=== PATIENT | male | born 1965 | race Caucasian/White ===

== ENCOUNTER 2022-05-11 11:17 | Outpatient (CLI) | payer BC, SELFPAY ==
[2022-05-11 18:25] LABS: PCR FLU A POSITIVE PCR FLU A (Negative); PCR FLU B Negative PCR FLU B (Negative); PCR RSV Negative PCR RSV (Negative)
[2022-05-11 18:28] LABS: SARS PCR* Negative SARS-CoV-2 (Negative)
== END 2022-05-11 11:18 | disposition home or self-care (01) ==
LOC: LONREF 11:17
PROVIDERS: PCP Family Medicine; Visit Provider Family Medicine
DX: Z20.822 Contact with and (suspected) exposure to COVID-19 (principal); R05.9 Cough, unspecified
CPT/HCPCS: 87502; 87634; 87635

== ENCOUNTER 2022-05-13 11:48 | Outpatient (CLI) | payer BC, SELFPAY ==
[2022-05-13 16:13] LABS: Chloride* 100 mmol/L (96-114); Potassium* 3.7 mmol/L (3.6-5.1); Sodium* 136 mmol/L (135-149)
[2022-05-13 16:15] LABS: Estimated Glomerular Filt Rate 87 ml/min
[2022-05-13 16:16] LABS: Alanine Aminotransferase* 45 U/L (4-50); Alkaline Phosphatase* 74 U/L (40-150); Aspartate Amino Transferase* 31 U/L (12-35); Blood Urea Nitrogen* 14 mg/dL (7-30); Calcium* 8.9 mg/dL (8.4-10.6); Carbon Dioxide* 26 mmol/L (20-32); Glucose* 119 mg/dL (60-115); Total Protein* 6.6 g/dL (6.0-8.3)
== END 2022-05-13 11:49 | disposition home or self-care (01) ==
LOC: LONREF 11:48
PROVIDERS: PCP Family Medicine; Visit Provider Family Medicine
DX: R63.0 Anorexia (principal)
CPT/HCPCS: 80053

== ENCOUNTER 2022-05-21 08:40 | Outpatient (CLI) | payer BC, SELFPAY ==
--- NOTE | 2022-05-21 09:00 | CRLHL7_ITS ---
For Patients: As a result of the Century Cures Act, medical imaging exams and procedure reports are released immediately into your electronic medical record. You may view this report before your referring provider. If you have questions, please contact your health care provider. Indication: LUNG MASS Technique: Post contrast CT chest. 75 cc Isovue 370 intravenous contrast. Please note that all CT scans at this facility use dose modulation, iterative reconstruction, and/or weight-based dosing when appropriate to reduce radiation dose to as low as reasonably achievable. Comparison: Chest x-ray 05/13/2022 Findings: 3.3 millimeter nodule within the right middle lobe, 3/53. Subtle ground-glass nodule measuring 3 millimeters right upper lobe, 3/32. Mild scarring at the lung apices. 3 millimeter peripheral nodule within the right lower lobe posteriorly, 3/48. 4.6 millimeter nodule right lower lobe, 3/58. 6.1 millimeter nodule left lower lobe, 3/93. 2.8 millimeter nodule superior segment left lower lobe adjacent to the fissure, 3/36. 3.4 millimeter nodule left upper lobe 3/51. 4.4 millimeter nodule within the lingula, 3/80. Ground-glass densities located within the right middle lobe adjacent to the hilum accounting for the radiographic density. No pneumothorax. No pleural effusion. The spleen is enlarged measuring 16 cm. Normal adrenal glands. Subtle hypodensity within the dome of the liver measuring 1.1 cm, . Upper limits of normal mediastinal and right hilar lymph nodes measuring up to 9 millimeters. Visualized thyroid normal. No fracture. Impression: Right perihilar right middle lobe infiltrate. Bilateral pulmonary nodules measuring up to 6.1 millimeters. Upper limits of normal mediastinal and right hilar lymph nodes. Indeterminate 1.1 cm hypodensity in the dome of the liver. Recommendations: Follow-up CT chest without contrast in 3 months. MRI of the liver with without contrast. Please note that all CT scans at this facility use dose modulation, iterative reconstruction, and/or weight-based dosing when appropriate to reduce radiation dose to as low as reasonably achievable. Dictated by Bobby Silva MD @ 05/21/2022 11:17:46 AM (Electronically Signed)
== END 2022-05-21 08:41 | disposition home or self-care (01) ==
LOC: CT 08:41
PROVIDERS: PCP Family Medicine; Visit Provider Family Medicine
DX: R93.89 Abnormal findings on diagnostic imaging of other specified body structures (principal); R91.8 Other nonspecific abnormal finding of lung field; K76.9 Liver disease, unspecified
CPT/HCPCS: 71260; Q9967

== ENCOUNTER 2022-06-08 07:05 | Outpatient (CLI) | payer BC, SELFPAY ==
--- NOTE | 2022-06-08 07:15 | CRLHL7_ITS ---
For Patients: As a result of the Century Cures Act, medical imaging exams and procedure reports are released immediately into your electronic medical record. You may view this report before your referring provider. If you have questions, please contact your health care provider. INDICATION: Liver lesion; further assessment. COMPARISON: CT chest May 21, 2022. TECHNIQUE: Precontrast T1 and T2 weighted imaging; T2 haste imaging; diffusion weighted imaging; in and out of phase imaging; postcontrast imaging including subtraction. FINDINGS: A 1.7 cm cavernous hemangioma in the dome of the liver. No other focal hepatic or splenic pathology. No pancreatic pathology. Gallbladder is unremarkable. No adrenal pathology. Kidneys are unremarkable. No retroperitoneal lymphadenopathy. No evidence of abdominal ascites. IMPRESSION: 1. A 1.7 cm cavernous hemangioma dome of the liver. 2. Negative MR of the abdomen without and with intravenous gadolinium. Dictated by Yue Otero MD @ 06/08/2022 3:15:09 PM (Electronically Signed)
== END 2022-06-08 07:06 | disposition home or self-care (01) ==
LOC: MRI 07:05
PROVIDERS: PCP Family Medicine; Visit Provider Family Medicine
DX: R16.0 Hepatomegaly, not elsewhere classified (principal); K76.9 Liver disease, unspecified
CPT/HCPCS: 74183; A9575

== ENCOUNTER 2022-06-24 08:03 | Outpatient (CLI) | payer BC, SELFPAY ==
[2022-06-24 10:53] LABS: Cholesterol* 150 mg/dL (90-199); Glucose* 108 mg/dL (60-115)
[2022-06-24 10:54] LABS: HDL Cholesterol* 49 mg/dL (>=40); LDL Cholesterol Calculated 74 mg/dL (<100); Triglycerides* 135 mg/dL (40-149)
[2022-06-24 11:15] LABS: PSA Screen* 0.59 ng/mL (0.10-4.00)
== END 2022-06-24 08:04 | disposition home or self-care (01) ==
PROVIDERS: PCP Family Medicine; Visit Provider Family Medicine
DX: Z13.1 Encounter for screening for diabetes mellitus (principal); Z13.6 Encounter for screening for cardiovascular disorders; Z80.42 Family history of malignant neoplasm of prostate
CPT/HCPCS: 80061; 82947; 84153

== ENCOUNTER 2022-08-13 07:47 | Outpatient (CLI) | payer BC, SELFPAY ==
--- NOTE | 2022-08-13 08:00 | CRLHL7_ITS ---
For Patients: As a result of the Century Cures Act, medical imaging exams and procedure reports are released immediately into your electronic medical record. You may view this report before your referring provider. If you have questions, please contact your health care provider. Indication: Follow up nodules Technique: Noncontrast CT chest Please note that all CT scans at this facility use dose modulation, iterative reconstruction, and/or weight-based dosing when appropriate to reduce radiation dose to as low as reasonably achievable. Comparison: 05/21/2022 Findings: Bilateral pulmonary nodules measuring up to 6 millimeters are similar to the prior exam. No new nodules. Interval clearing of right-sided infiltrate. Mild scarring in both lung apices along with mild paraseptal emphysematous change. No pneumothorax. No pleural effusion. Visualized thyroid normal. Similar subcentimeter mediastinal lymph nodes. Liver is also unchanged. Adrenal glands normal. No fracture. Impression: Stable bilateral pulmonary nodules measuring up to 6 millimeters. Follow-up low-dose CT in 1 year recommended. Please note that all CT scans at this facility use dose modulation, iterative reconstruction, and/or weight-based dosing when appropriate to reduce radiation dose to as low as reasonably achievable. Dictated by Bobby Silva MD @ 08/13/2022 10:15:03 AM (Electronically Signed)
== END 2022-08-13 07:48 | disposition home or self-care (01) ==
LOC: CT 07:47
PROVIDERS: PCP Family Medicine; Visit Provider Family Medicine
DX: R91.8 Other nonspecific abnormal finding of lung field (principal)
CPT/HCPCS: 71250

== ENCOUNTER 2023-07-01 08:15 | Outpatient (CLI) | payer BC, SELFPAY ==
--- OUTSIDE RECORDS SUMMARY | 2023-07-02 05:58 | XMS_ITS | Clinical Summary ---
Author Name Unknown Organization [facility] Address [place], [place] [address] Care Team Providers Care Health Psychologist Name Role Phone Wilfrid Daly MD Primary Care Provider [phone] Allergies No known active allergies Medications Medication Sig Dispensed Refills Start Date End Date Status polyethylene glycol-electrolyte (GOLYTELY) 236-22.74-6.74 -5.86 gram suspensionIndications :Encounter for screening colonoscopy Drink 3 quarts the day before the procedure and 1 quart 6 hours prior to your procedure time. 4000 mL 0 07/26/2019 Active Active Problems Problem Noted Date Diagnosed Date Adenomatous colon polyp 08/02/2019 Overview: Colonoscopy 07/2019 polyps, repeat in 3 years Encounters Date Type Department Care Team Description 05/03/2023 Nurse Triage [facility] [address] [facility] [address] [facility] [address] [place] [address] Wilfrid Daly MD Hernia (Left upper abdomen) from Last 3 Months Social History Tobacco Use Types Packs/Day Years Used Date Smoking Tobacco: Never Smokeless Tobacco: Never Sex and Gender Information Value Date Recorded Sex Assigned at Not on file Gender Identity Not on file Sexual Orientation Not on file Obstetrics History Last Filed Vital Signs Vital Sign Reading Time Taken Comments Blood Pressure 108/60 08/01/2019 11:21 AM CDT Pulse 68 08/01/2019 11:21 AM CDT Temperature - - Respiratory Rate - - Oxygen Saturation 96% 08/01/2019 11:21 AM CDT Inhaled Oxygen Concentration - - Weight - - Height - - Body Mass Index - - Plan of Treatment Health Maintenance Due Date Last Done Comments COVID-19 vaccine series (#1) 1963 Tdap 1974 Depression screening for age 12+ 1975 HIV for age 15-65 1978 BMI (ht and wt on same day) for age 18+ 1981 Hepatitis C screening for ag e 18-79 1981 Tetanus booster 1983 Lipids for age 45-75 2008 Zoster (shingles) series for age 50+ (1 of 2) 2013 Influenza for age 50-64 01/22/2023 Colonoscopy through age 75 07/31/202907/31, 08/01/2019, 08/01/2019 Pneumococcal series for age 6-64 Aged Out No longer eligible b ased on patient's age to complete this topic Care Teams Health Psychologist Relationship Specialty Start Date End Date Wilfrid Daly MD [address] [place] [address] PCP - General Family Practice 08/01/19
== END 2023-07-01 08:16 | disposition home or self-care (01) ==
LOC: NFLDREF 07-02 05:56
PROVIDERS: PCP Family Medicine; Referring Provider Family Medicine; Visit Provider Family Medicine
DX: Z00.00 Encounter for general adult medical examination without abnormal findings (principal); Z13.6 Encounter for screening for cardiovascular disorders; Z80.42 Family history of malignant neoplasm of prostate
CPT/HCPCS: 80053; 80061; G0103

== ENCOUNTER 2023-07-14 12:49 | Outpatient (CLI) | payer BC, SELFPAY ==
--- OUTSIDE RECORDS SUMMARY | 2023-07-14 12:52 | XMS_ITS | Clinical Summary ---
Author Name Unknown Organization [facility] Address [place], [place] [address] Care Team Providers Care Automobile And Property Underwriter Name Role Phone Wilfrid Daly MD Primary Care Provider [phone] Allergies No known active allergies Medications Medication [...] Department Care Team Description 05/03/2023 Nurse Triage [facility] [address] [facility] [address] [facility] [address] [place] [address] Wilfrid Daly MD Hernia (Left upper abdomen) [...] age to complete this topic Care Teams Automobile And Property Underwriter Relationship Specialty Start Date End Date Wilfrid Daly MD [address] [place] [address] PCP - General Family Practice 08/01/19
--- NOTE | 2023-07-14 13:00 | CT_ITS ---
Patient: DOTTY KENYON Facility:?[facility] Patient ID:?[id number] Site Patient ID:?[id number]. Site :?[id number] Study:?CT-Chest WO-07/14/2023 1:27:31 PM Ordering Physician:MASON ANG Final Report: INDICATION: Pulmonary nodules. Follow-up. TECHNIQUE: Noncontrast chest CT. COMPARISON: August 13, 2022. May 21, 2022. FINDINGS: Stable tiny pulmonary nodules. For example: There is a 2 3 mm right middle lobe carol fissural nodule image 44 series 6. There is a 3-4 mm pulmonary nodule at the right lung base which is also stable, image 44 series 6. A previous identified nodule at the left lung base is no longer evident. There is a very minor atelectasis in each lung base left greater than right. There is an approximately 4 mm stable pulmonary nodule left upper lobe image 43 series 6. No new nodules. No evidence for pleural or pericardial effusions. No thoracic lymphadenopathy. No definite coronary artery calcification. Normal caliber thoracic aorta. Normal adrenal glands. The visualized portions of the spleen, kidneys, and liver are unremarkable. The included skeleton is within normal limits. IMPRESSION: Tiny bilateral pulmonary nodules none of which measure more than 4-5 mm. Resolution of a nodule at the left lung base. No new nodules. Consider follow-up chest CT in 1 year. Please note that all CT scans at this facility use dose modulation, iterative reconstruction, and/or weight-based dosing when appropriate to reduce radiation dose to as low as reasonably achievable. Dictated by Roland Schaffer MD @ 07/15/2023 11:56:32 AM Signed by:?Roland Schaffer MD @07/15/2023 11:56:32 AM (Electronic Signature)
== END 2023-07-14 12:50 | disposition home or self-care (01) ==
LOC: CT 12:50
PROVIDERS: PCP Family Medicine; Visit Provider Family Medicine
DX: R91.8 Other nonspecific abnormal finding of lung field (principal)
CPT/HCPCS: 71250

== ENCOUNTER 2023-07-17 08:46 | Emergency (ER) | payer BC, SELFPAY ==
[2023-07-17 08:49] VITALS: BP 149/74; PULSE 95; RESP 18; TEMP 36.4; O2SAT 95; BMI 33.4
--- NOTE | 2023-07-17 09:32 | ED.GENADULT ---
HPI - General Adult General Date Seen: 07/17/23 Chief complaint: Shortness of Breath/Dyspnea Stated complaint: Shortness of breath Time Seen by Provider: 07/17/23 09:21 Source: patient Mode of arrival: ambulatory Limitations: no limitations History of Present Illness HPI narrative: Patient is a 58-year-old male presenting to the emergency department for a cough. He has been having this cough treated now for several weeks says it started before Shanique. Has been on a couple rounds of azithromycin. Has had multiple chest x-rays done in have CT done [address] showed some very mild atelectasis and known pulmonary nodules but no other concerning findings. Today he had a coughing fit a caused his home oxygen monitor to dip down into the 80s for extended period of time. They think the low oxygen reading he last about 5-10 minutes and then bumped back up to normal. Patient has been using her inhaler at home without a spacer. States the only medicine every seemed to help was his codeine cough medicine that he ran out of. States when he lays back it is hard to breathe because it makes him cough so much. States he has had symptoms like this last year these did not last as long. Denies fevers, chills, chest pain, headache, weakness, numbness, diarrhea, constipation, abdominal pain. Patient has noted he has noticed wheezing for while now Related Data Previous Rx's Medication Instructions Recorded albuterol sulfate 90 mcg/actuation 2 puff inhalation Q4-6H PRN 07/05/23 aerosol inhaler shortness of breath or wheezing #8.5 grams tadalafil 10 mg tablet (Cialis) 10 - 20 mg (1 - 2 x 10 mg) PO QDAY 07/05/23 PRN sexual activity #10 tabs peg 3350-electrolytes 236 240 ml PO ONCE #4,000 mL 07/06/23 gram-22.74 gram-6.74 gram-5.86 gram solution (Golytely) azithromycin 250 mg tablet See Rx Instructions PO .COMPLEX #6 07/13/23 tabs codeine 10 mg-guaifenesin 100 mg/5 10 ml PO Q4-6H PRN cough #120 mL 07/13/23 mL oral liquid prednisone 20 mg tablet 40 mg (2 x 20 mg) PO QDAY #10 tabs 07/13/23 Allergies Allergy/AdvReac Type Severity Reaction Status Date / Time No Known Drug Allergies Allergy Verified 07/13/23 10:41 Review of Systems Status of ROS: Reports: 10 or more systems reviewed and unremarkable except as noted in History and below [facility] Surgical History History of colonoscopy (08/01/19) ?Z98.890 - Other specified postprocedural states (ICD-10) Family History Other Prostate cancer Social History What is your current living situation?: I presently have a place to live Problems where you live: declined to answer In the past 12 months, utilities in danger of being shut off: no In past 12 months, lack of transportation kept you from medical appts, meetings, work, or getting things needed for daily living: no In the past 12 mos, have been you worried that your food would run out before you had money to buy more?: never true In the past 12 mos, the food you bought just didn't last and you didn't have money to buy more?: never true Smoking Status: Never smoker How often does anyone, including family, friends and others, physically hurt you: never How often does anyone, including family, friends and others, insult or talk down to you: never How often does anyone, including family, friends and others, threaten you with harm: never How often does anyone, including family, friends and others, scream or curse at you: never Little interest or pleasure in doing things: not at all Feeling down, depressed, or hopeless: not at all Exam Narrative: Exam Narrative: Const: Well-nourished, Well-developed, in no distress Eyes: PERRL, no conjunctival injection, and symmetrical lids HENT: Atraumatic external nose and ears. Moist mucous membranes. Neck: Symmetric, trachea midline, No thyromegaly. CVS: RRR, No murmurs or gallops. Peripheral pulses 2+ and equal in all extremities RESP: Unlabored respiratory effort. Mild wheezing throughout GI: Nontender/Nondistended, No rebound or guarding. MSK:Extremities w/o deformity, Normal Active ROM Skin: Warm, Dry. No rashes or lesions. Neuro: Normal Muscle tone, No focal neurological deficits. Psych: Awake, Alert, & Oriented x3. Appropriate mood and affect. Const: Vital Signs, click to edit/add: Vital Signs - 24 hr 07/17/23 08:49 Temperature 97.5 F L Pulse Rate [Right Pulse Oximeter] 95 Respiratory Rate 18 Blood Pressure [Ri ght Upper Arm] 149/74 H Pulse Oximetry 95 Oxygen Delivery Me thod Room Air Course Vital Signs Vital signs: Initial Vital Signs Temperature 97.5 F L 07/17/23 08:49 Temperature Source Temporal Artery Scan 07/17/23 08:49 Pulse Rate 95 07/17/23 08:49 Respiratory Rate 18 07/17/23 08:49 Blood Pressure 149/74 H 07/17/23 08:49 Blood Pressure Mean 99 07/17/23 08:49 Blood Pressure Position Sitting 07/17/23 08:49 Pulse Oximetry 95 07/17/23 08:49 Oxygen Delivery Method Room Air 07/17/23 08:49 Vital Signs Temperature 97.5 F L 07/17/23 08:49 Pulse Rate 95 07/17/23 08:49 Respiratory Rate 18 07/17/23 08:49 Blood Pressure 149/74 H 07/17/23 08:49 Pulse Oximetry 95 07/17/23 08:49 Oxygen Delivery Method Room Air 07/17/23 08:49 Temperature 97.5 F L 07/17/23 08:49 Pulse Rate 95 07/17/23 08:49 Respiratory Rate 18 07/17/23 08:49 Blood Pressure 149/74 H 07/17/23 08:49 Pulse Oximetry 95 07/17/23 08:49 Oxygen Delivery Method Room Air 07/17/23 08:49 Medical Decision Making MDM Narrative Medical decision making narrative: Patient is a 58-year-old male presenting to the emergency department for a cough. His since he just had a CT done 3 days ago not believe repeat imaging would show anything new. The symptoms have not overtly changes in those 3 days and having going on for 10 weeks the patient states. I will give him a nebulizer for his wheezing. We will check some basic labs and recheck a COVID flu test and says not been done in a while. Patient's lab work returned showing no concerning abnormalities. COVID swab is currently pending. RT gave the patient an aerobika device that he used which made his symptoms improve he states. I no longer hear wheezing on lung exam he states he is feeling much better. RT also explained to him the importance of using the albuterol inhaler spacer to better improve the functionality of the inhaler. Patient was given a prescription for an inhaler, a spacer and codiene/guaifenesin cough medicine. I was informed there was an issue with the prescribing for the pharmacies at this time it was recommended to do paper scripts. These were done. Patient will follow-up with primary care provider. Lab Data Labs: Lab Results 07/17/23 07/17/23 Range/Units 09:22 09:42 WBC 9.26 (4.50-11.00) K/uL RBC 5.05 (4.30-5.90) m/uL Hgb 15.9 (13.5-17.5) gm/dL Hct 46.6 (37.0-53.0) % MCV 92 (80-100) fL MCH 32 (26-34) pg MCHC 34 (32-36) gm/dL RDW Coeff of [place] 12.6 (11.5-15.5) % Plt Count 208 (140-440) K/uL Neut % (Auto) 71.9 (42.0-72.0) % Lymph % (Auto) 15.3 L (20-44) % [place] % (Auto) 5.0 (0.0-11.0) % Eos % (Auto) 7.2 H (0.0-7.0) % Baso % (Auto) 0.2 (0.0-3.0) % Neut # (Auto) 6.65 (1.7-7.0) K/uL Lymph # (Auto) 1.40 (0.90-2.90) K/uL [place] # (Auto) 0.50 (0.00-0.90) K/UL Eos # (Auto) 0.70 H (0.00-0.50) K/uL Baso # (Auto) 0.02 (0.00-0.30) K/uL Abs Immat Gran (auto) 0.04 (0.00-0.30) K/uL Imm/Tot Granulo (auto) 0.4 % Sodium 138 (135-149) mmol/L Potassium 3.5 L (3.6-5.1) mmol/L Chloride 103 (96-114) mmol/L Carbon Dioxide 27 (20-32) mmol/L Anion Gap 8 (7-15) mEq/L BUN 18 (7-30) mg/dL Creatinine 0.8 (0.5-1.5) mg/dL Estimated Creat Clear 123.75 Estimated GFR 101 ml/min Glucose 127 H (60-115) mg/dL Calcium 8.9 (8.4-10.6) mg/dL POC Troponin I 0.00 L (0.01-0.04) ng/ml Discharge Plan Discharge Clinical Impression: Chronic bronchitis Qualifiers: Chronic bronchitis type: unspecified Qualified Code(s): J42 - Unspecified chronic bronchitis Patient Disposition: Home, Self-Care Condition: Improved Instructions: How to Use a Metered-Dose Inhaler (DC) Additional Instructions: Use your inhaler with the spacer. Also use your Aerobika as your directed. Follow up with the primary care provider. Return to emergency department for new or worsening symptoms. Your prescriptions for the spacer, inhaler, cough medicine was all given as paper scripts Prescriptions: No Action tadalafil [Cialis] 10 mg tablet 10 - 20 mg PO QDAY PRN (Reason: sexual activity) Qty: 10 11RF Rx Instructions: administer approximately 30min before sexual activity; do not use more than 1 dose per 24hrs albuterol sulfate 90 mcg/actuation HFA aerosol inhaler 2 puff inhalation Q4-6H PRN (Reason: shortness of breath or wheezing) Qty: 8.5 1RF prednisone 20 mg tablet 40 mg PO QDAY Qty: 10 0RF azithromycin 250 mg tablet See Rx Instructions PO .COMPLEX Qty: 6 0RF Rx Instructions: For 250 mg dose pack: take 500 mg today (day 1), then 250 mg for 4 days (days 2-5) PO peg 3350-electrolytes [Golytely] 236-22.74-6.74 -5.86 gram recon soln 240 ml PO ONCE Qty: 4000 0RF Rx Instructions: until fecal effluent is clear codeine-guaifenesin 10-100 mg/5 mL liquid 10 ml PO Q4-6H PRN (Reason: cough) Qty: 120 1RF Follow Up/Referrals: Wilfrid Daly MD [Primary Care Provider] - Stand Alone Forms: [employer]ient Info Instructions
[2023-07-17 09:53] LABS: Basophils Absolute Auto 0.02 K/uL (0.00-0.30); Basophils Percent Auto 0.2 % (0.0-3.0); Eosinophils Percent Auto 7.2 % (0.0-7.0); Hematocrit 46.6 % (37.0-53.0); Hemoglobin* 15.9 gm/dL (13.5-17.5); Immature Granulocytes Abs Auto 0.04 K/uL (0.00-0.30); Immature Granulocytes Pct Auto 0.4 %; Lymphocytes Percent Auto 15.3 % (20-44); Mean Corpuscular HGB Conc 34 gm/dL (32-36); Mean Corpuscular Hemoglobin 32 pg (26-34); Mean Corpuscular Volume 92 fL (80-100); Neutrophils Absolute Auto 6.65 K/uL (1.7-7.0); Neutrophils Percent Auto 71.9 % (42.0-72.0); Platelet Count* 208 K/uL (140-440); RDW Coefficient of Variation % 12.6 % (11.5-15.5); Red Blood Count 5.05 m/uL (4.30-5.90); White Blood Count* 9.26 K/uL (4.50-11.00)
[2023-07-17 09:58] LABS: Slide Review Reflex No
[2023-07-17 10:05] LABS: Chloride* 103 mmol/L (96-114); Potassium* 3.5 mmol/L (3.6-5.1); Sodium* 138 mmol/L (135-149)
[2023-07-17 10:08] LABS: Anion Gap 8 mEq/L (7-15); Blood Urea Nitrogen* 18 mg/dL (7-30); Calcium* 8.9 mg/dL (8.4-10.6); Carbon Dioxide* 27 mmol/L (20-32); Creatinine* 0.8 mg/dL (0.5-1.5); Est. Creatinine Clearance* 123.75; Estimated Glomerular Filt Rate 101 ml/min; Glucose* 127 mg/dL (60-115)
[2023-07-17 11:23] LABS: PCR FLU A Negative PCR FLU A (Negative); PCR FLU B Negative PCR FLU B (Negative); PCR RSV Negative PCR RSV (Negative); SARS PCR* Negative SARS-CoV-2 (Negative)
== END 2023-07-17 11:17 | disposition home or self-care (01) ==
PROVIDERS: Emergency Provider Student in an Organized Health Care Education/Training Program; PCP Family Medicine
DX: J42 Unspecified chronic bronchitis (principal)
CPT/HCPCS: 36415; 80048; 84484; 85025; 87631; 94664; 99283; 99284

== ENCOUNTER 2023-07-26 10:50 | Outpatient (CLI) | payer BC, SELFPAY ==
--- NOTE | 2023-07-26 11:38 | W.ANESCHARGE ---
Anesthesia Charges Start Date/Time Anesthesia Start Date: 07/26/23 Anesthesia Start Time: 11:40 Stop Date/Time Anesthesia Stop Date: 07/26/23 Anesthesia Stop Time: 12:20
--- NOTE | 2023-07-26 12:01 | W.ANESCHARGE ---
Anesthesia Charges Start Date/Time Anesthesia Start Date: 07/26/23 Anesthesia Start Time: 11:40 Stop Date/Time Anesthesia Stop Date: 07/26/23 Anesthesia Stop Time: 12:20
== END 2023-07-26 10:51 | disposition home or self-care (01) ==
LOC: OP CLINIC 10:51
PROVIDERS: PCP Family Medicine; Visit Provider Surgery
DX: K63.5 Polyp of colon (principal); K62.1 Rectal polyp; Z86.010 Personal history of colon polyps
CPT/HCPCS: 45385; 811; 88305; J2704

== ENCOUNTER 2023-08-24 21:17 | Inpatient (IN) | payer BC, SELFPAY ==
[2023-08-24] VITALS (12 sets, daily range): BP systolic 113–149; BP diastolic 54–81; PULSE 78–116; RESP 16–24; TEMP 36.6; O2SAT 90–97; BMI 32.6
[2023-08-24] MEDS: ALBUTEROL SULFATE 2.5 MG/3 ML VIAL.NEB NEB (22:00)
--- NOTE | 2023-08-24 22:05 | ED_ITS ---
HPI - SOB/Dyspnea General Date Seen: 08/24/23 Chief Complaint: Shortness of Breath/Dyspnea Stated Complaint: Low oxygen/High heart rate-lightheade Time Seen by Provider: 08/24/23 21:22 Source: patient Mode of arrival: ambulatory Limitations: no limitations History of Present Illness HPI Narrative: Patient is a 58-year-old male presenting to the emergency department for shortness of breath and tachycardia. He has been dealing with intermittent shortness of breath and a chronic cough since . Was seen in the emergency department back in June and was improving after medications and was discharged home. He states the next day he then acutely became short of breath and went to [place] where he was admitted for a proxy and kept in the hospital for 3 days. He was discharged home with no official diagnosis of what is causing his symptoms. They were concerned about his eosinophilia although. He is scheduled to see pulmonology in 1 week at [place] for several more test. His heart rate increased to the 120s today and his oxygenation dropped down to 84% so him and his were concerned and they came to the emergency department. He states he now feels very short of breath just walking around which is abnormal for him. Usually sees oxygenation is about 95% and they check it frequently at home. Heart rate is usually in the 60s. Denies fevers, chills. Feels slightly lightheaded. No other concerns noted at this time. Denies chest pain, abdominal pain, diarrhea, constipation, vision changes, weakness, numbness. Related Data Home Medications Medication Instructions Recorded Confirmed acetaminophen 500 mg tablet 500 mg PO Q6H PRN 07/27/23 07/27/23 (Tylenol Extra Strength) benzonatate 100 mg capsule 100 mg PO TID PRN 07/27/23 08/24/23 ibuprofen 200 mg tablet 200 mg PO Q6H PRN 07/27/23 08/24/23 pantoprazole 40 mg tablet,delayed 40 mg PO QAM 07/27/23 07/27/23 release prednisone 10 mg tablet 10 mg PO BID 07/27/23 07/27/23 Previous Rx's Medication Instructions Recorded albuterol sulfate 90 mcg/actuation 2 puff inhalation Q4-6H PRN 07/05/23 aerosol inhaler shortness of breath or wheezing #8.5 grams fluticasone furoate 100 1 inh inhalation BID #30 ea 07/27/23 mcg/actuation blister powder for inhalation (Arnuity Ellipta) tadalafil 10 mg tablet (Cialis) 10 - 20 mg (1 - 2 x 10 mg) PO QDAY 07/27/23 PRN sexual activity #10 tabs Allergies Allergy/AdvReac Type Severity Reaction Status Date / Time No Known Drug Allergies Allergy Verified 08/25/23 00:46 Review of Systems Status of ROS: Reports: 10 or more systems reviewed and unremarkable except as noted in History and below PFSH PFS Medical History RAD (reactive airway disease) ?J45.909 - Unspecified asthma, uncomplicated (ICD-10) Surgical History History of colonoscopy (08/01/19) ?Z98.890 - Other specified postprocedural states (ICD-10) Family History Other Prostate cancer Social History What is your current living situation?: I presently have a place to live Problems where you live: declined to answer In the past 12 months, utilities in danger of being shut off: no In past 12 months, lack of transportation kept you from medical appts, meetings, work, or getting things needed for daily living: no In the past 12 mos, have been you worried that your food would run out before you had money to buy more?: never true In the past 12 mos, the food you bought just didn't last and you didn't have money to buy more?: never true Smoking Status: Former smoker Do you use any of these nicotine containing products: None How often do you have a drink containing alcohol: never How often do you have six or more drinks on one occasion: Never AUDIT-C Alcohol total score: 0 Non-prescribed substance use: denies use How often does anyone, including family, friends and others, physically hurt you : never How often does anyone, including family, friends and others, insult or talk down to you: never How often does anyone, including family, friends and others, threaten you with harm: never How often does anyone, including family, friends and others, scream or curse at you: never Little interest or pleasure in doing things: not at all Feeling down, depressed, or hopeless: not at all service: No Exam Narrative: Exam Narrative: Const: Well-nourished, Well-developed, in moderate distress Eyes: PERRL, no conjunctival injection, and symmetrical lids HENT: Atraumatic external nose and ears. Moist mucous membranes. Neck: Symmetric, trachea midline, No thyromegaly. CVS: Tachycardic, No murmurs or gallops. Peripheral pulses 2+ and equal in all extremities RESP: Increased respiratory effort with mild wheezing heard throughout lung lovelace GI: Nontender/Nondistended, No rebound or guarding. MSK:Extremities w/o deformity, Normal Active ROM Skin: Warm, Dry. No rashes or lesions. Neuro: Normal Muscle tone, No focal neurological deficits. Psych: Awake, Alert, & Oriented x3. Appropriate mood and affect. Const: Vital Signs, click to edit/add: Vital Signs - 24 hr 08/24/23 21:32 08/24/23 21:33 08/24/23 21:45 Temperature 97.8 F Pulse Rate 106 H 107 H Pulse Rate [Pulse Oximeter] 116 H Respiratory Rate 24 Blood Pressure Blood Pressure [Ri ght Upper Arm] 149/81 H Pulse Oximetry 90 94 91 Oxygen Delivery Me thod Room Air Room Air Room Air Oxygen Flow Rate Fraction of Inspir ed Oxygen 08/24/23 22:00 08/24/23 22:02 08/24/23 22:03 Temperature Pulse Rate 94 98 99 Pulse Rate [Pulse Oximeter] Respiratory Rate Blood Pressure 119/71 120/71 Blood Pressure [Ri ght Upper Arm] Pulse Oximetry 97 97 97 Oxygen Delivery Me thod Room Air Room Air Room Air Oxygen Flow Rate Fraction of Inspir ed Oxygen 08/24/23 22:15 08/24/23 22:30 08/24/23 22:31 Temperature Pulse Rate 101 H 101 H 85 Pulse Rate [Pulse Oximeter] Respiratory Rate Blood Pressure 118/66 Blood Pressure [Ri ght Upper Arm] Pulse Oximetry 91 92 91 Oxygen Delivery Me thod Nasal Cannula Nasal Cannula Nasal Cannula Oxygen Flow Rate 2 2 2 Fraction of Inspir ed Oxygen 08/24/23 22:45 08/24/23 23:17 08/24/23 23:32 Temperature Pulse Rate 84 86 78 Pulse Rate [Pulse Oximeter] Respiratory Rate 16 16 Blood Pressure 127/54 L 113/68 Blood Pressure [Ri ght Upper Arm] Pulse Oximetry 93 94 95 Oxygen Delivery Me thod Nasal Cannula Nasal Cannula Oxygen Flow Rate 2 2 Fraction of Inspir ed Oxygen 08/25/23 00:02 08/25/23 00:25 08/25/23 00:26 Temperature Pulse Rate 76 Pulse Rate [Pulse Oximeter] Respiratory Rate 16 Blood Pressure 110/59 L Blood Pressure [Ri ght Upper Arm] Pulse Oximetry 95 88 94 Oxygen Delivery Me thod Room Air Nasal Cannula Oxygen Flow Rate Fraction of Inspir ed Oxygen 2 08/25/23 01:46 Temperature Pulse Rate 78 Pulse Rate [Pulse Oximeter] Respiratory Rate 16 Blood Pressure 115/68 Blood Pressure [Ri ght Upper Arm] Pulse Oximetry 95 Oxygen Delivery Me thod Oxygen Flow Rate Fraction of Inspir ed Oxygen Course Vital Signs Vital signs: Initial Vital Signs Pulse Rate 106 H 08/24/23 21:32 Pulse Oximetry 90 08/24/23 21:32 Oxygen Delivery Method Room Air 08/24/23 21:32 Vital Signs Pulse Rate 106 H 08/24/23 21:32 Pulse Oximetry 90 08/24/23 21:32 Oxygen Delivery Method Room Air 08/24/23 21:32 Temperature 97.8 F 08/24/23 21:33 Pulse Rate 78 08/25/23 01:46 Respiratory Rate 16 08/25/23 01:46 Blood Pressure 115/68 08/25/23 01:46 Pulse Oximetry 95 08/25/23 01:46 Oxygen Delivery Method Nasal Cannula 08/25/23 00:26 Oxygen Flow Rate 2 08/24/23 23:17 Fraction of Inspired Oxygen 2 08/25/23 00:26 Medications Administered Medications: Discontinued Medications Generic Name Dose Route Start Last Admin Trade Name Freq PRN Reason Stop Dose Admin Albuterol 2.5 mg 08/24/23 21:49 08/24/23 22:00 Albuterol Sulfate 2.5 Mg/3 Ml Vial.Neb NEB 08/24/23 21:50 2.5 mg ONCE ONE Administration Lactated Ringer's 1,000 mls @ 1,000 mls/hr 08/24/23 21:49 08/24/23 23:35 Lactated Ringers 1000 Ml IV 08/24/23 22:48 Infused .Q1H ONE Infusion MDM - SOB/Dyspnea MDM Narrative Medical decision making narrative: Patient is a 58-year-old male presenting for tachycardia and shortness of breath. EKG was done in triage. I will do a CT scan of his chest to better evaluate his lungs. Will hold off until D-dimer returns to see if he needs a CTA or not. Will also order CBC, CMP, COVID/flu/RSV, troponin. He has not be eating much or drinking much today so will give a L of fluids. Will also give him a dose of albuterol. That helped last time he came to the emergency department. CBC, CMP, COVID/flu/RSV, troponin all showed no concerning findings. EKG just showed sinus tachycardia. We will repeat the troponin in 2 hours. D-dimer was elevated at 0.76. CTA was ordered. Patient received albuterol. Prior to receiving the albuterol his oxygen saturation dropped down to 88%. After the albuterol it was still 88% on room air. He is placed on 2 L nasal cannula. His heart rate has improved greatly and is now in the 70s to 80s range. His respiratory rate has also improved now that he is on nasal cannula. We tried take the patient off nasal cannula and he ambulated around the department. After only 2 laps he was feeling short of breath and needed oxygen again. Patient does state he has been having some rhinorrhea and sinus pressure. He likely has some kind of viral syndrome compounding his previous lung issue. CTA returned showing no acute abnormalities. Patient was admitted to the tele hospitalist service. He is agreeable to this plan Lab Data Labs: Lab Results 08/24/23 08/24/23 08/24/23 Range/Units 21:45 21:49 22:00 WBC 8.23 (4.50-11.00) K/uL RBC 5.22 (4.30-5.90) m/uL Hgb 16.6 (13.5-17.5) gm/dL Hct 48.2 (37.0-53.0) % MCV 92 (80-100) fL MCH 32 (26-34) pg MCHC 34 (32-36) gm/dL RDW Coeff of Augustine 12.4 (11.5-15.5) % Plt Count 168 (140-440) K/uL Neut % (Auto) 72.0 (42.0-72.0) % Lymph % (Auto) 14.3 L (20-44) % Cocke % (Auto) 8.3 (0.0-11.0) % Eos % (Auto) 5.1 (0.0-7.0) % Baso % (Auto) 0.1 (0.0-3.0) % Neut # (Auto) 5.92 (1.7-7.0) K/uL Lymph # (Auto) 1.20 (0.90-2.90) K/uL Cocke # (Auto) 0.70 (0.00-0.90) K/UL Eos # (Auto) 0.42 (0.00-0.50) K/uL Baso # (Auto) 0.01 (0.00-0.30) K/uL Abs Immat Gran (auto) 0.02 (0.00-0.30) K/uL Imm/Tot Granulo (auto) 0.2 % D-Dimer Quant (PE/DVT) 0.76 H (0.00-0.50) ug/ml Sodium 139 (135-149) mmol/L Potassium 3.5 L (3.6-5.1) mmol/L Chloride 104 (96-114) mmol/L Carbon Dioxide 22 (20-32) mmol/L Anion Gap 13 (7-15) mEq/L BUN 14 (7-30) mg/dL Creatinine 0.9 (0.5-1.5) mg/dL Estimated Creat Clear 110.00 Estimated GFR 98 ml/min Glucose 209 H (60-115) mg/dL Lactate (0.5-1.9) mmol/L Calcium 9.2 (8.4-10.6) mg/dL Total Bilirubin 0.8 (0.1-1.5) mg/dL AST 25 (12-35) U/L ALT 41 (4-50) U/L Alkaline Phosphatase 61 (40-150) U/L Total Protein 7.2 (6.0-8.3) g/dL Albumin 4.5 (3.3-5.0) g/dL SARS-CoV-2 (PCR) Negative SARS-CoV-2 (Negative) Influenza Type A (PCR) Negative PCR FLU A (Negative) Influenza Type B (PCR) Negative PCR FLU B (Negative) RSV (PCR) Negative PCR RSV (Negative) POC Troponin I 0.00 L (0.01-0.04) ng/ml 08/24/23 08/25/23 Range/Units 23:50 00:00 WBC (4.50-11.00) K/uL RBC (4.30-5.90) m/uL Hgb (13.5-17.5) gm/dL Hct (37.0-53.0) % MCV (80-100) fL MCH (26-34) pg MCHC (32-36) gm/dL RDW Coeff of Augustine (11.5-15.5) % Plt Count (140-440) K/uL Neut % (Auto) (42.0-72.0) % Lymph % (Auto) (20-44) % Cocke % (Auto) (0.0-11.0) % Eos % (Auto) (0.0-7.0) % Baso % (Auto) (0.0-3.0) % Neut # (Auto) (1.7-7.0) K/uL Lymph # (Auto) (0.90-2.90) K/uL Cocke # (Auto) (0.00-0.90) K/UL Eos # (Auto) (0.00-0.50) K/uL Baso # (Auto) (0.00-0.30) K/uL Abs Immat Gran (auto) (0.00-0.30) K/uL Imm/Tot Granulo (auto) % D-Dimer Quant (PE/DVT) (0.00-0.50) ug/ml Sodium (135-149) mmol/L Potassium (3.6-5.1) mmol/L Chloride (96-114) mmol/L Carbon Dioxide (20-32) mmol/L Anion Gap (7-15) mEq/L BUN (7-30) mg/dL Creatinine (0.5-1.5) mg/dL Estimated Creat Clear Estimated GFR ml/min Glucose (60-115) mg/dL Lactate 1.1 (0.5-1.9) mmol/L Calcium (8.4-10.6) mg/dL Total Bilirubin (0.1-1.5) mg/dL AST (12-35) U/L ALT (4-50) U/L Alkaline Phosphatase (40-150) U/L Total Protein (6.0-8.3) g/dL Albumin (3.3-5.0) g/dL SARS-CoV-2 (PCR) (Negative) Influenza Type A (PCR) (Negative) Influenza Type B (PCR) (Negative) RSV (PCR) (Negative) POC Troponin I 0.00 L (0.01-0.04) ng/ml Imaging Data CTA chest: Radiologist's impression: 1. No pulmonary embolus. No CT evidence of right heart strain. 2. No acute intrathoracic pathology. Please note that all CT scans at this facility use dose modulation, iterative reconstruction, and/or weight-based dosing when appropriate to reduce radiation dose to as low as reasonably achievable. Dictated by Kt Estrada MD @ 08/25/2023 1:17:42 AM ECG Data Attestation: I personally reviewed and interpreted this ECG as follows: Prior ECG tracings: not available for review Interpretation: Sinus tachycardia of 106 beats per minute, left axis deviation, normal intervals, no ST or T-wave abnormalities Discharge Plan Discharge Clinical Impression: Shortness of breath Patient Disposition: Admitted As Observation Condition: Improved
[2023-08-24] MEDS: LACTATED RINGERS 1000 ML 1,000 ML IV (22:10)
[2023-08-24 22:17] LABS: Albumin* 4.5 g/dL (3.3-5.0); Chloride* 104 mmol/L (96-114); Potassium* 3.5 mmol/L (3.6-5.1); Sodium* 139 mmol/L (135-149)
[2023-08-24 22:19] LABS: Basophils Absolute Auto 0.01 K/uL (0.00-0.30); Basophils Percent Auto 0.1 % (0.0-3.0); Eosinophils Absolute Auto 0.42 K/uL (0.00-0.50); Eosinophils Percent Auto 5.1 % (0.0-7.0); Hematocrit 48.2 % (37.0-53.0); Hemoglobin* 16.6 gm/dL (13.5-17.5); Immature Granulocytes Abs Auto 0.02 K/uL (0.00-0.30); Immature Granulocytes Pct Auto 0.2 %; Lymphocytes Percent Auto 14.3 % (20-44); Mean Corpuscular HGB Conc 34 gm/dL (32-36); Mean Corpuscular Hemoglobin 32 pg (26-34); Mean Corpuscular Volume 92 fL (80-100); Monocytes Percent Auto 8.3 % (0.0-11.0); Neutrophils Absolute Auto 5.92 K/uL (1.7-7.0); Platelet Count* 168 K/uL (140-440); RDW Coefficient of Variation % 12.4 % (11.5-15.5); Red Blood Count 5.22 m/uL (4.30-5.90); White Blood Count* 8.23 K/uL (4.50-11.00)
[2023-08-24 22:20] LABS: Anion Gap 13 mEq/L (7-15); Bilirubin Total* 0.8 mg/dL (0.1-1.5); Blood Urea Nitrogen* 14 mg/dL (7-30); Carbon Dioxide* 22 mmol/L (20-32); Creatinine* 0.9 mg/dL (0.5-1.5); Estimated Glomerular Filt Rate 98 ml/min; Total Protein* 7.2 g/dL (6.0-8.3)
[2023-08-24 22:21] LABS: Alanine Aminotransferase* 41 U/L (4-50); Alkaline Phosphatase* 61 U/L (40-150); Aspartate Amino Transferase* 25 U/L (12-35); Calcium* 9.2 mg/dL (8.4-10.6); Glucose* 209 mg/dL (60-115)
[2023-08-24 22:22] LABS: Slide Review Reflex No
[2023-08-24 22:23] LABS: D Dimer Quantitative* 0.76 ug/ml (0.00-0.50)
--- NOTE | 2023-08-24 22:28 | CT_ITS ---
Patient: DOTTY KENYON Facility:?[facility] RIS Patient ID:?[id number] Site Patient ID:?[id number]. Site :?[id number] Study:?CT-Chest PE w/95 cc's Isovue 370-08/24/2023 11:22:56 PM Ordering Physician:William Final Report: INDICATION: Dyspnea. Chest pain. TECHNIQUE: Multiplanar CT pulmonary angiogram was performed after the administration of 95 mL of Isovue 370 intravenous contrast. COMPARISON: CT chest 07/14/2023. FINDINGS: Lower neck: The visualized thyroid is unremarkable. Cardiovascular: Contrast opacification of the pulmonary arterial tree is adequate. Heart size is normal. Thoracic aorta and pulmonary artery are normal in caliber. No significant atherosclerotic calcifications of the aortic arch. No significant coronary arterial calcifications. No pulmonary embolus. No CT evidence of right heart strain. Mediastinum and lymph nodes: Prominent subcentimeter mediastinal lymph nodes, likely reactive. No pathologic mediastinal or hilar lymphadenopathy by size criteria. Lungs: No focal consolidation. Dependent atelectasis. Calcified granuloma in the right middle lobe. Scattered pulmonary nodules measuring up to 4 mm, as seen on the prior CT from 07/14/2023. Mild pulmonary vascular congestion. Linear bandlike opacifications of the lung bases diffusely, likely subsegmental atelectasis and/or scarring. Biapical pleural-parenchymal scarring. Airways: The trachea is patent and midline. Mild diffuse peribronchial wall thickening. Pleura: No pleural effusions or pneumothorax Chest wall: Unremarkable. Delete Bones: No acute osseous abnormalities. Mild degenerative changes of the thoracic spine. Upper abdomen: Unremarkable. No reflux of contrast material into the IVC. IMPRESSION: 1. No pulmonary embolus. No CT evidence of right heart strain. 2. No acute intrathoracic pathology. Please note that all CT scans at this facility use dose modulation, iterative reconstruction, and/or weight-based dosing when appropriate to reduce radiation dose to as low as reasonably achievable. Dictated by Kt Estrada MD @ 08/25/2023 1:17:42 AM Signed by:?Kt Estrada MD @08/25/2023 1:17:42 AM (Electronic Signature)
[2023-08-24 22:47] LABS: PCR FLU A Negative PCR FLU A (Negative); PCR FLU B Negative PCR FLU B (Negative); PCR RSV Negative PCR RSV (Negative); SARS PCR* Negative SARS-CoV-2 (Negative)
[2023-08-25] VITALS (11 sets, daily range): BP systolic 110–139; BP diastolic 59–79; PULSE 73–100; RESP 16–18; TEMP 36.9; O2SAT 88–95; BMI 32.9
[2023-08-25 00:05] LABS: Lactate* 1.1 mmol/L (0.5-1.9)
--- NOTE | 2023-08-25 03:41 | P.IMHP_ITS ---
Hospitalist- H&P: HPI History of Present Illness Date Seen: 08/25/23 Chief complaint: Low oxygen/High heart rate-lightheade Narrative: Austin Mccray is a 58 year old male who presented to [facility] on 08/24/2023 for further evaluation and management of shortness of breath. Patient reports that since April 2023 he has noted intermittent episodes of shortness of breath with increased cough and sputum production. He has presented to the emergency department multiple times for similar concerns and has been discharged home without a clear diagnosis per his report. With similar symptoms in June, he went to [facility] and was hospitalized at [facility] for a few days. He does not recall that he was given a particular diagnosis however did feel better after steroids and antibiotic therapy. He was set to see pulmonology next week however came into the emergency department due to the above-noted concerns. He reports increased sputum production, cough, and a sense of shortness of breath. He denies any fevers or chills. No nausea, vomiting, or abdominal pain. No diarrhea. 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 No one else around him has been sick that he is aware of. Workup in the ED: CBC, metabolic panel, troponin unremarkable. D-dimer mildly elevated, CTA of the chest was performed and found to be negative for PE. Lactic acid noted to be within normal limits influenza A/B, SARS-CoV-2, and RSV negative. Review of Systems Status of ROS: Reports: 10 or more systems reviewed and unremarkable except as noted in History and below [facility] Medical History RAD (reactive airway disease) ?J45.909 - Unspecified asthma, uncomplicated (ICD-10) Surgical History History of colonoscopy (08/01/19) ?Z98.890 - Other specified postprocedural states (ICD-10) Family History Other Prostate cancer Social History What is your current living situation?: I presently have a place to live Problems where you live: declined to answer Problems where you live details: n/a In the past 12 months, utilities in danger of being shut off: no In past 12 months, lack of transportation kept you from medical appts, meetings, work, or getting things needed for daily living: no In the past 12 mos, have been you worried that your food would run out before you had money to buy more?: never true In the past 12 mos, the food you bought just didn't last and you didn't have money to buy more?: never true Highest level of school completed/degree received: 12th grade, no diploma Smoking Status: Former smoker Do you use any of these nicotine containing products: None How often do you have a drink containing alcohol: 2-4 times a month Alcohol type: beer How often do you have six or more drinks on one occasion: Never AUDIT-C Alcohol total score: 2 Non-prescribed substance use: denies use Caffeine: Yes How often does anyone, including family, friends and others, physically hurt you : never How often does anyone, including family, friends and others, insult or talk down to you: never How often does anyone, including family, friends and others, threaten you with harm: never How often does anyone, including family, friends and others, scream or curse at you: never Little interest or pleasure in doing things: not at all Feeling down, depressed, or hopeless: not at all service: No Meds Home Medications and Allergies Home Medications Medication Instructions Recorded Confirmed Type acetaminophen 500 mg tablet 500 mg PO Q6H PRN 07/27/23 07/27/23 History (Tylenol Extra Strength) benzonatate 100 mg capsule 100 mg PO TID PRN 07/27/23 08/24/23 History ibuprofen 200 mg tablet 200 mg PO Q6H PRN 07/27/23 08/24/23 History pantoprazole 40 mg tablet,delayed 40 mg PO QAM 07/27/23 07/27/23 History release prednisone 10 mg tablet 10 mg PO BID 07/27/23 07/27/23 History Allergies Allergy/AdvReac Type Severity Reaction Status Date / Time No Known Drug Allergies Allergy Verified 08/25/23 00:46 Exam Const: Vital Signs, click to edit/add: Vital Signs - 24 hr 08/24/23 21:32 08/24/23 21:33 08/24/23 21:45 Temperature 97.8 F Pulse Rate 106 H 107 H Pulse Rate [Pulse Oximeter] 116 H Respiratory Rate 24 Blood Pressure Blood Pressure [Le ft Arm] Blood Pressure [Ri ght Upper Arm] 149/81 H Pulse Oximetry 90 94 91 Oxygen Delivery Me thod Room Air Room Air Room Air Oxygen Flow Rate Fraction of Inspir ed Oxygen 08/24/23 22:00 08/24/23 22:02 08/24/23 22:03 Temperature Pulse Rate 94 98 99 Pulse Rate [Pulse Oximeter] Respiratory Rate Blood Pressure 119/71 120/71 Blood Pressure [Le ft Arm] Blood Pressure [Ri ght Upper Arm] Pulse Oximetry 97 97 97 Oxygen Delivery Me thod Room Air Room Air Room Air Oxygen Flow Rate Fraction of Inspir ed Oxygen 08/24/23 22:15 08/24/23 22:30 08/24/23 22:31 Temperature Pulse Rate 101 H 101 H 85 Pulse Rate [Pulse Oximeter] Respiratory Rate Blood Pressure 118/66 Blood Pressure [Le ft Arm] Blood Pressure [Ri ght Upper Arm] Pulse Oximetry 91 92 91 Oxygen Delivery Me thod Nasal Cannula Nasal Cannula Nasal Cannula Oxygen Flow Rate 2 2 2 Fraction of Inspir ed Oxygen 08/24/23 22:45 08/24/23 23:17 08/24/23 23:32 Temperature Pulse Rate 84 86 78 Pulse Rate [Pulse Oximeter] Respiratory Rate 16 16 Blood Pressure 127/54 L 113/68 Blood Pressure [Le ft Arm] Blood Pressure [Ri ght Upper Arm] Pulse Oximetry 93 94 95 Oxygen Delivery Me thod Nasal Cannula Nasal Cannula Oxygen Flow Rate 2 2 Fraction of Inspir ed Oxygen 08/25/23 00:02 08/25/23 00:25 08/25/23 00:26 Temperature Pulse Rate 76 Pulse Rate [Pulse Oximeter] Respiratory Rate 16 Blood Pressure 110/59 L Blood Pressure [Le ft Arm] Blood Pressure [Ri ght Upper Arm] Pulse Oximetry 95 88 94 Oxygen Delivery Me thod Room Air Nasal Cannula Oxygen Flow Rate Fraction of Inspir ed Oxygen 2 08/25/23 01:46 08/25/23 03:11 08/25/23 03:15 Temperature Pulse Rate 78 Pulse Rate [Pulse Oximeter] 83 Respiratory Rate 16 18 18 Blood Pressure 115/68 Blood Pressure [Le ft Arm] 139/79 Blood Pressure [Ri ght Upper Arm] Pulse Oximetry 95 94 94 Oxygen Delivery Me thod Nasal Cannula Nasal Cannula Oxygen Flow Rate 2 2 Fraction of Inspir ed Oxygen Documenting provider has reviewed patient's vital signs: yes Common normals: no apparent distress, oriented x3 and healthy appearing General appearance: cooperative, comfortable and well developed HENMT: Common normals: normocephalic, head/scalp atraumatic, external ears normal, external nose normal, nasal mucous membranes and turbinates normal and moist oral mucous membranes Head and scalp: normocephalic and atraumatic Nose: external nose normal and nasal mucous membranes and turbinates normal External ear: external ears normal Eye: Common normals: PERRL, EOMs intact bilaterally, conjunctivae normal and no scleral icterus Conjunctiva: conjunctiva(e) normal Pupil: PERRL Neck & C-Spine: Common normals: no lymphadenopathy and supple Resp: Common normals: normal respiratory effort and no use of accessory muscles Effort & inspection: audible wheezes Auscultation: crackles, rhonchi and wheezes Cardio: Common normals: regular rate, regular rhythm, S1 normal heart sound, S2 normal heart sound, no gallops, no clicks, no murmurs and no rub Rate: regular rate Rhythm: regular rhythm Heart sounds: S1 normal and S2 normal GI: Common normals: Normal to inspection, nondistended, normoactive bowel sounds present and non-tender Extremity: Common normals: normal to inspection Neuro: Common normals: oriented x3 Psych: Common normals: mental status grossly normal Hospitalist - H&P: Result Labs Labs: Short CBC 08/24/23 Range/Units 21:45 WBC 8.23 (4.50-11.00) K/uL Hgb 16.6 (13.5-17.5) gm/dL Hct 48.2 (37.0-53.0) % Plt Count 168 (140-440) K/uL BMP 08/24/23 21:45 Sodium 139 Potassium 3.5 L Chloride 104 Carbon Dioxide 22 BUN 14 Creatinine 0.9 Glucose 209 H Calcium 9.2 Liver Function 08/24/23 Range/Units 21:45 Total Bilirubin 0.8 (0.1-1.5) mg/dL AST 25 (12-35) U/L ALT 41 (4-50) U/L Alkaline Phosphatase 61 (40-150) U/L Albumin 4.5 (3.3-5.0) g/dL Assessment and Plan Assessment and plan (1) Acute respiratory failure: Status: Acute (2) Pneumonia: Status: Acute (3) Acute bacterial bronchitis: Status: Acute (4) Pulmonary nodules: Problem comment: Found by CT, 04/2022 Status: Acute (5) History of tobacco use: Problem comment: Patient quit at age 33 Status: Acute (6) Hypodense mass of liver: Problem comment: Found by CT 04/2022 Status: Acute Plan Clinical history and exam concerning for pulmonary infection. Given his description of severe coughing paroxysms there would be some clinical suspicion for pertussis, azithromycin started. We will also cover him with Rocephin due to potential community-acquired pneumonia as etiology for his symptoms. We could also be seeing a viral infection manifesting in worsening underlying lung condition however we will cover with antibiotics as noted above. Additionally, we will start prednisone 40 mg once daily and DuoNebs every 6 hours. Continue with supplemental oxygen to maintain oxygen saturations greater than 90%. We will monitor him on continuous oximetry and titrate oxygen as able. Telehealth visit: Today's history and physical is provided via interactive telehealth by Omer Becerril DO. Patient is located at [facility]. Provider is location at [facility]. Nursing staff assisted with patient exam. The visit being done today meets criteria for telehealth visit and the patient, or the patient's parents or guardian, is aware this is a telehealth visit. Camera start time: 314 Camera end time: 329
[2023-08-25] MEDS: predniSONE 20 MG TABLET 40 MG PO ×2 (04:17→09:25)
[2023-08-25] MEDS: IPRAT-ALBUT 0.5-2.5 MG/3 ML NEB 1 NEB IH ×2 (04:18→09:26)
[2023-08-25] MEDS: cefTRIAXone 2 GM in 0.9 % SODIUM CHLORIDE Mini-bag 100 ML IVPB (04:20)
[2023-08-25] MEDS: POTASSIUM BICARB 25 MEQ EFFERVESCENT TAB PO (04:28)
[2023-08-25] MEDS: AZITHROMYCIN 500 MG in 0.9 % SODIUM CHLORIDE 250 ml 250 ML 255 MG IVPB (05:07)
--- NOTE | 2023-08-25 07:29 | PC.NURSE ---
Arrived to floor at 0230 via wheelchair. On 2 L of oxygen and sating in low 90s. VS otherwise stable. Pt reports SOB with activity. Lungs sounds wheezy bakari throughout. Pt reports productive cough with sputum present. A&O, pleasant and cooperative. Sputum and urine sample still needed. ?
[2023-08-25 10:35] LABS: Legionella pneumo Ag Urine L. pneumo Negative (Negative); S pneumo Ag Urine S. pneumo Negative (Negative)
--- NOTE | 2023-08-25 15:11 | PC.NURSE ---
Discharge Note: The patient discharged home with his this afternoon. Ambulate pulse oximetry test was completed the patient was @ 93% and dropped to 90% with ambulation and became tachycardic.. was notified. 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 No O2 needed for discharge. Educated about steroids and inhaler types and when to use them. Natty DEVLIN BSN
--- NOTE | 2023-08-27 16:00 | P.EN_ITS ---
Chart Event Note Time Seen by Provider: 15:45 Date Seen: 08/27/23 Chart Event Note: I spoke with patient and his , Diana, via patient's cell phone, , and answered their questions. 1. Informed them of the B. Pertussis antibody level results: a. IgG 2.92 IV (reference <=1.04 IV), suggesting current, or recent exposure/immunization to B. Pertussis - he has not had recent immunization; b. IgA 1.9 IV (reference <=1.1 IV), suggesting current or past exposure/immunization to B. Pertussis - he has not had recent immunization. 2. Since his symptom onset in April 2023, he has been treated on 3 separate occasions with 5-day course of azithromycin (Z-Pack) current with a prednisone burst, last completed about 1 1/2 months ago. More recently he completed a 7 day course of doxycycline with prednisone. In hospital 08/24/23-08/25/23 he received oral azithromycin for 2 days and ceftriaxone for 2 days. It has been well over 3 weeks since his symptoms first started and thus treatment for pertussis is not ordinarily indicated at this time. He was discharged from the hospital on 08/25/23 on another prednisone burst with an Aerobika device and has benefited from on-going use of this device since discharge. Given this chronology of events and treatments, I will NOT initiate a 4th course of treatment with azithromycin or treat with clindamycin to treat pertussis at this time 3. He will keep his pulmonology consultation at [facility], [place], [place], as set up for 08/31/23. He will return to clinic or hospital sooner if needed. 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 He and his have agreed that they will discuss with his visual developer his occupational exposure hazards and means to mitigate these risks.
[2023-08-27 22:21] LABS: B pertussis IgA Immunoblot FHA Positive; B pertussis IgG Immblot PT100 Equivocal; B pertussis IgG Immunoblot FHA Positive; B pertussis IgG Immunoblot PT Positive
== END 2023-08-25 14:15 | disposition home or self-care (01) | DRG 137 ==
LOC: ED 08-25 00:38 → MEDSURG 08-25 02:28
PROVIDERS: Admitting Provider Student in an Organized Health Care Education/Training Program; Emergency Provider Student in an Organized Health Care Education/Training Program; PCP Family Medicine; Visit Provider Family Medicine
DX: A37.01 Whooping cough due to Bordetella pertussis with pneumonia (principal); J96.01 Acute respiratory failure with hypoxia; R91.8 Other nonspecific abnormal finding of lung field; R16.0 Hepatomegaly, not elsewhere classified; J45.909 Unspecified asthma, uncomplicated; Z87.891 Personal history of nicotine dependence
CPT/HCPCS: 36415; 71275; 80053; 83605; 84484; 85025; 85379; 86615; 87070; 87449; 87631; 87899; 93005; 94640; 94761; 99283; 99285; G0378; A9270; J0456; J0696; J7050; J7120; J7512; Q9967

== ENCOUNTER 2023-09-14 08:46 | Outpatient (CLI) | payer BC, SELFPAY ==
--- OUTSIDE RECORDS SUMMARY | 2023-09-20 18:40 | XMS_ITS | Clinical Summary ---
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 For routine questions regarding patient records, call [phone] during business hours, M-F 8:00 AM - 5:00 PM Central Time. Record requests for emergency care only can be directed to [phone] at any time.[facility] Allergies No known active allergies Medications Medication Sig Dispensed Refills Start Date End Date Status acetaminophen (TYLENOL) 500 mg tablet Take 1,000 mg by mouth every 6 (six) hours as needed for pain (for headaches, alternates with Ibuprofen PRN). Active ibuprofen (ADVIL,MOTRIN) 200 mg tablet Take 400 mg by mouth every 6 (six) hours as needed for pain (for headache, alternates with Acetaminophen PRN). Active benzonatate (TESSALON PERLES) 100 mg capsule Take 1 capsule (100 mg total) by mouth 3 (three) times a day as needed for cough. 20 capsule 4 Active ipratropium-alb uteroL (DUONEB) 0.5-2.5 mg/3 mL nebulizer solutionIndicat ions:Bronchitis Chronic (HCC) Inhale 3 mL by nebulization 2 (two) times a day. 90 mL 11 4 Active Additional Information Patient taking differently:3 mL nebulization4 times daily, Reported on 09/15/2023 tadalafiL (CIALIS) 10 mg tablet Take 10-20 mg by mouth daily as needed for erectile dysfunction. Active diphenhydrAMINE (BENADRYL) 25 mg tablet Take 25 mg by mouth at bedtime as needed for sleep. Active ipratropium-alb uteroL (DUONEB) 0.5-2.5 mg/3 mL nebulizer solution Inhale 3 mL by nebulization 4 (four) times a day. 180 mL 3 4 11/18/19 24 Active levoFLOXacin (LEVAQUIN) 500 mg tabletIndicatio ns:Respiratory tract infection, healthcare associated Take 1 tablet (500 mg total) by mouth every morning before breakfast for 9 days Indications: Respiratory tract infection, healthcare associated. 9 tablet 4 09/29/19 24 Active fluticasone propionate (FLONASE) 50 mcg/actuation nasal spray Administer 2 sprays into each nostril 2 (two) times a day. 16 g 12 4 Active sodium chloride-sodium bicarbonate (NEILMED SINUS RINSE) nasal rinse Administer 1 Application into each nostril 2 (two) times a day. Use water that is either sterile, distilled, or previously boiled for preparations; do not use tap water. 4 Active predniSONE (DELTASONE) 10 mg tablet Take 6 tablets (60 mg total) by mouth daily for 3 days, THEN 4 tablets (40 mg total) daily for 5 days, THEN 2 tablets (20 mg total) daily for 5 days, THEN 1 tablet (10 mg total) daily. 78 tablet 4 11/02/19 24 Active albuterol 2.5 mg /3 mL nebulizer solution Inhale 3 mL (2.5 mg total) by nebulization 4 (four) times a day as needed for wheezing or shortness of breath. 360 mL 11 4 Active fluticasone propion-salmete roL 500-50 mcg/dose diskus inhaler Inhale 1 puff 2 (two) times a day. Rinse mouth with water after use to reduce aftertaste and incidence of candidiasis. Do not swallow. 60 each 5 4 Active albuterol 90 mcg/actuation inhaler Inhale 2 puffs every 4 (four) hours as needed for wheezing. 8.5 g 11 4 Active albuterol 90 mcg/actuation inhaler Inhale 2 puffs every 4 (four) hours as needed. 4 08/31/19 24 Discontinued codeine-guaiFEN esin (ROBITUSSIN-AC) 10-100 mg/5 mL liquid Take 10 mL by mouth every 4 (four) hours as needed (for cough). 4 08/30/19 24 Discontinued sildenafiL (VIAGRA) 100 mg tablet Take 100 mg by mouth daily as needed for erectile dysfunction (TAKE 30 MIN TO 4 HOURS BEFORE ACTIVITY). 09/15/19 24 Discontinued(Er ror) fluticasone furoate (Arnuity Ellipta) 100 mcg/actuation diskus inhaler Inhale 1 puff 2 (two) times a day. 60 each 4 09/15/19 24 Discontinued(Er ror) predniSONE (DELTASONE) 20 mg tablet TAKE 2 TABLETS BY MOUTH DAILY WITH MEAL 4 09/15/19 24 Discontinued(Er ror) albuterol 2.5 mg /3 mL nebulizer solutionIndicat ions:Bronchitis Chronic (HCC) Inhale 3 mL (2.5 mg total) by nebulization 2 (two) times a day. Use prior to saline neb solution for bronchial hygiene (mucus clearance) 180 mL 08/31/19 24 Discontinued sodium chloride (HYPERSAL) 7 % nebulizer solutionIndicat ions:Bronchitis Chronic (HCC) Inhale 4 mL by nebulization 2 (two) times a day. Use albuterol before this treatment. Use Aerobika flutter valve after this treatment. 240 mL 08/31/19 24 Discontinued albuterol 2.5 mg /3 mL nebulizer solutionIndicat ions:Bronchitis Chronic (HCC) Inhale 3 mL (2.5 mg total) by nebulization 2 (two) times a day. Use prior to saline neb solution for bronchial hygiene (mucus clearance) 180 mL 09/19/19 24 Discontinued sodium chloride (HYPERSAL) 7 % nebulizer solutionIndicat ions:Bronchitis Chronic (HCC) Inhale 4 mL by nebulization 2 (two) times a day. Use albuterol before this treatment. Use Aerobika flutter valve after this treatment. 240 mL 09/19/19 24 Discontinued(St op Taking at Discharge) ipratropium-alb uteroL (DUONEB) 0.5-2.5 mg/3 mL nebulizer solution Inhale 3 mL by nebulization 4 (four) times a day for 10 days. 180 mL 4 09/19/19 24 Discontinued levoFLOXacin (LEVAQUIN) 750 mg tablet Take 1 tablet (750 mg total) by mouth every morning before breakfast for 5 days. 5 tablet 4 09/08/19 24 albuterol 2.5 mg /3 mL nebulizer solutionIndicat ions:Bronchitis Chronic (HCC) Inhale 3 mL (2.5 mg total) by nebulization 2 (two) times a day. Use prior to saline neb solution for bronchial hygiene (mucus clearance) 180 mL 2 4 09/19/19 24 Discontinued(St op Taking at Discharge) fluticasone propion-salmete roL (Advair Diskus) 250-50 mcg/dose diskus inhaler Inhale 1 puff 2 (two) times a day. Rinse mouth with water after use to reduce aftertaste and incidence of candidiasis. Do not swallow. 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 Post Hospital Follow-up 09/14/2023 10:04 AM CDT - 09/19/2023 5:55 PM CDT Hospital Encounter [facility], Tenth Floor [address] [place] [address] Richmond Huang P.A.-C. Dulohery Scrodin, Megan M, M.D. Syncope And Near Syncope (Primary Dx); Bronchitis Chronic (HCC); Dyspnea; Bronchitis Chronic (HCC); Eosinophilic Asthma (HCC) Discharge Disposition: Home or Self Care 09/14/2023 Clinical Communication [facility] [address] [place] [phone] Victoria Carrion M.D. Appt Request 09/14/2023 Clinical Communication Division of Pulmonary Medicine in [place], [place] [address] [place] [phone] Ricky Leiva M.D. Appointment 09/14/2023 Orders Only [facility] [address] [place] [phone] Victoria Carrion M.D. Bronchiectasis (HCC) (Primary Dx) 09/13/2023 10:50 AM CDT - 09/13/2023 11:59 PM CDT Hospital Encounter Department of Laboratory Medicine and Pathology, [place], [place] [address] [place] [phone] Ricky Lieva M.D. Bronchitis Chronic (HCC) Discharge Disposition: Home or Self Care 09/13/2023 10:40 AM CDT - 09/13/2023 10:49 AM CDT Hospital Encounter Department of Laboratory Medicine and Pathology, [place], [place] [address] [place] [phone] Ricky Leiva M.D. Bronchitis Chronic (HCC) Discharge Disposition: Home or Self Care 09/13/2023 10:30 AM CDT - 09/13/2023 10:39 AM CDT Hospital Encounter Department of Laboratory Medicine and Pathology, [facility] in [place], [place] [address] [place] [phone] Ricky Leiva M.D. Bronchitis Chronic (HCC) Discharge Disposition: Home or Self Care 09/13/2023 Virtual Visit Division of Pulmonary Medicine in [place], [place] [address] [place] [phone] Ricky Leiva M.D. Bronchitis Chronic (HCC) (Primary Dx) 09/13/2023 Clinical Communication Division of Pulmonary Medicine in [place], [place] [address] [place] [phone] Ricky Leiva M.D. 09/11/2023 Orders Only Division of Pulmonary Medicine in [place], [place] [address] [place] [phone] Ricky Leiva M.D. Bronchitis Chronic (HCC) (Primary Dx) 09/10/2023 12:09 PM CDT - 09/10/2023 11:59 PM CDT Hospital [facility] Department of Laboratory Medicine and Pathology, [facility], in [place], [place] [address] [place] [phone] Ricky Leiva M.D. Bronchiectasis (HCC) Discharge Disposition: Home or Self Care 09/10/2023 11:00 AM CDT Diagnostic Division of Pulmonary Medicine in [place], [place] [address] [place] [phone] Ricky Leiva M.D. Bronchitis Chronic (HCC) 09/10/2023 Orders Only Division of Pulmonary Medicine in [place], [place] [address] [place] [phone] Ricky Leiva M.D. Bronchiectasis (HCC) (Primary Dx) 09/10/2023 Clinical Communication Division of Pulmonary Medicine in [place], [place] [address] [place] [phone] Ricky Leiva M.D. 09/10/2023 Orders Only Division of Pulmonary Medicine in [place], [place] [address] [place] [phone] Ricky Leiva M.D. Bronchitis Chronic (HCC) (Primary Dx) 09/03/2023 3:56 PM CDT - 09/04/2023 12:17 AM CDT Emergency [facility] Emergency Department [address] [place] [phone] Vinh Swift M.D. Lindor, Rachel A, M.D., J.D. Shortness Of Breath (Primary Dx); Bronchitis Discharge Disposition: Home or Self Care 09/03/2023 Orders Only Division of Pulmonary Medicine in [place], [place] [address] [place] [phone] Ricky Leiva M.D. Bronchitis Chronic (HCC) (Primary Dx) 09/03/2023 Intake T [facility] 09/03/2023 Clinical Communication Division of Pulmonary Medicine in [address] [phone] Ricky Leiva M.D. 09/02/2023 Clinical Communication Division of Pulmonary Medicine in [place], [place] [address] [place] [phone] Ricky Leiva M.D. SHAHIDA 09/01/2023 1:30 PM CDT Telemedicine Division of Pulmonary Medicine in [place], [place] [address] [place] [phone] Ricky Leiva M.D. Coleman, Theresa J, R.N. Bronchitis Chronic (HCC) 08/31/2023 4:22 PM CDT - 08/31/2023 11:59 PM CDT Hospital Encounter Department of Laboratory Medicine and Pathology, [address] [phone] Ricky Leiva M.D. Bronchitis Chronic (HCC); Dyspnea Discharge Disposition: Home or Self Care 08/31/2023 3:00 PM CDT Comprehensive Visit Division of Pulmonary Medicine in [address] [phone] Ricky Leiva M.D. Dyspnea (Primary Dx); Nodules Pulmonary Multiple; Bronchitis Chronic (HCC); Cough Subacute 08/31/2023 1:30 PM CDT Diagnostic Division of Pulmonary Medicine in [address] [phone] Katherin Hunt M.D. Cough Subacute 08/31/2023 12:18 PM CDT - 08/31/2023 4:21 PM CDT Hospital Encounter Department of Laboratory Medicine and Pathology, [address] [phone] Ricky Leiva M.D. Dyspnea; Nodules Pulmonary Multiple; Bronchitis Chronic (HCC) Discharge Disposition: Home or Self Care 08/31/2023 9:49 AM CDT - 08/31/2023 12:17 PM CDT Hospital Encounter Department of Radiology, [facility], in [place], [place] [address] [place] [phone] Katherin Hunt M.D. Cough Subacute Discharge Disposition: Home or Self Care 08/30/2023 8:45 PM CDT Ancillary Procedure Department of Radiology in [place], [place] [address] [place] [phone] Ricky Leiva M.D. Dyspnea; Nodules Pulmonary Multiple; Bronchitis Chronic (HCC) 08/30/2023 Clinical Communication Division of Pulmonary Medicine in [place], [place] [address] [place] [phone] [facility], Provider Pre-visit Intake 08/19/2023 Clinical Communication Division of Pulmonary Medicine in [place], [place] [address] [place] [phone] Ankita Yu M.D. 08/03/2023 Clinical Communication Pharmacy Prior Auth [phone] [place] M.B.B.S. Rx Quantity Denial (ARNUITY ELPT INJ 100MCG) 07/20/2023 Clinical Communication [facility] [address] [place] [phone] Katherin Hunt M.D. Post Hospital Follow-up 07/19/2023 10:00 AM MISSILE INSPECTOR Ancillary Procedure Department of Internal Medicine 07/19/2023 9:55 AM MISSILE INSPECTOR Ancillary Procedure Department of Internal Medicine 07/18/2023 3:07 PM MISSILE INSPECTOR - 07/20/2023 1:21 PM MISSILE INSPECTOR Hospital Encounter [facility], [facility], Third Floor [address] [place] [phone] Eduar Davis M.D. Regan, Dennis W, M.D. Dyspnea (Primary Dx); Cough Subacute; Hypoxia Discharge Disposition: Home or Self Care from Last 3 Months Social History Tobacco Use Types Packs/Day Years Used Date Smoking Tobacco: Former Cigarettes Smokeless Tobacco: Never Tobacco Cessation:Counseling Given: Not Answered Alcohol Use Standard Drinks/Week Comments Yes 0 (1 standard drink = 0.6 oz pur e alcohol) 2 beers a week [facility] Utilities Answer Date Recorded In the past 12 months has e electric, gas, oil, or water company threatened to shut off services in your home? No 09/14/2023 Humiliation, Afraid, Rape, and Kick questionnair e Answer Date Recorded Within the last year, have y ou been afraid of your partner or ex-partner? No 09/14/2023 Within the last year, have y ou been humiliated or emotionally abused in other ways by your partner or ex-partner? No Within the last year, have y ou been kicked, hit, slapped, or otherwise physically hurt by your partner or ex-partner? No 09/14/2023 Within the last year, have y ou been raped or forced to have any kind of sexual activity by your partner or ex-partner? No 09/14/2023 Exercise Vital Sign Answer Date Recorde d On average, how many days pe r week do you engage in moderate to strenuous exercise (like a brisk walk)? 1 day 08/24/2023 On average, how many minutes do you engage in exercise at this level? 60 min 08/24/2023 Hunger Vital Sign Answer Date Recorded Within the past 12 months, y ou worried that your food would run out before you got the money to buy more. Never true 09/14/19 24 Within the past 12 months, t he food you bought just didn't last and you didn't have money to get more. Never true 09/14/2023 PRAPARE - Transportation Answer Date Re corded In the past 12 months, has l ack of transportation kept you from medical appointments or from getting medications? No 08/23 In the past 12 months, has l ack of transportation kept you from meetings, work, or from getting things needed for daily living? No 09/14/2023 Nutrition Answer Date Recorded On average, how many serving s of fruits and vegetables do you eat per day (serving size is equal to 1 cup or approximately the size of a tennis ball)? 0-2 08/24/2023 Dental Answer Date Recorded Dental: Regular Dentist Yes 08/24/19 Employment Answer Date Recorded Employment status Employed but not working due t [employer] 08/24/2023 Housing Stability Answer Date Recorded What is your living situation today? I have a [place] place to live 09/14/2023 Sex and Gender Information Value Date Recorded Sex Assigned at Male 08/24/2023 2:34 PM CDT Gender Identity Male 08/24/2023 2:34 PM CDT Sexual Orientation Straight 08/24/2023 2: 34 PM CDT Last Filed Vital Signs Vital Sign Reading Time Taken Comments Blood Pressure 123/67 09/19/2023 3:13 PM CDT Pulse 75 09/19/2023 3:13 PM CDT Temperature 36.6 ??C (97.8 ??F) 09/19/2023 3:13 PM CD T Respiratory Rate 14 09/19/2023 3:13 PM CDT Oxygen Saturation 93% 09/19/2023 3:13 PM CDT Inhaled Oxygen Concentration - - Weight 124 kg (273 lb 9.5 oz) 09/18/2023 11:15 A M CDT Height 195.6 cm (6' 5.01) 09/16/2023 9:38 AM CD T Body Mass Index 32.44 09/16/2023 9:38 AM CDT Plan of Treatment Upcoming Encounters Date Type Department Care Team (Late st Contact Info) Description 10/28/2023 12:30 PM CDT Diagnostic Division of Pulmonary Medicine in [place], [place] [address] [place] [phone] José Luis Lopez M.D. [address] [place] [phone] 11/01/2023 1:00 PM CDT Office Visit Division of Pulmonary Medicine in [place], [place] [address] [place] [phone] Zayra Thomas M.B.B.S., M.P.H. [address] [place] [phone] 11/11/2023 3:15 PM CDT Office Visit Department of Otorhinolaryngology in [place], [place] [address] [place] [phone] Steven Fernandez M.D. [address] [place] [address] Health Maintenance Due Date Last Done Comments CT Colonography 1963 Cologuard 1965 FIT 1963 Lipid (Cholesterol) Screening 1963 Pneumococcal vaccine (0-64 years) (1 of 2 - PCV) 1969 Zoster Vaccines (1 of 2) 2013 Depression Screening (Annual PHQ-2) 05/24/2023 Fasting Glucose for Diabetes Screening 09/18/2026 09/19/2023, 09/18/2023, 09/17/2023, Additional history exists DTaP,Tdap,and Td Vaccines (3 - Td or Tdap) 07/20/2029 07/20/2019, 07/30/2009 Colonoscopy 07/31/2029 08/01/2019 Colorectal Cancer Screening 07/31/2029 COVID-19 Vaccine Completed 05/05/2023, , 09/05/2020, Additional history exists Influenza Vaccine Completed 05/05/2023, , 05/08/2021, Additional history exists HIV Screening Completed 07/18/2023 Hepatitis B Vaccines Aged Out No long er eligible based on patient's age to complete this topic Procedures Procedure Name Priority Date/Time Associated Diagnosis Comments HOLTER MONITOR - IN CLINIC MOLECULAR BIOLOGY SCIENTIST Routine 09/19/2023 2:51 PM CDT Syncope And Near Syncope CBC WITH DIFFERENTIAL, B Routine 09/19/2023 6:23 AM CDT BASIC METABOLIC PANEL, S/P Routine 09/19/2023 6:23 AM CDT (TTE) 2D ECHO DOPPLER COLOR Routine 09/18/2023 10:01 AM CDT REMOTE OXIMETRY MONITORING CONT. Routine 09/18/2023 8:00 AM CDT ADULT OXYGEN THERAPY Routine 09/18/2023 8:00 AM CDT CBC WITH DIFFERENTIAL, B Routine 09/18/2023 4:09 AM CDT BASIC METABOLIC PANEL, S/P Routine 09/18/2023 4:09 AM CDT RESPIRATORY PANEL, PCR, BOND TRADER Routine 09/17/2023 10:22 PM CDT REMOTE OXIMETRY MONITORING CONT. Routine 09/17/2023 8:00 PM CDT ADULT OXYGEN THERAPY Routine 09/17/2023 8:00 PM CDT MR BRAIN WITHOUT AND WITH IV CONTRAST RAD - Routine (most inpatients and all outpatients) 09/17/2023 7:32 PM CDT GLUCOSE POCT, B Routine 09/17/2023 11:21 AM CDT REMOTE OXIMETRY MONITORING CONT. Routine 09/17/2023 8:01 AM CDT ADULT OXYGEN THERAPY Routine 09/17/2023 8:01 AM CDT CBC WITH DIFFERENTIAL, B Routine 09/17/2023 5:01 AM CDT BASIC METABOLIC PANEL, S/P Routine 09/17/2023 5:01 AM CDT REMOTE OXIMETRY MONITORING CONT. Routine 09/16/2023 8:01 PM CDT ADULT OXYGEN THERAPY Routine 09/16/2023 8:01 PM CDT REMOTE OXIMETRY MONITORING CONT. Routine 09/16/2023 8:01 AM CDT ADULT OXYGEN THERAPY Routine 09/16/2023 8:01 AM CDT CBC WITH DIFFERENTIAL, B Routine 09/16/2023 12:47 AM CDT BASIC METABOLIC PANEL, S/P Routine 09/16/2023 12:47 AM CDT REMOTE OXIMETRY MONITORING CONT. Routine 09/15/2023 8:00 PM CDT ADULT OXYGEN THERAPY Routine 09/15/2023 8:[address] SINUSES WITHOUT IV CONTRAST RAD - Semiurgent (Fast; most ED patients; some inpatients) 09/15/2023 12:[address] CHEST WITHOUT IV CONTRAST RAD - Semiurgent (Fast; most ED patients; some inpatients) 09/15/2023 12:37 PM CDT TROPONIN T, 5TH GEN, P Routine 09/15/2023 10:50 AM CDT TRYPTASE, S Routine 09/15/2023 10:50 AM CDT REMOTE OXIMETRY MONITORING CONT. Routine 09/15/2023 8:01 AM CDT ADULT OXYGEN THERAPY Routine 09/15/2023 8:01 AM CDT ASPERGILLUS AG Routine 09/15/2023 8:00 AM CDT (1, 3) [id number] (FUNGITELL), S Routine 09/15/2023 8:00 AM CDT EOSINOPHIL COUNT, SPUTUM Routine 09/15/2023 3:58 AM CDT LEGIONELLA CULTURE Routine 09/15/2023 3: 58 AM CDT PNEUMOCYSTIS SMEAR Routine 09/15/2023 3: 58 AM CDT SPSMA RESULT Routine 09/15/2023 1:01 AM CDT STRONGYLOIDES AB, IGG Routine 09/15/2023 1:01 AM CDT HEPATIC FUNCTION PANEL, S Routine 09/15/2023 1:01 AM CDT PATIENT STATUS Routine 09/15/2023 1:01 AM CDT VENOUS BLOOD GAS W/O COOX Routine 09/15/2023 1:01 AM CDT PHOSPHORUS (INORGANIC), S Routine 09/15/2023 1:01 AM CDT CBC WITH DIFFERENTIAL, B Routine 09/15/2023 1:01 AM CDT BASIC METABOLIC PANEL, S/P Routine 09/15/2023 1:01 AM CDT BORDETELLA PCR Routine 09/14/2023 8:51 PM CDT PNEUMOCYSTIS PCR Routine 09/14/2023 8:41 PM CDT LEGIONELLA PCR Routine 09/14/2023 8:41 PM CDT ACID FAST SMEAR FOR MYCOBACTERIUM Routine 09/14/2023 8:41 PM CDT FUNGAL CULTURE, ROUTINE Routine 09/14/2023 8:41 PM CDT FUNGAL SMEAR Routine 09/14/2023 8:41 PM CDT BACTERIAL CULTURE, AEROBIC + SUSC, RESP Routine 09/14/2023 8:41 PM CDT GRAM STAIN Routine 09/14/2023 8:41 PM CDT HEPATIC FUNCTION PANEL, S Routine 09/14/2023 8:03 PM CDT REMOTE OXIMETRY MONITORING CONT. Routine 09/14/2023 8:00 PM CDT ADULT OXYGEN THERAPY Routine 09/14/2023 8:00 PM CDT REMOTE OXIMETRY MONITORING CONT. Routine 09/14/2023 5:45 PM CDT REMOTE OXIMETRY MONITORING CONT. Routine 09/14/2023 5:45 PM CDT REMOTE OXIMETRY MONITORING CONT. Routine 09/14/2023 5:45 PM CDT ADULT OXYGEN THERAPY Routine 09/14/2023 5:45 PM CDT ADULT OXYGEN THERAPY Routine 09/14/2023 5:45 PM CDT ADULT OXYGEN THERAPY Routine 09/14/2023 5:45 PM CDT DX CHEST AP OR PA AND LATERAL 2 VIEWS RAD - Semiurgent (Fast; most ED patients; some inpatients) 09/14/2023 11:[address] HEAD WITHOUT IV CONTRAST RAD - Semiurgent (Fast; most ED patients; some inpatients) 09/14/2023 11:32 AM CDT PATIENT STATUS STAT 09/14/2023 10:51 AM CDT VENOUS BLOOD GAS W/O COOX STAT 09/14/2023 10:51 AM CDT LACTATE, B/P STAT 09/14/2023 10:50 AM CDT THYROID-STIMULATING HORMONE-SENSITIVE (S-TSH) STAT 09/14/2023 10:50 AM CDT BASIC METABOLIC PANEL, S/P STAT 09/14/2023 10:50 AM CDT C-REACTIVE PROTEIN (CRP), S/P STAT 09/14/2023 10:50 AM CDT CBC WITH DIFFERENTIAL, B STAT 09/14/2023 10:50 AM CDT MAGNESIUM, S STAT 09/14/2023 10:45 AM CDT ECG STAT 09/14/2023 10:14 AM CDT MYCOBACTERIAL CULTURE, V Routine 09/13/2023 11:14 AM CDT Bronchitis Chronic (HCC) ACID FAST SMEAR FOR MYCOBACTERIUM Routine 09/13/2023 11:14 AM CDT Bronchitis Chronic (HCC) FUNGAL CULTURE, ROUTINE Routine 09/13/2023 11:14 AM CDT Bronchitis Chronic (HCC) FUNGAL SMEAR Routine 09/13/2023 11:14 AM CDT Bronchitis Chronic (HCC) BACTERIAL CULTURE, AEROBIC + SUSC, RESP Routine 09/13/2023 11:14 AM CDT Bronchitis Chronic (HCC) GRAM STAIN Routine 09/13/2023 11:14 AM CDT Bronchitis Chronic (HCC) MYCOBACTERIAL CULTURE, V Routine 09/10/2023 1:07 PM CDT Bronchiectasis (HCC) ACID FAST SMEAR FOR MYCOBACTERIUM Routine 09/10/2023 1:07 PM CDT Bronchiectasis (HCC) FUNGAL CULTURE, ROUTINE Routine 09/10/2023 1:07 PM CDT Bronchiectasis (HCC) FUNGAL SMEAR Routine 09/10/2023 1:07 PM CDT Bronchiectasis (HCC) GRAM STAIN Routine 09/10/2023 1:07 PM CDT Bronchiectasis (HCC) OXYGEN TITRATION Routine 09/10/2023 12:35 PM CDT Bronchitis Chronic (HCC) CT CHEST ANGIOGRAM AND PULMONARY ARTERIES WITH IV CONTRAST RAD - Semiurgent (Fast; most ED patients; some inpatients) 09/03/2023 9:25 PM CDT IFLU A, B, SARS COV-2, PCR, RAPID,V STAT 09/03/2023 8:23 PM CDT D-DIMER, P STAT 09/03/2023 7:55 PM CDT TROPONIN T, 2H/6H, 5TH GEN, P Timed 09/03/2023 7:09 PM CDT DX CHEST AP OR PA AND LATERAL 2 VIEWS RAD - Semiurgent (Fast; most ED patients; some inpatients) 09/03/2023 4:26 PM CDT PROTHROMBIN TIME (PT), P STAT 09/03/2023 4:14 PM CDT TROPONIN T, BASELINE, 5TH GEN, P STAT 09/03/2023 4:14 PM CDT NT-PRO B-TYPE NATRIURETIC PEPTIDE (BNP), S STAT 09/03/2023 4:14 PM CDT CBC WITH DIFFERENTIAL, B STAT 09/03/2023 4:14 PM CDT BASIC METABOLIC PANEL, S/P STAT 09/03/2023 4:14 PM CDT ECG Routine 09/03/2023 4:06 PM CDT IMMUNOGLOBULIN M (IGM), S Routine 08/31/2023 4:29 PM CDT IMMUNOGLOBULIN A (IGA), S Routine 08/31/2023 4:29 PM CDT [id number] PROTEOTYPE S/Z BY LC-MS/MS, S Routine 08/31/2023 4:29 PM CDT Dyspnea Bronchitis Chronic (HCC) IGG SUBCLASSES, S Routine 08/31/2023 4:2 9 PM CDT Dyspnea Bronchitis Chronic (HCC) CBC WITH DIFFERENTIAL, B Routine 08/31/2023 12:28 PM CDT Dyspnea [facility] Pulmonary Multiple Bronchitis Chronic (HCC) EXHALED NITRIC OXIDE Routine 08/31/2023 11:59 AM CDT Cough Subacute PULMONARY FUNCTION TESTS Routine 08/31/2023 10:58 AM CDT Cough Subacute DX CHEST AP OR PA AND LATERAL 2 VIEWS RAD - Routine (most inpatients and all outpatients) 08/31/2023 9:54 AM CDT Cough Subacute INTERPRETATION OF OUTSIDE CT CHEST RAD - Routine (most inpatients and all outpatients) 08/30/2023 8:56 PM CDT Dyspnea [facility] Pulmonary Multiple Bronchitis Chronic (HCC) OUTSIDE CT BODY Routine 08/24/2023 10:45 PM CDT GRAM STAIN Routine 07/20/2023 12:47 PM MISSILE INSPECTOR BACTERIAL CULTURE, AEROBIC + SUSC, RESP Routine 07/20/2023 12:47 PM MISSILE INSPECTOR RT PULSE OXIMETRY, OVERNIGHT Routine 07/20/2023 8:39 AM MISSILE INSPECTOR Procedure Note - Azael Bingham M.D. - 07/20/2023 8:39 AM CSTThis note is in progress. IMPRESSION: Preliminary report. Interpretation to follow. Please contact the [facility] at [phone] withquestions regarding this report. Physician: Azael Bingham M.D. [id number] Nathan Brady M.D. [id number] ASPERGILLUS FUMIGATUS, IGG, S ABS, S Routine 07/20/2023 7:44 AM MISSILE INSPECTOR ASPERGILLUS FUMIGATUS, IGE, S Routine 07/20/2023 7:44 AM MISSILE INSPECTOR ASPERGILLUS AG Routine 07/20/2023 7:44 AM MISSILE INSPECTOR OVA AND PARASITE, MICROSCOPY, F Routine 07/20/2023 5:53 AM MISSILE INSPECTOR CBC WITH DIFFERENTIAL, B Routine 07/19/2023 12:38 PM MISSILE INSPECTOR QUANTIFERON-TB GOLD PLUS, B Routine 07/19/2023 12:38 PM MISSILE INSPECTOR INTERNAL MEDICINE IMAGE EXAM Routine 07/19/2023 9:55 AM MISSILE INSPECTOR INTERNAL MEDICINE IMAGE EXAM Routine 07/19/2023 9:55 AM MISSILE INSPECTOR STREPTOCOCCUS PNEUMONIAE AG, U Routine 07/19/2023 2:47 AM MISSILE INSPECTOR DIPSTICK, U Routine 07/18/2023 11:22 PM MISSILE INSPECTOR PH, U Routine 07/18/2023 11:22 PM MISSILE INSPECTOR OSMOLALITY, U Routine 07/18/2023 11:22 PM MISSILE INSPECTOR MICROSCOPIC AUTOMATED Routine 07/18/2023 11:22 PM MISSILE INSPECTOR URINALYSIS WITH MICROSCOPIC Routine 07/18/2023 11:22 PM MISSILE INSPECTOR LEGIONELLA AG, U Routine 07/18/2023 11:22 PM MISSILE INSPECTOR BLASTOMYCES AG, QUANT EIA, URINE Routine 07/18/2023 11:22 PM MISSILE INSPECTOR HISTOPLASMA AG, QUANT EIA, U Routine 07/18/2023 11:[address] CHEST WITHOUT IV CONTRAST RAD - Routine (most inpatients and all outpatients) 07/18/2023 10:40 PM MISSILE INSPECTOR BACTERIA / MARIALUISA CULTURE, BLOOD STAT 07/18/2023 9:37 PM MISSILE INSPECTOR HIV-1/-2 AG AND AB SCREEN, PLASMA Routine 07/18/2023 9:37 PM MISSILE INSPECTOR MYCOBACTERIAL CULTURE, V Routine 07/18/2023 9:33 PM MISSILE INSPECTOR ACID FAST SMEAR FOR MYCOBACTERIUM Routine 07/18/2023 9:33 PM MISSILE INSPECTOR FUNGAL CULTURE, ROUTINE Routine 07/18/2023 9:33 PM MISSILE INSPECTOR FUNGAL SMEAR Routine 07/18/2023 9:33 PM MISSILE INSPECTOR BACTERIAL CULTURE, AEROBIC + SUSC, RESP Routine 07/18/2023 9:33 PM MISSILE INSPECTOR GRAM STAIN Routine 07/18/2023 9:33 PM MISSILE INSPECTOR ANCA VASCULITIS PANEL, S Routine 07/18/2023 9:24 PM MISSILE INSPECTOR (1, 3) [id number] (FUNGITELL), S Routine 07/18/2023 9:24 PM MISSILE INSPECTOR BACTERIA / MARIALUISA CULTURE, BLOOD STAT 07/18/2023 9:24 PM MISSILE INSPECTOR HCV AB W/REFLEX TO HCV PCR, S Routine 07/18/2023 9:24 PM MISSILE INSPECTOR HBC TOTAL AB, SERUM Routine 07/18/2023 9 :24 PM MISSILE INSPECTOR HBS ANTIBODY, SERUM Routine 07/18/2023 9 :24 PM MISSILE INSPECTOR HEPATITIS B SURFACE ANTIGEN Routine 07/18/2023 9:24 PM MISSILE INSPECTOR INFLUENZA A, B, RSV, PCR, RAPID, V Routine 07/18/2023 8:54 PM MISSILE INSPECTOR SARS CORONAVIRUS 2, PCR RAPID, V Routine 07/18/2023 8:54 PM MISSILE INSPECTOR DX CHEST AP OR PA AND LATERAL 2 VIEWS RAD - Semiurgent (Fast; most ED patients; some inpatients) 07/18/2023 4:44 PM MISSILE INSPECTOR VBG & LYTES CG8+, POCT, B STAT 07/18/2023 4:25 PM MISSILE INSPECTOR HEPATIC FUNCTION PANEL, S STAT 07/18/2023 4:16 PM MISSILE INSPECTOR NT-PRO B-TYPE NATRIURETIC PEPTIDE (BNP), S STAT 07/18/2023 4:16 PM MISSILE INSPECTOR D-DIMER, P STAT 07/18/2023 4:16 PM MISSILE INSPECTOR TROPONIN T, BASELINE, 5TH GEN, P STAT 07/18/2023 4:16 PM MISSILE INSPECTOR BASIC METABOLIC PANEL, S/P STAT 07/18/2023 4:16 PM MISSILE INSPECTOR CBC WITH DIFFERENTIAL, B STAT 07/18/2023 4:16 PM MISSILE INSPECTOR IMMUNOGLOBULIN E (IGE), S Routine 07/18/2023 4:13 PM MISSILE INSPECTOR M. PNEUMONIAE AB, IGG AND IGM Routine 07/18/2023 4:13 PM MISSILE INSPECTOR ECG STAT 07/18/2023 3:21 PM MISSILE INSPECTOR from Last 3 Months Results * CBC with Differential, Blood (09/19/2023 6:23 AM CDT) Only the most recent of10 resultswithin the time period is included. Hemoglobin 15.2 13.2 - 16.6 g/dL 09/19/2023 6:48 AM CDT DHPM Hematocrit 45.0 38.3 - 48.6 % 09/19/2023 6:48 AM CDT DHPM Erythrocytes 4.79 4.35 - 5.65 x10(12)/L 09/19/2023 6:48 AM CDT DHPM MCV 93.9 78.2 - 97.9 fL 09/19/2023 6:48 AM CDT DHPM RBC Distrib Width 12.2 11.8 - 14.5 % 09/19/2023 6:48 AM CDT DHPM Platelet Count 166 135 - 317 x10(9)/L 09/19/2023 6:48 AM CDT DHPM Leukocytes 8.9 3.4 - 9.6 x10(9)/L 09/19/2023 6:48 AM CDT DHPM Neutrophils 6.43 1.56 - 6.45 x10(9)/L 09/19/2023 6:48 AM CDT DHPM Lymphocytes 1.71 0.95 - 3.07 x10(9)/L 09/19/2023 6:48 AM CDT DHPM Monocytes 0.59 0.26 - 0.81 x10(9)/L 09/19/2023 6:48 AM CDT DHPM Eosinophils 0.18 0.03 - 0.48 x10(9)/L 09/19/2023 6:48 AM CDT DHPM Basophils <0.03 0.01 - 0.08 x10(9)/L 09/19/2023 6:48 AM CDT DHPM Blood (Blood, Venous) 09/19/2023 6:23 AM CDT 09/19/2023 6:39 AM CDT José Luis Lopez M.D. LAB BLOOD ADD-ON [facility] [address] [place] [address], [place] [facility] [address] [place] [address] * Basic Metabolic Panel (09/19/2023 6:23 AM CDT) Only the most recent of8 resultswithin the time period is included. Potassium, S 4.1 3.6 - 5.2 mmol/L 09/19/2023 7:15 AM CDT DTL Sodium, S 138 135 - 145 mmol/L 09/19/2023 7:15 AM CDT DTL Chloride, S 100 98 - 107 mmol/L 09/19/2023 7:15 AM CDT DTL Bicarbonate, S 27 22 - 29 mmol/L 09/19/2023 7:15 AM CDT DTL Anion Gap 11 7 - 15 09/19/2023 7:15 AM CDT DTL BUN (Blood Urea Nitrogen), S 17 8 - 24 mg/dL 09/19/2023 7:15 AM CDT DTL Creatinine 0.92 0.74 - 1.35 mg/dL 09/19/2023 7:15 AM CDT DTL Estimated GFR (eGFR) >90 >=60 mL/min/BSA 09/19/2023 7:15 AM CDT DTL Comment: Estimated GFR calculated using the 2020 CKD_EPI creatinine equation. Calcium, Total, S 9.2 8.8 - 10.2 mg/dL 09/19/2023 7:15 AM CDT DTL Glucose, S 109 70 - 140 mg/dL 09/19/2023 7:15 AM CDT DTL Blood (Blood, Venous) 09/19/2023 6:23 AM CDT 09/19/2023 6:39 AM CDT José Luis Lopez M.D. LAB BLOOD ADD-ON [facility] [address] [place] [address], [facility] [address] [place] [address] * (TTE) 2D ECHO DOPPLER COLOR (09/18/2023 10:01 AM CDT) Ejection Fraction 67 MC CV EIMS Sinus of Valsalva 38 MC CV EIMS Mid-Ascending Aorta 33 MC CV EIMS LV Mass Index 86 MC CV EIMS LV End-Diastolic Diameter 54 MC CV EIMS LV End-Systolic Diameter 37 MC CV EIMS LV End-Diastolic Volume 188 MC CV EIMS LV End-Systolic Volume 63 MC CV EIMS MV E Velocity 0.5 MC CV EIMS MV A Velocity 0.4 MC CV EIMS MV E/A 1.25 MC CV EIMS MV e' Velocity Medial 0.11 MC CV EIMS MV e' Velocity Lateral 0.12 MC CV EIMS MV E/e' Medial 4.5 MC CV EIMS MV E/e' Lateral 4.2 MC CV EIMS Left ventricular stroke volume index 44 MC CV EIMS Cardiac Output 7.51 MC CV EIMS Cardiac Index 2.94 MC CV EIMS LV Interventricular Septal Wall Thickness 11 MC CV EIMS LV Posterior Wall Thickness 10 MC CV EIMS LV Relative Wall Thickness 37 MC CV EIMS RV 4-Chamber Basal Diameter 42 MC CV EIMS RV 4-Chamber Mid Diameter 31 MC CV EIMS RV 4-Chamber Length 86 MC CV EIMS TAPSE 25 MC CV EIMS Tricuspid Annular S? 0.11 MC CV EIMS TR Vmax 2.02 MC CV EIMS RA Pressure 5 MC CV EIMS RV Systolic Pressure 21 MC CV EIMS Estimated diastolic pulmonary artery pressure 7 MC CV EIMS AV mean gradient 4 MC CV EIMS Aortic valve area 3.84 MC CV EIMS Aortic Valve Dimensionless Index 0.72 MC CV EIMS LA Volume Index 16 MC CV EIMS Aortic Valve Systolic Peak Velocity 1.5 MC CV EIMS Anatomical Region Laterality Modality Echocardiography 09/18/2023 8:57 AM CDT Impressions 09/18/2023 11:30 AM CDT There are no previous [facility] echocardiograms available for comparison. Echo performed at the patient's bedside. LEFT VENTRICLE:Normal left ventricular chamber size. Normal left ventricular geometry. Calculated 2-D biplane volumetric left ventricular ejection fraction of 67% without the use of ultrasound enhancing agent. No regional wall motion abnormalities. Normal left ventricular diastolic function. RIGHT VENTRICLE:Normal right ventricular chamber size. Normal right ventricular systolic function. Estimated right ventricular systolic pressure 21 mmHg (right atrial pressure of 5 mmHg). ATRIA:Normal left atrial size. Left atrial volume index 16 ml/m2. Strain imaging examination performed to assess left atrial function. Global averaged left atrial biplane longitudinal peak systolic strain is abnormal at 30.0% (normal is greater than 35%). Normal right atrial size by visual estimate. CARDIAC VALVES:Trileaflet aortic valve. Normal aortic valve. No aortic valve regurgitation. Normal mitral valve. Trivial mitral valve regurgitation. Normal pulmonary valve. Normal pulmonary valve systolic velocities. Trivial pulmonary valve regurgitation. Normal tricuspid valve. Trivial tricuspid valve regurgitation. OTHER ECHO FINDINGS:Normal inferior vena cava size with normal inspiratory collapse (>50%). Normal sinus of Valsalva diameter of 38 mm. Upper limit of normal of the sinus of Valsalva for age, sex and BSA is 44 mm. Normal mid ascending aorta diameter of 33 mm. Upper limit of normal of the mid ascending aorta, for age, sex and BSA is 42 mm. No abdominal aortic aneurysm. Normal abdominal aorta Doppler flow pattern. No atrial level shunt by color flow imaging. No intracardiac mass or thrombus, but the left atrial appendage cannot be visualized adequately with transthoracic echo to exclude thrombus in this location. No ??pericardial effusion. LUNG FINDINGS:Normal aeration in both lungs. For the complete report, see the Order-Level Documents. Narrative 09/18/2023 11:30 AM CDT For the complete report, see the Order-Level Documents. Hemodynamics Heart Rate: 67 BPM Blood Pressure: 106 / 53 mmHg ECG: Sinus rhythm, Runs of tachycardia Final Impressions 1. Normal left ventricular chamber size, no regional wall motion abnormalities, calculated 2-D biplane volumetric ejection fraction of 67%. 2. Increased mid left ventricular cavity flow velocities (minimally increase; 9 mm Hg with Valsalva). ??No systolic anterior motion of the mitral valve or dynamic left ventricular outflow track obstruction documented. 3. Normal left ventricular geometry, normal diastolic function. 4. Normal right ventricular chamber size, normal systolic function, estimated right ventricular systolic pressure 21 mmHg (right atrial pressure of 5 mmHg). 5. No ??significant valvular heart disease. 6. No ??pericardial effusion. 7. Normal aeration in both lungs. 8. There are no previous [facility] echocardiograms available for comparison. Procedure Note Jong Fish M.D. - 09/18/2023 For the complete report, see the Order-Level Documents. Hemodynamics Heart Rate: 67 BPM Blood Pressure: 106 / 53 mmHg ECG: Sinus rhythm, Runs of tachycardia Final Impressions 1. Normal left ventricular chamber size, no regional wall motionabnormalities, calculated 2-D biplane volumetric ejection fraction of67%. 2. Increased mid left ventricular cavity flow velocities (minimallyincrease; 9 mm Hg with Valsalva). No systolic anterior motion of themitral valve or dynamic left ventricular outflow track obstructiondocumented. 3. Normal left ventricular geometry, normal diastolic function. 4. Normal right ventricular chamber size, normal systolic function,estimated right ventricular systolic pressure 21 mmHg (right atrialpressure of 5 mmHg). 5. No significant valvular heart disease. 6. No pericardial effusion. 7. Normal aeration in both lungs. 8. There are no previous [facility] echocardiograms available forcomparison. Findings There are no previous [facility] echocardiograms available forcomparison. Echo performed at the patient's bedside. LEFT VENTRICLE:Normal left ventricular chamber size. Normal leftventricular geometry. Calculated 2-D biplane volumetric left ventricularejection fraction of 67% without the use of ultrasound enhancing agent. Noregional wall motion abnormalities. Normal left ventricular diastolicfunction. RIGHT VENTRICLE:Normal right ventricular chamber size. Normal rightventricular systolic function. Estimated right ventricular systolicpressure 21 mmHg (right atrial pressure of 5 mmHg). ATRIA:Normal left atrial size. Left atrial volume index 16 ml/m2. Strainimaging examination performed to assess left atrial function. Globalaveraged left atrial biplane longitudinal peak systolic strain is abnormalat 30.0% (normal is greater than 35%). Normal right atrial size by visualestimate. CARDIAC VALVES:Trileaflet aortic valve. Normal aortic valve. No aorticvalve regurgitation. Normal mitral valve. Trivial mitral valveregurgitation. Normal pulmonary valve. Normal pulmonary valve systolicvelocities. Trivial pulmonary valve regurgitation. Normal tricuspid valve.Trivial tricuspid valve regurgitation. OTHER ECHO FINDINGS:Normal inferior vena cava size with normal inspiratorycollapse (>50%). Normal sinus of Valsalva diameter of 38 mm. Upper limitof normal of the sinus of Valsalva for age, sex and BSA is 44 mm. Normalmid ascending aorta diameter of 33 mm. Upper limit of normal of the midascending aorta, for age, sex and BSA is 42 mm. No abdominal aorticaneurysm. Normal abdominal aorta Doppler flow pattern. No atrial levelshunt by color flow imaging. No intracardiac mass or thrombus, but theleft atrial appendage cannot be visualized adequately with transthoracicecho to exclude thrombus in this location. No pericardial effusion. LUNG FINDINGS:Normal aeration in both lungs. For the complete report, see the Order-Level Documents. José Luis Lopez M.D. CV ECHO PROCEDURES * Respiratory Panel, PCR, Nasopharyngeal (09/17/2023 10:22 PM CDT) Specimen Source NASOPHARYNGEAL SWAB 09/17/2023 11:38 PM CDT DTL Adenovirus Undetected Undetected 09/17/2023 11:38 PM CDT DTL Coronavirus 229E Undetected Undetected 09/17/19 11:38 PM CDT DTL Coronavirus HKU1 Undetected Undetected 09/17/19 11:38 PM CDT DTL Coronavirus NL63 Undetected Undetected 09/17/19 11:38 PM CDT DTL Coronavirus OC43 Undetected Undetected 09/17/19 11:38 PM CDT DTL SARS Coronavirus-2 Undetected Undetected 09/17/2023 11:38 PM CDT DTL Comment: SARS-CoV-2 RNA absent. This result does not rule out COVID-19 in the patient, as the sensitivity of the test depends on the timing of the specimen collection and the quality of the specimen. Result should be correlated with patient's history and clinical presentation. Human Metapneumovirus Undetected Undetected 09/17/2023 11:38 PM CDT DTL Human Rhinovirus/ Enterovirus Undetected Undetected 09/17/2023 11:38 PM CDT DTL Influenza A Undetected Undetected 09/17/2023 11:38 PM CDT DTL Influenza B Undetected Undetected 09/17/2023 11:38 PM CDT DTL Parainfluenza Virus 1 Undetected Undetected 09/17/2023 11:38 PM CDT DTL Parainfluenza Virus 2 Undetected Undetected 09/17/2023 11:38 PM CDT DTL Parainfluenza Virus 3 Undetected Undetected 09/17/2023 11:38 PM CDT DTL Parainfluenza Virus 4 Undetected Undetected 09/17/2023 11:38 PM CDT DTL Respiratory Syncytial Virus Undetected Undetected 09/17/2023 11:38 PM CDT DTL Bordetella parapertussis Undetected Undetected 09/17/2023 11:38 PM CDT DTL Bordetella pertussis Undetected Undetected 09/17/2023 11:38 PM CDT DTL Chlamydia pneumoniae Undetected Undetected 09/17/2023 11:38 PM CDT DTL Mycoplasma pneumoniae Undetected Undetected 09/17/2023 11:38 PM CDT DTL Interpretation This assay is not predicted to detect SARS-coronavirus (CoV), or MERS-CoV. If SARS-CoV or MERS-CoV is suspected, coordinate testing through a local public health laboratory. 09/17/2023 11:38 PM CDT DTL Comment: ----ADDITIONAL INFORMATION---- This assay is performed using the FDA-Cleared FilmArray Respiratory Panel 2.1 (Raise5). This assay is performed using the FilmArray Respiratory Panel 2.1 (Raise5). For testing performed at [facility] in [place], [place], performance characteristics for samples submitted in phosphate buffered saline were determined by [facility] in a manner consistent with CLIA requirements. Swab (Nasopharynx) 09/17/2023 10:22 PM CDT 09/17/2023 10:41 PM CDT José Luis Lopez M.D. LAB MICROBIOLOGY - GENERAL ORDERABLES [facility] [address] [place] [address], [facility] DT [address] [facility] [address] [place] [address] * MR Brain without and with IV Contrast (09/17/2023 7:32 PM CDT) Anatomical Region Laterality Modality Head, Brain, Neuroradiology RST LOS, Neuroradiology ARZ LOS, Neuroradiology FLA LOS N/A Magnetic Resonance Impressions 09/17/2023 8:28 PM CDT No acute intracranial findings. Nothing specific for infectious [employer] etiologies or acute meningoencephalitis. Narrative 09/17/2023 8:28 PM CDT EXAM: MR BRAIN WITHOUT AND WITH IV CONTRAST COMPARISON: Head CT 09/14/2023; no prior MRI brain available for comparison. FINDINGS: ??No diffusion restriction to suggest recent infarct. No hydrocephalus or extra-axial collection. Incidentally noted is a pain enhancing developmental venous anomaly in the right inferolateral parieto-occipital region. No abnormal intraparenchymal, pachymeningeal or leptomeningeal enhancement. Ventricles and sulci appropriate for age. Minimal chronic microangiopathic changes. Major intracranial flow voids are intact. Scattered mild inflammatory mucosal thickening of the ethmoid sinuses. Near complete opacification of an atelectatic left maxillary sinus. Small bilateral mastoid effusions, left greater than right. Procedure Note Bob Paz M.D. - 09/17/2023 EXAM: MR BRAIN WITHOUT AND WITH IV CONTRAST COMPARISON: Head CT 09/14/2023; no prior MRI brain available forcomparison. FINDINGS: No diffusion restriction to suggest recent infarct. Nohydrocephalus or extra-axial collection. Incidentally noted is a painenhancing developmental venous anomaly in the right inferolateralparieto-occipital region. No abnormal intraparenchymal, pachymeningeal or leptomeningeal enhancement. Ventriclesand sulci appropriate for age. Minimal chronic microangiopathic changes.Major intracranial flow voids are intact. Scattered mild inflammatorymucosal thickening of the ethmoid sinuses. Near complete opacification of an atelectatic left maxillarysinus. Small bilateral mastoid effusions, left greater than right. IMPRESSION: No acute intracranial findings. Nothing specific for infectious CNSetiologies or acute meningoencephalitis. José Luis Lopez M.D. [facility] [place]ED[place] * Glucose, POCT (09/17/2023 11:21 AM CDT) Glucose, POCT, B 131 70 - 140 mg/dL 09/17/2023 11:23 AM CDT PCLX Last Intake 2-3 hours 09/17/2023 11:23 AM CDT PCLX Blood 09/17/2023 11:2 1 AM CDT 09/17/2023 11:24 AM CDT Unknown Provider LAB POCT ORDERABLES- MANUAL POC [facility] [address] [place] [address], [facility] PCLX [facility] POC [address] [place] [address] * CT Sinuses without IV Contrast (09/15/2023 12:37 PM CDT) Anatomical Region Laterality Modality Head, Neuroradiology RST LOS , Neuroradiology ARZ LOS, Neuroradiology FLA LOS N/A Computed Tomography, Compute d Tomography Impressions 09/15/2023 1:05 PM CDT 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 Narrative 09/15/2023 1:05 PM CDT EXAM: CT SINUSES WITHOUT IV CONTRAST COMPARISON: None FINDINGS: Findings suggestive of left maxillary sinus sinus syndrome with an atelectatic left maxillary sinus, inferior displacement of the left orbital floor with enophthalmos, and lateral rotation of the medial wall the maxillary sinus which appears to obstruct the maxillary ostium. There is also posterior bowing of the anterior maxillary sinus wall and medial bowing of the lateral maxillary sinus wall. Clinical correlation for prior surgical history is recommended given the described anatomic variations. Complete opacification of the atelectatic left maxillary sinus with partially internal hyperattenuating secretions which could be on the basis of inspissation and/or fungal colonization. Surrounding fat planes appear intact. Prominent leftward deviation of the nasal septum with nasal spur. Superolateral rotation of the left middle nasal turbinate compared to the contralateral side. Relatively mild mucosal thickening throughout the ethmoid air cells. Mucosal thickening contributes opacification of the right maxillary ostium, right frontal recess, and sphenoid ostia. No air-fluid levels or frothy secretions. Right olfactory groove is approximately 2 mm deeper compared to the contralateral side. Air cells superior to the anterior ethmoidal notches. Lamina papyracea appear intact bilaterally. No substantial Onodi or Israel cells. Procedure Note Zay Fernandez D.O. - 09/15/2023 EXAM: CT SINUSES WITHOUT IV CONTRAST COMPARISON: None FINDINGS: Findings suggestive of left maxillary sinus sinus syndrome withan atelectatic left maxillary sinus, inferior displacement of the leftorbital floor with enophthalmos, and lateral rotation of the medial wallthe maxillary sinus which appears to obstruct the maxillary ostium. There is also posterior bowing of theanterior maxillary sinus wall and medial bowing of the lateral maxillarysinus wall. Clinical correlation for prior surgical history is recommendedgiven the described anatomic variations. Complete opacification of the atelectatic left maxillary sinuswith partially internal hyperattenuating secretions which could be on thebasis of inspissation and/or fungal colonization. Surrounding fat planesappear intact. Prominent leftward deviation of the nasal septum with nasal spur. Superolateralrotation of the left middle nasal turbinate compared to the contralateralside. Relatively mild mucosal thickening throughout the ethmoid air cells.Mucosal thickening contributes opacification of the right maxillaryostium, right frontal recess, and sphenoid ostia. No air-fluid levels orfrothy secretions. Right olfactory groove is approximately 2 mm deeper compared to thecontralateral side. Air cells superior to the anterior ethmoidal notches.Lamina papyracea appear intact bilaterally. No substantial Onodi or Hallercells. 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 José Luis NOVAK CT PROCEDURES * CT Chest without IV Contrast (09/15/2023 12:37 PM CDT) Only the most recent of2 resultswithin the time period is included. Anatomical Region Laterality Modality Chest, Thoracic RST LOS, Tho racic ARZ LOS, Thoracic FLA LOS N/A Computed Tomography, Compute d Tomography Impressions 09/15/2023 12:53 PM CDT 1. ??Ongoing multifocal mucous plugging which has improved but remains most prominently at bilateral lower lobes with similar extent and shifting distribution of mucous plugging in the remaining lung. No definite focal consolidation. 2. ??Decreased to nearly resolved previously seen groundglass opacities at lung bases. 3. ??Other chronic/nonacute findings, as detailed. Narrative 09/15/2023 12:53 PM CDT EXAM: CT CHEST WITHOUT IV CONTRAST COMPARISON: Multiple prior examinations, most recent CT from 09/02/2018, and beyond. FINDINGS: Ongoing but decreased mucous plugging and bronchial wall thickening involving bilateral lower lobes with linear/subsegmental atelectasis. Significantly improved atelectasis/groundglass opacities within involved lower lobes. Trace nonocclusive debris within the right mainstem bronchus. No occlusive central airway lesion. Similar severity of shifting distribution of lesser extensive endobronchial plugging involving upper lobes, right middle lobe, lingula. Trace paraseptal emphysema. Stable tiny right lower lobe pulmonary nodule. No definite acute central pulmonary arterial embolism. No convincing imaging evidence of right heart strain. No pericardial effusion. Ongoing prominent mediastinal and hilar lymph nodes, presumably reactive. Imaged upper abdomen demonstrates no definite acute abnormality. Spleen measures up to 16.7 cm (AP). Procedure Note Jose Antonio Jasso D.O. - 09/15/2023 EXAM: CT CHEST WITHOUT IV CONTRAST COMPARISON: Multiple prior examinations, most recent CT from 09/02/2018,and beyond. FINDINGS: Ongoing but decreased mucous plugging and bronchial wall thickeninginvolving bilateral lower lobes with linear/subsegmental atelectasis.Significantly improved atelectasis/groundglass opacities within involvedlower lobes. Trace nonocclusive debris within the right mainstem bronchus. No occlusive central airway lesion.Similar severity of shifting distribution of lesser extensiveendobronchial plugging involving upper lobes, right middle lobe,lingula. Trace paraseptal emphysema. Stable tiny right lower lobe pulmonarynodule. No definite acute central pulmonary arterial embolism. No convincingimaging evidence of right heart strain. No pericardial effusion. Ongoingprominent mediastinal and hilar lymph nodes, presumably reactive. Imaged upper abdomen demonstrates no definite acute abnormality. Spleenmeasures up to 16.7 cm (AP). IMPRESSION: 1. Ongoing multifocal mucous plugging which has improved but remains mostprominently at bilateral lower lobes with similar extent and shiftingdistribution of mucous plugging in the remaining lung. No definite focalconsolidation. 2. Decreased to nearly resolved previously seen groundglass opacities atlung bases. 3. Other chronic/nonacute findings, as detailed. José Luis NOVAK CT PROCEDURES * Tryptase (09/15/2023 10:50 AM CDT) Pathologist [facility] Tryptase, S 4.4 <11.5 ng/mL 09/16/2023 3:30 PM CDT [facility] Blood (Blood, Venous) 09/15/2023 10:50 AM CDT 09/15/2023 2:50 PM CDT José Luis Lopez M.D. LAB BLOOD ADD-ON Performing Organization Address City/[facility]/ZIP Co de Phone Number [facility] [address] [place] [address] [facility] [address] [place] [address] * Troponin T, 5th Generation (09/15/2023 10:50 AM CDT) [facility] Troponin T, 5th gen 10 <=15 ng/L 09/15/2023 11:14 AM CDT [facility] Blood 09/15/2023 10:5 0 AM CDT 09/15/2023 10:56 AM CDT José Luis Lopez M.D. LAB BLOOD ADD-ON Performing Organization Address City/[facility] Co de Phone Number [facility] [address] [place] [address], [facility] [address] [place] [address] * (1, 3) Exja-N-Njzvhm (Fungitell), Serum (09/15/2023 8:00 AM CDT) Only the most recent of2 resultswithin the time period is included. Pathologist [facility] (1, 3) Asmc-H-Xtfqfq, Quantitative <31 <60 pg/mL pg/mL 09/15/2023 3:48 PM CDT [facility] (1, 3) Djoy-O-Vbuaqk, Qualitative Negative Negative 09/15/2023 3:48 PM CDT [facility] Comment: No (1, 3) Yybs-B-Quofqh detected. ?? This assay does not detect certain fungi, including Cryptococcus species, which produce very low levels of (1, 3) Ourd-V-Kypvjq (BDG) and the Mucorales (e.g., Lichthemia, Mucor and Rhizopus), which are not known to produce BDG. Additionally, the yeast phase of Blastomyces dermatitidis produces little BDG and may not be detected by this assay. ----ADDITIONAL INFORMATION---- This assay was performed using the FDA-cleared Fungitell Assay ([facility] [place] a kinetic AJ based on modification of the Limulus Amebocyte Lysate pathway. Blood (Blood, Venous) 09/15/2023 8:00 AM CDT 09/15/2023 10:24 AM CDT José Luis Lopez M.D. LAB MICROBIOLOGY - BLOOD ORDERABLES Performing Organization Address [facility] Co de Phone Number [facility] [address] [place] [address] [facility] [address] [place] [address] [place] [address] * Aspergillus Ag (09/15/2023 8:00 AM CDT) Only the most recent of2 resultswithin the time period is included. Pathologist [facility] Aspergillus Ag, S <0.500 <0.5 index 09/15/2023 10:33 PM CDT [facility] Comment: ----ADDITIONAL INFORMATION---- This is a qualitative test and the resulted index value is not indicative of disease severity. ??Serial testing is recommended for patients at high risk for invasive aspergillosis. This assay was performed using the FDA-cleared [employer] Platelia Aspergillus Galactomannan EIA. Blood (Blood, Venous) 09/15/2023 8:00 AM CDT 09/15/2023 10:24 AM CDT José Luis Lopez M.D. LAB MICROBIOLOGY - BLOOD ORDERABLES Performing Organization Address City/[facility] Co de Phone Number [facility] [address] [place] [address] [facility] [address] [place] [address] [place] [address] * Eosinophil Count, Sputum (09/15/2023 3:58 AM CDT) [facility] Eosinophils 0 % DEFAULT 09/15/2023 3:14 PM CDT [facility] Comment: ----REFERENCE VALUE---- The reference range and other method performance specifications have not been established for this body fluid. The test result must be integrated into the clinical context for interpretation. Eosinophil Count, Comment 0 09/15/2023 3:14 PM CDT [facility] Sputum (Sputum) 09/15/2023 3 :58 AM CDT 09/15/2023 10:30 AM CDT Fuad Gardner M.D. LAB BODY FLUIDS A ND STOOLS ORDERABLES Performing Organization Address City/[facility]/[place] [address] * Pneumocystis Smear (09/15/2023 3:58 AM CDT) [facility] Pneumocystis smear Negative. 09/15/2023 4:47 PM CDT DT Sputum (Sputum) 09/15/2023 3 :58 AM CDT 09/15/2023 8:02 AM CDT Comment:Specimen Source Site : Sputum Fuad Gardner M.D. LAB MICROBIOLOGY - GENERAL ORDERABLES Performing Organization Address City/[facility]/[place] [address] * Patient Status (09/15/2023 1:01 AM CDT) Only the most recent of2 resultswithin the time period is included. [facility] O2 Flow 1.0 L/min 09/15/2023 1:08 AM CDT [facility] Device NC 09/15/2023 1:08 AM CDT [facility] Spont. breaths/min 15 09/15/2023 1:08 AM CDT [facility] Blood 09/15/2023 1:01 AM CDT 09/15/2023 1:08 AM CDT José Luis Lopez M.D. LAB BLOOD NON ADD-O N Performing Organization Address City/[facility] Co de Phone Number [facility] [address] [place] [address], [facility] [address] [place] [address] * Blood Gas without Coox, Venous (09/15/2023 1:01 AM CDT) Only the most recent of2 resultswithin the time period is included. pO2, Venous, B 50 Not applicable mm Hg 09/15/2023 1:10 AM CDT [facility] pCO2, Venous, B 47 41 - 51 mm Hg 09/15/2023 1:10 AM CDT [facility] pH, Venous, B 7.41 7.32 - 7.43 pH 024 1:10 AM CDT [facility] Base Excess, Venous, B 5 Not applicable mmol/L 09/15/2023 1:10 AM CDT [facility] HCO3, Venous, B 30 Not applicable mmol/L 09/15/2023 1:10 AM CDT [facility] Sample Site, Venous, B Venipunct 09/15/2023 1:08 AM CDT [facility] Blood (Blood, Venous) 09/15/2023 1:01 AM CDT 09/15/2023 1:08 AM CDT José Luis Lopez M.D. LAB BLOOD NON ADD-O N [facility] [address] [place] [address], [facility] [address] [place] [address] * (ABNORMAL) Hepatic Function Panel (09/15/2023 1:01 AM CDT) Only the most recent of3 resultswithin the time period is included. Bilirubin, Total, S 0.9 0.0 - 1.2 mg/dL 09/15/2023 2:00 AM CDT DTL Bilirubin, Direct, S 0.2 0.0 - 0.3 mg/dL 09/15/2023 2:00 AM CDT DTL Aspartate Aminotransferase (AST), S 21 8 - 48 U/L 09/15/2023 2:00 AM CDT DTL Alanine Aminotransferase (ALT), S 24 7 - 55 U/L 09/15/2023 2:00 AM CDT DTL Alkaline Phosphatase, S 56 40 - 129 U/L 09/15/2023 2:00 AM CDT DTL Albumin, S 3.8 3.5 - 5.0 g/dL 09/15/2023 2:00 AM CDT DTL Protein, Total, S 5.8(L) 6.3 - 7.9 g/dL 09/15/2023 2:00 AM CDT [facility] Blood (Blood, Venous) 09/15/2023 1:01 AM CDT 09/15/2023 1:28 AM CDT José Luis Lopez M.D. LAB BLOOD ADD-ON [address] [address], [address] [address] * (ABNORMAL) SPSMA Result (09/15/2023 1:01 AM CDT) Neutrophilic Segs and Bands 82(H) 50 - 75 % 09/15/2023 2:52 AM CDT [facility] Lymphocytes 12(L) 18 - 42 % 09/15/2023 2:52 AM CDT [facility] Monocytes 4 2 - 11 % 09/15/2023 2:52 AM CDT [facility] Eosinophils 1 1 - 3 % 09/15/2023 2:52 AM CDT [facility] Basophils 1 0 - 2 % 09/15/2023 2:52 AM CDT [facility] Manual Absolute Neutrophil Count 6.56(H) 1.56 - 6.45 x10(9)/L 09/15/2023 2:52 AM CDT [facility] Comment: ----ADDITIONAL INFORMATION---- The manual absolute neutrophil count is derived from a manual differential count and therefore is not exactly comparable to the automated absolute neutrophil count. Interpretation See Comment 2:52 AM CDT [facility] Comment:Peripheral blood sme ar reviewed: no diagnostic abnormalities are seen. Reviewed by: Kieran 09/15/2023 2:52 AM CDT [facility] Blood (Blood, Venous) 09/15/2023 1:01 AM CDT 09/15/2023 1:19 AM CDT José Luis Lopez M.D. LAB BLOOD ADD-ON Performing Organization Address City/[facility]/ZIP Co de Phone Number [facility] [address] [place] [address], [facility] [address] [place] [address] * Strongyloides Antibody, IgG (09/15/2023 1:01 AM CDT) Strongyloides Ab, IgG, S Negative Negative 09/15/2023 7:44 PM CDT [facility] Comment: No detectable levels of IgG antibodies to Strongyloides. Repeat testing in 1-2 weeks if clinically indicated. Blood (Blood, Venous) 09/15/2023 1:01 AM CDT 09/15/2023 11:24 AM CDT José Luis Lopez M.D. LAB BLOOD ADD-ON Performing Organization Address City/[facility] Co de Phone Number [facility] [address] [place] [address] [facility] [address] [place] [address] * Phosphorus Inorganic (09/15/2023 1:01 AM CDT) Phosphorus (Inorganic), S 2.8 2.5 - 4.5 mg/dL 09/15/2023 2:00 AM CDT [facility] Blood (Blood, Venous) 09/15/2023 1:01 AM CDT 09/15/2023 1:28 AM CDT José Luis Lopez M.D. LAB BLOOD ADD-ON Performing Organization Address City/[facility]/ZIP Co de Phone Number [facility] [address] [place], [place] [address] [place] [address] [address] [place] [address] * Bordetella PCR (09/14/2023 8:51 PM CDT) Specimen source Nasopharynx 09/16/19 5:21 PM CDT DT Bordetella pertussis PCR Negative Not Applicable 09/16/2023 5:21 PM CDT DTL Bordetella parapertussis PCR Negative Not Applicable 09/16/2023 5:21 PM CDT DTL Comment: ----ADDITIONAL INFORMATION---- This test was developed and its performance characteristics determined by [facility] in a manner consistent with CLIA requirements. This test has not been cleared or approved by the U.S. Food and Drug Administration. Swab (Nasopharynx) 09/14/2023 8:51 PM CDT 09/14/2023 9:21 PM CDT José Luis Lopez M.D. LAB MICROBIOLOGY - GENERAL ORDERABLES Performing Organization Address [facility] Co de Phone Number [facility] [address] [place] [address], [address] [address] * Pneumocystis PCR (09/14/2023 8:41 PM CDT) Specimen Source Sputum, Sputum 09/16/2023 10:17 AM CDT DTL Pneumocystis PCR Negative Not Applicable 09/16/2023 10:17 AM CDT DTL Comment: ----ADDITIONAL INFORMATION---- This test was developed and its performance characteristics determined by [facility] in a manner consistent with CLIA requirements. This test has not been cleared or approved by the U.S. Food and Drug Administration. Sputum (Sputum) 09/14/2023 8 :41 PM CDT 09/14/2023 9:14 PM CDT José Luis Lopez M.D. LAB MICROBIOLOGY - GENERAL ORDERABLES Performing Organization Address [facility] Co de Phone Number [facility] [address] [place] [address], [facility] [address] [address] * Bacterial Culture, Aerobic + Susceptibility, Respiratory (09/14/2023 8:41 PM CDT) Only the most recent of4 resultswithin the time period is included. Bacterial Culture, Aerobic, Resp Upper respiratory/or al microbiota 09/16/2023 11:27 AM CDT DTL Sputum (Sputum) 09/14/2023 8 :41 PM CDT 09/14/2023 9:14 PM CDT Comment:Specimen Source Site : Sputum Narrative [facility] - 09/16/2023 11:27 AM CDT Fungal and Mycobacteria specimens plated for culture, volume inadequate for optimal recovery. José Luis Lopez M.D. LAB MICROBIOLOGY - GENERAL ORDERABLES Performing Organization Address [facility] de Phone Number [facility] [address] [place] [address], [facility] [address] [place] [address] * Legionella PCR (09/14/2023 8:41 PM CDT) Specimen Source Sputum, Sputum 09/15/2023 9:55 PM CDT DTL Legionella PCR, Result Negative Not Applicable 09/15/2023 9:55 PM CDT DTL Comment: ----ADDITIONAL INFORMATION---- This test was developed and its performance characteristics determined by [facility] in a manner consistent with CLIA requirements. This test has not been cleared or approved by the U.S. Food and Drug Administration. Sputum (Sputum) 09/14/2023 8 :41 PM CDT 09/14/2023 9:14 PM CDT José Luis Lopez M.D. LAB MICROBIOLOGY - GENERAL ORDERABLES [facility] [address] [place] [address], [facility] DT 200 [facility] [address] [place] [address] * Fungal Smear (09/14/2023 8:41 PM CDT) Only the most recent of4 resultswithin the time period is included. Fungal Smear Negative. 09/15/2023 9:43 AM CDT DTL Sputum (Sputum) 09/14/2023 8 :41 PM CDT 09/14/2023 9:14 PM CDT Comment:Specimen Source Site : Sputum Narrative [facility] - 09/15/2023 9:43 AM CDT Fungal and Mycobacteria specimens plated for culture, volume inadequate for optimal recovery. José Luis Lopez M.D. LAB MICROBIOLOGY - GENERAL ORDERABLES Performing Organization Address City/[facility] Co de Phone Number [facility] [address] [place] [address], [facility] [address] [place] [address] * Acid Fast Smear for Mycobacterium (09/14/2023 8:41 PM CDT) Only the most recent of4 resultswithin the time period is included. Acid Fast Smear For Mycobacterium Negative. 09/15/2023 3:24 PM CDT DTL Sputum (Sputum) 09/14/2023 8 :41 PM CDT 09/14/2023 9:14 PM CDT Comment:Specimen Source Site : Sputum Narrative [facility] - 09/15/2023 3:24 PM CDT Fungal and Mycobacteria specimens plated for culture, volume inadequate for optimal recovery. José Luis Lopez M.D. LAB MICROBIOLOGY - GENERAL ORDERABLES [facility] [address] [place] [address], [facility] [address] [place] [address] * Gram Stain (09/14/2023 8:41 PM CDT) Only the most recent of5 resultswithin the time period is included. Gram Stain Upper respiratory/ora l microbiota White blood cells, Few Epithelial cells, Few 09/15/2023 1:11 AM CDT DTL Sputum (Sputum) 09/14/2023 8 :41 PM CDT 09/14/2023 9:14 PM CDT Comment:Specimen Source Site : Sputum Narrative [facility] - 09/15/2023 1:11 AM CDT Fungal and Mycobacteria specimens plated for culture, volume inadequate for optimal recovery. José Luis Lopez M.D. LAB MICROBIOLOGY - GENERAL ORDERABLES [facility] [address] [place] [address], [facility] [place] [address] [place] [address] * DX Chest AP or PA and Lateral 2 Views (09/14/2023 11:49 AM CDT) Only the most recent of4 resultswithin the time period is included. Anatomical Region Laterality Modality Chest, Thoracic RST LOS, Tho racic ARZ LOS, Thoracic FLA LOS N/A Digital Radiography Impressions 09/14/2023 11:53 AM CDT Since 09/03/2023 slight increased diffuse peribronchial thickening and small nodules, most conspicuous in the lower lobes which may be related to aspiration or infection. No focal consolidation or effusions. Narrative 09/14/2023 11:53 AM CDT EXAM: ??DX CHEST AP OR PA AND LATERAL 2 VIEWS Procedure Note Carleen Estrada M.B.B.S. - 09/14/2023 EXAM: DX CHEST AP OR PA AND LATERAL 2 VIEWS IMPRESSION: Since 09/03/2023 slight increased diffuse peribronchial thickening andsmall nodules, most conspicuous in the lower lobes which may be related toaspiration or infection. No focal consolidation or effusions. Richmond Huang P.A.-C. IM DIAGNOSTIC IMAGING PROCEDURES * CT Head without IV Contrast (09/14/2023 11:32 AM CDT) Anatomical Region Laterality Modality Head, Neuroradiology RST LOS , Neuroradiology ARZ LOS, Neuroradiology FLA LOS N/A Computed Tomography, Compute d Tomography 09/14/2023 11:2 7 AM CDT Impressions 09/14/2023 11:50 AM CDT No acute intracranial findings. Narrative 09/14/2023 11:50 AM CDT EXAM: CT HEAD WITHOUT IV CONTRAST COMPARISON: None available. FINDINGS: Mild age commensurate brain parenchymal volume loss. Minimal chronic microvascular angiopathic change. There is otherwise preserved harp-white matter differentiation without CT evidence for acute infarct, hemorrhage, or mass effect. Mild tonsillar ectopia. Brainstem and cerebellum otherwise intact. Minimal intracranial calcified arteriosclerotic disease. Minor mucosal thickening involving the frontal sinuses, left greater than right ethmoid air cells, left greater than right maxillary sinuses. Atelectatic left maxillary sinus. Trace left greater than right mastoid air cell fluid opacification. Extra cranial soft tissues and calvarium intact. Procedure Note Jonathan Piedra M.D. - 09/14/2023 EXAM: CT HEAD WITHOUT IV CONTRAST COMPARISON: None available. FINDINGS: Mild age commensurate brain parenchymal volume loss. Minimalchronic microvascular angiopathic change. There is otherwise preservedgray-white matter differentiation without CT evidence for acute infarct,hemorrhage, or mass effect. Mild tonsillar ectopia. Brainstem and cerebellum otherwise intact. Minimalintracranial calcified arteriosclerotic disease. Minor mucosal thickeninginvolving the frontal sinuses, left greater than right ethmoid air cells,left greater than right maxillary sinuses. Atelectatic left maxillary sinus. Trace left greater than rightmastoid air cell fluid opacification. Extra cranial soft tissues andcalvarium intact. IMPRESSION: No acute intracranial findings. Richmond Jennifer Huang P.A.-C. IMG CT PROCEDUR ES * (ABNORMAL) CRP (C-Reactive Protein) (09/14/2023 10:50 AM CDT) C-Reactive Protein (CRP), S 5.4(H) <5.0 mg/L 09/14/2023 11:56 AM CDT DT Blood (Blood, Venous) 09/14/2023 10:50 AM CDT 09/14/2023 11:23 AM CDT Richmond Huang P.A.-C. LAB BLOOD ADD-O N Performing Organization Address [facility] Co de Phone Number [facility] [address] [place], [place] [phone] [place] [address] [address] [place] [address] * S-TSH (Thyroid-Stimulating Hormone - Sensitive) (09/14/2023 10:50 AM CDT) Pathologist [facility] TSH, Sensitive 1.3 0.3 - 4.2 mIU/L 09/14/2023 11:56 AM CDT DT Blood (Blood, Venous) 09/14/2023 10:50 AM CDT 09/14/2023 11:23 AM CDT Richmond Huang P.A.-C. LAB BLOOD ADD-O N Performing Organization Address [facility] Co de Phone Number [facility] [address] [place], [place] [phone] [place] [address] [address] [place] [address] * Lactate (09/14/2023 10:50 AM CDT) Pathologist [facility] Lactate, P 2.2 0.5 - 2.2 mmol/L 09/14/2023 11:10 AM CDT [facility] Blood (Blood, Venous) 09/14/2023 10:50 AM CDT 09/14/2023 10:55 AM CDT Richmond Huang P.A.-C. LAB BLOOD NON A DD-ON Performing Organization Address City/[facility] Co de Phone Number [facility] [address] [place] [address], [facility] [address] [place] [address] * Magnesium (09/14/2023 10:45 AM CDT) Pathologist [facility] Magnesium, S 2.2 1.7 - 2.3 mg/dL 09/14/2023 1:22 PM CDT DTL Blood (Blood, Venous) 09/14/2023 10:45 AM CDT 09/14/2023 1:04 PM CDT Richmond Huang P.A.-C. LAB BLOOD ADD-O N [facility] [address] [facility] [place] [address] [place] [address] * ECG 12 Lead (09/14/2023 10:14 AM CDT) Only the most recent of3 resultswithin the time period is included. Pathologist [facility] Ventricular Rate ECG/Min 103 BPM MUSE NE Interval 178 ms MUSE QRSD Interval 98 ms MUSE QT Interval 350 ms MUSE QTC Interval 458 ms MUSE P [place] 64 degrees MUSE R [place] -15 degrees MUSE T Wave [place] 55 degrees MUSE 09/14/2023 10:1 4 AM CDT 09/14/2023 10:41 AM CDT Impressions MUSE - 09/14/2023 10:41 AM CDT Sinus tachycardia Otherwise normal ECG When compared with ECG of 03-Sep-2023 16:06, No significant change in data has occurred Reviewed by WILLIAM Wills Narrative Procedure Note Reji Gutierrez Jr., M.D. - 09/14/2023 IMPRESSION: Sinus tachycardia Otherwise normal ECG When compared with ECG of 03-Sep-2023 16:06, No significant change in data has occurred Reviewed by WILLIAM Wills Richmond D Tentis P.A.-C. ECG ORDERABLES MUSE NA * Oxygen Titration (09/10/2023 12:35 PM CDT) [1] Inspired Gas (L/min) Room Air MMODAL [1] Interface N/A MMODAL [1] Speed (mph) Rest MMODAL [1] Grade (%) N/A MMODAL [1] Time (min) 10 MMODAL [1] SpO2 (%) 92 MMODAL [1] Heart Rate 85 MMODAL [1] Ratings of Perceived Exertion (6-20) 7-8 MMODAL [2] Inspired Gas (L/min) Room Air MMODAL [2] Interface N/A MMODAL [2] Speed (mph) 1.5 MMODAL [2] Grade (%) 0 MMODAL [2] Time (min) 2 MMODAL [2] SpO2 (%) 94 MMODAL [2] Heart Rate 99 MMODAL [2] Ratings of Perceived Exertion (6-20) 9 MMODAL [3] Inspired Gas (L/min) Room Air MMODAL [3] Interface N/A MMODAL [3] Speed (mph) 1.7 MMODAL [3] Grade (%) 0 MMODAL [3] Time (min) 2 MMODAL [3] SpO2 (%) 96 MMODAL [3] Heart Rate 107 MMODAL [3] Ratings of Perceived Exertion (6-20) 9 MMODAL [4] Inspired Gas (L/min) Room Air MMODAL [4] Interface N/A MMODAL [4] Speed (mph) 1.7 MMODAL [4] Grade (%) 2 MMODAL [4] Time (min) 2 MMODAL [4] SpO2 (%) 95 MMODAL [4] Heart Rate 106 MMODAL [4] Ratings of Perceived Exertion (6-20) 11 MMODAL [5] Inspired Gas (L/min) Room Air MMODAL [5] Interface N/A MMODAL [5] Speed (mph) 2.0 MMODAL [5] Grade (%) 2 MMODAL [5] Time (min) 2.5 MMODAL [5] SpO2 (%) 95 MMODAL [5] Heart Rate 108 MMODAL [5] Ratings of Perceived Exertion (6-20) 12-13 MMODAL Comment Total exercise time: 8.5 minutes. MMODAL Ricky Leiva M.D. PFT ORDERABLES MMODAL NA * CT Chest Angiogram and Pulmonary Arteries with IV Contrast (09/03/2023 9:25 PM CDT) Anatomical Region Laterality Modality Chest, Cardiovascular RST LO S, Thoracic ARZ LOS, Thoracic FLA LOS N/A Computed Tomography, Compute d Tomography 09/03/2023 9:23 PM CDT Impressions 09/03/2023 9:37 PM CDT 1. ??Negative for acute pulmonary embolism. 2. ??Slightly progressed multifocal mucus plugging most prominent in the lower lobes with diffuse bronchial wall thickening most prominent in the lung bases. 3. ??Groundglass opacities in the dependent lung bases could represent atelectasis or developing infection/inflammation. Narrative 09/03/2023 9:37 PM CDT EXAM: CT CHEST ANGIOGRAM AND PULMONARY ARTERIES WITH IV CONTRAST Including 3D image postprocessing with or without AI assistance. COMPARISON: Outside CT chest 08/24/23 FINDINGS: Negative for acute pulmonary embolism. Bibasilar atelectasis. Trace paraseptal emphysema. Slightly progressed multifocal mucus plugging most prominent in the lower lobes. Diffuse bronchial wall thickening most prominent in the lung bases. Groundglass opacities in the dependent lung bases could represent atelectasis or developing infection/inflammation. Procedure Note Angélica, Steven Galindo M.D. - 09/03/2023 EXAM: CT CHEST ANGIOGRAM AND PULMONARY ARTERIES WITH IV CONTRAST Including 3D image postprocessing with or without AI assistance. COMPARISON: Outside CT chest 08/24/23 FINDINGS: Negative for acute pulmonary embolism. Bibasilar atelectasis. Trace paraseptal emphysema. Slightly progressedmultifocal mucus plugging most prominent in the lower lobes. Diffusebronchial wall thickening most prominent in the lung bases. Groundglassopacities in the dependent lung bases could represent atelectasis or developing infection/inflammation. IMPRESSION: 1. Negative for acute pulmonary embolism. 2. Slightly progressed multifocal mucus plugging most prominent in thelower lobes with diffuse bronchial wall thickening most prominent in thelung bases. 3. Groundglass opacities in the dependent lung bases could representatelectasis or developing infection/inflammation. Vinh Swift M.D. [facility] [place] [facility] [place] * Influenza A/B, SARS CoV-2, PCR, Rapid Symptomatic (09/03/2023 8:23 PM CDT) Influenza A, PCR, Rapid, V Negative Negative 09/03/2023 8:49 PM CDT [facility] Influenza B, PCR, Rapid, V Negative Negative 09/03/2023 8:49 PM CDT [facility] SARS CoV-2, PCR, Rapid, V Undetected Undetected 09/03/2023 8:49 PM CDT [facility] Comment: ----ADDITIONAL INFORMATION---- This RT-PCR test was performed using the [employer] SARS-CoV-2 and Influenza A/B Reagent assay from [employer], which has received Emergency Use Authorization(EUA) by the U.S. Food and Drug Administration. Fact sheets for this Emergency Use Authorization (EUA) assay can be found at the following links: For Healthcare Providers: https://www.fda.gov/media/095559/download For Patients: https://www.fda.gov/media/654036/download Infl A/B, SARS CoV-2, PCR, Source Swab, Nasopharynx 09/03/2023 8:25 PM CDT [facility] Swab (Nasopharynx) 09/03/2023 8:23 PM CDT 09/03/2023 8:25 PM CDT Vinh Swift M.D. LAB MICROBI OLOGY - GENERAL ORDERABLES [facility] [address] [place] [address], [facility] [address] [place] [address] * (ABNORMAL) D-Dimer (09/03/2023 7:55 PM CDT) Only the most recent of2 resultswithin the time period is included. Pathologist [facility] D-Dimer, P 712(H) <=500 ng/mL FEU 09/03/2023 8:08 PM CDT [facility] Comment: D-dimer concentrations increase with age. ??For DVT/PE exclusion, in addition to clinical pre-test probability, age-adjusted D-dimer cut-offs are suggested for patients >50 years old. For additional information refer to the D-dimer assay in the Laboratory Test Catalog (LTC) and/or AskMayoExpert (ELLIOTT). ----ADDITIONAL INFORMATION---- D-dimer values less than or equal to 500 ng/mL fibrinogen equivalent units (FEU) may be used in conjunction with clinical pre-test probability to exclude deep vein thrombosis (DVT) and/or pulmonary embolism (PE). Blood (Blood, Venous) 09/03/2023 7:55 PM CDT 09/03/2023 8:00 PM CDT Vinh Swift M.D. LAB BLOOD A DD-ON [place] [address] [place] [address], [place] [id number] * Troponin T, 2h/6h, 5th Gen (09/03/2023 7:09 PM CDT) Pathologist [facility] Troponin T, 2 hr, 5th gen <6 <=15 ng/L 09/03/2023 7:40 PM CDT [facility] 2H Delta -2 ng/L 09/03/2023 7:40 PM CDT [facility] 2H Delta Interp Not Changing 09/03/2023 7:40 PM CDT [facility] Troponin T, 6 hr, 5th gen CANCELED ng/L 09/03/2023 7:40 PM CDT [facility] Comment:Result canceled by t he ancillary. 6H Delta CANCELED ng/L 09/03/2023 7:36 PM CDT [facility] Comment:Result canceled by t he ancillary. 6H Delta % CANCELED % 09/03/2023 7:36 PM CDT [facility] Comment:Result canceled by t he ancillary. Blood (Blood, Venous) 09/03/2023 7:09 PM CDT 09/03/2023 7:19 PM CDT Narrative [facility] - 09/03/2023 7:40 PM CDT Specimen Information: Specimen ID: [id number] Specimen Type: Blood Specimen Collection Start Date: 09/03/2023 ??7:09 PM Specimen Received Date: 09/03/2023 ??7:19 PM Specimen ID: [id number] Specimen Type: Blood Specimen Collection Start Date: 09/03/2023 ??7:40 PM Specimen Received Date: 09/03/2023 ??7:40 PM Vinh Swift M.D. LAB BLOOD T ROGERIO Performing Organization Address City/[facility] Co de Phone Number [facility] [address] [place] [address] * Troponin T, Baseline, 5th gen (09/03/2023 4:14 PM CDT) Only the most recent of2 resultswithin the time period is included. [facility] Troponin T, Baseline, 5th gen 7 <=15 ng/L 09/03/2023 4:38 PM CDT [facility] Blood (Blood, Venous) 09/03/2023 4:14 PM CDT 09/03/2023 4:20 PM CDT Vinh Swift M.D. LAB BLOOD T ROGERIO Performing Organization Address City/[facility]/ZIP Co de Phone Number [facility] [address] [place] [address] * (ABNORMAL) NT-Pro B-Type Natriuretic Peptide (BNP) (09/03/2023 4:14 PM CDT) Only the most recent of2 resultswithin the time period is included. Pathologist [facility] NT-Pro BNP 135(H) <=88 pg/mL 09/03/2023 4:52 PM CDT [facility] Comment: NT-proBNP values less than 300 pg/mL have a 99% negative predictive value for excluding acute congestive heart failure. A cutoff of 1200 pg/mL for patients with an eGFR<60 yields a diagnostic sensitivity and specificity of 89% and 72% for acute congestive heart failure. A diagnostic NT-proBNP cutoff of 900 pg/mL has been suggested in adults 50-75 years of age in the absence of renal failure. Blood (Blood, Venous) 09/03/2023 4:14 PM CDT 09/03/2023 4:20 PM CDT Vinh Swift M.D. LAB BLOOD A DD-ON Performing Organization Address [facility] [place] [address] * Prothrombin Time (PT) (09/03/2023 4:14 PM CDT) Pathologist [facility] Prothrombin Time, P 11.1 9.4 - 12.5 sec 09/03/2023 4:28 PM CDT [facility] INR 1.0 0.9 - 1.1 09/03/2023 4:28 PM CDT [facility] Comment: ----ADDITIONAL INFORMATION---- Standard intensity warfarin therapeutic range: 2.0 to 3.0 ?? High intensity warfarin therapeutic range: 2.5 to 3.5 Blood (Blood, Venous) 09/03/2023 4:14 PM CDT 09/03/2023 4:20 PM CDT Jose De Jesus Daley P.A.-C. LAB BLOOD ADD-ON Performing Organization Address [facility] [place] [address] * (ABNORMAL) IgG Subclasses (08/31/2023 4:29 PM CDT) Pathologist [facility] Total IgG 681(L) 767 - 1590 mg/dL 09/01/2023 8:47 AM CDT SDS IgG 1 370 341 - 894 mg/dL 09/01/2023 8:47 AM CDT [facility] IgG 2 257 171 - 632 mg/dL 09/01/2023 8:47 AM CDT [facility] IgG 3 39.0 18.4 - 106.0 mg/dL 09/01/2023 8:47 AM CDT [facility] IgG 4 20.1 2.4 - 121.0 mg/dL 09/01/2023 8:47 AM CDT [facility] Blood (Blood, Venous) 08/31/2023 4:29 PM CDT 09/01/2023 6:20 AM CDT Ricky Leiva M.D. LAB BLOOD ADD-ON Performing Organization Address City/[facility]/ZIP Co de Phone Number [facility] [address] [place], [place] [id number] [place] [address] [place] [address] * Wmycu-3-Ywxezvqflcv Proteotype S/Z by LC-MS/MS (08/31/2023 4:29 PM CDT) [facility] Hxczd-6-Uhrhdvpler n, S 130 100 - 190 mg/dL 09/01/2023 9:05 AM CDT [facility] Comment: ----ADDITIONAL INFORMATION---- Method: Nephelometry Interpretation S Mutation: Negative Z Mutation: Negative Results most consistent with MM phenotype. 09/03/2023 10:10 AM CDT [facility] Comment: ----ADDITIONAL INFORMATION---- This test was developed and its performance characteristics determined by [facility] in a manner consistent with CLIA requirements. This test has not been cleared or approved by the U.S. Food and Drug Administration. Blood (Blood, Venous) 08/31/2023 4:29 PM CDT 09/01/2023 6:13 AM CDT Ricky Leiva M.D. LAB BLOOD NON ADD-ON [facility] [address] [place] [address] [facility] [address] [place] [address] [place] [id number] [place] [address] [place] [address] * Immunoglobulin A (IgA) (08/31/2023 4:29 PM CDT) Immunoglobulin A (IgA), S 171 61 - 356 mg/dL 09/01/2023 7:50 AM CDT [facility] Blood 08/31/2023 4:29 PM CDT 09/01/2023 6:13 AM CDT Ricky Leiva M.D. LAB BLOOD ADD-ON Performing Organization Address [facility] Co de Phone Number [facility] [address] [place] [address] [facility] [address] [place] [address] * Immunoglobulin M (IgM) (08/31/2023 4:29 PM CDT) Immunoglobulin M (IgM), S 233 37 - 286 mg/dL 09/01/2023 7:51 AM CDT [facility] Blood 08/31/2023 4:29 PM CDT 09/01/2023 6:13 AM CDT Ricky Leiva M.D. LAB BLOOD ADD-ON Performing Organization Address City/[facility] Co de Phone Number [facility] [address] [place] [address] [facility] [address] [place] [address] * PUL Exhaled Nitric Oxide (08/31/2023 11:59 AM CDT) Exhaled NO Oral 30 ONBASE Parts per billion (ULN) 39 ONBASE ENOComment Patient takes Arnuity Ellipta, Prednisone, and Albuterol. ONBASE Katherin Hunt M.D. PFT ORDERABLES ONBASE NA * Pulmonary Function Tests (08/31/2023 10:58 AM CDT) PostFVC 6.20 L 08/31/2023 2:49 PM CDT [facility] SU[facility] PostFEV1 3.61 L 08/31/2023 2:49 PM CDT [facility] FEV1/FVC POST 58.33 % 08/31/2023 2:49 PM CDT [facility] SU[facility] FEF 25-75 % POST 1.55 L/s 08/31/2023 2:49 PM CDT [facility] PEF POST 9.49 L/s 08/31/2023 2:49 PM CDT [facility] SU[facility] PIF POST 7.24 L/s 08/31/2023 2:49 PM CDT [facility] FEF 50 % FIF 50 POST 29.25 % 08/31/2023 2:49 PM CDT [facility] FET POST 15.26 sec 08/31/2023 2:49 PM CDT [facility] TLC 9.77 L 08/31/2023 2:49 PM CDT [facility] SU[facility] FRCPLETH PROVBASE 4.78 L 08/31/2023 2:49 PM CDT [facility] RV 3.42 L 08/31/2023 2:49 PM CDT [facility] SU[facility] RV % TLC PRE 35.07 % 08/31/2023 2:49 PM CDT [facility] DLCO 34.62 ml/(min*mm Hg) 08/31/2023 2:49 PM CDT [facility] VA 8.70 L 08/31/2023 2:49 PM CDT [facility] FVC 6.05 L 08/31/2023 2:49 PM CDT [facility] FEV1 3.47 L 08/31/2023 2:49 PM CDT [facility] FEV1/FVC 57.32 % 08/31/2023 2:49 PM CDT [facility] VVD67-28% 1.43 L/s 08/31/2023 2:49 PM CDT [facility] PEF PRE 9.94 L/s 08/31/2023 2:49 PM CDT [facility] PIF PRE 8.95 L/s 08/31/2023 2:49 PM CDT [facility] FEF 50 % FIF 50 PRE 19.59 % 08/31/2023 2:49 PM CDT [facility] FET PRE 15.12 sec 08/31/2023 2:49 PM CDT [facility] SUBSTANCE POST Albuterol 08/31/2023 2:49 PM CDT [facility] 08/31/2023 10:5 8 AM CDT Impressions [facility] - 08/31/2023 2:49 PM CDT Abnormal. Borderline obstruction with no significant bronchodilator response. Lung volumes and diffusion capacity are normal. Pulse oximetry is normal at rest and with exercise. Narrative Procedure Note Opal Dickey M.B.B.S. - 08/31/2023 IMPRESSION: Abnormal. Borderline obstruction with no significant bronchodilatorresponse. Lung volumes and diffusion capacity are normal. Pulse oximetryis normal at rest and with exercise. Katherin Hunt M.D. PFT ORDERABLES [facility] NA * Interpretation of Outside CT Chest (08/30/2023 8:56 PM CDT) Anatomical Region Laterality Modality Chest, Thoracic RST LOS, Tho racic ARZ LOS, Thoracic FLA LOS, Other, Body N/A Computed Tomography Impressions 08/31/2023 10:34 AM CDT 1. No significant change in moderate diffuse bilateral bronchial wall thickening since 07/18/2023, consistent with lower airways inflammation/bronchitis. Shifting foci of endobronchial mucus plugging/mucoid impactions, overall increased. 2. No infectious appearing parenchymal opacities. 3. A increased size of several borderline and a few mildly enlarged bilateral hilar nodes, nonspecific, but most likely reactive. 3. No significant change in scattered small/tiny bilateral pulmonary nodules which predominantly have features suggestive for intrapulmonary lymph nodes. Narrative 08/31/2023 10:34 AM CDT EXAM: ??INTERPRETATION OF OUTSIDE CT CHEST with IV contrast enhancement of 08/24/2023 COMPARISON: ??[place] chest CT 07/18/2023 FINDINGS: ??Considering differences in technique, no significant change in moderate diffuse bilateral bronchial wall thickening. Shifting foci of endobronchial mucus plugging/mucoid impactions, overall increased. Mild atelectatic changes in the bases are due to imaging during relative expiration. No consolidations or infectious/inflammatory appearing infiltrates. Scattered small/tiny pulmonary nodules measuring less than 6 mm are unchanged, which predominantly have features suggestive for intrapulmonary lymph nodes, for example right lower lobe on , right middle lobe on , 122, left upper lobe on . Several borderline and a few mildly enlarged bilateral hilar and mediastinal nodes have increased slightly in size, for example a 14 mm short axis subcarinal node on previously measured 11 mm. No effusions. Degenerative changes both shoulders. Minor degenerative changes in the spine. Procedure Note Vira Helton M.D. - 08/31/2023 EXAM: INTERPRETATION OF OUTSIDE CT CHEST with IV contrast enhancement of08/24/2023 COMPARISON: [place] chest CT 07/18/2023 FINDINGS: Considering differences in technique, no significant change inmoderate diffuse bilateral bronchial wall thickening. Shifting foci ofendobronchial mucus plugging/mucoid impactions, overall increased. Mildatelectatic changes in the bases are due to imaging during relative expiration. No consolidations orinfectious/inflammatory appearing infiltrates. Scattered small/tiny pulmonary nodules measuring less than 6 mm areunchanged, which predominantly have features suggestive for intrapulmonarylymph nodes, for example right lower lobe on , right middle lobe on, 122, left upper lobe on . Several borderline and a few mildly enlarged bilateral hilar andmediastinal nodes have increased slightly in size, for example a 14 mmshort axis subcarinal node on previously measured 11 mm. No effusions. Degenerative changes both shoulders. Minor degenerative changes in thespine. IMPRESSION: 1. No significant change in moderate diffuse bilateral bronchial wallthickening since 07/18/2023, consistent with lower airwaysinflammation/bronchitis. Shifting foci of endobronchial mucusplugging/mucoid impactions, overall increased. 2. No infectious appearing parenchymal opacities. 3. A increased size of several borderline and a few mildly enlargedbilateral hilar nodes, nonspecific, but most likely reactive. 3. No significant change in scattered small/tiny bilateral pulmonarynodules which predominantly have features suggestive for intrapulmonarylymph nodes. Ricky Leiva M.D. IMG CT PROCEDURES * CT Angio Chest PE Protocol-Outside CT Body (08/24/2023 10:45 PM CDT) Narrative [facility] - 08/25/2023 7:13 AM CDT This order has been created and auto-finalized to support the import of outside images. If available, original interpretation can be found on the Media Tab in Chart Review, in Document Viewer, or as an image in QREADS. If a re-interpretation or overread is required please follow defined workflow. ?? Provider Not In System IMG CT PROCEDURES [facility] NA * Aspergillus fumigatus, IgG Antibodies (07/20/2023 7:44 AM MISSILE INSPECTOR) Aspergillus fumigatus, IgG Ab, S 27.4 <=102 mg/L 07/21/2023 8:41 PM MISSILE INSPECTOR [facility] Comment: ----ADDITIONAL INFORMATION---- This test was developed and its performance characteristics determined by [facility] in a manner consistent with CLIA requirements. This test has not been cleared or approved by the U.S. Food and Drug Administration. Blood (Blood, Venous) 07/20/2023 7:44 AM MISSILE INSPECTOR 07/20/2023 10:50 AM MISSILE INSPECTOR Hernan Posey LAB BLOO D ADD-ON [facility] [address] [place] [address] [facility] [address] [place] [address] * Aspergillus fumigatus, IgE (07/20/2023 7:44 AM MISSILE INSPECTOR) [facility] Aspergillus Fumigatus, IgE <0.10 <0.70 kU/L 07/21/2023 10:54 AM MISSILE INSPECTOR [facility] Comment:Class 0 (Negative <0 .10) Blood (Blood, Venous) 07/20/2023 7:44 AM MISSILE INSPECTOR 07/21/2023 8:21 AM MISSILE INSPECTOR Hernan LamSTammy LAB BLOO D ADD-ON [facility] [address] [place] [address] [facility] [address] [place] [address] * Ova and Parasite, Travel History or Immunocompromised, Feces (07/20/2023 5:53 AM MISSILE INSPECTOR) [facility] Ova and Parasite, Microscopy, F No parasites seen. Cryptosporidium, Cyclospora, and microsporidia are not readily detected by this method. Single negative specimen does not rule out parasitic infection. 07/21/2023 6:28 PM MISSILE INSPECTOR [facility] Stool (Stool) 07/20/2023 5:5 3 AM MISSILE INSPECTOR 07/20/2023 6:16 AM MISSILE INSPECTOR Comment:Specimen Source Site : Stool Hernan Belle.S. LAB MICR OBIOLOGY - GENERAL ORDERABLES Performing Organization Address City/[facility] Co de Phone Number [facility] [address] [place] [address], [facility]TF[facility]edter[facility] [place] [place] [address] [place] [address] * QuantiFERON-Tb Gold Plus, Blood (07/19/2023 12:38 PM MISSILE INSPECTOR) [facility] QuantiFERON-TB Gold Plus Result Negative Negative 07/20/2023 1:05 PM MISSILE INSPECTOR [facility] Comment: No interferon-gamma response to M. tuberculosis antigens was detected. Latent infection with M. tuberculosis is unlikely. A single negative result does not exclude infection with M. tuberculosis. In patients at high risk for M.tuberculosis infection, a second test should be considered in accordance with the 2017 ATS/IDSA/CDC Clinical Practice Guidelines for Diagnosis of Tuberculosis in Adults and Children [Lewinsohn DM et. al. Clin. Infect. Dis. 2017;64(2):111-115]. The reference range for the 'TB1 Ag minus Nil Result' and 'TB2 Ag minus Nil Result' is an Interferon-gamma level <0.35 IU/mL. TB1 Ag minus Nil Result 0.00 IU/mL 07/20/2023 1:05 PM MISSILE INSPECTOR [facility] TB2 Ag minus Nil Result 0.00 IU/mL 07/20/2023 1:05 PM MISSILE INSPECTOR [facility] Mitogen minus Nil Result 8.97 IU/mL 07/20/2023 1:05 PM MISSILE INSPECTOR [facility] Nil Result 0.02 IU/mL 07/20/2023 1:05 PM MISSILE INSPECTOR [facility] Blood (Blood, Venous) 07/19/2023 12:38 PM MISSILE INSPECTOR 07/19/2023 3:34 PM MISSILE INSPECTOR Narrative [facility] - 07/20/2023 1:05 PM MISSILE INSPECTOR Specimen Information: Specimen ID: [id number] Specimen Type: Blood Specimen Collection Start Date: 07/19/2023 12:38 PM Specimen Received Date: 07/19/2023 ??3:34 PM Specimen ID: [id number] Specimen Type: Blood Specimen Collection Start Date: 07/19/2023 12:38 PM Specimen Received Date: 07/19/2023 ??3:34 PM Specimen ID: [id number] Specimen Type: Blood Specimen Collection Start Date: 07/19/2023 12:38 PM Specimen Received Date: 07/19/2023 ??3:34 PM Specimen ID: [id number] Specimen Type: Blood Specimen Collection Start Date: 07/19/2023 12:38 PM Specimen Received Date: 07/19/2023 ??3:34 PM Murphy Stark M.D., M.S. LAB MICROBIOLOGY - BLOOD ORDERABLES [facility] [address] [place] [address] [facility] [address] [place] [address] * Wrist-Internal Medicine Image Exam (07/19/2023 9:55 AM MISSILE INSPECTOR) Only the most recent of2 resultswithin the time period is included. 07/19/2023 9:53 AM MISSILE INSPECTOR Narrative [facility] - 07/19/2023 9:55 AM MISSILE INSPECTOR This order has been created and auto-finalized to support the import of images acquired without order. The clinical documentation to support these images can be found on the encounter that produced images. Provider Not In System IMG NON RAD IMAGI NG PROCEDURES Performing Organization Address [facility] Co de Phone Number [facility] NA * Streptococcus pneumoniae Antigen, Urine (07/19/2023 2:47 AM MISSILE INSPECTOR) Pathologist [facility] Streptococcus pneumoniae Ag, U Negative Negative 07/19/2023 12:46 PM MISSILE INSPECTOR SDS Comment: Negative for pneumococcal pneumonia, suggesting no current or recent infection. ??Infection due to S. pneumoniae cannot be ruled out since the antigen present in the sample may be below detection limit of the test. ----ADDITIONAL INFORMATION---- This assay was performed using the FDA-cleared [employer]ax[employer] Streptococcus pneumoniae Antigen test, a rapid immunochromatographic assay. Urine (Urine, Midstream) 07/19/2023 2:47 AM MISSILE INSPECTOR 07/19/2023 8:34 AM MISSILE INSPECTOR Murphy Stark M.D., M.S. LAB MICROBIOLOGY - GENERAL ORDERABLES Performing Organization Address City/[facility]/ZIP Co de Phone Number [facility] [address] [place] [address] [facility] [address] [place] [address] [place] [address] * Histoplasma Antigen, Quantitative EIA, Urine (07/18/2023 11:22 PM MISSILE INSPECTOR) Pathologist [facility] Histoplasma Ag Result Not Detected Not Detected 07/19/2023 3:10 PM MISSILE INSPECTOR SDS Comment: No Histoplasma antigen detected. ?? False negative results may occur. ??Repeat testing on a new specimen should be considered if clinically indicated. ?? Histoplasma Ag Value Not Detected ng/mL 07/19/2023 3:10 PM MISSILE INSPECTOR [facility] Comment: ----ADDITIONAL INFORMATION---- This test has been modified from the soap grinder's instructions. Its performance characteristics were determined by [facility] in a manner consistent with CLIA requirements. This test has not been cleared or approved by the U.S. Food and Drug Administration. Urine (Urine, Midstream) 07/18/2023 11:22 PM MISSILE INSPECTOR 07/19/2023 9:06 AM MISSILE INSPECTOR Murphy Stark M.D., M.S. LAB URINE ORDERA BLES [facility] [address] [place] [address] [facility] [address] [place] [address] * Dipstick, Urine (07/18/2023 11:22 PM MISSILE INSPECTOR) Pathologist [facility] Hemoglobin, QL, U Negative Negative 07/19/2023 12:02 AM MISSILE INSPECTOR DTL Leukocyte Esterase, U Negative Negative 07/19/2023 12:02 AM MISSILE INSPECTOR DTL Nitrite, U Negative Negative 07/19/2023 12:02 AM MISSILE INSPECTOR DTL Ketone, U Negative Negative mg/dL 07/19/2023 12:02 AM MISSILE INSPECTOR DTL Glucose, U Negative Negative mg/dL 07/19/2023 12:02 AM MISSILE INSPECTOR DTL Urine 07/18/2023 11:2 2 PM MISSILE INSPECTOR 07/18/2023 11:46 PM MISSILE INSPECTOR Murphy Stark M.D., M.S. LAB URINE ORDERA BLES [facility] [address] [place] [address], [facility] [place] [place] [address] [place] [address] * Blastomyces Antigen, Quantitative EIA, Urine (07/18/2023 11:22 PM MISSILE INSPECTOR) Pathologist [facility] Blastomyces Ag Result Not Detected Not Detected 07/19/2023 4:56 PM MISSILE INSPECTOR [facility] Comment: No Blastomyces antigen detected. ?? False negative results may occur. ??Repeat testing on a new specimen should be considered if clinically indicated. ?? Blastomyces Ag Value Not Detected ng/mL 07/19/2023 4:56 PM MISSILE INSPECTOR [facility] Comment: ----ADDITIONAL INFORMATION---- This test was developed and its performance characteristics determined by [facility] in a manner consistent with CLIA requirements. This test has not been cleared or approved by the U.S. Food and Drug Administration. Urine (Urine, Midstream) 07/18/2023 11:22 PM MISSILE INSPECTOR 07/19/2023 8:34 AM MISSILE INSPECTOR Murphy Stark M.D. MTammyS. LAB MICROBIOLOGY - GENERAL ORDERABLES Performing Organization Address City/[facility]/ZIP Co de Phone Number [facility] [address] [place] [address] [facility] [address] [place] [address] * Microscopic Automated (07/18/2023 11:22 PM MISSILE INSPECTOR) Microscopy Normal 07/19/2023 12:02 AM MISSILE INSPECTOR DTL RBC <3 <3 /hpf 07/19/2023 12:02 AM MISSILE INSPECTOR DTL WBC 1-3 /hpf 07/19/2023 12:02 AM MISSILE INSPECTOR DTL Comment: ----REFERENCE VALUE---- <4 ??(Males) <11 (Females) Urine 07/18/2023 11:2 2 PM MISSILE INSPECTOR 07/18/2023 11:46 PM MISSILE INSPECTOR Murphy Stark M.D., M.S. LAB URINE ORDERA BLES Performing Organization Address City/[facility]/ZIP Co de Phone Number [facility] [address] [place] [address], [place] DTL [facility] [address] [place] [address] * pH, Urine (07/18/2023 11:22 PM MISSILE INSPECTOR) pH, U 5.3 4.5 - 8.0 07/18/2023 11: 59 PM MISSILE INSPECTOR DTL Urine 07/18/2023 11:2 2 PM MISSILE INSPECTOR 07/18/2023 11:46 PM MISSILE INSPECTOR Murphy Stark M.D., M.S. LAB URINE ORDERA BLES Performing Organization Address [facility] de Phone Number [facility] [address] [place] [address], [facility] DTL [facility] [address] [place] [address] * Legionella Antigen, Urine (07/18/2023 11:22 PM MISSILE INSPECTOR) Legionella Ag, U Negative Negative 07/19/19 1:58 PM MISSILE INSPECTOR [facility] Comment: Negative for L. pneumophila serogroup 1 antigen, suggesting no recent or current infection. ??Infection due to Legionella cannot be ruled out since other serogroups and species may cause disease, antigen may not be present in urine in early infection, and the level of antigen present in the urine may be below the detection limit of the test. ----ADDITIONAL INFORMATION---- This assay was performed using the FDA-cleared CorrelixaxNOW Legionella Urinary Antigen Test, a rapid immunochromatographic assay. Urine (Urine, Midstream) 07/18/2023 11:22 PM MISSILE INSPECTOR 07/19/2023 8:58 AM MISSILE INSPECTOR Murphy Stark M.D., M.S. LAB MICROBIOLOGY - GENERAL ORDERABLES Performing Organization Address City/[facility] Co de Phone Number [facility] [address] [place] [address] [facility] [address] [place] [address] [place] [address] * Osmolality, Urine (07/18/2023 11:22 PM MISSILE INSPECTOR) Osmolality, U 676 150 - 1150 mOsm/kg 07/18/2023 11:59 PM MISSILE INSPECTOR DTL Urine 07/18/2023 11:2 2 PM MISSILE INSPECTOR 07/18/2023 11:46 PM MISSILE INSPECTOR Murphy Stark M.D., M.S. LAB URINE ORDERA BLES [facility] [address] [place] [address], [facility] [place] [facility] [place] [address] [place] [address] * Urinalysis, with Microscopic: Urine, Midstream (07/18/2023 11:22 PM MISSILE INSPECTOR) Source Urine, Urine, Midstream 07/18/2023 11:46 PM MISSILE INSPECTOR DTL Color, U Yellow 07/18/2023 11:46 PM MISSILE INSPECTOR DTL Clarity, U Clear 07/18/2023 11:46 PM MISSILE INSPECTOR DTL Protein, U 11 <26 mg/dL 07/19/2023 12:23 AM MISSILE INSPECTOR DTL Protein/Osmol ality 0.16 <0.42 ratio 07/19/2023 12:23 AM MISSILE INSPECTOR DTL Predicted 24 HR Protein, U 167 <229 mg/24 h 07/19/2023 12:23 AM MISSILE INSPECTOR DTL Predicted Range 53-526 mg/24 h 07/19/2023 12:23 AM MISSILE INSPECTOR DTL Urine (Urine, Midstream) 07/18/2023 11:22 PM MISSILE INSPECTOR 07/18/2023 11:46 PM MISSILE INSPECTOR Murphy Stark M.D., M.S. LAB URINE ORDERA BLES [facility] [address] [place] [address], [facility] [address] [place] [address] * HIV-1/-2 Ag and Ab Screen, Plasma (07/18/2023 9:37 PM MISSILE INSPECTOR) Pathologist [facility] HIV-1/-2 Ag and Ab Screen, P Negative Negative 07/19/2023 10:43 AM MISSILE INSPECTOR [facility] Comment: Negative result does not rule out HIV infection. If exposure to HIV infection occurred <14 days ago, contact the laboratory to request addition of HIV-1/HIV-2 RNA detection, Plasma (HIP12). Blood (Blood, Venous) 07/18/2023 9:37 PM MISSILE INSPECTOR 07/19/2023 8:59 AM MISSILE INSPECTOR Murphy Stark M.D., MTammySTammy LAB MICROBIOLOGY - BLOOD ORDERABLES [facility] [address] [place] [address] [facility] [address] [place] [address] * Bacteria / Marialuisa Culture, Blood #2 (07/18/2023 9:37 PM MISSILE INSPECTOR) Only the most recent of2 resultswithin the time period is included. Bacteria/Alma Delia da Culture, Blood No growth after 5 days of incubation. 07/23/2023 11:02 PM MISSILE INSPECTOR DTL Blood (Blood, Peripheral Draw) 07/18/2023 9:37 PM MISSILE INSPECTOR 07/18/2023 10:08 PM MISSILE INSPECTOR Comment:Specimen Source Site : Blood Murphy Stark M.D., LizethSTammy LAB MICROBIOLOGY - GENERAL ORDERABLES Performing Organization Address City/[facility]/ZIP Co de Phone Number [facility] [address] [place] [address], [facility] [address] [place] [address] * Mycobacterial Culture (07/18/2023 9:33 PM MISSILE INSPECTOR) Mycobacterial Culture No growth after 42 days of incubation . 08/30/2023 1:02 AM CDT DTL Sputum (Sputum) 07/18/2023 9 :33 PM MISSILE INSPECTOR 07/18/2023 10:11 PM MISSILE INSPECTOR Comment:Specimen Source Site : Sputum Lizeth Hernandez M.D.STammy LAB MICROBIOLOGY - GENERAL ORDERABLES [facility] [address] [place] [address], [facility] [address] [place] [address] * (ABNORMAL) Fungal Culture, Routine (07/18/2023 9:33 PM MISSILE INSPECTOR) Pathologist [facility] Fungal Culture, Routine YEAST, NOT Cr. neoformans, NOT Cr. gattii and NOT C. auris Many (A) 08/11/2023 8:48 AM CDT [facility] Sputum (Sputum) 07/18/2023 9 :33 PM MISSILE INSPECTOR 07/18/2023 10:11 PM MISSILE INSPECTOR Comment:Specimen Source Site : Sputum Murphy Stark M.D., M.S. LAB MICROBIOLOGY - GENERAL ORDERABLES Performing Organization Address City/[facility]/ZIP Co de Phone Number [facility] [address] [place] [address], [facility] [address] [place] [address] * ANCA (Antineutrophil Cytoplasmic Antibodies) Vasculitis Panel (07/18/2023 9:24 PM MISSILE INSPECTOR) Pathologist [facility] Myeloperoxidase Ab, S <0.2 <0.4 (Negative ) U 07/19/2023 9:44 AM MISSILE INSPECTOR SDS Proteinase 3 Ab (PR3), S <0.2 <0.4 (Negative ) U 07/19/2023 9:44 AM MISSILE INSPECTOR [facility] Blood (Blood, Venous) 07/18/2023 9:24 PM MISSILE INSPECTOR 07/19/2023 9:16 AM MISSILE INSPECTOR Murphy Stark M.D., MTammyS. LAB BLOOD ADD-ON [facility] [address] [place] [address] [facility] [address] [place] [address] * HCV Ab w/Reflex to HCV PCR, Serum (07/18/2023 9:24 PM MISSILE INSPECTOR) Pathologist [facility] HCV Ab, S Negative Negative 07/19/2023 11:08 AM MISSILE INSPECTOR [facility] Comment:Ddwcrm-dk-gvvefi rat io is <1.00. Blood (Blood, Peripheral Draw) 07/18/2023 9:24 PM MISSILE INSPECTOR 07/19/2023 8:59 AM MISSILE INSPECTOR Murphy Stark M.D., MTammyS. LAB MICROBIOLOGY - BLOOD ORDERABLES Performing Organization Address City/[facility]/ZIP Co de Phone Number [facility] [address] [place] [address] [facility] [address] [place] [address] * HBc Total Ab, Serum (07/18/2023 9:24 PM MISSILE INSPECTOR) HBc Total Ab, S Negative Negative 07/19/2023 11:36 AM MISSILE INSPECTOR [facility] Blood (Blood, Peripheral Draw) 07/18/2023 9:24 PM MISSILE INSPECTOR 07/19/2023 8:59 AM MISSILE INSPECTOR Lizeth Hernandez M.D.STammy LAB MICROBIOLOGY - BLOOD ORDERABLES Performing Organization Address [facility] Co de Phone Number [facility] [address] [place] [address] [facility] [address] [place] [address] * HBs Antibody, Serum (07/18/2023 9:24 PM MISSILE INSPECTOR) HBs Antibody, S Negative 07/19/2023 11:37 AM MISSILE INSPECTOR [facility] Comment: Patient is presumed to be not immune to infection with HBV. ----REFERENCE VALUE---- Unvaccinated: Negative Vaccinated: Positive HBs Antibody, Quantitative, S <5.0 mIU/mL 07/19/2023 11:37 AM MISSILE INSPECTOR [facility] Comment: ----REFERENCE VALUE---- Unvaccinated: <5.0 Vaccinated: >=12.0 Blood (Blood, Peripheral Draw) 07/18/2023 9:24 PM MISSILE INSPECTOR 07/19/2023 8:59 AM MISSILE INSPECTOR Murphy Stark M.D. M.STammy LAB MICROBIOLOGY - BLOOD ORDERABLES Performing Organization Address City/[facility] Co de Phone Number [facility] [address] [place] [address] [facility] [address] [place] [address] * Hepatitis B Surface Antigen (07/18/2023 9:24 PM MISSILE INSPECTOR) [facility] HBs Antigen, S Negative Negative 07/19/2023 10:52 AM MISSILE INSPECTOR [facility] Blood (Blood, Peripheral Draw) 07/18/2023 9:24 PM MISSILE INSPECTOR 07/19/2023 8:59 AM MISSILE INSPECTOR Murphy Stark M.D., M.S. LAB MICROBIOLOGY - BLOOD ORDERABLES Performing Organization Address City/[facility] Co de Phone Number [facility] [address] [place] [address] [facility] [address] [place] [address] * Influenza A, B, RSV, PCR, Rapid (07/18/2023 8:54 PM MISSILE INSPECTOR) [facility] Influenza A, PCR, Rapid, V Negative Negative 07/18/2023 9:56 PM MISSILE INSPECTOR [facility] Influenza B, PCR, Rapid, V Negative Negative 07/18/2023 9:56 PM MISSILE INSPECTOR [facility] Resp Synctial Virus, PCR, Rapid Negative Negative 07/18/2023 9:56 PM MISSILE INSPECTOR [facility] Specimen Source Swab, Nasopharynx 07/18/2023 9:55 PM MISSILE INSPECTOR [facility] Swab (Nasopharynx) 07/18/2023 8:54 PM MISSILE INSPECTOR 07/18/2023 9:23 PM MISSILE INSPECTOR Murphy Stark M.D., M.S. LAB MICROBIOLOGY - GENERAL ORDERABLES [facility] [address] [place] [address], [facility] [address] [place] [address] * SARS Coronavirus 2, PCR Rapid Symptomatic (07/18/2023 8:54 PM MISSILE INSPECTOR) [facility] SARS CoV-2, PCR, Rapid, V Undetected Undetected 07/18/2023 9:55 PM MISSILE INSPECTOR [facility] Comment: ----ADDITIONAL INFORMATION---- This RT-PCR test was performed using the [employer] SARS-CoV-2 and Influenza A/B Reagent assay from [employer], which has received Emergency Use Authorization(EUA) by the U.S. Food and Drug Administration. Fact sheets for this Emergency Use Authorization (EUA) assay can be found at the following links: For Healthcare Providers: https://www.fda.gov/media/831013/download For Patients: https://www.fda.gov/media/608849/download SARS Coronavirus 2, Rapid, Source Swab, Nasopharynx 07/18/2023 9:23 PM MISSILE INSPECTOR [facility] Swab (Nasopharynx) 07/18/2023 8:54 PM MISSILE INSPECTOR 07/18/2023 9:23 PM MISSILE INSPECTOR Murphy Stark M.D., M.S. LAB MICROBIOLOGY - GENERAL ORDERABLES [facility] [address] [place] [address], [facility] [address] [place] [address] * Venous Blood Gas and Electrolytes CG8+, POCT (07/18/2023 4:25 PM MISSILE INSPECTOR) Sample Site, POCT Venstick 07/18/2023 5:51 PM MISSILE INSPECTOR PCS[facility] Comment: ----ADDITIONAL INFORMATION---- Performed at the Point of Care pH, Venous, POCT, B 7.41 7.32 - 7.43 07/18/2023 5:51 PM MISSILE INSPECTOR [facility] Comment: ----ADDITIONAL INFORMATION---- Performed at the Point of Care pCO2, Venous, POCT, B 43 41 - 51 mm Hg 07/18/2023 5:51 PM MISSILE INSPECTOR [facility]CS[facility] Comment: ----ADDITIONAL INFORMATION---- Performed at the Point of Care pO2, Venous, POCT, B 46 Not Applicable mm Hg 07/18/2023 5:51 PM MISSILE INSPECTOR [facility]CS[facility] Comment: ----ADDITIONAL INFORMATION---- Performed at the Point of Care Base Excess, Venous, POCT, B 3 Not Applicable mmol/L 07/18/2023 5:51 PM MISSILE INSPECTOR [facility] Comment: ----ADDITIONAL INFORMATION---- Performed at the Point of Care HCO3, Venous, POCT, B 28 Not Applicable mmol/L 07/18/2023 5:51 PM MISSILE INSPECTOR [facility] Comment: ----ADDITIONAL INFORMATION---- Performed at the Point of Care Sodium, POCT, B 140 135 - 145 mmol/L 07/18/2023 5:51 PM MISSILE INSPECTOR [facility] Comment: ----ADDITIONAL INFORMATION---- Performed at the Point of Care Potassium, POCT, B 3.6 3.6 - 5.2 mmol/L 07/18/2023 5:51 PM MISSILE INSPECTOR [facility] Comment: ----ADDITIONAL INFORMATION---- Performed at the Point of Care Calcium, Ionized, POCT, B 4.90 4.65 - 5.30 mg/dL 07/18/2023 5:51 PM MISSILE INSPECTOR PCS[facility] Comment: ----ADDITIONAL INFORMATION---- Performed at the Point of Care Glucose, POCT, B 109 70 - 140 mg/dL 07/18/2023 5:51 PM MISSILE INSPECTOR PCS[facility] Comment: ----ADDITIONAL INFORMATION---- Performed at the Point of Care Hematocrit, POCT, B 46.0 38.3 - 48.6 % 07/18/2023 5:51 PM MISSILE INSPECTOR [facility]CS[facility] Comment: ----ADDITIONAL INFORMATION---- Performed at the Point of Care Blood (Blood, Venous) 07/18/2023 4:25 PM MISSILE INSPECTOR 07/18/2023 4:23 PM MISSILE INSPECTOR Eduar Davis M.D. LAB POCT ORDERABLES - DEVICE POC RST [facility] [address] [place], [place] [address] [place] [address] [place] [address] * (ABNORMAL) M. pneumoniae Ab, IgG and IgM (07/18/2023 4:13 PM MISSILE INSPECTOR) [facility] M. pneumoniae Ab, IgG, S Positive(A) Negative 07/20/2023 12:14 PM MISSILE INSPECTOR [facility] M. pneumoniae Ab, IgM, S Negative Negative 07/20/2023 2:35 PM MISSILE INSPECTOR [facility] M. pneumoniae Ab Interpretation SEE COMMENT 07/20/2023 2:35 PM MISSILE INSPECTOR [facility] Comment: Results suggest past exposure. ----ADDITIONAL INFORMATION---- This test has been modified from the soap grinder's instructions. Its performance characteristics were determined by [facility] in a manner consistent with CLIA requirements. This test has not been cleared or approved by the U.S. Food and Drug Administration. Blood (Blood, Venous) 07/18/2023 4:13 PM MISSILE INSPECTOR 07/19/2023 9:06 AM MISSILE INSPECTOR Kirill Pierson M.D., M.S. LAB MICROBIOLOG Y - BLOOD ORDERABLES Performing Organization Address [facility]/ZIP Co de Phone Number [facility] [address] [place] [address] [place] [address] * Immunoglobulin E (IgE) (07/18/2023 4:13 PM MISSILE INSPECTOR) Immunoglobulin E (IgE), S 17.5 <=214 kU/L 07/20/2023 3:23 PM MISSILE INSPECTOR [facility] Blood (Blood, Venous) 07/18/2023 4:13 PM MISSILE INSPECTOR 07/19/2023 9:35 AM MISSILE INSPECTOR Murphy Stark M.D., M.S. LAB BLOOD ADD-ON Performing Organization Address City/[facility]/ZIP Co de Phone Number [facility] [address] [place] [address] [facility] [address] [place] [address] from Last 3 Months Advance Directives For more information, please contact: [phone] * Full Code (Latest Code Status on File) Date Activated Date Inactivated Comments 09/14/2023 4:15 PM 09/19/2023 8:00 PM Question Answer Comments Full Code: Discussed * Full Code Date Activated Date Inactivated Comments 07/18/2023 9:45 PM 07/20/2023 4:30 PM Question Answer Comments Full Code: Discussed Care Teams [employer] Cutter Helper Relationship Specialty Start Date End Date Elsewhere, Pcp PCP - General Internal Medicine 07/18/23
--- OUTSIDE RECORDS SUMMARY | 2023-09-20 18:40 | XMS_ITS | Referral Summary ---
Author Name Unknown Organization [facility] Address [address] [place] [address] Care Team Providers Care Receiving Teller Name Role Phone Elsewhere, Pcp Primary Care Provider Unavailabl e Source Comments Patient records contain information from all sites at [facility]. For routine questions regarding patient records, call [phone] during business hours, M-F 8:00 AM - 5:00 PM Central Time. Record requests for emergency care only can be directed to [phone] at any time.[facility] Encounters Date Type Department Care Team Description 09/14/2023 10:04 AM CDT - 09/19/2023 5:55 PM CDT Hospital Encounter [facility], Tenth Floor [address] [place] [address] Richmond Huang P.A.-C. Letty Leon M.D. Syncope And Near Syncope (Primary Dx); Bronchitis Chronic (HCC); Dyspnea; Bronchitis Chronic (HCC); Eosinophilic Asthma (HCC) Discharge Disposition: Home or Self Care 09/16/2023 Clinical Communication [facility] [address] [place] [phone] José Luis Lopez M.D. Post Hospital Follow-up 09/14/2023 Clinical Communication [facility] [address] [place] [phone] Victoria Carrion M.D. Appt Request 09/14/2023 Clinical Communication Division of Pulmonary Medicine in [place], [place] [address] [place] [phone] Ricky Leiva M.D. Appointment 09/14/2023 Orders Only [facility] [address] [place] [address] Victoria Carrion M.D. Bronchiectasis (HCC) (Primary Dx) 09/13/2023 Virtual Visit Division of Pulmonary Medicine in [place], [place] [address] [place] [address] Ricky Leiva M.D. Bronchitis Chronic (HCC) (Primary Dx) 09/13/2023 Clinical Communication Division of Pulmonary Medicine in [place], [place] [address] [place] [address] Ricky Leiva M.D. 09/13/2023 10:50 AM CDT - 09/13/2023 11:59 PM CDT Hospital Encounter Department of Laboratory Medicine and Pathology, [place], [place] [address] [place] [phone] Ricky Leiva M.D. Bronchitis Chronic (HCC) Discharge Disposition: Home or Self Care 09/13/2023 10:40 AM CDT - 09/13/2023 10:49 AM CDT Hospital Encounter Department of Laboratory Medicine and Pathology, [facility] in [place], [place] [address] [place] [address] Ricky Leiva M.D. Bronchitis Chronic (HCC) Discharge Disposition: Home or Self Care 09/13/2023 10:30 AM CDT - 09/13/2023 10:39 AM CDT Hospital Encounter Department of Laboratory Medicine and Pathology, [place], [place] [address] [place] [address] Ricky Leiva M.D. Bronchitis Chronic (HCC) Discharge Disposition: Home or Self Care 09/11/2023 Orders Only Division of Pulmonary Medicine in [place], [place] [address] [place] [address] Ricky Leiva M.D. Bronchitis Chronic (HCC) (Primary Dx) 09/10/2023 12:09 PM CDT - 09/10/2023 11:59 PM CDT Hospital Encounter Department of Laboratory Medicine and Pathology, [facility], in [place], [place] [address] [place] [address] Ricky Leiva M.D. Bronchiectasis (HCC) Discharge Disposition: Home or Self Care 09/10/2023 Orders Only Division of Pulmonary Medicine in [place], [place] [address] [place] [phone] Ricky Leiva M.D. Bronchiectasis (HCC) (Primary Dx) 09/10/2023 11:00 AM CDT Diagnostic Division of Pulmonary Medicine in [place], [place] [address] [place] [phone] Ricky Leiva M.D. Bronchitis Chronic (HCC) 09/10/2023 Clinical Communication Division of Pulmonary Medicine in [place], [place] [address] [place] [phone] Ricky Leiva M.D. 09/10/2023 Orders Only Division of Pulmonary Medicine in [place], [place] [address] [place] [phone] Ricky Leiva M.D. Bronchitis Chronic (HCC) (Primary Dx) 09/03/2023 3:56 PM CDT - 09/04/2023 12:17 AM CDT Emergency [facility] Emergency Department [address] [place] [phone] Vinh Swift M.D. Lindor, Rachel A, M.D., J.D. Shortness Of Breath (Primary Dx); Bronchitis Discharge Disposition: Home or Self Care 09/03/2023 Orders Only Division of Pulmonary Medicine in [place], [place] [address] [place] [phone] Ricky Leiva M.D. Bronchitis Chronic (HCC) (Primary Dx) 09/03/2023 [facility] 09/03/2023 Clinical Communication Division of Pulmonary Medicine in [place], [place] [address] [place] [address] Ricky Leiva M.D. 09/02/2023 Clinical Communication Division of Pulmonary Medicine in [place], [place] [address] [place] [phone] Ricky Leiva M.D. SHAHIDA 09/01/2023 1:30 PM CDT Telemedicine Division of Pulmonary Medicine in [place], [place] [address] [place] [phone] Ricky Leiva M.D. Coleman, Theresa J, R.N. Bronchitis Chronic (HCC) 08/31/2023 4:22 PM CDT - 08/31/2023 11:59 PM CDT Hospital Encounter Department of Laboratory Medicine and Pathology, [place], [place] [address] [place] [phone] Ricky Leiva M.D. Bronchitis Chronic (HCC); Dyspnea Discharge Disposition: Home or Self Care 08/31/2023 12:18 PM CDT - 08/31/2023 4:21 PM CDT Hospital Encounter Department of Laboratory Medicine and Pathology, [facility] in [place], [place] [address] [place] [phone] Ricky Leiva M.D. Dyspnea; Nodules Pulmonary Multiple; Bronchitis Chronic (HCC) Discharge Disposition: Home or Self Care 08/31/2023 1:30 PM CDT Diagnostic Division of Pulmonary Medicine in [address] [phone] Katherin Hunt M.D. Cough Subacute 08/31/2023 9:49 AM CDT - 08/31/2023 12:17 PM CDT Hospital Encounter Department of Radiology, [facility] in [place], [place] [address] [place] [phone] Katherin Hunt M.D. Cough Subacute Discharge Disposition: Home or Self Care 08/31/2023 3:00 PM CDT Comprehensive Visit Division of Pulmonary Medicine in [address] [phone] Ricky Leiva M.D. Dyspnea (Primary Dx); Nodules Pulmonary Multiple; Bronchitis Chronic (HCC); Cough Subacute 08/30/2023 8:45 PM CDT Ancillary Procedure Department of Radiology in [place], [place] [address] [place] [address] Ricky Leiva M.D. Dyspnea; Nodules Pulmonary Multiple; Bronchitis Chronic (HCC) 08/30/2023 Clinical Communication Division of Pulmonary Medicine in [place], [place] [address] [place] [address] [facility], Provider Pre-visit Intake 08/19/2023 Clinical Communication Division of Pulmonary Medicine in [place], [place] [address] [place] [phone] Ankita Yu M.D. 08/03/2023 Clinical Communication Pharmacy Prior Auth [phone] [place] M.B.BTammyS. Rx Quantity Denial (ARNUITY ELPT INJ 100MCG) 07/20/2023 Clinical Communication [facility] [address] [place] [phone] Katherin Hunt M.D. Post Hospital Follow-up 07/18/2023 3:07 PM FINANCIAL OPERATIONS CONSULTANT - 07/20/2023 1:21 PM FINANCIAL OPERATIONS CONSULTANT Hospital Encounter [facility], [facility], [facility], Third Floor [address] [place] [address] Eduar Davis M.D. Regan, Dennis W, M.D. Dyspnea (Primary Dx); Cough Subacute; Hypoxia Discharge Disposition: Home or Self Care 07/19/2023 10:00 AM FINANCIAL OPERATIONS CONSULTANT Ancillary Procedure Department of Internal Medicine 07/19/2023 9:55 AM FINANCIAL OPERATIONS CONSULTANT Ancillary Procedure Department of Internal Medicine from Last 3 Months Allergies No known active allergies Medications Medication [...] for bronchial hygiene (mucus clearance) 180 mL 11 4 08/31/19 24 Discontinued sodium chloride (HYPERSAL) 7 % nebulizer solutionIndicat ions:Bronchitis Chronic (HCC) Inhale 4 mL by nebulization 2 (two) times a day. Use albuterol before this treatment. Use Aerobika flutter valve after this treatment. 240 mL 11 4 08/31/19 24 Discontinued albuterol 2.5 mg /3 [...] a day for 10 days. 180 mL 09/19/19 24 Discontinued levoFLOXacin (LEVAQUIN) 750 mg tablet Take 1 tablet (750 mg total) by mouth every morning before breakfast for 5 days. 5 tablet 09/08/19 albuterol 2.5 mg /3 mL nebulizer solutionIndicat ions:Bronchitis Chronic (HCC) Inhale 3 mL (2.5 mg total) by nebulization 2 (two) times a day. Use prior to saline neb solution for bronchial hygiene (mucus clearance) 180 mL 09/19/19 24 Discontinued(St op Taking at Discharge) fluticasone propion-salmete roL (Advair Diskus) 250-50 mcg/dose diskus inhaler Inhale 1 puff 2 (two) times a day. Rinse mouth with water after use to reduce aftertaste and incidence of candidiasis. Do not swallow. 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 Eosinophilia Unspecified 07/19/2023 Bronchitis Chronic 07/19/2023 Chronic Cough 07/19/2023 Dyspnea 07/18/2023 Social History Tobacco Use Types Packs/Day Years Used Date Smoking Tobacco: Former Cigarettes Smokeless Tobacco: Never Tobacco Cessation:Counseling Given: Not Answered Alcohol Use Standard Drinks/Week Comments Yes 0 (1 standard drink = 0.6 oz pur e alcohol) 2 beers a week [facility] Utilities Answer Date Recorded In the [...] CDT Diagnostic Division of Pulmonary Medicine in [place], [place] [address] [place] [phone] José Luis Lopez M.D. [address] [place] [phone] 11/01/2023 1:00 PM CDT Office Visit Division of Pulmonary Medicine in [place], [place] [address] [place] [phone] Zayra Thomas M.B.B.S., M.P.H. [address] [place] [phone] 11/11/2023 3:15 PM CDT Office Visit Department of Otorhinolaryngology in [place], [place] [address] [place] [phone] Steven Fernandez M.D. [address] [place] [address] Procedures Procedure Name Priority Date/Time Associated Diagnosis Comments HOLTER MONITOR - IN CLINIC MERCHANDISING LEAD Routine 09/19/2023 2:51 PM CDT Syncope And [...] 09/18/2023 4:09 AM CDT RESPIRATORY PANEL, PCR, PARER Routine 09/17/2023 10:22 PM CDT REMOTE OXIMETRY [...] Routine 09/15/2023 8:00 AM CDT (1, 3) OCDD-G-SNOKHI (FUNGITELL), S Routine 09/15/2023 8:00 AM CDT [...] (IGA), S Routine 08/31/2023 4:29 PM CDT [id number] PROTEOTYPE S/Z BY LC-MS/MS, S Routine 08/31/2023 [...] CDT GRAM STAIN Routine 07/20/2023 12:47 PM FINANCIAL OPERATIONS CONSULTANT BACTERIAL CULTURE, AEROBIC + SUSC, RESP Routine 07/20/2023 12:47 PM FINANCIAL OPERATIONS CONSULTANT RT PULSE OXIMETRY, OVERNIGHT Routine 07/20/2023 8:39 AM FINANCIAL OPERATIONS CONSULTANT Procedure Note - Azael Bingham M.D. - 07/20/2023 8:39 AM CSTThis note is in progress. IMPRESSION: Preliminary report. Interpretation to follow. Please contact the [facility] at [phone] withquestions regarding this report. Physician: Azael Bingham M.D. [id number] Nathan Brady M.D. [id number] ASPERGILLUS FUMIGATUS, IGG, S ABS, S Routine 07/20/2023 7:44 AM FINANCIAL OPERATIONS CONSULTANT ASPERGILLUS FUMIGATUS, IGE, S Routine 07/20/2023 7:44 AM FINANCIAL OPERATIONS CONSULTANT ASPERGILLUS AG Routine 07/20/2023 7:44 AM FINANCIAL OPERATIONS CONSULTANT OVA AND PARASITE, MICROSCOPY, F Routine 07/20/2023 5:53 AM FINANCIAL OPERATIONS CONSULTANT CBC WITH DIFFERENTIAL, B Routine 07/19/2023 12:38 PM FINANCIAL OPERATIONS CONSULTANT QUANTIFERON-TB GOLD PLUS, B Routine 07/19/2023 12:38 PM FINANCIAL OPERATIONS CONSULTANT INTERNAL MEDICINE IMAGE EXAM Routine 07/19/2023 9:55 AM FINANCIAL OPERATIONS CONSULTANT INTERNAL MEDICINE IMAGE EXAM Routine 07/19/2023 9:55 AM FINANCIAL OPERATIONS CONSULTANT STREPTOCOCCUS PNEUMONIAE AG, U Routine 07/19/2023 2:47 AM FINANCIAL OPERATIONS CONSULTANT DIPSTICK, U Routine 07/18/2023 11:22 PM FINANCIAL OPERATIONS CONSULTANT PH, U Routine 07/18/2023 11:22 PM FINANCIAL OPERATIONS CONSULTANT OSMOLALITY, U Routine 07/18/2023 11:22 PM FINANCIAL OPERATIONS CONSULTANT MICROSCOPIC AUTOMATED Routine 07/18/2023 11:22 PM FINANCIAL OPERATIONS CONSULTANT URINALYSIS WITH MICROSCOPIC Routine 07/18/2023 11:22 PM FINANCIAL OPERATIONS CONSULTANT LEGIONELLA AG, U Routine 07/18/2023 11:22 PM FINANCIAL OPERATIONS CONSULTANT BLASTOMYCES AG, QUANT EIA, URINE Routine 07/18/2023 11:22 PM FINANCIAL OPERATIONS CONSULTANT HISTOPLASMA AG, QUANT EIA, U Routine 07/18/2023 11:22 PM FINANCIAL OPERATIONS CONSULTANT CT CHEST WITHOUT IV CONTRAST RAD - Routine (most inpatients and all outpatients) 07/18/2023 10:40 PM FINANCIAL OPERATIONS CONSULTANT BACTERIA / MARIALUISA CULTURE, BLOOD STAT 07/18/2023 9:37 PM FINANCIAL OPERATIONS CONSULTANT HIV-1/-2 AG AND AB SCREEN, PLASMA Routine 07/18/2023 9:37 PM FINANCIAL OPERATIONS CONSULTANT MYCOBACTERIAL CULTURE, V Routine 07/18/2023 9:33 PM FINANCIAL OPERATIONS CONSULTANT ACID FAST SMEAR FOR MYCOBACTERIUM Routine 07/18/2023 9:33 PM FINANCIAL OPERATIONS CONSULTANT FUNGAL CULTURE, ROUTINE Routine 07/18/2023 9:33 PM FINANCIAL OPERATIONS CONSULTANT FUNGAL SMEAR Routine 07/18/2023 9:33 PM FINANCIAL OPERATIONS CONSULTANT BACTERIAL CULTURE, AEROBIC + SUSC, RESP Routine 07/18/2023 9:33 PM FINANCIAL OPERATIONS CONSULTANT GRAM STAIN Routine 07/18/2023 9:33 PM FINANCIAL OPERATIONS CONSULTANT ANCA VASCULITIS PANEL, S Routine 07/18/2023 9:24 PM FINANCIAL OPERATIONS CONSULTANT (1, 3) SGNP-K-LMAVUZ (FUNGITELL), S Routine 07/18/2023 9:24 PM FINANCIAL OPERATIONS CONSULTANT BACTERIA / MARIALUISA CULTURE, BLOOD STAT 07/18/2023 9:24 PM FINANCIAL OPERATIONS CONSULTANT HCV AB W/REFLEX TO HCV PCR, S Routine 07/18/2023 9:24 PM FINANCIAL OPERATIONS CONSULTANT HBC TOTAL AB, SERUM Routine 07/18/2023 9 :24 PM FINANCIAL OPERATIONS CONSULTANT HBS ANTIBODY, SERUM Routine 07/18/2023 9 :24 PM FINANCIAL OPERATIONS CONSULTANT HEPATITIS B SURFACE ANTIGEN Routine 07/18/2023 9:24 PM FINANCIAL OPERATIONS CONSULTANT INFLUENZA A, B, RSV, PCR, RAPID, V Routine 07/18/2023 8:54 PM FINANCIAL OPERATIONS CONSULTANT SARS CORONAVIRUS 2, PCR RAPID, V Routine 07/18/2023 8:54 PM FINANCIAL OPERATIONS CONSULTANT DX CHEST AP OR PA AND LATERAL 2 VIEWS RAD - Semiurgent (Fast; most ED patients; some inpatients) 07/18/2023 4:44 PM FINANCIAL OPERATIONS CONSULTANT VBG & LYTES CG8+, POCT, B STAT 07/18/2023 4:25 PM FINANCIAL OPERATIONS CONSULTANT HEPATIC FUNCTION PANEL, S STAT 07/18/2023 4:16 PM FINANCIAL OPERATIONS CONSULTANT NT-PRO B-TYPE NATRIURETIC PEPTIDE (BNP), S STAT 07/18/2023 4:16 PM FINANCIAL OPERATIONS CONSULTANT D-DIMER, P STAT 07/18/2023 4:16 PM FINANCIAL OPERATIONS CONSULTANT TROPONIN T, BASELINE, 5TH GEN, P STAT 07/18/2023 4:16 PM FINANCIAL OPERATIONS CONSULTANT BASIC METABOLIC PANEL, S/P STAT 07/18/2023 4:16 PM FINANCIAL OPERATIONS CONSULTANT CBC WITH DIFFERENTIAL, B STAT 07/18/2023 4:16 PM FINANCIAL OPERATIONS CONSULTANT IMMUNOGLOBULIN E (IGE), S Routine 07/18/2023 4:13 PM FINANCIAL OPERATIONS CONSULTANT M. PNEUMONIAE AB, IGG AND IGM Routine 07/18/2023 4:13 PM FINANCIAL OPERATIONS CONSULTANT ECG STAT 07/18/2023 3:21 PM FINANCIAL OPERATIONS CONSULTANT from Last 3 Months Results * CBC [...] José Luis Lopez M.D. LAB BLOOD ADD-ON [facility] [address] [place] [address], [facility] [address] [place] [address] * Basic Metabolic Panel (09/19/2023 6:23 AM CDT) Only the most recent of8 resultswithin the time period is included. [facility] Potassium, S 4.1 3.6 - 5.2 mmol/L [...] José Luis Lopez M.D. LAB BLOOD ADD-ON [facility] [address] [place] [address], [facility] [address] [place] [address] * (TTE) 2D ECHO DOPPLER COLOR (09/18/2023 [...] 11:30 AM CDT There are no previous [facility] echocardiograms available for comparison. Echo performed at [...] both lungs. 8. There are no previous [facility] echocardiograms available for comparison. Procedure Note Jong [...] both lungs. 8. There are no previous [facility] echocardiograms available forcomparison. Findings There are no previous [facility] echocardiograms available forcomparison. Echo performed at the [...] using the FDA-Cleared FilmArray Respiratory Panel 2.1 ([employer]). This assay is performed using the FilmArray Respiratory Panel 2.1 ([employer]). For testing performed at [facility] in [place], [place], performance characteristics for samples submitted in phosphate buffered saline were determined by [facility] in a manner consistent with CLIA requirements. Swab (Nasopharynx) 09/17/2023 10:22 PM CDT 09/17/2023 10:41 PM CDT José Luis Lopez M.D. LAB MICROBIOLOGY - GENERAL ORDERABLES [facility] [address] [place] [address], [facility] DTL [address] [facility] [address] [place] [address] * MR Brain without and with IV Contrast (09/17/2023 7:32 PM CDT) Anatomical Region Laterality Modality Head, Brain, Neuroradiology RST LOS, Neuroradiology ARZ LOS, Neuroradiology FLA LOS N/A Magnetic Resonance Impressions 09/17/2023 8:28 PM CDT No acute intracranial findings. Nothing specific for infectious GYMNASTICS INSTRUCTOR etiologies or acute meningoencephalitis. Narrative 09/17/2023 8:28 [...] or acute meningoencephalitis. José Luis Lopez M.D. IMLandon MRI PROCEDURES * Glucose, POCT (09/17/2023 11:21 AM CDT) Glucose, POCT, B 131 70 - 140 mg/dL 09/17/2023 11:23 AM CDT PCLX Last Intake 2-3 hours 09/17/2023 11:23 AM CDT PCLX Blood 09/17/2023 11:2 1 AM CDT 09/17/2023 11:24 AM CDT Unknown Provider LAB POCT ORDERABLES- MANUAL Performing Organization Address City/State/[facility] Co de Phone Number POC [facility] [address] [place] [address], [facility] PCLX [facility] POC [address] [place] [address] * CT Sinuses without IV Contrast (09/15/2023 [...] Other chronic/nonacute findings, as detailed. José Luis Lopez M.D. IMG CT PROCEDURES * Tryptase (09/15/2023 10:50 AM CDT) Pathologist [facility] Tryptase, S 4.4 <11.5 ng/mL 09/16/2023 3:30 PM CDT [facility] Blood (Blood, Venous) 09/15/2023 10:50 AM CDT 09/15/2023 2:50 PM CDT José Luis Lopez M.D. LAB BLOOD ADD-ON [facility] [address] [place] [address] [facility] [address] [place] [address] * Troponin T, 5th Generation (09/15/2023 10:50 AM CDT) Pathologist [facility] Troponin T, 5th gen 10 <=15 ng/L 09/15/2023 11:14 AM CDT [facility] Blood 09/15/2023 10:5 0 AM CDT 09/15/2023 10:56 AM CDT José Luis Lopez M.D. LAB BLOOD ADD-ON [facility] [address] [place] [address], [facility] [address] [place] [address] * (1, 3) Xfia-V-Ynszaz (Fungitell), Serum (09/15/2023 8:00 AM CDT) Only the most recent of2 resultswithin the time period is included. [facility] (1, 3) Hoeu-S-Tisnez, Quantitative <31 <60 pg/mL pg/mL 09/15/2023 3:48 PM CDT SDS (1, 3) Crta-U-Ztndcp, Qualitative Negative Negative 09/15/2023 3:48 PM CDT SDS Comment: No (1, 3) Blsz-V-Aoybxi detected. ?? This assay does not detect certain fungi, including Cryptococcus species, which produce very low levels of (1, 3) Ohaj-U-Blbxcd (BDG) and the Mucorales (e.g., Lichthemia, Mucor and Rhizopus), which are not known to produce BDG. Additionally, the yeast phase of Blastomyces dermatitidis produces little BDG and may not be detected by this assay. ----ADDITIONAL INFORMATION---- This assay was performed using the FDA-cleared Fungitell Assay ([facility], [place], [place], [place]), a kinetic AJ based on modification of the Limulus Amebocyte Lysate pathway. Blood (Blood, Venous) 09/15/2023 8:00 AM CDT 09/15/2023 10:24 AM CDT José Luis Lopez M.D. LAB MICROBIOLOGY - BLOOD ORDERABLES [facility] [address] [place] [address] [facility] [address] [place] [address] [place] [address] * Aspergillus Ag (09/15/2023 8:00 AM CDT) Only the most recent of2 resultswithin the time period is included. [facility] Aspergillus Ag, S <0.500 <0.5 index 09/15/2023 10:33 PM CDT [facility] Comment: ----ADDITIONAL INFORMATION---- This is a [...] MICROBIOLOGY - BLOOD ORDERABLES Performing Organization Address City/[facility] Co de Phone Number [facility] [address] [place] [address] [facility] [address] [place] [address] [place] [address] * Eosinophil Count, Sputum (09/15/2023 3:58 AM CDT) [facility] Eosinophils 0 % DEFAULT 09/15/2023 3:14 PM CDT [facility] Comment: ----REFERENCE VALUE---- The reference range and other method performance specifications have not been established for this body fluid. The test result must be integrated into the clinical context for interpretation. Eosinophil Count, Comment 0 09/15/2023 3:14 PM CDT [facility] Sputum (Sputum) 09/15/2023 3 :58 AM CDT 09/15/2023 10:30 AM CDT Fuad Gardner M.D. LAB BODY FLUIDS A ND STOOLS ORDERABLES Performing Organization Address City/[facility]/ZIP Co de Phone Number [facility] [address] [place] [address], [facility] [address] [place] [address] * Pneumocystis Smear (09/15/2023 3:58 AM CDT) [facility] Pneumocystis smear Negative. 09/15/2023 4:47 PM CDT DTL Sputum (Sputum) 09/15/2023 3 :58 AM CDT 09/15/2023 8:02 AM CDT Comment:Specimen Source Site : Sputum Fuad Gardner M.D. LAB MICROBIOLOGY - GENERAL ORDERABLES Performing Organization Address [facility] Co de Phone Number [facility] [address] DTL [facility] [address] [place] [address] * Patient Status (09/15/2023 1:01 AM CDT) Only the most recent of2 resultswithin the time period is included. O2 Flow 1.0 L/min 09/15/2023 1:08 AM CDT [facility] Device NC 09/15/2023 1:08 AM CDT [facility] Spont. breaths/min 15 09/15/2023 1:08 AM CDT [facility] Blood 09/15/2023 1:01 AM CDT 09/15/2023 1:08 AM CDT José Luis Lopez M.D. LAB BLOOD NON ADD-O N Performing Organization Address City/[facility] Co de Phone Number [facility] [address] STMA [facility] 200 [place] [address] * Blood Gas without Coox, Venous (09/15/2023 [...] BLOOD NON ADD-O N Performing Organization Address City/[facility] Co de Phone Number [facility] [address] [place] [address], [facility] STMA [facility] [address] [place] [address] * (ABNORMAL) Hepatic Function Panel (09/15/2023 1:01 [...] José Luis Lopez M.D. LAB BLOOD ADD-ON [facility] [address] [place] [address], [facility] DTL [facility] [address] [place] [address] * (ABNORMAL) SPSMA Result (09/15/2023 1:01 AM CDT) Pathologist [facility] Neutrophilic Segs and Bands 82(H) 50 - [...] - 6.45 x10(9)/L 09/15/2023 2:52 AM CDT PM Comment: ----ADDITIONAL INFORMATION---- The manual absolute neutrophil count is derived from a manual differential count and therefore is not exactly comparable to the automated absolute neutrophil count. Interpretation See Comment 2:52 AM CDT [facility] Comment:Peripheral blood sme ar reviewed: no diagnostic abnormalities are seen. Reviewed by: Kieran 09/15/2023 2:52 AM CDT PM Blood (Blood, Venous) 09/15/2023 1:01 AM CDT 09/15/2023 1:19 AM CDT José Luis Lopez M.D. LAB BLOOD ADD-ON [facility] [address] [place] [address], [facility] [address] [place] [address] * Strongyloides Antibody, IgG (09/15/2023 1:01 AM CDT) Pathologist [facility] [place] Strongyloides Ab, IgG, S Negative Negative 09/15/2023 7:44 PM CDT [facility] Comment: No detectable levels of IgG antibodies to Strongyloides. Repeat testing in 1-2 weeks if clinically indicated. Blood (Blood, Venous) 09/15/2023 1:01 AM CDT 09/15/2023 11:24 AM CDT José Luis Lopez M.D. LAB BLOOD ADD-ON Performing Organization Address City/[facility]/ZIP Co de Phone Number [facility] [address] [place] [address] [facility] [address] [place] [address] * Phosphorus Inorganic (09/15/2023 1:01 AM CDT) Phosphorus (Inorganic), S 2.8 2.5 - 4.5 mg/dL 09/15/2023 2:00 AM CDT DTL Blood (Blood, Venous) 09/15/2023 1:01 AM CDT 09/15/2023 1:28 AM CDT José Luis Lopez M.D. LAB BLOOD ADD-ON Performing Organization Address [facility] Co de Phone Number [facility] [address] [place] [address], [facility] [address] [place] [address] * Bordetella PCR (09/14/2023 8:51 PM CDT) Specimen source Nasopharynx 09/16/19 5:21 PM CDT DTL Bordetella pertussis PCR Negative Not Applicable 09/16/2023 5:21 PM CDT DTL Bordetella parapertussis PCR Negative Not Applicable 09/16/2023 5:21 PM CDT DTL Comment: ----ADDITIONAL INFORMATION---- This test was developed and its performance characteristics determined by [facility] in a manner consistent with CLIA requirements. This test has not been cleared or approved by the U.S. Food and Drug Administration. Swab (Nasopharynx) 09/14/2023 8:51 PM CDT 09/14/2023 9:21 PM CDT José Luis Lopez M.D. LAB MICROBIOLOGY - GENERAL ORDERABLES Performing Organization Address [facility] Co de Phone Number [facility] [address] [place] [address], [facility] DT [address] [facility] 200 [place] [address] * Pneumocystis PCR (09/14/2023 8:41 PM CDT) Specimen Source Sputum, Sputum 09/16/2023 10:17 AM CDT DTL Pneumocystis PCR Negative Not Applicable 09/16/2023 10:17 AM CDT DTL Comment: ----ADDITIONAL INFORMATION---- This test was developed and its performance characteristics determined by [facility] in a manner consistent with CLIA requirements. This test has not been cleared or approved by the U.S. Food and Drug Administration. Sputum (Sputum) 09/14/2023 8 :41 PM CDT 09/14/2023 9:14 PM CDT José Luis Lopez M.D. LAB MICROBIOLOGY - GENERAL ORDERABLES Performing Organization Address [facility] Co de Phone Number [facility] [address] [place] [address], [address] [address] * Bacterial Culture, Aerobic + Susceptibility, Respiratory (09/14/2023 8:41 PM CDT) Only the most recent of4 resultswithin the time period is included. Bacterial Culture, Aerobic, Resp Upper respiratory/or al microbiota 09/16/2023 11:27 AM CDT DTL Sputum (Sputum) 09/14/2023 8 :41 PM CDT 09/14/2023 9:14 PM CDT Comment:Specimen Source Site : Sputum Narrative [facility] - 09/16/2023 11:27 AM CDT Fungal and Mycobacteria specimens plated for culture, volume inadequate for optimal recovery. José Luis Lopez M.D. LAB MICROBIOLOGY - GENERAL ORDERABLES Performing Organization Address City/[facility] Co de Phone Number [facility] [address] [place] [address], [facility] [address] [place] [address] * Legionella PCR (09/14/2023 8:41 PM CDT) Specimen Source Sputum, Sputum 09/15/2023 9:55 PM CDT DT Legionella PCR, Result Negative Not Applicable 09/15/2023 9:55 PM CDT DTL Comment: ----ADDITIONAL INFORMATION---- This test was developed and its performance characteristics determined by [facility] in a manner consistent with CLIA requirements. This test has not been cleared or approved by the U.S. Food and Drug Administration. Sputum (Sputum) 09/14/2023 8 :41 PM CDT 09/14/2023 9:14 PM CDT José Luis Lopez M.D. LAB MICROBIOLOGY - GENERAL ORDERABLES Performing Organization Address [facility] Co de Phone Number [facility] [address] [place] [address], [facility] [address] [facility] 200 [place] [address] * Fungal Smear (09/14/2023 8:41 PM CDT) Only the most recent of4 resultswithin the time period is included. Fungal Smear Negative. 09/15/2023 9:43 AM CDT DT Sputum (Sputum) 09/14/2023 8 :41 PM CDT 09/14/2023 9:14 PM CDT Comment:Specimen Source Site : Sputum Narrative [facility] - 09/15/2023 9:43 AM CDT Fungal and Mycobacteria specimens plated for culture, volume inadequate for optimal recovery. José Luis Lopez M.D. LAB MICROBIOLOGY - GENERAL ORDERABLES Performing Organization Address City/[facility]/ZIP Co de Phone Number [facility] [address] [place] [address], [facility] [address] [place] [address] * Acid Fast Smear for Mycobacterium (09/14/2023 8:41 PM CDT) Only the most recent of4 resultswithin the time period is included. Acid Fast Smear For Mycobacterium Negative. 09/15/2023 3:24 PM CDT DTL Sputum (Sputum) 09/14/2023 8 :41 PM CDT 09/14/2023 9:14 PM CDT Comment:Specimen Source Site : Sputum Narrative [facility] - 09/15/2023 3:24 PM CDT Fungal and Mycobacteria specimens plated for culture, volume inadequate for optimal recovery. José Luis Lopez M.D. LAB MICROBIOLOGY - GENERAL ORDERABLES Performing Organization Address City/[facility]/ZIP Co de Phone Number [facility] [address] [place] [address], [facility] [address] [place] [address] * Gram Stain (09/14/2023 8:41 PM CDT) Only the most recent of5 resultswithin the time period is included. Gram Stain Upper respiratory/ora l microbiota White blood cells, Few Epithelial cells, Few 09/15/2023 1:11 AM CDT DTL Sputum (Sputum) 09/14/2023 8 :41 PM CDT 09/14/2023 9:14 PM CDT Comment:Specimen Source Site : Sputum Narrative [facility] - 09/15/2023 1:11 AM CDT Fungal and Mycobacteria specimens plated for culture, volume inadequate for optimal recovery. José Luis Lopez M.D. LAB MICROBIOLOGY - GENERAL ORDERABLES [facility] [address] [place] [address], [address] [address] * DX Chest AP or PA and [...] LATERAL 2 VIEWS Procedure Note Carleen Estrada M.B.B.STammy - 09/14/2023 EXAM: DX CHEST AP OR PA AND LATERAL 2 VIEWS IMPRESSION: Since 09/03/2023 slight increased diffuse peribronchial thickening andsmall nodules, most conspicuous in the lower lobes which may be related toaspiration or infection. No focal consolidation or effusions. Richmond Huang P.A.-C. [facility] PROCED[facility] * CT Head without [...] intact. IMPRESSION: No acute intracranial findings. Richmond Huang P.A.-C. IMG CT PROCEDUR ES * (ABNORMAL) CRP (C-Reactive Protein) (09/14/2023 10:50 AM CDT) Pathologist [facility] [place] C-Reactive Protein (CRP), S 5.4(H) <5.0 mg/L 09/14/2023 11:56 AM CDT DTL Blood (Blood, Venous) 09/14/2023 10:50 AM CDT 09/14/2023 11:23 AM CDT Richmond Huang P.A.-C. LAB BLOOD ADD-O N [facility] [address] [place] [address], [facility] [address] [place] [address] * S-TSH (Thyroid-Stimulating Hormone - Sensitive) (09/14/2023 10:50 AM CDT) [facility] TSH, Sensitive 1.3 0.3 - 4.2 mIU/L 09/14/2023 11:56 AM CDT DT Blood (Blood, Venous) 09/14/2023 10:50 AM CDT 09/14/2023 11:23 AM CDT Richmond Huang P.A.-C. LAB BLOOD ADD-O N Performing Organization Address City/[facility]/ZIP Co de Phone Number [facility] [address] [place] [address] * Lactate (09/14/2023 10:50 AM CDT) [facility] Lactate, P 2.2 0.5 - 2.2 mmol/L 09/14/2023 11:10 AM CDT [facility] Blood (Blood, Venous) 09/14/2023 10:50 AM CDT 09/14/2023 10:55 AM CDT Richmond Huang P.A.-C. LAB BLOOD NON A DD-ON Performing Organization Address [facility] Co de Phone Number [facility] [address] [place] [address] * Magnesium (09/14/2023 10:45 AM CDT) [facility] Magnesium, S 2.2 1.7 - 2.3 mg/dL 09/14/2023 1:22 PM CDT [facility] Blood (Blood, Venous) 09/14/2023 10:45 AM CDT 09/14/2023 1:04 PM CDT Richmond Huang P.A.-C. LAB BLOOD ADD-O N Performing Organization Address City/[facility]/ZIP Co de Phone Number [facility] [address] [place] [address] * ECG 12 Lead (09/14/2023 10:14 AM CDT) Only the most recent of3 resultswithin the time period is included. Ventricular Rate ECG/Min 103 BPM MUSE MT Interval 178 ms MUSE QRSD Interval 98 ms MUSE QT Interval 350 ms MUSE QTC Interval 458 ms MUSE P [place] 64 degrees MUSE R [place] -15 degrees MUSE T Wave [place] 55 degrees MUSE 09/14/2023 10:1 4 AM [...] has occurred Reviewed by WILLIAM Wills Richmond Huang P.A.-C. ECG ORDERABLES MUSE NA * Oxygen Titration (09/10/2023 12:35 PM CDT) Pathologist [facility] [place] [1] Inspired Gas (L/min) Room Air MMODAL [...] represent atelectasis or developing infection/inflammation. Procedure Note Bold, Steven Galindo M.D. - 09/03/2023 EXAM: CT [...] representatelectasis or developing infection/inflammation. Vinh Swift M.D. [facility] [place] PROC [...] at the following links: For Healthcare Providers: https://www.fda.gov/media/659139/download For Patients: https://www.fda.gov/media/585076/download Infl A/B, SARS CoV-2, PCR, Source Swab, Nasopharynx 09/03/2023 8:25 PM CDT [facility] Swab (Nasopharynx) 09/03/2023 8:23 PM CDT 09/03/2023 8:25 PM CDT Vinh Swift M.D. LAB MICROBI OLOGY - GENERAL ORDERABLES Performing Organization Address City/[facility]/ZIP Co de Phone Number [facility] [address] [place] [address], [facility] [address] [place] [address] * (ABNORMAL) D-Dimer (09/03/2023 7:55 PM CDT) Only the most recent of2 resultswithin the time period is included. D-Dimer, P 712(H) <=500 ng/mL FEU 09/03/2023 8:08 PM CDT [facility] Comment: D-dimer concentrations increase with age. ??For [...] LAB BLOOD A DD-ON Performing Organization Address City/[facility]/ZIP Co de Phone Number [facility] [address] [place] [address], [facility] [address] [place] [address] * Troponin T, 2h/6h, 5th Gen (09/03/2023 7:09 PM CDT) Troponin T, 2 hr, 5th gen <6 [...] PM CDT 09/03/2023 7:19 PM CDT Narrative [facility] - 09/03/2023 7:40 PM CDT Specimen Information: Specimen ID: [id number] Specimen Type: Blood Specimen Collection Start Date: 09/03/2023 ??7:09 PM Specimen Received Date: 09/03/2023 ??7:19 PM Specimen ID: [id number] Specimen Type: Blood Specimen Collection Start Date: 09/03/2023 ??7:40 PM Specimen Received Date: 09/03/2023 ??7:40 PM Vinh Swift M.D. LAB BLOOD T ROPONIN [facility] [address] [place] [address], [facility] [address] [place] [address] * Troponin T, Baseline, 5th gen (09/03/2023 4:14 PM CDT) Only the most recent of2 resultswithin the time period is included. Troponin T, Baseline, 5th gen 7 <=15 ng/L 09/03/2023 4:38 PM CDT [facility] Blood (Blood, Venous) 09/03/2023 4:14 PM CDT 09/03/2023 4:20 PM CDT Vinh Swift M.D. LAB BLOOD T ROPONIN [facility] [address] [place] [address] * (ABNORMAL) NT-Pro B-Type Natriuretic Peptide (BNP) (09/03/2023 4:14 PM CDT) Only the most recent of2 resultswithin the time period is included. Pathologist [facility] NT-Pro BNP 135(H) <=88 pg/mL 09/03/2023 4:52 PM CDT [facility] Comment: NT-proBNP values less than 300 pg/mL [...] LAB BLOOD A DD-ON Performing Organization Address [facility] Co de Phone Number [facility] [address] [place] [address] * Prothrombin Time (PT) (09/03/2023 4:14 PM CDT) Pathologist [facility] Prothrombin Time, P 11.1 9.4 - 12.5 sec 09/03/2023 4:28 PM CDT [facility] 1.0 0.9 - 1.1 09/03/2023 4:28 PM CDT [facility] Comment: ----ADDITIONAL INFORMATION---- Standard intensity warfarin therapeutic range: 2.0 to 3.0 ?? High intensity warfarin therapeutic range: 2.5 to 3.5 Blood (Blood, Venous) 09/03/2023 4:14 PM CDT 09/03/2023 4:20 PM CDT Jose De Jesus Daley P.A.-C. LAB BLOOD ADD-ON Performing Organization Address City/[facility]/ZIP Co de Phone Number [facility] [address] [place] [address], [facility] [address] [place] [address] * (ABNORMAL) IgG Subclasses (08/31/2023 4:29 PM CDT) Pathologist [facility] Total IgG 681(L) 767 - 1590 mg/dL 09/01/2023 8:47 AM CDT [facility] IgG 1 370 341 - 894 mg/dL 09/01/2023 8:47 AM CDT [facility] IgG 2 257 171 - 632 mg/dL 09/01/2023 8:47 AM CDT [facility] IgG 3 39.0 18.4 - 106.0 mg/dL 09/01/2023 8:47 AM CDT [facility] IgG 4 20.1 2.4 - 121.0 mg/dL 09/01/2023 8:47 AM CDT [facility] Blood (Blood, Venous) 08/31/2023 4:29 PM CDT 09/01/2023 6:20 AM CDT Ricky Leiva M.D. LAB BLOOD ADD-ON Performing Organization Address City/[facility]/ZIP Co de Phone Number [facility] [address] [place] [address] [facility] [address] [place] [address] * Decqv-0-[id number] Proteotype S/Z by LC-MS/MS (08/31/2023 4:29 PM CDT) Vwmgk-9-Wyiefhyias n, S 130 100 - 190 mg/dL 09/01/2023 9:05 AM CDT [facility] Comment: ----ADDITIONAL INFORMATION---- Method: Nephelometry Interpretation S Mutation: Negative Z Mutation: Negative Results most consistent with MM phenotype. 09/03/2023 10:10 AM CDT [facility] Comment: ----ADDITIONAL INFORMATION---- This test was developed and its performance characteristics determined by [facility] in a manner consistent with CLIA requirements. This test has not been cleared or approved by the U.S. Food and Drug Administration. Blood (Blood, Venous) 08/31/2023 4:29 PM CDT 09/01/2023 6:13 AM CDT Ricky Leiva M.D. LAB BLOOD NON ADD-ON Performing Organization Address City/[facility]/ZIP Co de Phone Number [facility] [address] [place] [address] [facility] [address] [place] [address] [place] [address] [address] [place] [place] [address] * Immunoglobulin A (IgA) (08/31/2023 4:29 PM CDT) Immunoglobulin A (IgA), S 171 61 - 356 mg/dL 09/01/2023 7:50 AM CDT [facility] Blood 08/31/2023 4:29 PM CDT 09/01/2023 6:13 AM CDT Ricky Leiva M.D. LAB BLOOD ADD-ON [facility] [address] [place] [address] [facility] [address] [place] [address] * Immunoglobulin M (IgM) (08/31/2023 4:29 PM CDT) Pathologist [facility] Immunoglobulin M (IgM), S 233 37 - 286 mg/dL 09/01/2023 7:51 AM CDT [facility] Blood 08/31/2023 4:29 PM CDT 09/01/2023 6:13 AM CDT Ricky Leiva M.D. LAB BLOOD ADD-ON [facility] [address] [place] [address] [facility] [address] [place] [address] * PUL Exhaled Nitric Oxide (08/31/2023 11:59 AM CDT) Pathologist [facility] Exhaled NO Oral 30 ONBASE Parts per billion (ULN) 39 ONBASE ENOComment Patient takes Arnuity Ellipta, Prednisone, and Albuterol. ONBASE Katherin Hunt M.D. PFT ORDERABLES Performing Organization Address City/[facility] Co de Phone Number ONBASE NA * Pulmonary Function Tests (08/31/2023 10:58 AM CDT) [facility] PostFVC 6.20 L 08/31/2023 2:49 PM CDT [facility] PostFEV1 3.61 L 08/31/2023 2:49 PM CDT [facility] FEV1/FVC POST 58.33 % 08/31/2023 2:49 PM CDT [facility] FEF 25-75 % POST 1.55 L/s 08/31/2023 2:49 PM CDT [facility] PEF POST 9.49 L/s 08/31/2023 2:49 PM CDT [facility] PIF POST 7.24 L/s 08/31/2023 2:49 PM CDT [facility] FEF 50 % FIF 50 POST 29.25 % 08/31/2023 2:49 PM CDT [facility] FET POST 15.26 sec 08/31/2023 2:49 PM CDT [facility] TLC 9.77 L 08/31/2023 2:49 PM CDT [facility] FRCPLETH PROVBASE 4.78 L 08/31/2023 2:49 PM CDT [facility] RV 3.42 L 08/31/2023 2:49 PM CDT [facility] RV % TLC PRE 35.07 % 08/31/2023 2:49 PM CDT [facility] DLCO 34.62 ml/(min*mm Hg) 08/31/2023 2:49 PM CDT [facility] VA 8.70 L 08/31/2023 2:49 PM CDT [facility] FVC 6.05 L 08/31/2023 2:49 PM CDT [facility] FEV1 3.47 L 08/31/2023 2:49 PM CDT [facility] FEV1/FVC 57.32 % 08/31/2023 2:49 PM CDT [facility] FIJ71-54% 1.43 L/s 08/31/2023 2:49 PM CDT [facility] PEF PRE 9.94 L/s 08/31/2023 2:49 PM CDT [facility] PIF PRE 8.95 L/s 08/31/2023 2:49 PM CDT [facility] FEF 50 % FIF 50 PRE 19.59 % 08/31/2023 2:49 PM CDT [facility] FET PRE 15.12 sec 08/31/2023 2:49 PM CDT [facility] SUBSTANCE POST Albuterol 08/31/2023 2:49 PM CDT [facility] 08/31/2023 10:5 8 AM CDT Impressions [facility] - 08/31/2023 2:49 PM CDT Abnormal. Borderline [...] with exercise. Katherin Hunt M.D. PFT ORDERABLES [place] [address] * Interpretation of Outside CT Chest [...] with IV contrast enhancement of 08/24/2023 COMPARISON: ??[place] chest CT 07/18/2023 FINDINGS: ??Considering differences in [...] CHEST with IV contrast enhancement of08/24/2023 COMPARISON: [place] chest CT 07/18/2023 FINDINGS: Considering differences in [...] suggestive for intrapulmonarylymph nodes. Ricky Leiva M.D. [facility] [place]EDURES * CT Angio Chest PE Protocol-Outside CT Body (08/24/2023 10:45 PM CDT) Narrative [facility] - 08/25/2023 7:13 AM CDT This order has been created and auto-finalized to support the import of outside images. If available, original interpretation can be found on the Media Tab in Chart Review, in Document Viewer, or as an image in QREADS. If a re-interpretation or overread is required please follow defined workflow. ?? Provider Not In System IMG CT PROCEDURES [facility] NA * Aspergillus fumigatus, IgG Antibodies (07/20/2023 7:44 AM FINANCIAL OPERATIONS CONSULTANT) Pathologist [facility] Aspergillus fumigatus, IgG Ab, S 27.4 <=102 mg/L 07/21/2023 8:41 PM FINANCIAL OPERATIONS CONSULTANT [facility] Comment: ----ADDITIONAL INFORMATION---- This test was developed and its performance characteristics determined by [facility] in a manner consistent with CLIA requirements. This test has not been cleared or approved by the U.S. Food and Drug Administration. Blood (Blood, Venous) 07/20/2023 7:44 AM FINANCIAL OPERATIONS CONSULTANT 07/20/2023 10:50 AM FINANCIAL OPERATIONS CONSULTANT Hernan Belle.S. LAB BLOO D ADD-ON Performing Organization Address City/[facility] Co de Phone Number [facility] [address] [place] [address] [facility] [address] [place] [address] * Aspergillus fumigatus, IgE (07/20/2023 7:44 AM FINANCIAL OPERATIONS CONSULTANT) [facility] Aspergillus Fumigatus, IgE <0.10 <0.70 kU/L 07/21/2023 10:54 AM FINANCIAL OPERATIONS CONSULTANT [facility] Comment:Class 0 (Negative <0 .10) Blood (Blood, Venous) 07/20/2023 7:44 AM FINANCIAL OPERATIONS CONSULTANT 07/21/2023 8:21 AM FINANCIAL OPERATIONS CONSULTANT Hernan Belle.S. LAB BLOO D ADD-ON Performing Organization Address City/[facility] Co de Phone Number [facility] [address] [place] [address] [facility] [address] [place] [address] * Ova and Parasite, Travel History or Immunocompromised, Feces (07/20/2023 5:53 AM FINANCIAL OPERATIONS CONSULTANT) [facility] Ova and Parasite, Microscopy, F No parasites seen. Cryptosporidium, Cyclospora, and microsporidia are not readily detected by this method. Single negative specimen does not rule out parasitic infection. 07/21/2023 6:28 PM FINANCIAL OPERATIONS CONSULTANT DTL Stool (Stool) 07/20/2023 5:5 3 AM FINANCIAL OPERATIONS CONSULTANT 07/20/2023 6:16 AM FINANCIAL OPERATIONS CONSULTANT Comment:Specimen Source Site : Stool Hernan Posey LAB MICR OBIOLOGY - GENERAL ORDERABLES [facility] [address] [place] [address], [facility] [address] [place] [address] * QuantiFERON-Tb Gold Plus, Blood (07/19/2023 12:38 PM FINANCIAL OPERATIONS CONSULTANT) [facility] QuantiFERON-TB Gold Plus Result Negative Negative 07/20/2023 1:05 PM FINANCIAL OPERATIONS CONSULTANT SDS Comment: No interferon-gamma response to M. tuberculosis [...] Nil Result 0.00 IU/mL 07/20/2023 1:05 PM FINANCIAL OPERATIONS CONSULTANT [facility] TB2 Ag minus Nil Result 0.00 IU/mL 07/20/2023 1:05 PM FINANCIAL OPERATIONS CONSULTANT [facility] Mitogen minus Nil Result 8.97 IU/mL 07/20/2023 1:05 PM FINANCIAL OPERATIONS CONSULTANT [facility] Nil Result 0.02 IU/mL 07/20/2023 1:05 PM FINANCIAL OPERATIONS CONSULTANT [facility] Blood (Blood, Venous) 07/19/2023 12:38 PM FINANCIAL OPERATIONS CONSULTANT 07/19/2023 3:34 PM FINANCIAL OPERATIONS CONSULTANT Narrative [facility] - 07/20/2023 1:05 PM FINANCIAL OPERATIONS CONSULTANT Specimen Information: Specimen ID: [id number] Specimen Type: Blood Specimen Collection Start Date: 07/19/2023 12:38 PM Specimen Received Date: 07/19/2023 ??3:34 PM Specimen ID: [id number] Specimen Type: Blood Specimen Collection Start Date: 07/19/2023 12:38 PM Specimen Received Date: 07/19/2023 ??3:34 PM Specimen ID: [id number] Specimen Type: Blood Specimen Collection Start Date: 07/19/2023 12:38 PM Specimen Received Date: 07/19/2023 ??3:34 PM Specimen ID: [id number] Specimen Type: Blood Specimen Collection Start Date: 07/19/2023 12:38 PM Specimen Received Date: 07/19/2023 ??3:34 PM Murphy Stark M.D., M.S. LAB MICROBIOLOGY - BLOOD ORDERABLES Performing Organization Address [facility] Co de Phone Number [facility] [address] [place] [address] [facility] [address] [place] [address] * Wrist-Internal Medicine Image Exam (07/19/2023 9:55 AM FINANCIAL OPERATIONS CONSULTANT) Only the most recent of2 resultswithin the time period is included. 07/19/2023 9:53 AM FINANCIAL OPERATIONS CONSULTANT Narrative IIMS - 07/19/2023 9:55 AM FINANCIAL OPERATIONS CONSULTANT This order has been created and auto-finalized to support the import of images acquired without order. The clinical documentation to support these images can be found on the encounter that produced images. Provider Not In System IMG NON RAD IMAGI NG PROCEDURES Performing Organization Address [facility] Co de Phone Number [facility] * Streptococcus pneumoniae Antigen, Urine (07/19/2023 2:47 AM FINANCIAL OPERATIONS CONSULTANT) Pathologist [facility] Streptococcus pneumoniae Ag, U Negative Negative 07/19/2023 12:46 PM FINANCIAL OPERATIONS CONSULTANT [facility] Comment: Negative for pneumococcal pneumonia, suggesting no current or recent infection. ??Infection due to S. pneumoniae cannot be ruled out since the antigen present in the sample may be below detection limit of the test. ----ADDITIONAL INFORMATION---- This assay was performed using the FDA-cleared BinaxNOW Streptococcus pneumoniae Antigen test, a rapid immunochromatographic assay. Urine (Urine, Midstream) 07/19/2023 2:47 AM FINANCIAL OPERATIONS CONSULTANT 07/19/2023 8:34 AM FINANCIAL OPERATIONS CONSULTANT Lizeth Hernandez M.D.S. LAB MICROBIOLOGY - GENERAL ORDERABLES Performing Organization Address [facility] Co de Phone Number [facility] [address] [place] [address] [facility] [address] [place] [address] [place] [address] * Histoplasma Antigen, Quantitative EIA, Urine (07/18/2023 11:22 PM FINANCIAL OPERATIONS CONSULTANT) [facility] Histoplasma Ag Result Not Detected Not Detected 07/19/2023 3:10 PM FINANCIAL OPERATIONS CONSULTANT [facility] Comment: No Histoplasma antigen detected. ?? False negative results may occur. ??Repeat testing on a new specimen should be considered if clinically indicated. ?? Histoplasma Ag Value Not Detected ng/mL 07/19/2023 3:10 PM FINANCIAL OPERATIONS CONSULTANT [facility] Comment: ----ADDITIONAL INFORMATION---- This test has been modified from the system operator's instructions. Its performance characteristics were determined by [facility] in a manner consistent with CLIA requirements. This test has not been cleared or approved by the U.S. Food and Drug Administration. Urine (Urine, Midstream) 07/18/2023 11:22 PM FINANCIAL OPERATIONS CONSULTANT 07/19/2023 9:06 AM FINANCIAL OPERATIONS CONSULTANT Murphy Stark M.D., M.S. LAB URINE ORDERA BLES Performing Organization Address [facility] Co de Phone Number [facility] [address] [place] [address] [facility] [address] [place] [address] * Dipstick, Urine (07/18/2023 11:22 PM FINANCIAL OPERATIONS CONSULTANT) [facility] Hemoglobin, QL, U Negative Negative 07/19/2023 12:02 AM FINANCIAL OPERATIONS CONSULTANT DTL Leukocyte Esterase, U Negative Negative 07/19/2023 12:02 AM FINANCIAL OPERATIONS CONSULTANT DTL Nitrite, U Negative Negative 07/19/2023 12:02 AM FINANCIAL OPERATIONS CONSULTANT DTL Ketone, U Negative Negative mg/dL 07/19/2023 12:02 AM FINANCIAL OPERATIONS CONSULTANT DTL Glucose, U Negative Negative mg/dL 07/19/2023 12:02 AM FINANCIAL OPERATIONS CONSULTANT DTL Urine 07/18/2023 11:2 2 PM FINANCIAL OPERATIONS CONSULTANT 07/18/2023 11:46 PM FINANCIAL OPERATIONS CONSULTANT Lizeth Hernandez M.D.S. LAB URINE ORDERA BLES Performing Organization Address City/[facility]/ZIP Co de Phone Number [facility] [address] [place] [address], [facility] [address] [place] [address] * Blastomyces Antigen, Quantitative EIA, Urine (07/18/2023 11:22 PM FINANCIAL OPERATIONS CONSULTANT) [facility] Blastomyces Ag Result Not Detected Not Detected 07/19/2023 4:56 PM FINANCIAL OPERATIONS CONSULTANT [facility] Comment: No Blastomyces antigen detected. ?? False negative results may occur. ??Repeat testing on a new specimen should be considered if clinically indicated. ?? Blastomyces Ag Value Not Detected ng/mL 07/19/2023 4:56 PM FINANCIAL OPERATIONS CONSULTANT [facility] Comment: ----ADDITIONAL INFORMATION---- This test was developed and its performance characteristics determined by [facility] in a manner consistent with CLIA requirements. This test has not been cleared or approved by the U.S. Food and Drug Administration. Urine (Urine, Midstream) 07/18/2023 11:22 PM FINANCIAL OPERATIONS CONSULTANT 07/19/2023 8:34 AM FINANCIAL OPERATIONS CONSULTANT Murphy Stark M.D., MTammyS. LAB MICROBIOLOGY - GENERAL ORDERABLES Performing Organization Address City/[facility]/ZIP Co de Phone Number [facility] [address] [place] [address] [facility] [address] [place] [address] * Microscopic Automated (07/18/2023 11:22 PM FINANCIAL OPERATIONS CONSULTANT) Pathologist [facility] Microscopy Normal 07/19/2023 12:02 AM FINANCIAL OPERATIONS CONSULTANT DTL RBC <3 <3 /hpf 07/19/2023 12:02 AM FINANCIAL OPERATIONS CONSULTANT DTL WBC 1-3 /hpf 07/19/2023 12:02 AM FINANCIAL OPERATIONS CONSULTANT DTL Comment: ----REFERENCE VALUE---- <4 ??(Males) <11 (Females) Urine 07/18/2023 11:2 2 PM FINANCIAL OPERATIONS CONSULTANT 07/18/2023 11:46 PM FINANCIAL OPERATIONS CONSULTANT Murphy Stark M.D., M.S. LAB URINE ORDERA BLES Performing Organization Address City/[facility]/ZIP Co de Phone Number [facility] [address] [place] [address] * pH, Urine (07/18/2023 11:22 PM FINANCIAL OPERATIONS CONSULTANT) Pathologist [facility] pH, U 5.3 4.5 - 8.0 07/18/2023 11: 59 PM FINANCIAL OPERATIONS CONSULTANT DT Urine 07/18/2023 11:2 2 PM FINANCIAL OPERATIONS CONSULTANT 07/18/2023 11:46 PM FINANCIAL OPERATIONS CONSULTANT Murphy Stark M.D., M.S. LAB URINE ORDERA BLES Performing Organization Address [facility] Co de Phone Number [facility] [address] [place] [address] * Legionella Antigen, Urine (07/18/2023 11:22 PM FINANCIAL OPERATIONS CONSULTANT) Pathologist [facility] Legionella Ag, U Negative Negative 07/19/19 24 1:58 PM FINANCIAL OPERATIONS CONSULTANT [facility] Comment: Negative for L. pneumophila serogroup [...] assay was performed using the FDA-cleared BinaxNOW Legionella Urinary Antigen Test, a rapid immunochromatographic assay. Urine (Urine, Midstream) 07/18/2023 11:22 PM FINANCIAL OPERATIONS CONSULTANT 07/19/2023 8:58 AM FINANCIAL OPERATIONS CONSULTANT Murphy Stark M.D., M.S. LAB MICROBIOLOGY - GENERAL ORDERABLES Performing Organization Address City/[facility]/ZIP Co de Phone Number [facility] [address] [place] [address] [facility] [address] [place] [address] [place] [address] * Osmolality, Urine (07/18/2023 11:22 PM FINANCIAL OPERATIONS CONSULTANT) Pathologist [facility] Osmolality, U 676 150 - 1150 mOsm/kg 07/18/2023 11:59 PM FINANCIAL OPERATIONS CONSULTANT DTL Urine 07/18/2023 11:2 2 PM FINANCIAL OPERATIONS CONSULTANT 07/18/2023 11:46 PM FINANCIAL OPERATIONS CONSULTANT Murphy Stark M.D., M.S. LAB URINE ORDERA BLES Performing Organization Address [facility] Co de Phone Number [address] [address], [facility] DTL [address] [address] * Urinalysis, with Microscopic: Urine, Midstream (07/18/2023 11:22 PM FINANCIAL OPERATIONS CONSULTANT) Source Urine, Urine, Midstream 07/18/2023 11:46 PM FINANCIAL OPERATIONS CONSULTANT DTL Color, U Yellow 07/18/2023 11:46 PM FINANCIAL OPERATIONS CONSULTANT DTL Clarity, U Clear 07/18/2023 11:46 PM FINANCIAL OPERATIONS CONSULTANT DTL Protein, U 11 <26 mg/dL 07/19/2023 12:23 AM FINANCIAL OPERATIONS CONSULTANT DTL Protein/Osmol ality 0.16 <0.42 ratio 07/19/2023 12:23 AM FINANCIAL OPERATIONS CONSULTANT DTL Predicted 24 HR Protein, U 167 <229 mg/24 h 07/19/2023 12:23 AM FINANCIAL OPERATIONS CONSULTANT DTL Predicted Range 53-526 mg/24 h 07/19/2023 12:23 AM FINANCIAL OPERATIONS CONSULTANT DT Urine (Urine, Midstream) 07/18/2023 11:22 PM FINANCIAL OPERATIONS CONSULTANT 07/18/2023 11:46 PM FINANCIAL OPERATIONS CONSULTANT Murphy Stark M.D. MTammyS. LAB URINE ORDERA BLES Performing Organization Address City/[facility] Co de Phone Number [facility] [address] [place] [address], [facility] [address] [place] [address] * HIV-1/-2 Ag and Ab Screen, Plasma (07/18/2023 9:37 PM FINANCIAL OPERATIONS CONSULTANT) Pathologist [facility] HIV-1/-2 Ag and Ab Screen, P Negative Negative 07/19/2023 10:43 AM FINANCIAL OPERATIONS CONSULTANT [facility] Comment: Negative result does not rule out HIV infection. If exposure to HIV infection occurred <14 days ago, contact the laboratory to request addition of HIV-1/HIV-2 RNA detection, Plasma (HIP12). Blood (Blood, Venous) 07/18/2023 9:37 PM FINANCIAL OPERATIONS CONSULTANT 07/19/2023 8:59 AM FINANCIAL OPERATIONS CONSULTANT Murphy Stark M.D., MTammyS. LAB MICROBIOLOGY - BLOOD ORDERABLES Performing Organization Address City/[facility] Co de Phone Number [facility] [address] [place] [address] [facility] [address] [place] [address] * Bacteria / Marialuisa Culture, Blood #2 (07/18/2023 9:37 PM FINANCIAL OPERATIONS CONSULTANT) Only the most recent of2 resultswithin the time period is included. Bacteria/Alma Delia da Culture, Blood No growth after 5 days of incubation. 07/23/2023 11:02 PM FINANCIAL OPERATIONS CONSULTANT DT Blood (Blood, Peripheral Draw) 07/18/2023 9:37 PM FINANCIAL OPERATIONS CONSULTANT 07/18/2023 10:08 PM FINANCIAL OPERATIONS CONSULTANT Comment:Specimen Source Site : Blood Murphy Stark M.D., M.S. LAB MICROBIOLOGY - GENERAL ORDERABLES Performing Organization Address City/[facility]/ZIP Co de Phone Number [facility] [address] [place] [address] * Mycobacterial Culture (07/18/2023 9:33 PM FINANCIAL OPERATIONS CONSULTANT) Mycobacterial Culture No growth after 42 days of incubation . 08/30/2023 1:02 AM CDT DTL Sputum (Sputum) 07/18/2023 9 :33 PM FINANCIAL OPERATIONS CONSULTANT 07/18/2023 10:11 PM FINANCIAL OPERATIONS CONSULTANT Comment:Specimen Source Site : Sputum Murphy Stark M.D. M.S. LAB MICROBIOLOGY - GENERAL ORDERABLES Performing Organization Address City/[facility] Co de Phone Number [facility] [address] [place] [address] * (ABNORMAL) Fungal Culture, Routine (07/18/2023 9:33 PM FINANCIAL OPERATIONS CONSULTANT) Pathologist [facility] Fungal Culture, Routine YEAST, NOT Cr. neoformans, NOT Cr. gattii and NOT C. auris Many (A) 08/11/2023 8:48 AM CDT DTL Sputum (Sputum) 07/18/2023 9 :33 PM FINANCIAL OPERATIONS CONSULTANT 07/18/2023 10:11 PM FINANCIAL OPERATIONS CONSULTANT Comment:Specimen Source Site : Sputum Murphy Stark M.D., M.S. LAB MICROBIOLOGY - GENERAL ORDERABLES Performing Organization Address City/[facility]/ZIP Co de Phone Number [facility] [address] [place] [address] * ANCA (Antineutrophil Cytoplasmic Antibodies) Vasculitis Panel (07/18/2023 9:24 PM FINANCIAL OPERATIONS CONSULTANT) Myeloperoxidase Ab, S <0.2 <0.4 (Negative ) U 07/19/2023 9:44 AM FINANCIAL OPERATIONS CONSULTANT [facility] Proteinase 3 Ab (PR3), S <0.2 <0.4 (Negative ) U 07/19/2023 9:44 AM FINANCIAL OPERATIONS CONSULTANT [facility] Blood (Blood, Venous) 07/18/2023 9:24 PM FINANCIAL OPERATIONS CONSULTANT 07/19/2023 9:16 AM FINANCIAL OPERATIONS CONSULTANT Murphy Stark M.D., M.S. LAB BLOOD ADD-ON Performing Organization Address City/[facility]/ZIP Co de Phone Number [facility] [address] [place] [address] [facility] [address] [place] [address] * HCV Ab w/Reflex to HCV PCR, Serum (07/18/2023 9:24 PM FINANCIAL OPERATIONS CONSULTANT) HCV Ab, S Negative Negative 07/19/2023 11:08 AM FINANCIAL OPERATIONS CONSULTANT [facility] Comment:Iitttu-zt-ztvrph rat io is <1.00. Blood (Blood, Peripheral Draw) 07/18/2023 9:24 PM FINANCIAL OPERATIONS CONSULTANT 07/19/2023 8:59 AM FINANCIAL OPERATIONS CONSULTANT Murphy Stark M.D., MTammyS. LAB MICROBIOLOGY - BLOOD ORDERABLES Performing Organization Address [facility] Co de Phone Number [facility] [address] [place] [address] [facility] [address] [place] [address] * HBc Total Ab, Serum (07/18/2023 9:24 PM FINANCIAL OPERATIONS CONSULTANT) HBc Total Ab, S Negative Negative 07/19/2023 11:36 AM FINANCIAL OPERATIONS CONSULTANT [facility] Blood (Blood, Peripheral Draw) 07/18/2023 9:24 PM FINANCIAL OPERATIONS CONSULTANT 07/19/2023 8:59 AM FINANCIAL OPERATIONS CONSULTANT Murphy Stark M.D. MTammySTammy LAB MICROBIOLOGY - BLOOD ORDERABLES Performing Organization Address City/[facility]/ZIP Co de Phone Number [facility] [address] [place] [address] [facility] [address] [place] [address] * HBs Antibody, Serum (07/18/2023 9:24 PM FINANCIAL OPERATIONS CONSULTANT) Pathologist [facility] HBs Antibody, S Negative 07/19/2023 11:37 AM FINANCIAL OPERATIONS CONSULTANT [facility] Comment: Patient is presumed to be not immune to infection with HBV. ----REFERENCE VALUE---- Unvaccinated: Negative Vaccinated: Positive HBs Antibody, Quantitative, S <5.0 mIU/mL 07/19/2023 11:37 AM FINANCIAL OPERATIONS CONSULTANT [facility] Comment: ----REFERENCE VALUE---- Unvaccinated: <5.0 Vaccinated: >=12.0 Blood (Blood, Peripheral Draw) 07/18/2023 9:24 PM FINANCIAL OPERATIONS CONSULTANT 07/19/2023 8:59 AM FINANCIAL OPERATIONS CONSULTANT Murphy Stark M.D., M.S. LAB MICROBIOLOGY - BLOOD ORDERABLES [facility] [address] [place] [address] [facility] [address] [place] [place] [address] * Hepatitis B Surface Antigen (07/18/2023 9:24 PM FINANCIAL OPERATIONS CONSULTANT) [facility] HBs Antigen, S Negative Negative 07/19/2023 10:52 AM FINANCIAL OPERATIONS CONSULTANT [facility] Blood (Blood, Peripheral Draw) 07/18/2023 9:24 PM FINANCIAL OPERATIONS CONSULTANT 07/19/2023 8:59 AM FINANCIAL OPERATIONS CONSULTANT Murphy Stark M.D., M.S. LAB MICROBIOLOGY - BLOOD ORDERABLES [facility] [address] [place] [address] [facility] [address] [place] [place] [address] * Influenza A, B, RSV, PCR, Rapid (07/18/2023 8:54 PM FINANCIAL OPERATIONS CONSULTANT) [facility] Influenza A, PCR, Rapid, V Negative Negative 07/18/2023 9:56 PM FINANCIAL OPERATIONS CONSULTANT [facility] Influenza B, PCR, Rapid, V Negative Negative 07/18/2023 9:56 PM FINANCIAL OPERATIONS CONSULTANT [facility] Resp Synctial Virus, PCR, Rapid Negative Negative 07/18/2023 9:56 PM FINANCIAL OPERATIONS CONSULTANT [facility] Specimen Source Swab, Nasopharynx 07/18/2023 9:55 PM FINANCIAL OPERATIONS CONSULTANT [facility] Swab (Nasopharynx) 07/18/2023 8:54 PM FINANCIAL OPERATIONS CONSULTANT 07/18/2023 9:23 PM FINANCIAL OPERATIONS CONSULTANT Murphy Stark M.D., M.S. LAB MICROBIOLOGY - GENERAL ORDERABLES Performing Organization Address City/[facility]/ZIP Co de Phone Number [facility] [address] [place] [address], [facility] [address] [place] [address] * SARS Coronavirus 2, PCR Rapid Symptomatic (07/18/2023 8:54 PM FINANCIAL OPERATIONS CONSULTANT) [facility] SARS CoV-2, PCR, Rapid, V Undetected Undetected 07/18/2023 9:55 PM FINANCIAL OPERATIONS CONSULTANT [facility] Comment: ----ADDITIONAL INFORMATION---- This RT-PCR test was performed using the [employer] SARS-CoV-2 and Influenza A/B Reagent assay from [employer], which has received Emergency Use Authorization(EUA) by the U.S. Food and Drug Administration. Fact sheets for this Emergency Use Authorization (EUA) assay can be found at the following links: For Healthcare Providers: https://www.fda.gov/media/618074/download For Patients: https://www.fda.gov/media/632797/download SARS Coronavirus 2, Rapid, Source Swab, Nasopharynx 07/18/2023 9:23 PM FINANCIAL OPERATIONS CONSULTANT [facility] Swab (Nasopharynx) 07/18/2023 8:54 PM FINANCIAL OPERATIONS CONSULTANT 07/18/2023 9:23 PM FINANCIAL OPERATIONS CONSULTANT Murphy Stark M.D., M.S. LAB MICROBIOLOGY - GENERAL ORDERABLES Performing Organization Address City/[facility]/ZIP Co de Phone Number [facility] [address] [place] [id number], [facility] [address] [address] * Venous Blood Gas and Electrolytes CG8+, POCT (07/18/2023 4:25 PM FINANCIAL OPERATIONS CONSULTANT) Pathologist [facility] Sample Site, POCT Venstick 07/18/2023 5:51 PM FINANCIAL OPERATIONS CONSULTANT [facility] Comment: ----ADDITIONAL INFORMATION---- Performed at the Point of Care pH, Venous, POCT, B 7.41 7.32 - 7.43 07/18/2023 5:51 PM FINANCIAL OPERATIONS CONSULTANT PCS[facility] Comment: ----ADDITIONAL INFORMATION---- Performed at the Point of Care pCO2, Venous, POCT, B 43 41 - 51 mm Hg 07/18/2023 5:51 PM FINANCIAL OPERATIONS CONSULTANT PCS[facility] Comment: ----ADDITIONAL INFORMATION---- Performed at the Point of Care pO2, Venous, POCT, B 46 Not Applicable mm Hg 07/18/2023 5:51 PM FINANCIAL OPERATIONS CONSULTANT PCS[facility] Comment: ----ADDITIONAL INFORMATION---- Performed at the Point of Care Base Excess, Venous, POCT, B 3 Not Applicable mmol/L 07/18/2023 5:51 PM FINANCIAL OPERATIONS CONSULTANT PCSM Comment: ----ADDITIONAL INFORMATION---- Performed at the Point of Care HCO3, Venous, POCT, B 28 Not Applicable mmol/L 07/18/2023 5:51 PM FINANCIAL OPERATIONS CONSULTANT PCS[facility] Comment: ----ADDITIONAL INFORMATION---- Performed at the Point of Care Sodium, POCT, B 140 135 - 145 mmol/L 07/18/2023 5:51 PM FINANCIAL OPERATIONS CONSULTANT PCSM Comment: ----ADDITIONAL INFORMATION---- Performed at the Point of Care Potassium, POCT, B 3.6 3.6 - 5.2 mmol/L 07/18/2023 5:51 PM FINANCIAL OPERATIONS CONSULTANT PCSM Comment: ----ADDITIONAL INFORMATION---- Performed at the Point of Care Calcium, Ionized, POCT, B 4.90 4.65 - 5.30 mg/dL 07/18/2023 5:51 PM FINANCIAL OPERATIONS CONSULTANT PCSM Comment: ----ADDITIONAL INFORMATION---- Performed at the Point of Care Glucose, POCT, B 109 70 - 140 mg/dL 07/18/2023 5:51 PM FINANCIAL OPERATIONS CONSULTANT [facility] Comment: ----ADDITIONAL INFORMATION---- Performed at the Point of Care Hematocrit, POCT, B 46.0 38.3 - 48.6 % 07/18/2023 5:51 PM FINANCIAL OPERATIONS CONSULTANT PCS Comment: ----ADDITIONAL INFORMATION---- Performed at the Point of Care Blood (Blood, Venous) 07/18/2023 4:25 PM FINANCIAL OPERATIONS CONSULTANT 07/18/2023 4:23 PM FINANCIAL OPERATIONS CONSULTANT Eduar Davis M.D. LAB POCT ORDERABLES - DEVICE Performing Organization Address [facility] Co de Phone Number [facility] [address] [place] [address], [facility] POC [address] [place] [address] * (ABNORMAL) M. pneumoniae Ab, IgG and IgM (07/18/2023 4:13 PM FINANCIAL OPERATIONS CONSULTANT) [facility] M. pneumoniae Ab, IgG, S Positive(A) Negative 07/20/2023 12:14 PM FINANCIAL OPERATIONS CONSULTANT [facility] M. pneumoniae Ab, IgM, S Negative Negative 07/20/2023 2:35 PM FINANCIAL OPERATIONS CONSULTANT [facility] M. pneumoniae Ab Interpretation SEE COMMENT 07/20/2023 2:35 PM FINANCIAL OPERATIONS CONSULTANT [facility] Comment: Results suggest past exposure. ----ADDITIONAL INFORMATION---- This test has been modified from the system operator's instructions. Its performance characteristics were determined by [facility] in a manner consistent with CLIA requirements. This test has not been cleared or approved by the U.S. Food and Drug Administration. Blood (Blood, Venous) 07/18/2023 4:13 PM FINANCIAL OPERATIONS CONSULTANT 07/19/2023 9:06 AM FINANCIAL OPERATIONS CONSULTANT Kirill Pierson M.D., M.S. LAB MICROBIOLOG Y - BLOOD ORDERABLES Performing Organization Address [facility]/ZIP Co de Phone Number [facility] [address] [place] [address] [facility] [address] [place] [address] * Immunoglobulin E (IgE) (07/18/2023 4:13 PM FINANCIAL OPERATIONS CONSULTANT) Immunoglobulin E (IgE), S 17.5 <=214 kU/L 07/20/2023 3:23 PM FINANCIAL OPERATIONS CONSULTANT [facility] Blood (Blood, Venous) 07/18/2023 4:13 PM FINANCIAL OPERATIONS CONSULTANT 07/19/2023 9:35 AM FINANCIAL OPERATIONS CONSULTANT Murphy Stark M.D., M.S. LAB BLOOD ADD-ON [facility] [address] [place] [address] [facility] [address] [place] [address] from Last 3 Months Advance Directives For more information, please contact: [phone] * Full Code (Latest Code Status on File) Date Activated Date Inactivated Comments 09/14/2023 4:15 PM 09/19/2023 8:00 PM Question Answer Comments Full Code: Discussed * Full Code Date Activated Date Inactivated Comments 07/18/2023 9:45 PM 07/20/2023 4:30 PM Question Answer Comments Full Code: Discussed Care Teams Receiving Teller Relationship Specialty Start Date End Date Elsewhere, Pcp PCP - General Internal Medicine 07/18/23
--- OUTSIDE RECORDS SUMMARY | 2023-09-20 18:41 | XMS_ITS | Encounter Summary ---
Author Name Unknown Organization [facility] Address [address] [place] [address] Care Team Providers Care [employer] Name Role Phone Elsewhere, Pcp Primary Care Provider Unavailabl e Reason for Visit * Reason Onset Date Comments Appointment 09/14/2023 Encounter Details Date Type Department Care Team (Late st Contact Info) Description 09/14/2023 Clinical Communication Division of Pulmonary Medicine in [place], [place] [address] [place] [phone] Ricky Leiva M.D. [address] [place] [address] Appointment Social History Tobacco Use Types Packs/Day Years Used Date Smoking Tobacco: Former Cigarettes Smokeless Tobacco: Never Alcohol Use Standard Drinks/Week Comments Yes 0 (1 standard drink = 0.6 oz pur e alcohol) 2 beers a week [facility] Utilities Answer Date Recorded In the past 12 months has [employer], oil, or water [employer] threatened to shut off services in your [...] status Employed but not working due t o furlough 08/24/2023 Housing Stability Answer Date Recorded What is your living situation today? I have a [facility] place to live 09/14/2023 Sex and Gender Information Value Date Recorded Sex Assigned at Male 08/24/2023 2:34 PM CDT Gender Identity Male 08/24/2023 2:34 PM CDT Sexual Orientation Straight 08/24/2023 2: 34 PM CDT documented as of this encounter Plan of Treatment Upcoming Encounters Date Type Department Care Team (Late st Contact Info) Description 10/28/2023 12:30 PM CDT Diagnostic Division of Pulmonary Medicine in [place], [place] [address] [place] [address] José Luis Lopez M.D. [address] [place] [phone] 11/01/2023 1:00 PM CDT Office Visit Division of Pulmonary Medicine in [place], [place] [address] [place] [phone] Zayra Thomas M.B.B.S., M.P.H. [address] [place] [phone] 11/11/2023 3:15 PM CDT Office Visit Department of Otorhinolaryngology in [place], [place] [address] [place] [phone] Steven Fernandez M.D. [address] [place] [phone] documented as of this encounter Visit Diagnoses Not on filedocumented in this encounter Additional Health Concerns Infection Onset Date Last Indicated Resolved Time COVID19 Pending 09/17/2023 09/17/2023 09/17/2023 1 1:38 PM CDT documented as of this encounter Care Teams [employer] Relationship Specialty Start Date End Date Elsewhere, Pcp PCP - General Internal Medicine 07/18/23 documented as of this encounter
--- OUTSIDE RECORDS SUMMARY | 2023-09-20 18:41 | XMS_ITS | Encounter Summary ---
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 [address] [place] [phone] [facility] Referral ID Status Reason Start Date Expiration Date V isits Requested Visits Authorized [id number] Authorized 09/19/2023 03/20/2025 1 1 * Outpatient (Routine) - Authorized Specialty Diagnoses / Procedures Referred By Contac t Referred To Contact Diagnoses Eosinophilic Asthma (HCC) Procedures Basic Skin Test José Luis Lopez M.D. [address] [place] [address] [facility] Referral ID Status Reason Start Date Expiration Date V isits Requested Visits Authorized [id number] Authorized 09/19/2023 09/18/2024 1 1 * Outpatient (Routine) - Authorized Specialty Diagnoses / Procedures Referred By Contac t Referred To Contact Diagnoses Eosinophilic Asthma (HCC) Procedures Northern Skin Test José Luis Lopez M.D. [address] [place] [phone] [facility] Referral ID Status Reason Start Date Expiration Date V isits Requested Visits Authorized [id number] Authorized 09/19/2023 09/18/2024 1 1 * Outpatient (Routine) - Authorized Specialty Diagnoses / Procedures Referred By Jarvis hunt Referred To Contact Otorhinolaryngology José Luis Lopez M.D. [address] [place] [phone] Steven Fernandez M.D. [address] [place] [phone] Referral ID Status Reason Start Date Expiration Date V isits Requested Visits Authorized [id number] Authorized 09/17/2023 03/18/2025 1 1 Reason for Visit * Reason Comments Loss of Consciousness * Auth/Cert (Routine) Specialty Diagnoses / Procedures Referred By Jarvis hunt Referred To Contact Diagnoses Bronchitis Chronic (HCC) Syncope And Near Syncope Dyspnea Procedures EMERGENCY Richmond Huang, P.A.-C. [address] [place] [phone] Referral ID Status Reason Start Date Expiration Date Visits Re quested Visits Authorized [id number] 1 1 Encounter Details Date Type Department Care Team (Latest Contact Info) Description 09/14/2023 10:04 AM CDT - 09/19/2023 5:55 PM CDT Hospital Encounter [facility], Tenth Floor [address] [place] [phone] Richmond Huang, P.A.-C. [address] [place] [phone] Letty Leon M.D. [address] [place] [phone] Syncope And Near Syncope (Primary Dx); Bronchitis Chronic (HCC); Dyspnea; Bronchitis Chronic (HCC); Eosinophilic Asthma (HCC) Discharge Disposition: Home or Self Care Social History Tobacco Use Types Packs/Day Years Used Date Smoking Tobacco: Former Cigarettes Smokeless Tobacco: Never Tobacco Cessation:Counseling Given: Not Answered Alcohol Use Standard Drinks/Week Comments Yes 0 (1 standard drink = 0.6 oz pur e alcohol) 2 beers a week [facility] [employer] Answer Date Recorded In the past 12 months has e [employer], gas, oil, or water [employer] threatened to shut off services in your [...] Employed but not working due t o [place] 08/24/2023 Housing Stability Answer Date Recorded What is your living situation today? I have a [facility] place to live 09/14/2023 Sex and Gender Information Value Date Recorded Sex Assigned at Male 08/24/2023 2:34 PM CDT Gender Identity Male 08/24/2023 2:34 PM CDT Sexual Orientation Straight 08/24/2023 2: 34 PM CDT documented as of this encounter Last Filed Vital Signs Vital Sign Reading [...] Mass Index 32.44 09/16/2023 9:38 AM CDT documented in this encounter Discharge Summaries * José Luis Lopez M.D. - 09/19/2023 4:17 PM CDT DISCHARGE SUMMARY BRIEF OVERVIEW Hospital: [facility] Discharge Provider: Letty Leon M.D. Primary Team: [facility] PCP: Wilfrid Daly MD Primary Care Provider (Work) Primary Care Provider (Fax) Other Providers: Dr. Zayra Thomas Pulmonary Medicine Admission Date: 09/14/2023 Discharge Date: 09/19/2023 PRINCIPAL DIAGNOSIS Syncope And Near Syncope SECONDARY DIAGNOSES Principal Problem: Syncope And Near Syncope Resolved Problems: * No resolved hospital problems. * DISCHARGE DISPOSITION Home or Self Care [1] ACTIVE ISSUES REQUIRING FOLLOW UP Asthma - Starting Advair Discus 500-50 mcg BID - DuoNebs and albuterol - Prednisone taper - Finish 2 week course of Levaquin - Basic and Northern Allergy testing with Pulmonology follow up Syncope - Extended prednisone taper remaining on 10 mg for slow taper plan needing outpatient follow up - 30 day remote cardiac monitoring - Follow up with General Cardiology OUTPATIENT FOLLOW UP Scheduled Appointments 10/28/2023 12:30 PM [employer] [address] [facility] Pulmonary Medicine 11/01/2023 1:00 PM Zayra Thomas M.B.B.S., M.P.H. Pulmonary Medicine 11/11/2023 3:15 PM Steven Fernandez M.D. Otorhinolaryngology For appointment details refer to your Patient Appointment Guide. TEST RESULTS PENDING AT DISCHARGE Pending Labs Order Current Status Fungal Culture, Routine In process Mycobacterial Culture In process Legionella Culture Preliminary result DETAILS OF HOSPITAL STAY REASON FOR ADMISSION Bronchitis Chronic (HCC) Syncope And Near Syncope Dyspnea HOSPITAL COURSE Mr. Rodriguez is hospitalized on [facility] for evaluation and management of syncope associated with acute on chronic worsening of cough, wheezing, and sputum production in the context of a persistent eosinophilia and weight loss for the last 5 months prior to admission. 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 With his acute presentation thereis also a question of concomitant indolent infection or another secondary process such as chronic si nusitis that is contributing to repeated flare of his asthma. Prior extensive infectious workup during hospitalization is negative. His asthma is likely not adequately treated with Arnuity Ellipta. He will discharge with Advair discus at steroid dose of 500 mcgfluticasone and 50 mcg of salmeterol. He will likely need biologic treatment as well in the outpatient setting. He will continue with DuoNeb treatments up to 4 times daily and PRN albuterol with eithe r nebulizer or MDI available. CT scan of chest does not show any concerns for newly developed infectious process but does show persistent mucus plugging. 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 ENT consulted and performed a flexible fiberoptic laryngoscopy. Will see in outpatient setting, though do not think that these findings are driving uncontrolled asthma with frequent exacerbations. He will discharge on an extended steroid taper starting with 60 mg of prednisone for 3 days, 40 mg for 5 days, 20 mg for 5 days and will remain on 10 mg until he can be seen is Asthma clinic for follow up. His presentation with syncope was felt to be either vasovagal due to extreme cough or could very likely be secondary adrenal insufficiency given multiple courses on and off of steroids for frequent asthma exacerbations. He was evaluated by Neurology in the Emergency Department. In the hospital cardiac evaluation with 24 hours of cardiac monitoring and transthoracic echocardiogram did not reveal acardiogenic source of syncope. He will discharge on a 30 day event monitor and follow up with General Cardiology. Infectious workup remains negative at time of discharge but given degree of asthma exacerbation andthick sputum will finish a two week antibiotic course with levofloxacin through 09/29/23. Follow up will also include basic and northern skin testing. Given allergic and sinusitis componentrecommend fluticasone nasal spray daily and Anam Med sinus rinse as needed. CONSULTS ORDERED DURING THIS ADMISSION IP CONSULT TO NEUROLOGY IP CONSULT TO DIETITIAN IP CONSULT TO OTORHINOLARYNGOLOGY IP CONSULT TO CARDIOLOGY CONDITION AT DISCHARGE improved Discharge instructions were provided to the patient and caregiver(s). Total time spent in discharge services today: 45 minutes. documented in this encounter Discharge Instructions * Discharge Instructions* José Luis Lopez M.D. - 09/14/2023 1:01 PM CDT You were discharged from the [facility] Service. Please identify this service name if you call with questions after hospitalization. Follow up visits: PCP, Pulmonology, ENT, General Cardiology Follow up tests: Allergy skin testing (Basic and Northern skin tests) New medications: Advair discus inhaler, Prednisone 60mg with taper plan down to 10 mg, Flonase, Anam Med sinus rinse (over the counter) Instructions for inhalers: Continue DuoNebs at least 2 times daily and up to 4 times daily. Supplement with additional albuterol nebulizer OR albuterol HFA inhaler as needed every 4 hours. Start new daily Advair discus 500-50 mcg fluticasone-salmeterol. * Attachments The following attachments cannot be sent through Care Everywhere. * Fluticasone (Into the nose) (Turkish) * Levofloxacin (By mouth) (Turkish) * Prednisone (By mouth) (Turkish) * Sodium Chloride (Into the nose) (Turkish) * Fluticasone/Salmeterol (By breathing) (Turkish) documented in this encounter Medications at Time of Discharge Medication Sig Dispensed Refills Start Date End Date acetaminophen (TYLENOL) 500 mg tablet Take 1,000 mg by mouth every 6 (six) hours as needed for pain (for headaches, alternates with Ibuprofen PRN). albuterol 2.5 mg /3 mL nebulizer solution Inhale 3 mL (2.5 mg total) by nebulization 4 (four) times a day as needed for wheezing or shortness of breath. 360 mL 09/19/2023 albuterol 90 mcg/actuation inhaler Inhale 2 puffs every 4 (four) hours as needed for wheezing. 8.5 g 09/19/2023 benzonatate (TESSALON PERLES) 100 mg capsule Take 1 capsule (100 mg total) by mouth 3 (three) times a day as needed for cough. 20 capsule 07/20/2023 diphenhydrAMINE (BENADRYL) 25 mg tablet Take 25 mg by mouth at bedtime as needed for sleep. fluticasone propion-salmeteroL 500-50 mcg/dose diskus inhaler Inhale 1 puff 2 (two) times a day. Rinse mouth with water after use to reduce aftertaste and incidence of candidiasis. Do not swallow. 60 each 5 09/19/2023 fluticasone propionate (FLONASE) 50 mcg/actuation nasal spray Administer 2 sprays into each nostril 2 (two) times a day. 16 g 12 09/19/2023 ibuprofen (ADVIL,MOTRIN) 200 mg tablet Take 400 mg by mouth every 6 (six) hours as needed for pain (for headache, alternates with Acetaminophen PRN). ipratropium-albutero L (DUONEB) 0.5-2.5 mg/3 mL nebulizer solutionIndications: Bronchitis Chronic (HCC) Inhale 3 mL by nebulization 2 (two) times a day. 90 mL 11 09/03/2023 ipratropium-albutero L (DUONEB) 0.5-2.5 mg/3 mL nebulizer solution Inhale 3 mL by nebulization 4 (four) times a day. 180 mL 3 09/19/2023 11/18/2023 levoFLOXacin (LEVAQUIN) 500 mg tabletIndications:Re spiratory tract infection, healthcare associated Take 1 tablet (500 mg total) by mouth every morning before breakfast for 9 days Indications: Respiratory tract infection, healthcare associated. 9 tablet 09/20/2023 09/29/2023 predniSONE (DELTASONE) 10 mg tablet Take 6 tablets (60 mg total) by mouth daily for 3 days, THEN 4 tablets (40 mg total) daily for 5 days, THEN 2 tablets (20 mg total) daily for 5 days, THEN 1 tablet (10 mg total) daily. 78 tablet 09/20/2023 11/02/2023 sodium chloride-sodium bicarbonate (NEILMED SINUS RINSE) nasal rinse Administer 1 Application into each nostril 2 (two) times a day. Use water that is either sterile, distilled, or previously boiled for preparations; do not use tap water. 09/19/2023 tadalafiL (CIALIS) 10 mg tablet Take 10-20 mg by mouth daily as needed for erectile dysfunction. documented as of this encounter Progress Notes * Letty Leon M.D. - 09/19/2023 1:22 PM CDT This is a supervisory note for Dr. Lopez. I have reviewed the last 24 hours, and I have personallyevaluated the patient. I agree with his history, physical exam, assessment and plan. ASSESSMENT / PLAN #1 Asthma exacerbation #2 Eosinophilic asthma #3 Bacterial bronchitis #4 Left maxillary silent sinus syndrome #5 Syncope #6 Bradycardia The patient continues to clinically improve. We have switched him to levofloxacin. He will completea steroid taper but will stay on at least 10 mg until his next pulmonary evaluation. We will plan for high dose Advair or Dulera at dismissal. He will continue nebulization for mucus clearance 2-3 times per day at home. I anticipate that we will start him on an asthma biologic but would like to complete allergy testing. The patient has bradycardia at night and intermittent atria irregularity (mainly PAC) on the surveillance monitor. His echo was normal. We will consult the Heart Rhythm team to review if additional evaluation needs to occur given his syncopal episodes. * Jeanna Arteaga PharmTess, R.Ph. - 09/19/2023 10:34 AM CDT Pharmacist Progress Note Reason for admission: syncope in setting of acute on chronic coughing fits PMH: former smoker OBJECTIVE Home medications: Held: NaCl 7% nebs Changed: none Prophylaxis: enoxaparin 40 mg daily ASSESSMENT / PLAN Cefepime-->levofloxacin 09/17 for RTI until sputum r/o pseudomonas (09/14 sputum cx NTD), pred 60 mg daily initiated 09/16. Consider adding abx stop date. Changes to medications anticipated at discharge: abx Jeanna Arteaga Pharm.D., R.Ph. * José Luis Lopez M.D. - 09/19/2023 7:31 AM CDT [facility] PROGRESS NOTE Interval Events - Feeling better overall on steroids, cough still productive of sputum I have reviewed the current medication list. OBJECTIVE VITAL SIGNS Temperature: [36.3 ??C-36.7 ??C] 36.4 ??C Heart Rate: [52-84] 64 Resp Rate: [8-25] 14 Blood Pressure: (101-118)/(52-69) 112/69 SpO2: [90 %-96 %] 92 % Flow Rate (L/min): [1 L/min] 1 L/min Weight: [124 kg] 124 kg BMI (Calculated): [32.4 kg/m??] 32.4 kg/m?? Pulse Rate: [51-83] 67 PHYSICAL EXAM General: Alert and interactive Cardiovascular: Warm and well perfused. No murmurs. Lungs: Breathing comfortably. Continued end expiratory wheezing bilaterally. Rhonchi. Abdomen: Non-peritonitic Neuro: Moving all extremities spontaneously. Skin: No rashes on clothed exam DIAGNOSTICS I have personally reviewed the laboratory data and imaging since admission, and in/outs for past 72hours. ASSESSMENT / PLAN Mr. Rodriguez is hospitalized on [facility] for evaluation and management of syncope associated with acute on chronic worsening of cough, wheezing, and sputum production in the context of a persistent eosinophilia and weight loss for the last 5 months prior to admission. 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 With his acute presentation there is also a question of concomitant indolent infection or another secondary process such as chronic sinusitis that is contributing to repeated flare of his asthma. Prior extensive infectious workup during hospitalization is negative. His asthma is likely not adequately treated with Arnuity Ellipta. He may eventually need biologic treatment as well. CT scan of chest does not show any concerns for newly developed infectious process but does show persistent mucus plugging. 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 Patient was seen by ENT who performed bedside flexible laryngoscopy. A sample was unable to be collected due to inability to accessed due to left nasal passage narrowing. Unfortunately, cough and wheezing is only partially improving on 40 mg daily prednisone. Increased to 60 mg daily prednisone on 09/16. Syncope initially felt to be a vagal response from coughing in setting of asthma exacerbation. Cardiogenic causes of lower suspicion but have not been fully excluded. Moved to cardiac monitoring on 09/16. His orthostatic vitals are negative. 09/19/23 - Cardiology consult for rule out of cardiogenic syncope # Eosinophilic asthma # Left maxillary silent sinus syndrome #Syncope associated with acute on chronic dyspnea and coughing fit # Persistent peripheral eosinophilia # 30 lbs of weight loss, without fever or chills # CT findings of lower lobe GGO and progressive mucus plugging # Left maxillary silent sinus syndrome. - Continue Scheduled DuoNebs 4 times daily - PRN albuterol nebs every 2 hours as needed - Hold on saline nebs as patient has strong cough - 60 mg prednisone daily, will devise taper strategy depending response. - Transition from cefepime to Levaquin for now until sputum results can rule out pseudomonas - Anam Med rinses and fluticasone nasal spray with plan for outpatient ENT follow up # Syncope, suspect vasovagal with cough - Rule out cardiogenic syncope # Concern for possible concomitant infection - Negative sputum studies to date - Will hold off on bronchoscopy given excellent sputum samples achieved and given risks of procedure during acute asthma exacerbation # Question of hepatic lesion on outside scan - Liver is partially imaged with extended chest CT non-contrast with no abnormality noted - Would recommend patient to follow up any recommended, dedicated imaging to liver. Not likely contributory to current presentation. Baseline Mobility: BMAT Level 4 (Able to stand and walk) Diet: general diet Tubes/lines: PIV VTE prophylaxis: heparin Code status: Prior Surrogate Decision Maker: Spouse, [phone] Disposition: Home Non-severe (moderate) Malnutrition The patient meets the ASPEN Criteria of malnutrition based on: Energy Intake: Less than 75% of estimated energy requirement for greater than or equal to 7 days Interpretation of Weight Loss: 7.5% 3 months Body Fat: Mild Loss Muscle Mass: Mild Loss Fluid Accumulation: Absent This is in the context of Acute Illness or Injury. Malnutrition Present Upon Admission: Yes Agree with Registered Dietitian's assessment and treatment plan: Interventions: Increase nutrient intake with small, frequent meals and/or snacks, Medical food supplement, Vitamin and mineral supplements, Provide counseling strategies to apply nutrition knowledge Plan discussed with [facility] Stopper Grinder, Letty Rutledge M.D., who was present during zelaya portions of the evaluation today. [place] page [place] [facility] [place] [phone] with any questions. * José Luis Lopez M.D. - 09/18/2023 5:06 PM CDT [facility] PROGRESS NOTE Interval Events - No acute events overnight - Feeling improvement on increased steroids - Transfer location for cardiac monitoring - Orthostatic vitals negative I have reviewed the current medication list. OBJECTIVE VITAL SIGNS Temperature: [36.3 ??C-36.4 ??C] 36.3 ??C Heart Rate: [51-91] 81 Resp Rate: [8-30] 21 Blood Pressure: (104-121)/(53-80) 104/59 SpO2: [91 %-96 %] 95 % Flow Rate (L/min): [1 L/min] 1 L/min Weight: [124 kg] 124 kg BMI (Calculated): [32.4 kg/m??] 32.4 kg/m?? Pulse Rate: [51-87] 81 PHYSICAL EXAM General: Alert and interactive Cardiovascular: Warm and well perfused. No murmurs. Lungs: Breathing comfortably. Continued end expiratory wheezing bilaterally. Rhonchi. Abdomen: Non-peritonitic Neuro: Moving all extremities spontaneously. Skin: No rashes on clothed exam DIAGNOSTICS I have personally reviewed the laboratory data and imaging since admission, and in/outs for past 72hours. ASSESSMENT / PLAN Mr. Rodriguez is hospitalized on [facility] for evaluation and management of syncope associated with acute on chronic worsening of cough, wheezing, and sputum production in the context of a persistent eosinophilia and weight loss for the last 5 months prior to admission. 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 With his acute presentation there is also a question of concomitant indolent infection or another secondary process such as chronic sinusitis that is contributing to repeated flare of his asthma. Prior extensive infectious workup during hospitalization is negative. His asthma is likely not adequately treated with Arnuity Ellipta. He may eventually need biologic treatment as well. CT scan of chest does not show any concerns for newly developed infectious process but does show persistent mucus plugging. 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 Patient was seen by ENT who performed bedside flexible laryngoscopy. A sample was unable to be collected due to inability to accessed due to left nasal passage narrowing. Unfortunately, cough and wheezing is only partially improving on 40 mg daily prednisone. Increased to 60 mg daily prednisone on 09/16. Syncope initially felt to be a vagal response from coughing in setting of asthma exacerbation. Cardiogenic causes of lower suspicion but have not been fully excluded. Moved to cardiac monitoring on 09/16. His orthostatic vitals are negative. 09/18/23 - MRI negative for infection - TTE without concerns - Continues on cardiac monitoring # Eosinophilic asthma # Left maxillary silent sinus syndrome #Syncope associated with acute on chronic dyspnea and coughing fit # Persistent peripheral eosinophilia # 30 lbs of weight loss, without fever or chills # CT findings of lower lobe GGO and progressive mucus plugging # Left maxillary silent sinus syndrome. - Continue Scheduled DuoNebs 4 times daily - PRN albuterol nebs every 2 hours as needed - Hold on saline nebs as patient has strong cough - 60 mg prednisone daily, will devise taper strategy depending response. - Transition from cefepime to Levaquin for now until sputum results can rule out pseudomonas - Anam Med rinses and fluticasone nasal spray with plan for outpatient ENT follow up # Concern for possible concomitant infection - Follow up sputum studies - Will hold off on bronchoscopy given excellent sputum samples achieved and given risks of procedure during acute asthma exacerbation # Question of hepatic lesion on outside scan - Liver is partially imaged with extended chest CT non-contrast with no abnormality noted - Would recommend patient to follow up any recommended, dedicated imaging to liver. Not likely contributory to current presentation. Baseline Mobility: BMAT Level 4 (Able to stand and walk) Diet: general diet Tubes/lines: PIV VTE prophylaxis: heparin Code status: Prior Surrogate Decision Maker: Spouse, [phone] Disposition: Home Non-severe (moderate) Malnutrition The patient meets the ASPEN Criteria of malnutrition based on: Energy Intake: Less than 75% of estimated energy requirement for greater than or equal to 7 days Interpretation of Weight Loss: 7.5% 3 months Body Fat: Mild Loss Muscle Mass: Mild Loss Fluid Accumulation: Absent This is in the context of Acute Illness or Injury. Malnutrition Present Upon Admission: Yes Agree with Registered Dietitian's assessment and treatment plan: Interventions: Increase nutrient intake with small, frequent meals and/or snacks, Medical food supplement, Vitamin and mineral supplements, Provide counseling strategies to apply nutrition knowledge Plan discussed with [facility] Stopper Grinder, Letty Rutledge M.D., who was present during zelaya portions of the evaluation today. [place] page [place] [facility] [place] [phone] with any questions. * Letty Leon M.D. - 09/18/2023 3:04 PM CDT This is a supervisory note for Dr. Lopez. I have reviewed the last 24 hours, and I have personallyevaluated the patient. I agree with his history, physical exam, assessment and plan. ASSESSMENT / PLAN #1 Asthma exacerbation #2 Eosinophilic asthma #3 Bacterial bronchitis #4 Left maxillary silent sinus syndrome #5 Syncope The patient has improvement in respiratory symptoms with prednisone and antibiotics. Sputum cultures have been negative. We have found no evidence of EGPA, APBA, or other eosinophilic organ involvement. I suspect this is poorly controlled eosinophilic asthma +/- allergy. We will continue prednisoneand IV antibiotic therapy with likely change to oral antibiotic tomorrow. The etiology of the patient's syncope is still unclear. Brain MRI is negative. Echo is normal, and we have not identified any arrhythmia. He is now on a surveillance monitor. Neurology did not feel that the episode represented a seizure. I do have concerns that he may have had adrenal insufficiency due to recurrent steroid treatments. He is now on prednisone without orthostatics. We will likely need to taper prednisone slowly and only after asthma biologic has been started. * José Luis Lopez M.D. - 09/17/2023 2:09 PM CDT T Pulmonary Medicine [facility] PROGRESS NOTE Interval Events - No acute events overnight - Seen by ENT for silent sinus syndrome - Continues to have lightheadedness an I have reviewed the current medication list. OBJECTIVE VITAL SIGNS Temperature: [36.5 ??C-36.6 ??C] 36.5 ??C Heart Rate: [86-98] 98 Resp Rate: [13-22] 14 Blood Pressure: (109-118)/(63-71) 118/71 SpO2: [94 %-99 %] 94 % Flow Rate (L/min): [1 L/min-2 L/min] 2 L/min Pulse Rate: [76-97] 86 PHYSICAL EXAM General: Alert and interactive Cardiovascular: Warm and well perfused. No murmurs. Lungs: Breathing comfortably. Continued end expiratory wheezing bilaterally. Rhonchi. Abdomen: Non-peritonitic Neuro: Moving all extremities spontaneously. Skin: No rashes on clothed exam DIAGNOSTICS I have personally reviewed the laboratory data and imaging since admission, and in/outs for past 72hours. ASSESSMENT / PLAN Mr. Rodriguez is hospitalized on [facility] for evaluation and management of syncope associated with acute on chronic worsening of cough, wheezing, and sputum production in the context of a persistent eosinophilia and weight loss for the last 5 months prior to admission. 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 With his acute presentation there is also a question of concomitant indolent infection or another secondary process such as chronic sinusitis that is contributing to repeated flare of his asthma. Prior extensive infectious workup during hospitalization is negative. His asthma is likely not adequately treated with Arnuity Ellipta. He may eventually need biologic treatment as well. CT scan of chest does not show any concerns for newly developed infectious process but does show persistent mucus plugging. 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 Patient was seen by ENT who performed bedside flexible laryngoscopy. A sample was unable to be collected due to inability to accessed due to left nasal passage narrowing. Unfortunately, cough and wheezing is only partially improving on 40 mg daily prednisone. Increased to 60 mg daily prednisone on 09/16. 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 - Continue Scheduled DuoNebs 4 times daily - PRN albuterol nebs every 2 hours as needed - Hold on saline nebs as patient has strong cough - 40 mg prednisone daily, will devise taper strategy depending response. Likely 5 to 10 days - Will continue cefepime for now until sputum results can rule out pseudomonas - Will need ENT consult for silent sinus syndrome - Can start Anam Med rinses and fluticasone nasal spray but suspect may need surgical treatment # Concern for possible concomitant infection - Follow up sputum studies - Will hold off on bronchoscopy given excellent sputum samples achieved and given risks of procedure during acute asthma exacerbation # Question of hepatic lesion on outside scan - Liver is partially imaged with extended chest CT non-contrast with no abnormality noted - Would recommend patient to follow up any recommended, dedicated imaging to liver. Not likely contributory to current presentation. Baseline Mobility: BMAT Level 4 (Able to stand and walk) Diet: general diet Tubes/lines: PIV VTE prophylaxis: heparin Code status: Prior Surrogate Decision Maker: Spouse, [phone] Disposition: Home Non-severe (moderate) Malnutrition The patient meets the ASPEN Criteria of malnutrition based on: Energy Intake: Less than 75% of estimated energy requirement for greater than or equal to 7 days Interpretation of Weight Loss: 7.5% 3 months Body Fat: Mild Loss Muscle Mass: Mild Loss Fluid Accumulation: Absent This is in the context of Acute Illness or Injury. Malnutrition Present Upon Admission: Yes Agree with Registered Dietitian's assessment and treatment plan: Interventions: Increase nutrient intake with small, frequent meals and/or snacks, Medical food supplement, Vitamin and mineral supplements, Provide counseling strategies to apply nutrition knowledge Plan discussed with [facility] Stopper Grinder, Letty Rutledge M.D., who was present during zelaya portions of the evaluation today. [place] page [place] [facility] [place] [phone] with any questions. Associated attestation - Letty Leon M.D. - 09/17/2023 5:03 PM CDT I saw and evaluated the patient, participating in the zelaya portions of the service. I reviewed the resident/fellow???s note. I agree with the resident/fellow???s findings and plan. The patient continues to have cough and wheezing despite antibiotic therapy and prednisone. His eosinophils are still slightly elevated. Sputum cultures are negative so far. The silent sinus syndromeseems to be unrelated to the pulmonary process after review with ENT. We will increase his prednisone to 60 mg today, and we will continue antibiotic treatment. The patient continues to have lightheadedness with prior syncopal episode. Orthostatics were normal. He is on prednisone so should not have adrenal insufficiency now. ECG demonstrated sinus tachycardia. Head CT was negative. We will obtain an echocardiogram and place on a surveillance monitor to evaluate for eosinophilic cardiac disease. We will obtain a brain MRI. * Ivory Georeg R.Ph. - 09/16/2023 9:25 AM CDT Pharmacist Progress Note Reason for admission: syncope in setting of acute on chronic coughing fits PMH: previous smoker OBJECTIVE Home medications: per RPh Held: NaCl 7% nebs VTE prophylaxis: held for possible procedure Estimated Creatinine Clearance: 92.3 mL/min (by C-G formula based on SCr of 1.24 mg/dL). ASSESSMENT / PLAN Eosinophilic asthma, persistent cough - CT showed ground glass opacities, mucus plugging - continuehome Duoneb qid, but holding hypertonic saline as patient has a strong cough. Bronch with BAL 09/14,cultures pending. Started cefepime, prednisone. Left maxillary silent sinus syndrome - started Flonase bid, NeilMed rinse PRN. Plan ENT consult. Resume VTE prophylaxis when no further procedures planned. Anna SalmonPh. * José Luis Lopez M.D. - 09/16/2023 7:08 AM CDT [facility] PROGRESS NOTE Interval Events - No acute events overnight - Silent sinus syndrome identified on CT sinus I have reviewed the current medication list. OBJECTIVE VITAL SIGNS Temperature: [36.3 ??C-36.8 ??C] 36.8 ??C Heart Rate: [69-98] 98 Resp Rate: [14-21] 14 Blood Pressure: (113-121)/(68-75) 121/68 SpO2: [93 %-96 %] 96 % Flow Rate (L/min): [1 L/min] 1 L/min Pulse Rate: [68-85] 85 PHYSICAL EXAM General: Alert and interactive Cardiovascular: Warm and well perfused. No murmurs. Lungs: Breathing comfortably. Reduced end expiratory wheezing bilaterally Abdomen: Non-peritonitic Neuro: Moving all extremities spontaneously. Skin: No rashes on clothed exam DIAGNOSTICS I have personally reviewed the laboratory data and imaging since admission, and in/outs for past 72hours. ASSESSMENT / PLAN Mr. Rodriguez is hospitalized on [facility] for evaluation and management of syncope associated with acute on chronic worsening of cough, wheezing, and sputum production in the context of a persistent eosinophilia and weight loss for the last 5 months prior to admission. 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 With his acute presentation there is also a question of concomitant indolent infection or another secondary process such as chronic sinusitis that is contributing to repeated flare of his asthma. Prior extensive infectious workup during hospitalization is negative. His asthma is likely not adequately treated with Arnuity Ellipta. He may eventually need biologic treatment as well. CT scan of chest does not show any concerns for newly developed infectious process but does show persistent mucus plugging. 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 Have discussed briefly with ENT who will plan to see patient in afternoon with additional recommendations. If possible, would like to consider bedside rhinoscopy and send sample for infectious/fungalstudies. 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 - Continue Scheduled DuoNebs - PRN albuterol nebs - Hold on saline nebs as patient has strong cough - 40 mg prednisone daily, will devise taper strategy depending response. Likely 5 to 10 days - Will continue cefepime for now until sputum results can rule out pseudomonas - Will need ENT consult for silent sinus syndrome - Can start Anam Med rinses and fluticasone nasal spray but suspect may need surgical treatment # Concern for possible concomitant infection - Follow up sputum studies - Will hold off on bronchoscopy given excellent sputum samples achieved and given risks of procedure during acute asthma exacerbation # Question of hepatic lesion on outside scan - Liver is partially imaged with extended chest CT non-contrast with no abnormality noted - Would recommend patient to follow up any recommended, dedicated imaging to liver. Not likely contributory to current presentation. Baseline Mobility: BMAT Level 4 (Able to stand and walk) Diet: general diet Tubes/lines: PIV VTE prophylaxis: heparin Code status: Prior Surrogate Decision Maker: Spouse, [phone] Disposition: Home Plan discussed with [facility] Stopper Grinder, Letty Rutledge M.D., who was present during zelaya portions of the evaluation today. Please page the [facility] [place] [phone] with any questions. Associated attestation - Letty Leon M.D. - 09/16/2023 5:05 PM CDT I saw and evaluated the patient, participating in the zelaya portions of the service. I reviewed the resident/fellow???s note. I agree with the resident/fellow???s findings and plan. Non-severe (moderate) Malnutrition The patient meets the ASPEN Criteria of malnutrition based on: Energy Intake: Less than 75% of estimated energy requirement for greater than or equal to 7 days Interpretation of Weight Loss: 7.5% 3 months Body Fat: Mild Loss Muscle Mass: Mild Loss Fluid Accumulation: Absent This is in the context of Acute Illness or Injury. Malnutrition Present Upon Admission: Yes Agree with Registered Dietitian's assessment and treatment plan: Interventions: Increase nutrient intake with small, frequent meals and/or snacks, Medical food supplement, Vitamin and mineral supplements, Provide counseling strategies to apply nutrition knowledge * Ivory George R.Ph. - 09/15/2023 10:44 AM CDT Pharmacist Progress Note Reason for admission: syncope in setting of acute on chronic coughing fits PMH: previous smoker OBJECTIVE Home medications: per h Held: NaCl 7% nebs VTE prophylaxis: held for procedure Estimated Creatinine Clearance: 107 mL/min (by C-G formula based on SCr of 1.07 mg/dL). ASSESSMENT / PLAN Persistent cough, peripheral eosinophilia - CT showed ground glass opacities, mucus plugging - continue home Duoneb qid, but holding hypertonic saline as patient has a strong cough. Holding steroids,antibiotics. Plan bronch with BAL. Izzy George, R.Ph. * Ivory George R.Ph. - 09/15/2023 10:42 AM CDT Admission Medication History Note Adherence issues: No concerns Medication list source: Patient and Family member Prior to Admission Medications acetaminophen (TYLENOL) 500 mg tablet Take 1,000 mg by mouth every 6 (six) hours as needed for pain (for headaches, alternates with Ibuprofen PRN). benzonatate (TESSALON PERLES) 100 mg capsule Take 1 capsule (100 mg total) by mouth 3 (three) times a day as needed for cough. diphenhydrAMINE (BENADRYL) 25 mg tablet Take 25 mg by mouth at bedtime as needed for sleep. ibuprofen (ADVIL,MOTRIN) 200 mg tablet Take 400 mg by mouth every 6 (six) hours as needed for pain (for headache, alternates with Acetaminophen PRN). ipratropium-albuteroL (DUONEB) 0.5-2.5 mg/3 mL nebulizer solution Inhale 3 mL by nebulization 4 (four) times a day. sodium chloride (HYPERSAL) 7 % nebulizer solution Inhale 4 mL by nebulization 4 (four) times a day. Use Duoneb before this treatment. Use Aerobika flutter valve after this treatment. tadalafiL (CIALIS) 10 mg tablet Take 10-20 mg by mouth daily as needed for erectile dysfunction. * José Luis Lopez M.D. - 09/15/2023 7:07 AM CDT T Pulmonary Medicine Hospital PROGRESS NOTE Interval Events - No acute events overnight - Sputum cultures collected I have reviewed the current medication list. OBJECTIVE VITAL SIGNS Temperature: [36.3 ??C-36.8 ??C] 36.3 ??C Heart Rate: [84-120] 84 Resp Rate: [10-23] 12 Blood Pressure: (105-137)/(56-85) 137/85 SpO2: [90 %-98 %] 98 % Flow Rate (L/min): [1 L/min] 1 L/min Height: [195.6 cm] 195.6 cm Weight: [123 kg] 123 kg BSA (Calculated - sq m): [2.59 sq meters] 2.59 sq meters BMI (Calculated): [32.2 kg/m??] 32.2 kg/m?? Pulse Rate: [78-120] 80 PHYSICAL EXAM General: Alert and interactive Cardiovascular: Warm and well perfused. No murmurs. Lungs: Breathing comfortably. Diffuse end expiratory wheezing bilaterally Abdomen: Non-peritonitic Neuro: Moving all extremities spontaneously. Skin: No rashes on clothed exam DIAGNOSTICS I have personally reviewed the laboratory data and imaging since admission, and in/outs for past 72hours. ASSESSMENT / PLAN Mr. Rodriguez is hospitalized on [facility] for evaluation and management of syncope associated with acute on chronic worsening of cough, wheezing, and sputum production in the context of a persistent eosinophilia and weight loss for the last 5 months prior to admission. 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 With his acute presentation there is also a question of concomitant indolent infection or another secondary process such as chronic sinusitis that is contributing to repeated flare of his asthma. Prior extensive infectious workup during hospitalization is negative. His asthma is likely not adequately treated with Arnuity Ellipta. He may eventually need biologic treatment as well. CT scan of chest does not show any concerns for newly developed infectious process but does show persistent mucus plugging. 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 - Continue Scheduled DuoNebs - PRN albuterol nebs - Hold on saline nebs as patient has strong cough - 40 mg prednisone daily, will devise taper strategy depending response. Likely 5 to 10 days - Will need ENT consult for silent sinus syndrome - Can start Anam Med rinses and fluticasone nasal spray but suspect may need surgical treatment # Concern for possible concomitant infection - Follow up sputum studies - May hold off bronchoscopy if sufficient evidence from sputum studies - If pursuing bronchoscopy with BAL to include - Gram stain, aerobic material culture, Legionella PCR, Legionella culture, no cardia stain, AFB smear, mycobacterial culture, Aspergillus antigen, fungal smear, fungal culture, Pneumocystis PCR, cell count differential, histo/blasto/coccidioides PCR, and respiratory PCR panel (includes bordetella) - Will also include cytology # Question of hepatic lesion on outside scan - Liver is partially imaged with extended chest CT non-contrast with no abnormality noted - Would recommend patient to follow up any recommended, dedicated imaging to liver. Not likely contributory to current presentation. Baseline Mobility: BMAT Level 4 (Able to stand and walk) Diet: general diet Tubes/lines: PIV VTE prophylaxis: heparin Code status: Prior Surrogate Decision Maker: Spouse, [phone] Disposition: Home Plan discussed with [facility] Stopper Grinder, Letty Rutledge M.D., who was present during zelaya portions of the evaluation today. Please page [place] [facility] [place] [phone] with any questions. * Suzie Cruz R.R.T., L.R.T. - 09/14/2023 5:11 PM CDT Patient is a 58 y.o. male admitted on 09/14/2023 Principal Problem: Syncope And Near Syncope PMH:History reviewed. No pertinent past medical history. Shift Summary: 1445 PM Neb treatment ordered for pt, patient assessed and neb given. L/S very wheezy bilat I/E before and after neb, saline given and Franco began coughing sometimes violently, saline neb stopped then given and Albuterol to help reverse the bronchospasm from the saline. Pt remain very tight with I/E wheezes audibly and t/o all lung lovelace. Visited with patient and family, appears he has been dealing with this for quite some time. He does not require any oxygen but he does feel better while the neb is being delivered, i suspect it is the oxygen delivery, not the meds themselves. Oxygen Therapy: $Delivery Method: Room air Plan of Care: RT will continue to monitor and assess patient status as needed and deliver meds as prescribed while in the ED. Suzie Cruz R.R.T., L.R.T. 09/14/23 5:11 PM * Ricky Leiva M.D. - 09/14/2023 10:43 AM CDT I was informed of the patient's overnight episode and his ED visit via ambulance. Called the and the (Ms. 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 The patient (when became conscious) felt different from usual and that prompted them to call ED. The patient appeared purple or burgundy to his . The was currently on her route to [facility] ED. I informed her that I would follow along the work-up. Please feel free to reach out to me via hoccer Message with any questions (pager is off because I am currently on vacation from - 09/16). Appreciate all of the help from ED colleagues/staff. Ricky Leiva MD Department of Pulmonary and Critical Care Fellow, PGY-4 ADDENDUM 09/14/2023 5:23 PM - Called the patient and his to follow up. They were in Chest Service. I told them that I would follow along the care peripherally to see what is going on. Appreciate all of the help from Chest Inpatient Service. documented in this encounter H&P Notes * Kala Giron M.B.BTammySTammy - 09/19/2023 10:23 AM CDT Images from the original note were not included. HEART RHYTHM CONSULT SERVICE - CONSULT NOTE Location: [address] [facility] Pulmonary Medicine [facility] Hospital Day: 5 SUBJECTIVE REASON FOR CONSULT Loss of Consciousness HISTORY OF PRESENT ILLNESS Mr. Rodriguez is a 58 y.o. male with medical history significant for Eosinophilic asthma Left maxillary silent sinus syndrome 8-10 pack year smoking history quit at age 33 Mr. Austin Rodriguez is a 58 y.o. male who presents with syncope in setting of acute on chroniccoughing fits with associated wheezing, dyspnea, and daytime fatigue. Patient presented to the ED yesterday for worsening nighttime productive cough of thick brown sputum for the past 3 days accompanied by syncopal episode. He has a chronic baseline cough associated with wheezing since April 2023 requiring multiple ED visits and treatments with steroids and antibiotics. Patient mentioned that he had 3 episodes of brief loss of consciousness over the past 2 days. The last 2 occurred during coughing fits and lasted for a couple of seconds. Patient does experience somelightheadedness prior to the loss of consciousness but denies any other prodromal symptoms such as palpitations, nausea, vomiting, or warmth. He reports after syncopal episode he was feeling fine by the time EMS arrived. He was normotensive with sinus tachycardia on ECG to 103. Chest x-ray noted slight increase in peribronchial thickening mostly in the lower lobes. Neurology saw patient in the EDgiven concern for reported convulsions associated with syncopal episode. Did not appear consistent with seizure. HRS were consulted to evaluate for any cardiogenic component to his syncope. REVIEW OF SYSTEMS 12-point ROS was negative except for HPI OBJECTIVE SOCIAL HISTORY Social History Socioeconomic History Marital status: Spouse name: Not on file Number of children: Not on file Years of education: Not on file Highest education level: Not on file Occupational History Not on file Tobacco Use Smoking status: Former Types: Cigarettes Smokeless tobacco: Never Vaping Use Vaping status: never used Substance and Sexual Activity Alcohol use: Yes Comment: 2 beers a week Drug use: Never Sexual activity: Defer Other Topics Concern Not on file Social History Narrative Not on file Social Determinants of Health Food Insecurity: No Food Insecurity (09/14/2023) Hunger Vital Sign Worried About Running Out of Food in the Last Year: Never true Ran Out of Food in the Last Year: Never true Transportation Needs: No Transportation Needs (09/14/2023) PRAPARE - Transportation Lack of Transportation (Medical): No Lack of Transportation (Non-Medical): No Intimate Partner Violence: Not At Risk (09/14/2023) Humiliation, Afraid, Rape, and Kick questionnaire Fear of Current or Ex-Partner: No Emotionally Abused: No Physically Abused: No Sexually Abused: No Housing Stability: Low Risk (09/14/2023) Housing Stability Housing: Living Situation: I have a steady place to live MEDICATIONS Current Facility-Administered Medications: albuterol nebulizer solution 2.5 mg, 2.5 mg, nebulization, Q2H PRN, José Luis Lopez M.D. enoxaparin injection 40 mg (LOVENOX), 40 mg, subcutaneous, Q24H LOREJessica Trevor K, M.D., 40 mg at 09/19/23 0924 fluticasone propionate 50 mcg/actuation nasal spray 2 spray (FLONASE), 2 spray, each nostril, BID, José Luis Lopez M.D., 2 spray at 09/19/23 0925 ipratropium-albuteroL 0.5-2.5 mg/3 mL nebulizer solution 3 mL (DUONEB), 3 mL, nebulization, 4x daily, José Luis Lopez M.D., 3 mL at 09/19/23 0739 levoFLOXacin tablet 500 mg (LEVAQUIN), 500 mg, oral, Daily before breakfast, José Luis Lopez M.D., 500 mg at 09/19/23 0613 melatonin tablet 5 mg, 5 mg, oral, Daily at bedtime, Fuad Gardner M.D., 5 mg at 09/18/23 2046 predniSONE tablet 60 mg (DELTASONE), 60 mg, oral, Daily, José Luis Lopez M.D., 60 mg at 09/19/23 0925 sodium chloride 0.9 % injection 10 mL, 10 mL, intravenous, PRN, José Luis Lopez M.D. sodium chloride 0.9 % injection 3 mL, 3 mL, intravenous, PRN, José Luis Lopez M.D. sodium chloride 0.9 % injection 3 mL, 3 mL, intravenous, Q12H LORE, José Luis Lopez M.D., 3 mL at 09/18/23 1004 sodium chloride-sodium bicarbonate nasal rinse 1 Application (NEILMED SINUS RINSE), 1 Application, each nostril, 4x Daily PRN, José Luis Lopez M.D. sodium chloride-sodium bicarbonate nasal rinse 1 Application (NEILMED SINUS RINSE), 1 Application, each nostril, BID, José Luis Lopez M.D., 1 Application at 09/19/23 0927 VITAL SIGNS Temperature: [36.3 ??C-36.7 ??C] 36.4 ??C Heart Rate: [52-84] 65 Resp Rate: [8-25] 16 Blood Pressure: (101-118)/(52-69) 113/63 SpO2: [90 %-96 %] 96 % Flow Rate (L/min): [1 L/min] 1 L/min Weight: [124 kg] 124 kg BMI (Calculated): [32.4 kg/m??] 32.4 kg/m?? Pulse Rate: [51-83] 64 PHYSICAL EXAMINATION General Appearance: Not in acute distress. Heart: Regular rate and rhythm. No murmurs. Lungs: Bilateral atrial air entry. No crackles or wheezing. Abdomen: Soft and nontender. Extremities: Not edematous. PERTINENT EKG/TELEMETRY EVENTS ECG 09/15/23: Telemetry reviewed and shows sinus bradycardia particularly at nighttime with no evidence of nonconducted P waves. TTE 09/18/23: 1. Normal left ventricular chamber size, no regional wall motion abnormalities, calculated 2-D biplane volumetric ejection fraction of 67%. 2. Increased mid left ventricular cavity flow velocities (minimally increase; 9 mm Hg with Valsalva). No systolic anterior motion of the mitral valve or dynamic left ventricular outflow track obstruction documented. 3. Normal left ventricular geometry, normal diastolic function. 4. Normal right ventricular chamber size, normal systolic function, estimated right ventricular systolic pressure 21 mmHg (right atrial pressure of 5 mmHg). 5. No significant valvular heart disease. 6. No pericardial effusion. 7. Normal aeration in both lungs. 8. There are no previous [facility] echocardiograms available for comparison. 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 Patient mentioned that he had 3 episodes of brief loss of consciousness over the past 2 days. The last 2 occurred during coughing fits and lasted for a couple of seconds. HRS were consulted to evaluate for any cardiogenic component to his syncope. Patient does experience some lightheadedness prior to the loss of consciousness but denies any other prodromal symptoms such as palpitations, nausea, vomiting, or warmth. Telemetry reviewed and showssinus bradycardia particularly at nighttime with no evidence of nonconducted P waves. TTE reviewed and shows preserved LVEF with no significant valvular heart disease. Based on the telemetry and TTE findings and the association of the brief syncopal episodes with the coughing fits, the likely etiology of the patient's syncope is vasovagal rather than cardiogenic. Would recommend, however, a 30 day surveillance monitor on discharge with follow up with General Cardiology to evaluate for any underlyingBrady or tachyarrhythmias that could explain the patient's syncope. Discussed with the patient who is in agreement with the plan. Would also recommend performing carotid massage to evaluate for any carotid hypersensitivity syndrome. HRS will sign off at this time. [place] [phone] with any questions or concerns. Mando Ferguson. Designer/Writer, [id number] * Letty Leon M.D. - 09/15/2023 4:41 PM CDT This is a supervisory note for Dr. Lopez. I have reviewed the history, physical exam, assessment, and plan as outlined in his note dated September 14, 2023 and September 15, 2023. He I have personally evaluated the patient. ASSESSMENT / PLAN #1 Probable exacerbation of eosinophilic asthma #2 Pneumonia vs bacterial bronchitis #3 Left maxillary silent sinus syndrome #4 Eosinophilia #5 Weight loss The patient presents with recurrent cough, wheezing, and shortness of breath over the last several months. He is coughing up purulent sputum. He has a very prominent eosinophilia. Previous pulmonary function testing had shown airway obstruction. This was in the setting of inhaled corticosteroid andoral prednisone. His exhaled nitric oxide was 30 despite these therapies. I do suspect he has underlying eosinophilic asthma. His testing may be masked by prednisone. His chest imaging has shown significant bronchial wall thickening and mucus plugging. His sputum is purulent suggesting concomitant infection. Due to his active wheezing we will initiate prednisone. We will also start antibiotic therapy. We have sent sputum cultures for bacterial, fungal, and mycobacterial culture. He is receivingnebulizer therapy for mucus clearance and bronchodilation. Ultimately, he may need aggressive asthma treatment with inhalers and biologic after the acute exacerbation is treated. The patient has evidence of left maxillary silent sinus syndrome. The left sinus is completely fulland concerning for chronic infection. We may need to consider ENT consultation. * José Luis Lopez M.D. - 09/14/2023 4:13 PM CDT [facility] Admission Note SUBJECTIVE CHIEF COMPLAINT Syncope HISTORY OF PRESENT ILLNESS Mr. Austin Rodriguez is a 58 y.o. male who presents with syncope in setting of acute on chroniccoughing fits with associated wheezing, dyspnea, and daytime fatigue. PMH includes 8-10 pack year smoking history quit at age 33. Prior PFTs show borderline obstruction with no significant bronchodilator response. Normal lung volumes and diffusing capacity. Normal pulse oximetry at rest and with exercise. Patient presents to the Emergency Department today after worsening nighttime cough for 3 days in the setting of ongoing chronic cough with associated wheezing since April of 2023 having completed multiple courses of antibiotics. He was hospitalized at the end of June 2023 with shortness of breath, hypoxia, and 15 lb weight loss without fevers or night sweats and otherwise similar presentation with cough and wheezing. CT demonstrated bronchial inflammation and mucus plugging with pulmonary nodules up to 6 mm. Pulmonary medicine was consulted and infectious workup was negative for stool o va and parasite, serum aspergillus Ag, igE antibody and IGG antibody. Histo/Blasto urine Ag were also negative. He was discharged with a prednisone taper and ICS Arnuity Ellipta. In the interim he was hospitalized in [place] for another pneumonia and treated with doxycycline and steroids. He follows outpatient with Dr. Ricky Leiva and was seen on 08/30 with updated PFTs, KAYLYNN and CT scan. Outside scan with overread on 08/29 demonstrated bilateral borderline enlarged mediastinal and subcarinal lymphnodes 14 mm in short axis. He presented to ED on 09/02 with cough and shortness of breath and another CT scan showing ground glass opacities in lower lobes and progressed multifocal mucous plugging. For his current presentation he has been feeling worsening cough with thick brown sputum productionsince 09/09. Mr. Rodriguez has been aggressive with his pulmonary hygiene with DuoNebs and saline nebs 3 to 4 times daily and has been meticulous with his technique. He presents today on 09/13 after a syncopal episode this morning associated with a coughing fit. He was overall feeling fatigued this morning with his recent worsening cough and sputum production but denies any fever, chills or diarrhea. Since last April his notes a 30 lbs weight loss. He denies any current or episodic diarrhea. 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 Remotely he was on a cruise near [place] around the time he was sick in April and has visited [facility] without much outdoor activities. In the ED he was satting well on room air. He reports after syncopal episode he was feeling fine bythe time EMS arrived. He was normotensive with sinus tachycardia on ECG to 103. Chest x-ray noted slight increase in peribronchial thickening mostly in the lower lobes. Labs notable for VBG P 7.42, pCO2 41, PO2 57, HC03 26. Hemoglobin 15.4, WBC 6.4, platelets 174. Notably eosinophil count elevated to 1.33. Electrolytes unremarkable with sodium 140 potassium 3.7 creatinine 0.98. CRP is 5.4. Lactate is 2.2. Neurology did see patient in the ED given concern for reported convulsions associated with syncopalepisode. Did not appear consistent with seizure. Notably on interview patient tells me he had a blood test at [facility] that was positive for whooping cough and a provider told him that the test meant he had whooping cough within the last3 months. I do not have current access to these records. also mentions outside CT with hepatic mass that has not had follow up imaging. Current Outpatient Medications on File Prior to Encounter: acetaminophen (TYLENOL) 500 mg tablet, Take 1,000 mg by mouth every 6 (six) hours as needed for pain (for headaches, alternates with Ibuprofen PRN). albuterol 2.5 mg /3 mL nebulizer solution, Inhale 3 mL (2.5 mg total) by nebulization 2 (two) timesa day. Use prior to saline neb solution for bronchial hygiene (mucus clearance), 09/14/2023 benzonatate (TESSALON PERLES) 100 mg capsule, Take 1 capsule (100 mg total) by mouth 3 (three) times a day as needed for cough., 09/14/2023 fluticasone furoate (Arnuity Ellipta) 100 mcg/actuation diskus inhaler, Inhale 1 puff 2 (two) timesa day. ibuprofen (ADVIL,MOTRIN) 200 mg tablet, Take 400 mg by mouth every 6 (six) hours as needed for pain(for headache, alternates with Acetaminophen PRN). ipratropium-albuteroL (DUONEB) 0.5-2.5 mg/3 mL nebulizer solution, Inhale 3 mL by nebulization 4 (four) times a day for 10 days., 09/14/2023 ipratropium-albuteroL (DUONEB) 0.5-2.5 mg/3 mL nebulizer solution, Inhale 3 mL by nebulization 2 (two) times a day., 09/14/2023 sildenafiL (VIAGRA) 100 mg tablet, Take 100 mg by mouth daily as needed for erectile dysfunction (TAKE 30 MIN TO 4 HOURS BEFORE ACTIVITY). sodium chloride (HYPERSAL) 7 % nebulizer solution, Inhale 4 mL by nebulization 2 (two) times a day.Use albuterol before this treatment. Use Aerobika flutter valve after this treatment., 09/13/2023 predniSONE (DELTASONE) 20 mg tablet, TAKE 2 TABLETS BY MOUTH DAILY WITH MEAL, Unknown OBJECTIVE VITAL SIGNS Temperature: [36.7 ??C] 36.7 ??C Heart Rate: [93-120] 102 Resp Rate: [10-23] 11 Blood Pressure: (105-133)/(56-74) 121/74 SpO2: [92 %-98 %] 98 % Pulse Rate: [78-120] 99 PHYSICAL EXAM General: Alert, interactive, not acutely ill. Skin: No rashes or lesions on legs, arms, or torso. Eyes: Pupils equal and round. Sclera anicteric. ENT: Hearing grossly intact. Dentition intact. No oral or pharyngeal erythema or lesions noted. Lymph: No cervical or subclavicular adenopathy. Lungs: Clear to auscultation. No wheezes or crackles. Heart: Regular rate and rhythm. No murmurs appreciated. No lower extremity edema. Abdomen: Soft, flat, bowel sounds normoactive, nontender, nondistended, no palpable masses or organomegaly. Neuro: Cranial nerves II-XII intact. Strength 5/5 in all extremities. Mental: Mood and affect congruent. Alert and oriented. Attention intact. No evidence of disorganized thinking. 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 DIAGNOSTICS I have reviewed the labs, ECG, xray, and diagnostics from admission. Patient has not had previous echocardiogram. ASSESSMENT / PLAN Mr. Rodriguez is hospitalized on [facility] for evaluation and management of syncope associated with acute on chronic worsening of cough, wheezing, and sputum production in the context of a persistent eosinophilia and weight loss for the last 5 months prior to admission. Etiology of his presentation remains unclear at this time. Chronicity of acute on chronic cough/wheezing with acute exacerbations is suspicious for asthma though lack of prior history does raise suspicion for other possibilities. His overall picture could be suggestive of a chronic, indolent infection. Previous urine testing for histo and blasto has been negative and he has not had fevers nor progressive imaging findings other than bronchial mucus plugging and borderline mediastinal and subcarinal lymph node enlargement on CT scan. Infectious differential includes bordetella pertussis, pulmonary aspergillosis or ABPA (though previous negative testing), Malignancy is on the differential given the weight loss and eosinophilia, but again imaging is not overly supportive of this etiology. He does not present with other typical B symptoms for lymphoma. He does have other reported outside imaging of a hepatic mass but CT is unavailable. Non-infectious etiologies include asthma, non-eosinophilic bronchitis, and hypersensitivity pneumonitis is also on the differential. I do have a low threshold to consider CT imaging of abdomen and pelvis as well to follow up on reported hepatic lesion, especially if noting elevations in liver function testes. Will tentatively plan for bronchoscopy tomorrow. # Syncope associated with coughing fit # Persistent peripheral eosinophilia # 30 lbs of weight loss, without fever or chills # CT findings of lower lobe GGO and progressive mucus plugging - Continue Scheduled DuoNebs - PRN albuterol nebs - Will hold on saline nebs as patient has strong cough - Will hold off further steroids for now as per discussion with Dr. Leiva steroids have not previously had great therapeutic benefit - Bronchoscopy with BAL to include - Gram stain, aerobic material culture, Legionella PCR, Legionella culture, no cardia stain, AFB smear, mycobacterial culture, Aspergillus antigen, fungal smear, fungal culture, Pneumocystis PCR, cell count differential, histo/blasto/coccidioides PCR, and respiratory PCR panel (includes bordetella) - Will also include cytology - Lymph node sampling can be considered if there is an adequate target given interval increase in size of mediastinal and subcarinal lymph nodes - Will get peripheral smear for eosinophilia - Will consider CT imaging of abdomen and pelvis if elevated liver tests vs outpatient follow up ofpreviously noted hepatic lesion Baseline Mobility: BMAT Level 4 (Able to stand and walk) Diet: general diet Tubes/lines: PIV VTE prophylaxis: heparin Code status: Prior Surrogate Decision Maker: Spouse, [phone] Disposition: Home documented in this encounter Consult Notes * Oj Dillard M.D. - 09/17/2023 2:54 AM CDTAssociated Order(s): IP CONSULT TO OTORHINOLARYNGOLOGY OTORHINOLARYNGOLOGY INPATIENT CONSULT Consulting Service: [facility] Reason for Consult: silent sinus syndrome in pt with suspected eosinophilic asthma - ? if role for rhinoscopy while inpatient vs can be seen outpatient for surgical management History of Present Illness: Austin Rodriguez is a 58 y.o. male with a past medical history significant for 8-10 pack year smoking history (quit age 33), chronic cough, chronic dyspnea, and chronic bronchitis since April 2023 who was admitted on 09/14/2023 due to a syncopal episode associated with coughing. He is undergoing a pulmonary workup for suspected eosinophilic asthma. ENT has been consulted for evaluation of the sinuses after a CT scan revealed findings concerning for left- sided silent sinus syndrome. Patient denies any purulent anterior or posterior nasal discharge. Patient endorses nasal obstruction since he fractured his nose twice in the . Denies facial congestion and fullness, facial pain/pressure, hyposmia/anosmia, fever. Endorses headache secondary to coughing. Denies ear pain/pressur e/fullness, halitosis, dental pain, cough, fever, fatigue. Denies past episodes of acute bacterial rhinosinusitis. The patient does not have a history of chronic rhinosinusitis. The patient denies history of immunosuppression, diabetes, and allergic rhinitis. They deny symptoms of palatal/facial numbness/hypesthesia. The patient is a current non- smoker. The patient does not have a nasogastric tube in place. Thepatient is not on antireflux regimen. Past Medical History: History reviewed. No pertinent past medical history. Family History: No family history on file. Social History: Social History Socioeconomic History Marital status: Tobacco Use Smoking status: Former Types: Cigarettes Smokeless tobacco: Never Vaping Use Vaping status: never used Substance and Sexual Activity Alcohol use: Yes Comment: 2 beers a week Drug use: Never Sexual activity: Defer Social Determinants of Health Food Insecurity: No Food Insecurity (09/14/2023) Hunger Vital Sign Worried About Running Out of Food in the Last Year: Never true Ran Out of Food in the Last Year: Never true Transportation Needs: No Transportation Needs (09/14/2023) PRAPARE - Transportation Lack of Transportation (Medical): No Lack of Transportation (Non-Medical): No Intimate Partner Violence: Not At Risk (09/14/2023) Humiliation, Afraid, Rape, and Kick questionnaire Fear of Current or Ex-Partner: No Emotionally Abused: No Physically Abused: No Sexually Abused: No Housing Stability: Low Risk (09/14/2023) Housing Stability Housing: Living Situation: I have a steady place to live Physical Exam: Vital Signs: Vitals: 09/16/23 1921 BP: 109/68 Pulse: 97 Resp: 22 Temp: 36.5 ??C SpO2: 96% General: Awake, alert, oriented, in no acute distress Head: Normocephalic, atraumatic Face: Symmetric. House-Brackmann 1/6 bilaterally. Symmetric sensation in the distribution of V1-V3.No gross hypoglobus. Eyes: Pupils are equal round and reactive to light bilaterally. Extraocular movements intact. No gross lateral gaze nystagmus. No gross enophthalmos. Ears: Auricles unremarkable bilaterally. Nose: Nares patent bilaterally. Nasal mucosa appears pink and moist. Anterior rhinoscopy revealed normal appearing inferior turbinates. No signs of excoriations or ulcerations on the anterior septum.No epistaxis. No purulent discharge. No obvious polyps visualized. Septum appeared midline. Mouth: Dentition appeared healthy. There was no trismus. Oral mucosa was pink and moist. No lesionsnoted anywhere on the buccal or labial mucosa, or on the floor of mouth, soft or hard palate, or oral tongue. Tongue is midline and mobile. Palate elevation is symmetric. Uvula is midline. No intraoral hypoesthesia. Neck: Trachea is midline. No lymphadenopathy palpable in any of the neck levels on either side. Neuro: Cranial nerves II-XII were grossly intact. The voice is strong without hoarseness or breathiness. Pulmonary: Non-labored breathing, no wheezing or stridor noted. Cardiac: Harahan, well-perfused extremities, no signs of cyanosis. Flexible fiberoptic laryngoscopy A comprehensive upper airway exam was performed using a flexible fiberoptic scope under topical anesthesia. Verbal consent was obtained and universal protocol was followed. Bilateral nares were anesthestized using oxymetazoline with tetracaine nasal spray. The endoscope was passed gently along the floor of the nose. The right nasal cavity was unremarkable. The left nasal cavity was unable to be assessed secondary to significant narrowing of the nasal passageway. The nasopharynx was without masses or lesions. The scope was passed in to the oropharynx. There were no masses or lesions appreciable here. The posterior pharyngeal wall and palatine tonsils were non-erythematous without exudates. The base of tongue, vallecula, lingual tonsils, epiglottis, were all unremarkable. The pyriform sinuses, arytenoids, aryepiglottic folds were without masses or lesions. The vocal cords were visualized and appeared symmetrically mobile on abduction and adduction. There were no nodules, granulomas, or p apillomas visualized on the vocal cords. Full glottic closure can be achieved with phonation. The subglottis was briefly visualized and appeared patent without edema or stenosis. The endoscope was then withdrawn atraumatically and the patient tolerated the procedure well. Imaging: All pertinent imaging was reviewed. CT SINUSES WITHOUT IV CONTRAST IMPRESSION: Findings suggestive of left maxillary silent sinus syndrome with complete opacification of the atelectatic left maxillary sinus as described by radiology. Assessment/Plan: Patient Active Problem List Diagnosis Dyspnea Nodules Pulmonary Multiple Eosinophilia Unspecified Bronchitis Chronic (HCC) Chronic Cough Syncope And Near Syncope Austin Rodriguez is a 58 y.o. male with chronic cough who was admitted for pulmonary workup; ENT was consulted today to evaluate for silent sinus syndrome after CT scan revealed opacification andatelectasis the left maxillary sinus with inferior displacement of the left orbital floor with enophthalmos and obstruction of the maxillary ostium. Patient does not have clear symptoms of sinusitis.Normal upper airway scope exam. The left nasal cavity could not be assessed due to left nasal passage narrowing. I could not obtain cultures of the left maxillary sinus. It is unclear if possible left silent sinus syndrome is contributing to chronic cough and other symptoms requiring inpatient admission. Outpatient followup is indicated to address the radiologic maxillary sinus findings. Recommendations Initiate daily NeilMed MD nasal saline with budesonide Initiate Flonase 2 sprays BID Outpatient followup in ENT chief clinic (placed in discharge orders) Plan discussed with chief resident Dr. Steven Fernandez. ENT will sign off at this time. Please reach ENT on-call pager at [phone] with any questions or concerns. Oj Dillard M.D. Resident, Otolaryngology-Head & Neck Surgery 09/17/23 4:40 AM CDT * Melissa Roldan, MOUNA, LD - 09/16/2023 9:44 AM CDTAssociated Order(s): IP CONSULT TO DIETITIAN Clinical Nutrition: Initial Assessment Clinical Nutrition was requested to evaluate patient for positive nursing baseline nutrition screenwith a MST score of 2 or greater SUBJECTIVE Mr. Rodriguez is a 58 y.o. male admitted for evaluation and management of syncope associated with acute on chronic worsening of cough, wheezing, and sputum production in the context of a persistent eosinophilia and weight loss. Completed visit with patient and family today as part of face to face care. Current Nutrition (since admission): Patient is awaiting his breakfast during my visit. He stated he ate 50% evening meal last evening after diet advancement from NPO. Patient was willing to trial Premier Protein between meals. Nutrition history: Patient and reported decreased oral intake in setting of fatigue and decreased appetite which started in April. describes patient as meat and potato eater. Patient stated he has been intending to lose weight and happy with the loss. Nutrition education/counseling: Encouraged the importance of adequate nutrition for healing. OBJECTIVE Current nutrition orders: Dietary Orders (From admission, onward) Start Ordered 09/16/23 0933 Oral supplement -Supplement; Premier Protein (strawberry); 1 each; Take at: Morning snack Until discontinued Question Answer Comment Type: Supplement Supplement: Premier Protein (strawberry) Size: 1 each Take at: Morning snack 09/16/23 0933 09/15/23 1021 Adult Diet Regular Diet effective now Question: Diet texture: Answer: Regular 09/15/23 1021 Pertinent Labs: Last 3 results Lab Units 09/16/23 0047 09/15/23 0101 09/14/23 1050 09/14/23 1045 SODIUM P mmol/L -- -- 140 -- SODIUM mmol/L 141 142 -- -- POTASSIUM mmol/L 4.1 4.4 -- -- POTASSIUM P mmol/L -- -- 3.7 -- CHLORIDE P mmol/L -- -- 105 -- CHLORIDE mmol/L 104 105 -- -- BUN P mg/dL -- -- 11 -- BUN mg/dL 16 12 -- -- CREATININE mg/dL 1.24 1.07 0.98 -- PHOSPHORUS INORGANIC mg/dL -- 2.8 -- -- CALCIUM P mg/dL -- -- 8.7* -- CALCIUM mg/dL 8.8 9.0 -- -- MAGNESIUM mg/dL -- -- -- 2.2 GI Function: Last BM Date: 09/13/23 Medications: ceFEPIme, 2 g, intravenous, Q12H fluticasone propionate, 2 spray, each nostril, BID ipratropium-albuteroL, 3 mL, nebulization, 4x daily melatonin, 5 mg, oral, Daily at bedtime predniSONE, 40 mg, oral, Daily sodium chloride, 3 mL, intravenous, Q12H LORE Continuous Infusions: PRN Meds:. albuterol sodium chloride sodium chloride sodium chloride-sodium bicarbonate Anthropometrics: Height: 195.6 cm Admission Weight: 123 kg (09/14/2023) Usual Body Weight: 135 kg (per patient) BMI (Calculated): 32.2 kg/m?? Net IO Since Admission: 550 mL [09/16/23 0954] Weight history: Wt Readings from Last 12 Encounters: 09/14/23 123 kg 09/03/23 126 kg 08/31/23 126 kg 07/18/23 129 kg Weight Change History: 8% weight loss over the past 4-5 months with 4.6% over the past 2 months and2% over the past 11 days. Estimated Needs: Total Calorie Needs: 4089-9828 calories/day Method to Estimate Energy Needs: [facility] (Basal to Basal + 10%) Weight Used for Equation Calculations: 123 kg Total Protein Needs: 107 - 134 grams/day (Method to Estimate Protein Needs (g/kg): 1.2 - 1.5 gm/kg) Weight Used to Calculate Protein Needs (Kg): 89.1 kg Nutrition Diagnosis: Malnutrition (undernutrition) related to ongoing illness, fatigue with decreased appetite as evidenced by patient and 's report, weight loss and evidence of muscle and fat loss. Malnutrition Criteria: Non-severe (moderate) Malnutrition The patient does meet the ASPEN Criteria of malnutrition based on: Energy Intake: Less than 75% of estimated energy requirement for greater than or equal to 7 days Interpretation of Weight Loss: 7.5% 3 months Body Fat: Mild Loss Muscle Mass: Mild Loss Fluid Accumulation: Absent This is in the context of Acute Illness or Injury. ASSESSMENT / PLAN ASPEN Criteria Malnutrition Status: Non-severe (moderate) Malnutrition Nutrition Intervention: Interventions: Increase nutrient intake with small, frequent meals and/or snacks, Medical food supplement, Vitamin and mineral supplements, Provide counseling strategies to apply nutrition knowledge. Recommendations: Start daily multivitamin with minerals. Monitoring/Evaluation: Nutrition parameter to monitor: Meals/Supplement Intake, Weight Status Desired Outcome: Adequate oral intake to support weight maintenance Patient Goal(s): Consume >75% of 3 meals daily and Consume >75% of 1 oral nutrition supplements daily Clinical Nutrition will continue to follow. For questions about patient's nutritional care please contact pager [phone] on weekdays 07:30-16:00 or [phone] on weekends/holidays. * Shonna Thorpe M.D. - 09/14/2023 2:01 PM CDTAssociated Order(s): IP CONSULT TO NEUROLOGY EMERGENCY NEUROLOGY CONSULT NOTE SUBJECTIVE REFERRAL RMB E02 Nahun Huang PA-C CHIEF COMPLAINT / REASON FOR VISIT Seizure like episode HISTORY OF PRESENT ILLNESS Austin Rodriguez is a 58 y.o. male with pertinent past medical history of chronic bronchitis who presents for evaluation of episode of unresponsiveness. Neurology was consulted for seizure-like episode. History obtained from patient's spouse who witnessed the episode and patient himself. Patient's spouse states that this morning patient felt unwell after taking the dogs out and after walking up a flight of stairs noted that he felt winded. He sat down on a chair 8 his breakfast and then his briefly about the room for proximally 2-3 minutes. She came back when she her him yell out a brief noise and she came back to the room immediately to find him slumped and sliding down a chair in a purple color. She noted that his eyes were closed and then he briefly had a few shakes of his arms or legs not clearly rhythmic or extended manner. His head was not turned and there was no clear rhythmic m ovements. The convulsions that she describes as lasted for proximally 5-10 seconds and patient awoke after she called for him after approximately 20-30 seconds with his eyes wide and briefly confusedfor about 30 seconds regarding what happened. There was no clear urinary or bowel incontinence tongue body head turning or any clear rhythmic repetitive movements. Patient does not have a history of seizure or any neurologic conditions. 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 He also noted that today he has significant cough and felt that he could not cough up phlegm and felt winded this morning after taking his dog out. REVIEW OF SYSTEMS As per HPI MEDICATIONS: No current facility-administered medications for this encounter. Current Outpatient Medications: acetaminophen (TYLENOL) 500 mg tablet, Take 1,000 mg by mouth every 6 (six) hours as needed for pain (for headaches, alternates with Ibuprofen PRN)., Disp: , Rfl: albuterol 2.5 mg /3 mL nebulizer solution, Inhale 3 mL (2.5 mg total) by nebulization 2 (two) timesa day. Use prior to saline neb solution for bronchial hygiene (mucus clearance), Disp: 180 mL, Rfl:11 benzonatate (TESSALON PERLES) 100 mg capsule, Take 1 capsule (100 mg total) by mouth 3 (three) times a day as needed for cough., Disp: 20 capsule, Rfl: 0 fluticasone furoate (Arnuity Ellipta) 100 mcg/actuation diskus inhaler, Inhale 1 puff 2 (two) timesa day., Disp: 60 each, Rfl: 0 ibuprofen (ADVIL,MOTRIN) 200 mg tablet, Take 400 mg by mouth every 6 (six) hours as needed for pain(for headache, alternates with Acetaminophen PRN)., Disp: , Rfl: ipratropium-albuteroL (DUONEB) 0.5-2.5 mg/3 mL nebulizer solution, Inhale 3 mL by nebulization 4 (four) times a day for 10 days., Disp: 180 mL, Rfl: 0 ipratropium-albuteroL (DUONEB) 0.5-2.5 mg/3 mL nebulizer solution, Inhale 3 mL by nebulization 2 (two) times a day., Disp: 90 mL, Rfl: 11 sildenafiL (VIAGRA) 100 mg tablet, Take 100 mg by mouth daily as needed for erectile dysfunction (TAKE 30 MIN TO 4 HOURS BEFORE ACTIVITY)., Disp: , Rfl: sodium chloride (HYPERSAL) 7 % nebulizer solution, Inhale 4 mL by nebulization 2 (two) times a day.Use albuterol before this treatment. Use Aerobika flutter valve after this treatment., Disp: 240 mL, Rfl: 11 predniSONE (DELTASONE) 20 mg tablet, TAKE 2 TABLETS BY MOUTH DAILY WITH MEAL, Disp: , Rfl: ALLERGIES: No Known Allergies OBJECTIVE PHYSICAL EXAM Vitals: Vitals: 09/14/23 1245 BP: Pulse: 78 Resp: Temp: SpO2: Neurology: Mental status: Alert and oriented to time, place and person Speech: Clear. Language: Normal. Cranial nerves: II-XI tested and normal. PERRL, EOMI, visual lovelace intact to confrontation, facialmovements full and symmetric, sensation intact to light touch, hearing intact to finger rub bilaterally, tongue protrudes in midline, there is equal elevation of the soft pharynx, shoulder shrug is appropriate in strength. Motor: Bilateral upper and lower extremity strength is normal. Tone is normal in bilateral upper and lower extremities. Sensory: Sensation is intact to vibration, light touch and sharp stimuli throughout. Reflexes: 0 in upper and lower extremities. Plantar flexor responses are flexor-flexor. Coordination: Finger to nose is appropriate in speed and accuracy. Rapid alternating movements appropriate in upper extremities. Heel to ruiz is normal bilaterally. d leg swing. Normal toe, heel and tandem walking. Turns without shuffling. ASSESSMENT / PLAN IMPRESSION #1 Episode of unresponsiveness, query convulsive syncope #2 History of dyspnea #3 Chronic bronchitis Austin Rodirguez is a 58 y.o. male with a past medical history of chronic dyspnea, chronic bronchitis who presents with episode of unresponsiveness. Neurology is consulted for concern for seizure-like episode. Patient's who witnessed the episode describes a very brief episode of unresponsiveness when patient had turn purple with convulsions of all his limbs with no clear rhythmic tonic-clonic movements and quick returned to baseline with very mild brief confusion with no urinary incontinence, no head turn, no clear postictal state, no tongue biting, and never any clear rhythmic adventitious movements. These symptoms do not appear consistent with seizure however can be a descriptionof convulsive syncope. Due to patient's history of chronic bronchitis and dyspnea and preceding events of feeling out of breath sound likely like prodromal symptoms for possible syncope rather than seizure. Patient's neurological examination is also normal with no clear focal deficits or any signs of incontinence or tongue laceration. Overall, symptoms and signs point to more of a convulsive syncope picture rather than seizure. I do not recommend any further neurological evaluation at this timedue to this history and examination RECOMMENDATIONS No further emergent neurologic evaluation needed Thank you for the interesting consult. This is an Emergency Neurology consult note. Please page [phone] with any additional questions. I personally spent 30 minutes in care of the patient today. Time includes both non face to face andface to face patient care. Shonna Thorpe, PGY4 Neurology documented in this encounter Nursing Notes * Bobby Posada RTammyN. - 09/18/2023 9:51 AM CDT Problem: PAIN - ADULT Goal: PT VERBALIZES/DEMONSTRATES ADEQUATE COMFORT LEVEL OR BASELINE Outcome: Progressing Problem: KNOWLEDGE DEFICIT Goal: Patient/family/caregiver demonstrates understanding of disease process, treatment plan, medications, and discharge instructions Outcome: Progressing Problem: INFECTION - ADULT Goal: Absence of infection during hospitalization Outcome: Progressing Problem: SKIN/TISSUE INTEGRITY Goal: Skin/Tissue integrity maintained or improved Outcome: Progressing Goal: Oral and Nasal mucous membranes remain intact Outcome: Progressing Problem: SAFETY ADULT Goal: Maintain a safe environment Outcome: Progressing Problem: DISCHARGE PLANNING Goal: Patient discharge needs identified Outcome: Progressing Problem: SAFETY ADULT - RISK FOR FALL AND OR FALL INJURY Goal: Patient remains free from fall/fall injury Outcome: Progressing Shift Goals: Clinical Goals for the Shift: Patient will ambulate 200 [address] hallway without distress Identify possible barriers to meeting goals/advancing plan of care: End of Shift Summary: Patient having ECHO preformed at bedside this AM. Patient stated he has had little to no coughing today and remains hemodynamically stable at this time.Will continue to observe progress. * Eddie Amaya R.N. - 09/17/2023 8:28 PM CDT [facility] Report given to receiving RN. All personal belongings sent w/ pt. Electronically signed by: Esteban Amaya R.N. 09/17/23 8:29 PM CDT * Homero Salas R.N. - 09/17/2023 4:50 PM CDT Shift Goals: Clinical Goals for the Shift: Pt will remain safe and free from falls throughout shift. Identify possible barriers to meeting goals/advancing plan of care: none End of Shift Summary: pt was c/o light headed, sx are aware, orthostatic BP done, no barba on BP, pt denies any pain or SOB at this time. scheduled neb treatment given, IV antibiotic continues, assisted with cares, will continue to monitor * Belem Guzmán R.N. - 09/15/2023 5:50 PM CDT Problem: INFECTION - ADULT Goal: Absence of infection during hospitalization Outcome: Progressing Problem: SAFETY ADULT Goal: Maintain a safe environment Outcome: Progressing Problem: SAFETY ADULT - RISK FOR FALL AND OR FALL INJURY Goal: Patient remains free from fall/fall injury Outcome: Progressing Shift Goals: Clinical Goals for the Shift: Pt will remain vitally stable. Identify possible barriers to meeting goals/advancing plan of care: infection End of Shift Summary: Has remained vitally stable. Afebrile. Maintained 02 saturations on room air but has felt more comfortable on [address] NC[address] to CT chest and sinuses . Cefepime started as directed. Denies pain and nausea. R.N. will continue to monitor closely. documented in this encounter ED Notes * Javier Gustafson R.N. - 09/14/2023 10:40 AM CDT Patient initial saturations on RA were 93%, patient able to walk to the bathroom, saturations were monitored while walking. No change in sats and no new complaints while walking. Javier Gustafson R.N. 09/14/23 1040 * Javier Gustafson R.N. - 09/14/2023 10:26 AM CDT Patient arrives to the ED via [facility]. EMS reports they were called to his home d/t him being unresponsive. His found him unresponsive, shook him multiple times, when he awoke he had altered LOC for a few minutes then became A & O x 3. Patient states he was sleeping and his woke him up. He has an ongoing problem with a chronic cough. He states he has been seeing pulmonology here at [facility] and has been unable to get a answer for his chronic cough. EMS has given him a duo neb. His cough/respiratory problems are not new but he is here for further workup for these problems. Javier Gustafson R.N. 09/14/23 1039 * Reina Richmondharshad Rodriguez P.A.-C. - 09/14/2023 10:10 AM CDT SUBJECTIVE CHIEF COMPLAINT/REASON FOR VISIT Loss of Consciousness HISTORY OF PRESENT ILLNESS History provided by: Patient translator and interpreter needed/used: no 58-year-old male arrives via EMS, known patient to pulmonology here at [facility] complaining of persistent cough and shortness of breath. It appears this has been going on for months. Chart review finds colon polyps, chronic bronchitis, chronic cough, eosinophilia unspecified, multiple pulmonary nodules, among other diagnoses. It appears he had a telephone visit with pulmonology yesterday with description of worsening symptoms at home and lack of improvement with duo nebulizers. States he dropped off a sputum culture previously. Acutely, patient had a syncope like episode earlier today. He describes feeling ???different?? this morning but denies chest pain, sweating, lightheadedness. He had some shortness of breath which he has been dealing with for quite some time. Increased coughing and dyspnea. Has been using his home nebulizer without significant production. His describes leaving him sitting in a chair going into the next room and then hearing him make a noise. Upon coming back he appeared to be shaking, appeared somewhat blue in the face and was sliding off the chair. He slid to the floor and immediately came to. They deny increased fatigue or altered mental status after theevent. He recovered relatively quickly. No history of fevers or chills recently. No bloody sputum production. He has been in direct contact with Dr. Leiva of pulmonology and they understand he is supposed to get a bronchoscopy. Unclear when this will happen in the patient exit expressing significantfrustration with the ongoing symptoms including coughing at night that disrupts his sleep. REVIEW OF SYSTEMS Constitutional: Positive for fatigue. Negative for chills and fever. Respiratory: Positive for cough, shortness of breath and wheezing. Negative for hemoptysis, chest tightness and stridor. Cardiovascular: Negative for chest pain. Gastrointestinal: Negative for abdominal pain, constipation, diarrhea, nausea and vomiting. Genitourinary: Negative for dysuria. Neurological: Negative for weakness and light-headedness. Psychiatric/Behavioral: Negative for confusion. OBJECTIVE Initial Vitals Temperature 09/14/23 1016 36.7 ??C Pulse Rate 09/14/23 1015 96 Heart Rate 09/14/23 1430 104 Resp Rate 09/14/23 1016 20 Blood Pressure 09/14/23 1015 132/68 SpO2 09/14/23 1016 92 % Pain Score 09/14/23 1021 0 - No pain PHYSICAL EXAMINATION Constitutional: Nursing note and vitals reviewed. He appears not lethargic. No distress. HENT: Head: Normocephalic and atraumatic. Nose: Nose normal. Eyes: Conjunctivae are normal. Right eye exhibits no discharge. Left eye exhibits no discharge. Neck: Neck supple. Cardiovascular: Normal rate, regular rhythm, S1 normal, S2 normal and normal heart sounds. Exam reveals no gallop and no friction rub. Pulses are strong and palpable. Pulses are no weak pulses. No murmur heard.Capillary refill: takes less than 3 secondsEdema: no edema noted Pulmonary/Chest: Effort normal. No respiratory distress. He has wheezes (Bilateral wheezing). He has rhonchi (Rhonchus and congested like lung sounds). Abdominal: Soft. exhibits no distension. There is no abdominal tenderness. There is no guarding. Musculoskeletal: General: No deformity. Cervical back: Normal range of motion and neck supple. Neurological: Alert. He is not disoriented. He exhibits normal muscle tone. Coordination normal. Skin: Skin is warm. Psychiatric: He has a normal mood and affect. ASSESSMENT/PLAN I explained clinical and diagnostic workup to the patient and his family. Initial plan was for outpatient management in coordination with their current air compressor operator, Dr. Leiva. We were able to reach him and, with the [facility] team, attempted to arrange outpatient management plan. The patient was given several nebulizer treatments in the emergency department. Ultimately he did not improve symptomatically and my physical exam of him maintained continued concern. At this point it appears he has failed outpatient management in the terms of his symptomatic care. He remains hemodynamically stable however which is encouraging. The patient and his family do not wish to go home with continued symptoms and our concern for his safety and well-being. I do think he will get worse if he leaves here today. Despite our efforts to arrange a close outpatient plan I think admission to the hospital is appropriate. Assessment and Plan DIFFERENTIAL DIAGNOSES Differential diagnosis includes bronchitis, COPD exacerbation, asthma exacerbation, pneumonia, mucus plugging, cardiac etiology, arrhythmia, seizure, infection, among other diagnoses. Patient was hemodynamically stable overall. He was not hypoxic upon arrival and did not become hypoxic during the Emergency Department course. His work of breathing was initially unconcerning but seemed to worsen through the course of the Emergency Department stay. After receiving nebulizer treatments he became more wheezy with worsening adventitious lung sounds. Chest x-ray was negative for pneumonia but did indicate increased congestion compared to previous. EKG was benign. Lab workup overall unremarkable including electrolytes, kidney function and VBG. Neurology did see the patient bedside and did not believe this to be seizure-like activity based on their evaluation and history. This is in agreement with my assessment.. I discussed clinical and diagnostic workup with the patient and his family. We also had lengthy discussions with our [facility] team and the patient's air compressor operator, Dr. Leiva, who was available via [facility]. Initially based on diagnostic workup and patient's presentation we thought outpatient management would be appropriate. The patient's family were initially concerned about this option. We went to great lengths to try to arrange close follow-up and optimize an outpatient option. Ultimately though his work of breathing and the family's preference was for admission to the hospital. He did receive multiple nebulizer treatments in the Emergency Department and became objectively more symptomatic without hemodynamic changes. I believe considering his multiple efforts for home treatment over the last weeks to months and presentation in our emergency department admission to the hospital is a logical option. His air compressor operator and [facility] team were in agreement despite our efforts. Family wassatisfied with this plan. Admission orders were submitted and patient was transferred to inpatient care. ED Course as of 09/14/23 1545 Tue Sep 14, 2023 1104 Further examination of the patient finds concern for an episode with seizure-like activity around 815 this morning that lasted roughly 5-15 seconds. Witnessed by his . Will add to current diagnostic workup. 1131 Hemoglobin: 15.4 1131 Hematocrit: 44.0 1131 Leukocytes: 6.4 1131 Neutrophils: 3.43 1131 Potassium, P: 3.7 1131 Sodium, P: 140 1131 Creatinine: 0.98 1131 Lactate: 2.[address] head negative for acute findings. 1156 Hemoglobin: 15.4 1157 Hematocrit: 44.0 1157 Leukocytes: 6.4 1157 Neutrophils: 3.43 1209 Neuro bedside for discussion. 1253 Chest x-ray indicates slightly worsened bronchial thickening compared to previous. 1253 CT head negative. 1331 Magnesium: 2.2 1439 Patient was given 2nd duo nebulizer. Continue to worsen in terms of wheezing and work of breathing. He is however hemodynamically stable. Multiple discussions with his current air compressor operator and [facility], and presented several options for outpatient management. Ultimately at this point he is failed outpatient management. Will give IV fluids, prednisone, antibiotic dose and move towards admission. 1454 Patient received saline nebulizer and continues to have a productive cough. 1545 Discussed case with pulmonology. Bed available. Patient will be moved to inpatient care. Discussed this with the patient and his family and they continue to be in agreement. Final Diagnoses: as of 09/14/23 1545 Syncope And Near Syncope Bronchitis Chronic (HCC) Dyspnea Richmond Huang P.A.-C. 09/16/23 1136 documented in this encounter Miscellaneous Notes * Hospital Course - José Luis Lopez M.D. - 09/17/2023 7:14 AM CDT Mr. Rodriguez is hospitalized on [facility] for evaluation and management of syncope associated with acute on chronic worsening of cough, wheezing, and sputum production in the context of a persistent eosinophilia and weight loss for the last 5 months prior to admission. 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 With his acute presentation thereis also a question of concomitant indolent infection or another secondary process such as chronic si nusitis that is contributing to repeated flare of his asthma. Prior extensive infectious workup during hospitalization is negative. His asthma is likely not adequately treated with Arnuity Ellipta. He will discharge with Advair discus at steroid dose of 500 mcgfluticasone and 50 mcg of salmeterol. He will likely need biologic treatment as well in the outpatient setting. He will continue with DuoNeb treatments up to 4 times daily and PRN albuterol with eithe r nebulizer or MDI available. CT scan of chest does not show any concerns for newly developed infectious process but does show persistent mucus plugging. 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 ENT consulted and performed a flexible fiberoptic laryngoscopy. Will see in outpatient setting, though do not think that these findings are driving uncontrolled asthma with frequent exacerbations. He will discharge on an extended steroid taper starting with 60 mg of prednisone for 3 days, 40 mg for 5 days, 20 mg for 5 days and will remain on 10 mg until he can be seen is Asthma clinic for follow up. His presentation with syncope was felt to be either vasovagal due to extreme cough or could very likely be secondary adrenal insufficiency given multiple courses on and off of steroids for frequent asthma exacerbations. He was evaluated by Neurology in the Emergency Department. In the hospital cardiac evaluation with 24 hours of cardiac monitoring and transthoracic echocardiogram did not reveal acardiogenic source of syncope. He will discharge on a 30 day event monitor and follow up with General Cardiology. Infectious workup remains negative at time of discharge but given degree of asthma exacerbation andthick sputum will finish a two week antibiotic course with levofloxacin through 09/29/23. Follow up will also include basic and northern skin testing. Given allergic and sinusitis componentrecommend fluticasone nasal spray daily and Anam Med sinus rinse as needed. documented in this encounter Plan of Treatment Upcoming Encounters Date Type Department Care Team (Late st Contact Info) Description 10/28/2023 12:30 PM CDT Diagnostic Division of Pulmonary Medicine in [place], [place] [address] [place] [phone] José Luis Lopez M.D. [address] [place] [phone] 11/01/2023 1:00 PM CDT Office Visit Division of Pulmonary Medicine in [place], [place] [address] [place] [phone] Zayra Thomas M.B.B.S., M.P.H. [address] [place] [phone] 11/11/2023 3:15 PM CDT Office Visit Department of Otorhinolaryngology in [place], [place] [address] [place] [phone] Steven Fernandez M.D. [address] [place] [phone] Pending Results Name Type Priority Associated Diagnoses Date/Time Fungal Culture, Routine Microbiology Routine 09/14/2023 8:41 PM CDT Mycobacterial Culture Microbiology Routine 0 09/14/2023 8:41 PM CDT Legionella Culture Microbiology Routine 08/23 3:58 AM CDT ECG Heart rhythm monitor (Holter) Cardiac Services Routine Syncope And Near Syncope 09/19/2023 2:51 PM CDT Scheduled Orders Name Type Priority Associated Diagnoses Orde r Schedule Mycobacterial Culture Microbiology Routine R outine lab collection (next collection) for 1 Occurrences starting 09/14/2023 until 09/14/2023 Northern Skin Test Procedures Routine Eosinophilic Asthma (HCC) Expected: 09/19/2023, Expires: 12/18/2024 Basic Skin Test Procedures Routine Eosinophilic Asthma (HCC) Expected: 09/19/2023, Expires: 12/18/2024 Scheduled Referrals Name Type Priority Associated Diagnoses Order Schedule Otorhinolaryngology office visit (clinic) Outpatient Referral Routine Expected: 09/17/2023, Expires: 12/16/2024 Cardiovascular Disease - General cardiology consult (clinic) Outpatient Referral Routine Syncope And Near Syncope Expected: 10/19/2023, Expires: 12/18/2024 documented as of this encounter Procedures Procedure Name Priority Date/Time Associated Diagnosis Comments HOLTER MONITOR - IN CLINIC BOILER TENDER Routine 09/19/2023 2:51 PM CDT Syncope And Near Syncope CBC WITH DIFFERENTIAL, B Routine 09/19/2023 6:23 AM CDT BASIC METABOLIC PANEL, S/P Routine 09/19/2023 6:23 AM CDT (TTE) 2D ECHO DOPPLER COLOR Routine 09/18/2023 10:01 AM CDT ADULT OXYGEN THERAPY Routine 09/18/2023 8:00 AM CDT REMOTE OXIMETRY MONITORING CONT. Routine 09/18/2023 8:00 AM CDT CBC WITH DIFFERENTIAL, B Routine 09/18/2023 4:09 AM CDT BASIC METABOLIC PANEL, S/P Routine 09/18/2023 4:09 AM CDT RESPIRATORY PANEL, PCR, MALL MANAGER Routine 09/17/2023 10:22 PM CDT ADULT OXYGEN THERAPY Routine 09/17/2023 8:00 PM CDT REMOTE OXIMETRY MONITORING CONT. Routine 09/17/2023 8:00 PM CDT MR BRAIN WITHOUT AND WITH IV CONTRAST RAD - Routine (most inpatients and all outpatients) 09/17/2023 7:32 PM CDT GLUCOSE POCT, B Routine 09/17/2023 11:21 AM CDT ADULT OXYGEN THERAPY Routine 09/17/2023 8:01 AM CDT REMOTE OXIMETRY MONITORING CONT. Routine 09/17/2023 8:01 AM CDT CBC WITH DIFFERENTIAL, B Routine 09/17/2023 5:01 AM CDT BASIC METABOLIC PANEL, S/P Routine 09/17/2023 5:01 AM CDT ADULT OXYGEN THERAPY Routine 09/16/2023 8:01 PM CDT REMOTE OXIMETRY MONITORING CONT. Routine 09/16/2023 8:01 PM CDT ADULT OXYGEN THERAPY Routine 09/16/2023 8:01 AM CDT REMOTE OXIMETRY MONITORING CONT. Routine 09/16/2023 8:01 AM CDT CBC WITH DIFFERENTIAL, B Routine 09/16/2023 12:47 AM CDT BASIC METABOLIC PANEL, S/P Routine 09/16/2023 12:47 AM CDT ADULT OXYGEN THERAPY Routine 09/15/2023 8:00 PM CDT REMOTE OXIMETRY MONITORING CONT. Routine 09/15/2023 8:[address] SINUSES WITHOUT IV CONTRAST RAD - Semiurgent (Fast; most ED patients; some inpatients) 09/15/2023 12:[address] CHEST WITHOUT IV CONTRAST RAD - Semiurgent (Fast; most ED patients; some inpatients) 09/15/2023 12:37 PM CDT TRYPTASE, S Routine 09/15/2023 10:50 AM CDT TROPONIN T, 5TH GEN, P Routine 09/15/2023 10:50 AM CDT ADULT OXYGEN THERAPY Routine 09/15/2023 8:01 AM CDT REMOTE OXIMETRY MONITORING CONT. Routine 09/15/2023 8:01 AM CDT (1, 3) [id number] (FUNGITELL), S Routine 09/15/2023 8:00 AM CDT ASPERGILLUS AG Routine 09/15/2023 8:00 AM CDT EOSINOPHIL COUNT, SPUTUM Routine 09/15/2023 3:58 AM CDT PNEUMOCYSTIS SMEAR Routine 09/15/2023 3: 58 AM CDT LEGIONELLA CULTURE Routine 09/15/2023 3: 58 AM CDT PATIENT STATUS Routine 09/15/2023 1:01 AM CDT VENOUS BLOOD GAS W/O COOX Routine 09/15/2023 1:01 AM CDT HEPATIC FUNCTION PANEL, S Routine 09/15/2023 1:01 AM CDT SPSMA RESULT Routine 09/15/2023 1:01 AM CDT STRONGYLOIDES AB, IGG Routine 09/15/2023 1:01 AM CDT CBC WITH DIFFERENTIAL, B Routine 09/15/2023 1:01 AM CDT PHOSPHORUS (INORGANIC), S Routine 09/15/2023 1:01 AM CDT BASIC METABOLIC PANEL, S/P Routine 09/15/2023 1:01 AM CDT BORDETELLA PCR Routine 09/14/2023 8:51 PM CDT PNEUMOCYSTIS PCR Routine 09/14/2023 8:41 PM CDT BACTERIAL CULTURE, AEROBIC + SUSC, RESP Routine 09/14/2023 8:41 PM CDT LEGIONELLA PCR Routine 09/14/2023 8:41 PM CDT FUNGAL SMEAR Routine 09/14/2023 8:41 PM CDT ACID FAST SMEAR FOR MYCOBACTERIUM Routine 09/14/2023 8:41 PM CDT GRAM STAIN Routine 09/14/2023 8:41 PM CDT FUNGAL CULTURE, ROUTINE Routine 09/14/2023 8:41 PM CDT HEPATIC FUNCTION PANEL, S Routine 09/14/2023 8:03 PM CDT ADULT OXYGEN THERAPY Routine 09/14/2023 8:00 PM CDT REMOTE OXIMETRY MONITORING CONT. Routine 09/14/2023 8:00 PM CDT REMOTE OXIMETRY [...] W/O COOX STAT 09/14/2023 10:51 AM CDT CBC WITH DIFFERENTIAL, B STAT 09/14/2023 10:50 AM CDT C-REACTIVE PROTEIN (CRP), S/P STAT 09/14/2023 10:50 AM CDT THYROID-STIMULATING HORMONE-SENSITIVE (S-TSH) STAT 09/14/2023 10:50 AM CDT LACTATE, B/P STAT 09/14/2023 10:50 AM CDT BASIC METABOLIC PANEL, S/P STAT 09/14/2023 10:50 AM CDT MAGNESIUM, S STAT 09/14/2023 10:45 AM CDT ECG STAT 09/14/2023 10:14 AM CDT documented in this encounter Results * CBC with Differential, Blood (09/19/2023 6:23 AM CDT) [facility] Hemoglobin 15.2 13.2 - 16.6 g/dL 09/19/2023 [...] José Luis Lopez M.D. LAB BLOOD ADD-ON [facility] [address] [place] [address], [facility] [address] [place] [address] * Basic Metabolic Panel (09/19/2023 6:23 AM CDT) Potassium, S 4.1 3.6 - 5.2 mmol/L [...] José Luis Lopez M.D. LAB BLOOD ADD-ON [address] [address], [address] [address] * (TTE) 2D ECHO DOPPLER COLOR (09/18/2023 [...] 11:30 AM CDT There are no previous [facility] echocardiograms available for comparison. Echo performed [...] both lungs. 8. There are no previous [facility] echocardiograms available for comparison. Procedure Note [...] both lungs. 8. There are no previous [facility] echocardiograms available forcomparison. Findings There are no previous [facility] echocardiograms available forcomparison. Echo performed at [...] Luis Lopez M.D. CV ECHO PROCEDURES * (ABNORMAL) CBC with Differential, Blood (09/18/2023 4:09 AM CDT) Hemoglobin 14.2 13.2 - 16.6 g/dL 09/18/2023 5:38 AM CDT DTL Hematocrit 41.8 38.3 - 48.6 % 09/18/2023 5:38 AM CDT DTL Erythrocytes 4.51 4.35 - 5.65 x10(12)/L 09/18/2023 5:38 AM CDT DTL MCV 92.7 78.2 - 97.9 fL 09/18/2023 5:38 AM CDT DTL RBC Distrib Width 12.4 11.8 - 14.5 % 09/18/2023 5:38 AM CDT DTL Platelet Count 174 135 - 317 x10(9)/L 09/18/2023 5:38 AM CDT DTL Leukocytes 10.0(H) 3.4 - 9.6 x10(9)/L 09/18/2023 5:38 AM CDT DTL Neutrophils 6.61(H) 1.56 - 6.45 x10(9)/L 09/18/2023 5:38 AM CDT PM Lymphocytes 2.20 0.95 - 3.07 x10(9)/L 09/18/2023 5:38 AM CDT DTL Monocytes 0.72 0.26 - 0.81 x10(9)/L 09/18/2023 5:38 AM CDT DTL Eosinophils 0.39 0.03 - 0.48 x10(9)/L 09/18/2023 5:38 AM CDT DTL Basophils 0.04 0.01 - 0.08 x10(9)/L 09/18/2023 5:38 AM CDT DTL Blood (Blood, Venous) 09/18/2023 4:09 AM CDT 09/18/2023 5:23 AM CDT José Luis Lopez M.D. LAB BLOOD ADD-ON [facility] [address] [place] [address], [facility] DTL [facility] [address] [place] [address] [facility] [address] [place] [address] * (ABNORMAL) Basic Metabolic Panel (09/18/2023 4:09 AM CDT) Potassium, S 3.6 3.6 - 5.2 mmol/L 09/18/2023 6:05 AM CDT DTL Sodium, S 141 135 - 145 mmol/L 09/18/2023 6:05 AM CDT DTL Chloride, S 103 98 - 107 mmol/L 09/18/2023 6:05 AM CDT DTL Bicarbonate, S 29 22 - 29 mmol/L 09/18/2023 6:05 AM CDT DTL Anion Gap 9 7 - 15 09/18/2023 6:05 AM CDT DTL BUN (Blood Urea Nitrogen), S 16 8 - 24 mg/dL 09/18/2023 6:05 AM CDT DTL Creatinine 0.97 0.74 - 1.35 mg/dL 09/18/2023 6:05 AM CDT DTL Estimated GFR (eGFR) 89 >=60 mL/min/BSA 09/18/2023 6:05 AM CDT DTL Comment: Estimated GFR calculated using the 2020 CKD_EPI creatinine equation. Calcium, Total, S 8.7(L) 8.8 - 10.2 mg/dL 09/18/2023 6:05 AM CDT DTL Glucose, S 103 70 - 140 mg/dL 09/18/2023 6:05 AM CDT DTL Blood (Blood, Venous) 09/18/2023 4:09 AM CDT 09/18/2023 5:34 AM CDT José Luis Lopez M.D. LAB BLOOD ADD-ON [facility] [address] [place] [address], [facility] [place]note 2[facility] [address] [place] [address] * Respiratory Panel, PCR, Nasopharyngeal (09/17/2023 10:22 [...] using the FDA-Cleared FilmArray Respiratory Panel 2.1 ([employer]). This assay is performed using the FilmArray Respiratory Panel 2.1 ([employer]). For testing performed at [facility] in [place], [place], performance characteristics for samples submitted in phosphate buffered saline were determined by [facility] in a manner consistent with CLIA requirements. Swab (Nasopharynx) 09/17/2023 10:22 PM CDT 09/17/2023 10:41 PM CDT José Luis Lopez M.D. LAB MICROBIOLOGY - GENERAL ORDERABLES [facility] [address] [place] [address], [facility] [address] [place] [address] * MR Brain without and with IV Contrast (09/17/2023 7:32 PM CDT) Anatomical Region Laterality Modality Head, Brain, Neuroradiology RST LOS, Neuroradiology ARZ LOS, Neuroradiology FLA LOS N/A Magnetic Resonance Impressions 09/17/2023 8:28 PM CDT No acute intracranial findings. Nothing specific for infectious GOLD MINER BLASTING etiologies or acute meningoencephalitis. Narrative 09/17/2023 8:28 [...] or acute meningoencephalitis. José Luis Lopez M.D. IMG MRI PROCEDURES * Glucose, POCT (09/17/2023 11:21 AM CDT) Glucose, POCT, B 131 70 - 140 mg/dL 09/17/2023 11:23 AM CDT PCLX Last Intake 2-3 hours 09/17/2023 11:23 AM CDT PCLX Blood 09/17/2023 11:2 1 AM CDT 09/17/2023 11:24 AM CDT Unknown Provider LAB POCT ORDERABLES- MANUAL POC [facility] [address] PCLX [facility] POC [address] [place] [address] * (ABNORMAL) CBC with Differential, Blood (09/17/2023 5:01 AM CDT) Hemoglobin 14.2 13.2 - 16.6 g/dL 09/17/2023 5:34 AM CDT DTL Hematocrit 42.9 38.3 - 48.6 % 09/17/2023 5:34 AM CDT DTL Erythrocytes 4.56 4.35 - 5.65 x10(12)/L 09/17/2023 5:34 AM CDT DTL MCV 94.1 78.2 - 97.9 fL 09/17/2023 5:34 AM CDT DTL RBC Distrib Width 12.4 11.8 - 14.5 % 09/17/2023 5:34 AM CDT DTL Platelet Count 173 135 - 317 x10(9)/L 09/17/2023 5:34 AM CDT DTL Leukocytes 8.5 3.4 - 9.6 x10(9)/L 09/17/2023 5:34 AM CDT DTL Neutrophils 5.20 1.56 - 6.45 x10(9)/L 09/17/2023 5:34 AM CDT DHPM Lymphocytes 2.22 0.95 - 3.07 x10(9)/L 09/17/2023 5:34 AM CDT DTL Monocytes 0.54 0.26 - 0.81 x10(9)/L 09/17/2023 5:34 AM CDT DTL Eosinophils 0.49(H) 0.03 - 0.48 x10(9)/L 09/17/2023 5:34 AM CDT DTL Basophils 0.03 0.01 - 0.08 x10(9)/L 09/17/2023 5:34 AM CDT DTL Blood (Blood, Venous) 09/17/2023 5:01 AM CDT 09/17/2023 5:20 AM CDT José Luis Lopez M.D. LAB BLOOD ADD-ON [facility] [address] [place] [address], [facility] DTL [facility] [address] [place] [address] [facility] [address] [place] [address] * (ABNORMAL) Basic Metabolic Panel (09/17/2023 5:01 AM CDT) [facility] Potassium, S 3.8 3.6 - 5.2 mmol/L 09/17/2023 5:48 AM CDT DTL Sodium, S 141 135 - 145 mmol/L 09/17/2023 5:48 AM CDT DTL Chloride, S 104 98 - 107 mmol/L 09/17/2023 5:48 AM CDT DTL Bicarbonate, S 28 22 - 29 mmol/L 09/17/2023 5:48 AM CDT DTL Anion Gap 9 7 - 15 09/17/2023 5:48 AM CDT DTL BUN (Blood Urea Nitrogen), S 15 8 - 24 mg/dL 09/17/2023 5:48 AM CDT DTL Creatinine 1.10 0.74 - 1.35 mg/dL 09/17/2023 5:48 AM CDT DTL Estimated GFR (eGFR) 77 >=60 mL/min/BSA 09/17/2023 5:48 AM CDT DTL Comment: Estimated GFR calculated using the 2020 CKD_EPI creatinine equation. Calcium, Total, S 8.6(L) 8.8 - 10.2 mg/dL 09/17/2023 5:48 AM CDT DTL Glucose, S 107 70 - 140 mg/dL 09/17/2023 5:48 AM CDT DTL Blood (Blood, Venous) 09/17/2023 5:01 AM CDT 09/17/2023 5:32 AM CDT José Luis Lopez M.D. LAB BLOOD ADD-ON [address] [address], [facility] [place]note 2[facility] [address] [place] [address] * CBC with Differential, Blood (09/16/2023 12:47 AM CDT) Hemoglobin 13.8 13.2 - 16.6 g/dL 09/16/2023 1:19 AM CDT DTL Hematocrit 41.3 38.3 - 48.6 % 09/16/2023 1:19 AM CDT DTL Erythrocytes 4.40 4.35 - 5.65 x10(12)/L 09/16/2023 1:19 AM CDT DTL MCV 93.9 78.2 - 97.9 fL 09/16/2023 1:19 AM CDT DTL RBC Distrib Width 12.6 11.8 - 14.5 % 09/16/2023 1:19 AM CDT DTL Platelet Count 188 135 - 317 x10(9)/L 09/16/2023 1:19 AM CDT DTL Leukocytes 9.1 3.4 - 9.6 x10(9)/L 09/16/2023 1:19 AM CDT DTL Neutrophils 6.14 1.56 - 6.45 x10(9)/L 09/16/2023 1:19 AM CDT DHPM Lymphocytes 1.71 0.95 - 3.07 x10(9)/L 09/16/2023 1:19 AM CDT DTL Monocytes 0.71 0.26 - 0.81 x10(9)/L 09/16/2023 1:19 AM CDT DTL Eosinophils 0.47 0.03 - 0.48 x10(9)/L 09/16/2023 1:19 AM CDT DTL Basophils 0.04 0.01 - 0.08 x10(9)/L 09/16/2023 1:19 AM CDT DTL Blood (Blood, Venous) 09/16/2023 12:47 AM CDT 09/16/2023 1:11 AM CDT José Luis Lopez M.D. LAB BLOOD ADD-ON [facility] [address] [place] [address], [facility] DTL [facility] [address] [place] [address] * Basic Metabolic Panel (09/16/2023 12:47 AM CDT) Potassium, S 4.1 3.6 - 5.2 mmol/L 09/16/2023 1:48 AM CDT DTL Sodium, S 141 135 - 145 mmol/L 09/16/2023 1:48 AM CDT DTL Chloride, S 104 98 - 107 mmol/L 09/16/2023 1:48 AM CDT DTL Bicarbonate, S 27 22 - 29 mmol/L 09/16/2023 1:48 AM CDT DTL Anion Gap 10 7 - 15 09/16/2023 1:48 AM CDT DTL BUN (Blood Urea Nitrogen), S 16 8 - 24 mg/dL 09/16/2023 1:48 AM CDT DTL Creatinine 1.24 0.74 - 1.35 mg/dL 09/16/2023 1:48 AM CDT DTL Estimated GFR (eGFR) 67 >=60 mL/min/BSA 09/16/2023 1:48 AM CDT DTL Comment: Estimated GFR calculated using the 2020 CKD_EPI creatinine equation. Calcium, Total, S 8.8 8.8 - 10.2 mg/dL 09/16/2023 1:48 AM CDT DTL Glucose, S 137 70 - 140 mg/dL 09/16/2023 1:48 AM CDT DTL Blood (Blood, Venous) 09/16/2023 12:47 AM CDT 09/16/2023 1:26 AM CDT José Luis Lopez M.D. LAB BLOOD ADD-ON [facility] [address] [place] [address], [facility] [place]note 2] [address] [place] [address] * CT Sinuses without IV Contrast (09/15/2023 [...] 12:37 PM CDT) Anatomical Region Laterality Modality Chest, [...] Luis Lopez M.D. IMG CT PROCEDURES * Troponin T, 5th Generation (09/15/2023 10:50 AM CDT) Troponin T, 5th gen 10 <=15 ng/L 09/15/2023 11:14 AM CDT [facility] Blood 09/15/2023 10:5 0 AM CDT 09/15/2023 10:56 AM CDT José Luis Lopez M.D. LAB BLOOD ADD-ON [facility] [address] [place] [address], [facility] [address] [place] [address] * Tryptase (09/15/2023 10:50 AM CDT) Tryptase, S 4.4 <11.5 ng/mL 09/16/2023 3:30 PM CDT [facility] Blood (Blood, Venous) 09/15/2023 10:50 AM CDT 09/15/2023 2:50 PM CDT José Luis Lopez M.D. LAB BLOOD ADD-ON Performing Organization Address City/[facility]/ZIP Co de Phone Number [facility] [address] [place] [address] [facility] [address] [place] [address] * Aspergillus Ag (09/15/2023 8:00 AM CDT) Pathologist [facility] Aspergillus Ag, S <0.500 <0.5 index 09/15/2023 10:33 PM CDT [facility] Comment: ----ADDITIONAL INFORMATION---- This is a qualitative test and the resulted index value is not indicative of disease severity. ??Serial testing is recommended for patients at high risk for invasive aspergillosis. This assay was performed using the FDA-cleared [employer] Platelia Aspergillus Galactomannan EIA. Blood (Blood, Venous) 09/15/2023 8:00 AM CDT 09/15/2023 10:24 AM CDT José Luis Lopez M.D. LAB MICROBIOLOGY - BLOOD ORDERABLES Performing Organization Address [facility] Co de Phone Number [facility] [address] [place] [address] [facility] [address] [place] [address] [place] [address] * (1, 3) Uvyt-E-Xhmzrr (Fungitell), Serum (09/15/2023 8:00 AM CDT) [facility] (1, 3) Ruos-K-Cpbxmb, Quantitative <31 <60 pg/mL pg/mL 09/15/2023 3:48 PM CDT [facility] (1, 3) Ensg-D-Unpevl, Qualitative Negative Negative 09/15/2023 3:48 PM CDT [facility] Comment: No (1, 3) Dzff-G-Aszswz detected. ?? This assay does not detect certain fungi, including Cryptococcus species, which produce very low levels of (1, 3) Uwne-Z-Tuhggv (BDG) and the Mucorales (e.g., Lichthemia, Mucor and Rhizopus), which are not known to produce BDG. Additionally, the yeast phase of Blastomyces dermatitidis produces little BDG and may not be detected by this assay. ----ADDITIONAL INFORMATION---- This assay was performed using the FDA-cleared Fungitell Assay ([facility], [place], [place], [place]), a kinetic AJ based on modification of the Limulus Amebocyte Lysate pathway. Blood (Blood, Venous) 09/15/2023 8:00 AM CDT 09/15/2023 10:24 AM CDT José Luis Lopez M.D. LAB MICROBIOLOGY - BLOOD ORDERABLES Performing Organization Address City/[facility]/ZIP Co de Phone Number [facility] [address] [place] [address] [facility] [address] [place] [address] [place] [address] * Eosinophil Count, Sputum (09/15/2023 3:58 AM CDT) Eosinophils 0 % DEFAULT 09/15/2023 3:14 PM CDT [facility] Comment: ----REFERENCE VALUE---- The reference range and other method performance specifications have not been established for this body fluid. The test result must be integrated into the clinical context for interpretation. Eosinophil Count, Comment 0 09/15/2023 3:14 PM CDT [facility] Sputum (Sputum) 09/15/2023 3 :58 AM CDT 09/15/2023 10:30 AM CDT Fuad Gardner M.D. LAB BODY FLUIDS A ND STOOLS ORDERABLES [facility] [address] [place] [address], [facility] [address] [place] [address] * Pneumocystis Smear (09/15/2023 3:58 AM CDT) Pneumocystis smear Negative. 09/15/2023 4:47 PM CDT DTL Sputum (Sputum) 09/15/2023 3 :58 AM CDT 09/15/2023 8:02 AM CDT Comment:Specimen Source Site : Sputum Fuad Gardner M.D. LAB MICROBIOLOGY - GENERAL ORDERABLES Performing Organization Address City/[facility]/ZIP Co de Phone Number [facility] [address] [place] [address], [facility] DTL [facility] [address] [place] [address] * Strongyloides Antibody, IgG (09/15/2023 1:01 AM CDT) Pathologist [facility] Strongyloides Ab, IgG, S Negative Negative 09/15/2023 7:44 PM CDT [facility] Comment: No detectable levels of IgG antibodies to Strongyloides. Repeat testing in 1-2 weeks if clinically indicated. Blood (Blood, Venous) 09/15/2023 1:01 AM CDT 09/15/2023 11:24 AM CDT José Luis Lopez M.D. LAB BLOOD ADD-ON [facility] [address] [place] [address] [facility] [address] [place] [address] * (ABNORMAL) Hepatic Function Panel (09/15/2023 1:01 AM CDT) Bilirubin, Total, S 0.9 0.0 - 1.2 [...] LAB BLOOD ADD-ON Performing Organization Address City/[facility] Co de Phone Number [facility] [address] [place] [address], [facility] [place]note 2] [address] [place] [address] * (ABNORMAL) SPSMA Result (09/15/2023 1:01 AM CDT) Pathologist [facility] Neutrophilic Segs and Bands 82(H) 50 - [...] Reviewed by: Kieran 09/15/2023 2:52 AM CDT DHPM Blood (Blood, Venous) 09/15/2023 1:01 AM CDT 09/15/2023 1:19 AM CDT José Luis Lopez M.D. LAB BLOOD ADD-ON Performing Organization Address City/[facility] Co de Phone Number [facility] [address] [place] [address], [facility] [address] [place] [address] * Patient Status (09/15/2023 1:01 AM CDT) O2 Flow 1.0 L/min 09/15/2023 1:08 AM CDT [facility] Device NC 09/15/2023 1:08 AM CDT [facility] Spont. breaths/min 15 09/15/2023 1:08 AM CDT [facility] Blood 09/15/2023 1:01 AM CDT 09/15/2023 1:08 AM CDT José Luis Lopez M.D. LAB BLOOD NON ADD-O N Performing Organization Address City/[facility] Co de Phone Number [facility] [address] [place] [address], [facility] [address] [place] [address] * Blood Gas without Coox, Venous (09/15/2023 1:01 AM CDT) pO2, Venous, B 50 Not applicable mm [...] NON ADD-O N Performing Organization Address City/[facility]/ZIP Co de Phone Number [facility] [address] [facility] [address] [place] [address] * Phosphorus Inorganic (09/15/2023 1:01 AM CDT) Phosphorus (Inorganic), S 2.8 2.5 - 4.5 mg/dL 09/15/2023 2:00 AM CDT DTL Blood (Blood, Venous) 09/15/2023 1:01 AM CDT 09/15/2023 1:28 AM CDT José Luis Lopez M.D. LAB BLOOD ADD-ON Performing Organization Address [facility] Co de Phone Number [facility] [address] [place], [place] [id number] [place] [address] [facility] [place]note 2] [address] [place] [address] * (ABNORMAL) CBC with Differential, Blood (09/15/2023 1:01 AM CDT) Pathologist [facility] Hemoglobin 14.9 13.2 - 16.6 g/dL 09/15/2023 1:25 AM CDT DTL Hematocrit 44.1 38.3 - 48.6 % 09/15/2023 1:25 AM CDT DTL Erythrocytes 4.72 4.35 - 5.65 x10(12)/L 09/15/2023 1:25 AM CDT DTL MCV 93.4 78.2 - 97.9 fL 09/15/2023 1:25 AM CDT DTL RBC Distrib Width 12.6 11.8 - 14.5 % 09/15/2023 1:25 AM CDT DTL Platelet Count 191 135 - 317 x10(9)/L 09/15/2023 1:25 AM CDT DTL Leukocytes 8.0 3.4 - 9.6 x10(9)/L 09/15/2023 1:25 AM CDT DTL Neutrophils 6.50(H) 1.56 - 6.45 x10(9)/L 09/15/2023 1:25 AM CDT DHPM Lymphocytes 0.96 0.95 - 3.07 x10(9)/L 09/15/2023 1:25 AM CDT DTL Monocytes 0.46 0.26 - 0.81 x10(9)/L 09/15/2023 1:25 AM CDT DTL Eosinophils 0.09 0.03 - 0.48 x10(9)/L 09/15/2023 1:25 AM CDT DTL Basophils 0.03 0.01 - 0.08 x10(9)/L 09/15/2023 1:25 AM CDT DTL Blood (Blood, Venous) 09/15/2023 1:01 AM CDT 09/15/2023 1:19 AM CDT José Luis Lopez M.D. LAB BLOOD ADD-ON [facility] [address] [place] [address], [facility] DTL [facility] [address] [place] [address] * (ABNORMAL) Basic Metabolic Panel (09/15/2023 1:01 AM CDT) Pathologist [facility] Potassium, S 4.4 3.6 - 5.2 mmol/L 09/15/2023 2:00 AM CDT DTL Sodium, S 142 135 - 145 mmol/L 09/15/2023 2:00 AM CDT DTL Chloride, S 105 98 - 107 mmol/L 09/15/2023 2:00 AM CDT DTL Bicarbonate, S 27 22 - 29 mmol/L 09/15/2023 2:00 AM CDT DTL Anion Gap 10 7 - 15 09/15/2023 2:00 AM CDT DTL BUN (Blood Urea Nitrogen), S 12 8 - 24 mg/dL 09/15/2023 2:00 AM CDT DTL Creatinine 1.07 0.74 - 1.35 mg/dL 09/15/2023 2:00 AM CDT DTL Estimated GFR (eGFR) 79 >=60 mL/min/BSA 09/15/2023 2:00 AM CDT DTL Comment: Estimated GFR calculated using the 2020 CKD_EPI creatinine equation. Calcium, Total, S 9.0 8.8 - 10.2 mg/dL 09/15/2023 2:00 AM CDT DTL Glucose, S 149(H) 70 - 140 mg/dL 09/15/2023 2:00 AM CDT DTL Blood (Blood, Venous) 09/15/2023 1:01 AM CDT 09/15/2023 1:28 AM CDT José Luis Lopez M.D. LAB BLOOD ADD-ON Performing Organization Address City/[facility] Co de Phone Number [facility] [address] [place] [address], [facility] [place]note 2[facility] [address] [place] [address] * Bordetella PCR (09/14/2023 8:51 PM CDT) Specimen source Nasopharynx 09/16/19 5:21 PM CDT DTL Bordetella pertussis PCR Negative Not Applicable 09/16/2023 5:21 PM CDT DTL Bordetella parapertussis PCR Negative Not Applicable 09/16/2023 5:21 PM CDT DTL Comment: ----ADDITIONAL INFORMATION---- This test was developed and its performance characteristics determined by [facility] in a manner consistent with CLIA requirements. This test has not been cleared or approved by the U.S. Food and Drug Administration. Swab (Nasopharynx) 09/14/2023 8:51 PM CDT 09/14/2023 9:21 PM CDT José Luis Lopez M.D. LAB MICROBIOLOGY - GENERAL ORDERABLES Performing Organization Address [facility] Co de Phone Number [facility] [address] [place] [address], [facility] DT 200 [facility] 200 [place] [address] * Pneumocystis PCR (09/14/2023 8:41 PM CDT) Specimen Source Sputum, Sputum 09/16/2023 10:17 AM CDT DTL Pneumocystis PCR Negative Not Applicable 09/16/2023 10:17 AM CDT DTL Comment: ----ADDITIONAL INFORMATION---- This test was developed and its performance characteristics determined by [facility] in a manner consistent with CLIA requirements. This test has not been cleared or approved by the U.S. Food and Drug Administration. Sputum (Sputum) 09/14/2023 8 :41 PM CDT 09/14/2023 9:14 PM CDT José Luis Lopez M.D. LAB MICROBIOLOGY - GENERAL ORDERABLES Performing Organization Address [facility] Co de Phone Number [facility] [address] [place] [address], [facility] DT [address] [address] * Legionella PCR (09/14/2023 8:41 PM CDT) Specimen Source Sputum, Sputum 09/15/2023 9:55 PM CDT DTL Legionella PCR, Result Negative Not Applicable 09/15/2023 9:55 PM CDT DTL Comment: ----ADDITIONAL INFORMATION---- This test was developed and its performance characteristics determined by [facility] in a manner consistent with CLIA requirements. This test has not been cleared or approved by the U.S. Food and Drug Administration. Sputum (Sputum) 09/14/2023 8 :41 PM CDT 09/14/2023 9:14 PM CDT José Luis Lopez M.D. LAB MICROBIOLOGY - GENERAL ORDERABLES Performing Organization Address City/[facility]/ZIP Co de Phone Number [facility] [address] [place] [address], [facility] DTL [address] [address] * Acid Fast Smear for Mycobacterium (09/14/2023 8:41 PM CDT) Acid Fast Smear For Mycobacterium Negative. 09/15/2023 3:24 PM CDT DTL Sputum (Sputum) 09/14/2023 8 :41 PM CDT 09/14/2023 9:14 PM CDT Comment:Specimen Source Site : Sputum Narrative [facility] - 09/15/2023 3:24 PM CDT Fungal and Mycobacteria specimens plated for culture, volume inadequate for optimal recovery. José Luis Lopez M.D. LAB MICROBIOLOGY - GENERAL ORDERABLES Performing Organization Address City/[facility] Co de Phone Number [facility] [address] [place], [place] [id number] [place] [address] 200 [place] [address] * Fungal Smear (09/14/2023 8:41 PM CDT) Fungal Smear Negative. 09/15/2023 9:43 AM CDT DTL Sputum (Sputum) 09/14/2023 8 :41 PM CDT 09/14/2023 9:14 PM CDT Comment:Specimen Source Site : Sputum Narrative [facility] - 09/15/2023 9:43 AM CDT Fungal and Mycobacteria specimens plated for culture, volume inadequate for optimal recovery. José Luis Lopez M.D. LAB MICROBIOLOGY - GENERAL ORDERABLES Performing Organization Address [facility] Co de Phone Number [facility] [address] [place] [address], [facility] [address] [place] [address] * Bacterial Culture, Aerobic + Susceptibility, Respiratory (09/14/2023 8:41 PM CDT) Bacterial Culture, Aerobic, Resp Upper respiratory/or al microbiota 09/16/2023 11:27 AM CDT DTL Sputum (Sputum) 09/14/2023 8 :41 PM CDT 09/14/2023 9:14 PM CDT Comment:Specimen Source Site : Sputum Narrative [facility] - 09/16/2023 11:27 AM CDT Fungal and Mycobacteria specimens plated for culture, volume inadequate for optimal recovery. José Luis Lopez M.D. LAB MICROBIOLOGY - GENERAL ORDERABLES Performing Organization Address City/[facility]/ZIP Co de Phone Number [facility] [address] [place], [place] [phone] [place] [phone] * Gram Stain (09/14/2023 8:41 PM CDT) Gram Stain Upper respiratory/ora l microbiota White blood cells, Few Epithelial cells, Few 09/15/2023 1:11 AM CDT DTL Sputum (Sputum) 09/14/2023 8 :41 PM CDT 09/14/2023 9:14 PM CDT Comment:Specimen Source Site : Sputum Narrative [facility] - 09/15/2023 1:11 AM CDT Fungal and Mycobacteria specimens plated for culture, volume inadequate for optimal recovery. José Luis Lopez M.D. LAB MICROBIOLOGY - GENERAL ORDERABLES Performing Organization Address [facility] Co de Phone Number [facility] [address] [place], [place] [phone] [place] [phone] * (ABNORMAL) Hepatic Function Panel (09/14/2023 8:03 PM CDT) Bilirubin, Total, S 1.1 0.0 - 1.2 mg/dL 09/14/2023 10:33 PM CDT DTL Bilirubin, Direct, S 0.4(H) 0.0 - 0.3 mg/dL 09/14/2023 10:33 PM CDT DTL Aspartate Aminotransferase (AST), S 22 8 - 48 U/L 09/14/2023 10:33 PM CDT DTL Alanine Aminotransferase (ALT), S 28 7 - 55 U/L 09/14/2023 10:33 PM CDT DTL Alkaline Phosphatase, S 58 40 - 129 U/L 09/14/2023 10:33 PM CDT DTL Albumin, S 4.1 3.5 - 5.0 g/dL 09/14/2023 10:33 PM CDT DTL Protein, Total, S 6.0(L) 6.3 - 7.9 g/dL 09/14/2023 10:33 PM CDT DTL Blood (Blood, Venous) 09/14/2023 8:03 PM CDT 09/14/2023 8:30 PM CDT José Luis Lopez M.D. LAB BLOOD ADD-ON [facility] [address] [place] [address], [facility] DTL [facility] [address] [place] [address] * DX Chest AP or PA and Lateral 2 Views (09/14/2023 11:49 AM CDT) Anatomical Region Laterality Modality Chest, Thoracic [...] focal consolidation or effusions. Richmond Huang P.A.-C. IMG DIAGNOSTIC IMAGING PROCEDURES * CT Head without [...] No acute intracranial findings. Richmond Huang P.A.-C. [facility] CT PROCEDUR ES * Patient Status (09/14/2023 10:51 AM CDT) FIO2 0.21 0.21=AIR 09/14/2023 10:55 AM CDT [facility] Spont. breaths/min 28 09/14/2023 10:55 AM CDT [facility] Blood 09/14/2023 10:5 1 AM CDT 09/14/2023 10:55 AM CDT Richmond Huang P.A.-C. LAB BLOOD NON A DD-ON [facility] [address] [place] [address], [facility] [address] [place] [address] * Blood Gas without Coox, Venous (09/14/2023 10:51 AM CDT) pO2, Venous, B 57 Not applicable mm Hg 09/14/2023 10:59 AM CDT [facility] pCO2, Venous, B 41 41 - 51 mm Hg 09/14/2023 10:59 AM CDT [facility] pH, Venous, B 7.42 7.32 - 7.43 pH 024 10:59 AM CDT [facility] Base Excess, Venous, B 2 Not applicable mmol/L 09/14/2023 10:59 AM CDT [facility] HCO3, Venous, B 26 Not applicable mmol/L 09/14/2023 10:59 AM CDT [facility] Sample Site, Venous, B Venipunct 09/14/2023 10:55 AM CDT [facility] Blood (Blood, Venous) 09/14/2023 10:51 AM CDT 09/14/2023 10:55 AM CDT Richmond Huang P.A.-C. LAB BLOOD NON A DD-ON [facility] [address] [place] [address], [facility] [address] [place] [address] * Lactate (09/14/2023 10:50 AM CDT) Lactate, P 2.2 0.5 - 2.2 mmol/L 09/14/2023 11:10 AM CDT [facility] Blood (Blood, Venous) 09/14/2023 10:50 AM CDT 09/14/2023 10:55 AM CDT Richmond Huang P.A.-C. LAB BLOOD NON A DD-ON Performing Organization Address [facility]/ZIP Co de Phone Number [facility] [address] [place] [address], [facility] [place] [address] * S-TSH (Thyroid-Stimulating Hormone - Sensitive) (09/14/2023 10:50 AM CDT) Pathologist [facility] TSH, Sensitive 1.3 0.3 - 4.2 mIU/L 09/14/2023 11:56 AM CDT DTL Blood (Blood, Venous) 09/14/2023 10:50 AM CDT 09/14/2023 11:23 AM CDT Richmond Huang P.A.-C. LAB BLOOD ADD-O N Performing Organization Address [facility] Co de Phone Number [facility] [address] [place] [address], [facility] DTL [facility] [address] [place] [address] * (ABNORMAL) Basic Metabolic Panel (09/14/2023 10:50 AM CDT) [facility] Potassium, P 3.7 3.6 - 5.2 mmol/L 09/14/2023 11:12 AM CDT [facility] Sodium, P 140 135 - 145 mmol/L 09/14/2023 11:12 AM CDT [facility] Chloride, P 105 98 - 107 mmol/L 09/14/2023 11:12 AM CDT [facility] Bicarbonate, P 26 22 - 29 mmol/L 09/14/2023 11:12 AM CDT [facility] Anion Gap, P 9 7 - 15 09/14/2023 11:12 AM CDT [facility] BUN (Blood Urea Nitrogen), P 11 8 - 24 mg/dL 09/14/2023 11:12 AM CDT [facility] Creatinine 0.98 0.74 - 1.35 mg/dL 09/14/2023 11:12 AM CDT [facility] Estimated GFR (eGFR) 88 >=60 mL/min/BSA 09/14/2023 11:12 AM CDT [facility] Comment: Estimated GFR calculated using the 2020 CKD_EPI creatinine equation. Calcium, Total, P 8.7(L) 8.8 - 10.2 mg/dL 09/14/2023 11:12 AM CDT [facility] Glucose, P 147(H) 70 - 140 mg/dL 09/14/2023 11:12 AM CDT [facility] Blood (Blood, Venous) 09/14/2023 10:50 AM CDT 09/14/2023 10:55 AM CDT Richmond Huang P.A.-C. LAB BLOOD ADD-O N Performing Organization Address City/[facility]/ZIP Co de Phone Number [facility] [address] [place], [place] [phone] [place] [address] [facility] [address] [place] [address] * (ABNORMAL) CRP (C-Reactive Protein) (09/14/2023 10:50 AM CDT) Pathologist [facility] C-Reactive Protein (CRP), S 5.4(H) <5.0 mg/L 09/14/2023 11:56 AM CDT DTL Blood (Blood, Venous) 09/14/2023 10:50 AM CDT 09/14/2023 11:23 AM CDT Richmond Huang P.A.-C. LAB BLOOD ADD-O N [facility] [address] [place], [place] [phone] [place] [address] [facility] [address] [place] [address] * (ABNORMAL) CBC with Differential, Blood (09/14/2023 10:50 AM CDT) Pathologist [facility] Hemoglobin 15.4 13.2 - 16.6 g/dL 09/14/2023 10:58 AM CDT [facility] Hematocrit 44.0 38.3 - 48.6 % 09/14/2023 10:58 AM CDT [facility] Erythrocytes 4.73 4.35 - 5.65 x10(12)/L 09/14/2023 10:58 AM CDT [facility] MCV 93.0 78.2 - 97.9 fL 09/14/2023 10:58 AM CDT [facility] RBC Distrib Width 12.8 11.8 - 14.5 % 09/14/2023 10:58 AM CDT [facility] Platelet Count 174 135 - 317 x10(9)/L 09/14/2023 10:58 AM CDT [facility] Leukocytes 6.4 3.4 - 9.6 x10(9)/L 09/14/2023 10:58 AM CDT [facility] Neutrophils 3.43 1.56 - 6.45 x10(9)/L 09/14/2023 10:58 AM CDT [facility] Lymphocytes 1.18 0.95 - 3.07 x10(9)/L 09/14/2023 10:58 AM CDT [facility] Monocytes 0.41 0.26 - 0.81 x10(9)/L 09/14/2023 10:58 AM CDT [facility] Eosinophils 1.33(H) 0.03 - 0.48 x10(9)/L 09/14/2023 10:58 AM CDT [facility] Basophils 0.03 0.01 - 0.08 x10(9)/L 09/14/2023 10:58 AM CDT [facility] Blood (Blood, Venous) 09/14/2023 10:50 AM CDT 09/14/2023 10:55 AM CDT Richmond Huang P.A.-C. LAB BLOOD ADD-O N [facility] [address] [place] [address], [facility] STMA [facility] [address] [place] [address] [facility] [address] [place] [address] * Magnesium (09/14/2023 10:45 AM CDT) [facility] Magnesium, S 2.2 1.7 - 2.3 mg/dL 09/14/2023 1:22 PM CDT DTL Blood (Blood, Venous) 09/14/2023 10:45 AM CDT 09/14/2023 1:04 PM CDT Richmond Huang P.A.-C. LAB BLOOD ADD-O N Performing Organization Address [facility] Co de Phone Number [facility] [address] [place] [address], [facility] DTL [facility] [address] [place] [address] * ECG 12 Lead (09/14/2023 10:14 AM CDT) Ventricular Rate ECG/Min 103 BPM MUSE [place] Interval 178 ms MUSE QRSD Interval 98 ms MUSE QT Interval 350 ms MUSE QTC Interval 458 ms MUSE P [employer] [place] 64 degrees MUSE R [employer] [place] -15 degrees MUSE T Wave [employer] [place] 55 degrees MUSE 09/14/2023 10:1 4 AM [...] WILLIAM Wills Richmond Huang P.A.-C. ECG ORDERABLES Performing Organization Address [facility] Co de Phone Number MUSE NA documented in this encounter Visit Diagnoses Diagnosis Syncope And Near Syncope- Primary Syncope And Near Syncope Bronchitis Chronic (HCC) Dyspnea Bronchitis Chronic (HCC) Eosinophilic Asthma (HCC) documented in this encounter Admitting Diagnoses Diagnosis Syncope And Near Syncope documented in this encounter Administered Medications Inactive Administered Medications - up to 3 most recent administrations Medication Order MAR Action Action Date Dose Rate Site albuterol 2.5 mg /3 mL nebulizer solution - ADS Override Pull Starting on Wed09/14/23 at 1456, For 1 dose, Created by cabinet override Given 09/14/2023 3:10 PM CDT 2.5 mg albuterol nebulizer solution 2.5 mg 2.5 mg, nebulization, Every 2 hour PRN, wheezing, shortness of breath, Starting on Wed09/14/23 at 1758 cefepime in dextrose (iso osm) IVPB 2 g (MAXIPIME) 2 g, intravenous, at 200 mL/hr, Administer over 30 Minutes, Every 12 hours, First dose on Wed09/15/23 at 1000, For 8 doses, Drug Monitoring Program: Pharmacist to adjust medication dosing based on indication and drug clearance factors., Indications: Respiratory tract infection, healthcare associated New Bag 09/18/2023 10:04 AM CDT 2 g 200 mL/h r New Bag 09/17/2023 9:43 PM CDT 2 g 200 mL/hr New Bag 09/17/2023 10:33 AM CDT 2 g 200 mL/hr enoxaparin injection 40 mg (LOVENOX) 40 mg, subcutaneous, Every 24 hours scheduled, First dose on Wed09/17/23 at 1200 Given 09/19/2023 9:24 AM CDT 40 mg Right Lower Abdomen Given 09/18/2023 8:13 AM CDT 40 mg Le ft Lower Abdomen Given 09/17/2023 1:00 PM CDT 40 mg Le ft Lower Abdomen fluticasone propionate 50 mcg/actuation nasal spray 2 spray (FLONASE) 2 spray, each nostril, 2 times daily, First dose on Wed09/15/23 at 2100 Given 09/19/2023 9:25 AM CDT 2 sprays Given 09/18/2023 8:46 PM CDT 2 sprays Given 09/18/2023 8:08 AM CDT 2 sprays gadobutrol injection 0.01-30 mL (GADAVIST) 0.01-30 mL, intravenous, Once in imaging, contrast, Starting on Wed09/17/23 at 1932, For 1 dose, Imaging Protocol Orders, Dose per Radiant Medication Guidelines Intrathecal doses greater than 0.25 mL not recommended. Given 09/17/2023 7:33 PM CDT 13 mL heparin (porcine) injection 5,000 Units 5,000 Units, subcutaneous, Every 8 hours scheduled, First dose (after last modification) on Wed09/14/23 at 2200, For 1 dose Given 09/14/2023 10:00 PM CDT 5,000 Units Left Lower Abdomen ipratropium-albuteroL 0.5-2.5 mg/3 mL nebulizer solution 3 mL (DUONEB) 3 mL, nebulization, Once, On Wed09/14/23 at 1106, For 1 dose Given 09/14/2023 11:12 AM CDT 3 mL ipratropium-albuteroL 0.5-2.5 mg/3 mL nebulizer solution 3 mL (DUONEB) 3 mL, nebulization, Once, On Wed09/14/23 at 1415, For 1 dose Given 09/14/2023 2:17 PM CDT 3 mL ipratropium-albuteroL 0.5-2.5 mg/3 mL nebulizer solution 3 mL (DUONEB) 3 mL, nebulization, 4 times daily (RT), First dose on Wed09/14/23 at 1815 Given 09/19/2023 3:41 PM CDT 3 mL Given 09/19/2023 11:59 AM CDT 3 mL Given 09/19/2023 7:39 AM CDT 3 mL levoFLOXacin tablet 500 mg (LEVAQUIN) 500 mg, oral, Daily before breakfast, First dose (after last modification) on Wed09/18/23 at 1530, Take 2 hours before or 6 hours after antacids containing magnesium or aluminum, sucralfate, didanosine, polymeric phosphate binders, or products containing calcium, iron, or zinc., Drug Monitoring Program: Pharmacist to adjust medication dosing based on indication and drug clearance factors., Indications: Respiratory tract infection, healthcare associated Given 09/19/2023 6:13 AM CDT 500 mg Given 09/18/2023 3:32 PM CDT 500 mg melatonin tablet 5 mg 5 mg, oral, Daily at bedtime, First dose on Wed09/14/23 at 2145 Given 09/18/2023 8:46 PM CDT 5 mg Given 09/17/2023 9:45 PM CDT 5 mg Given 09/16/2023 9:05 PM CDT 5 mg NaCl 0.9 % bolus 1,000 mL 1,000 mL, intravenous, at 1,000 mL/hr, Administer over 1 Hours, Once, On Wed09/14/23 at 1439, For 1 dose New Bag 09/14/2023 2:54 PM CDT 1,000 mL 1000 mL/hr predniSONE tablet 20 mg (DELTASONE) 20 mg, oral, Once, On Wed09/17/23 at 0945, For 1 dose Given 09/17/2023 10:00 AM CDT 20 mg predniSONE tablet 40 mg (DELTASONE) 40 mg, oral, Once, On Wed09/14/23 at 1415, For 1 dose Given 09/14/2023 2:36 PM CDT 40 mg predniSONE tablet 40 mg (DELTASONE) 40 mg, oral, Daily, First dose on Wed09/15/23 at 0915 Given 09/16/2023 9:47 AM CDT 40 mg Given 09/15/2023 9:55 AM CDT 40 mg predniSONE tablet 40 mg (DELTASONE) 40 mg, oral, Daily, First dose (after last modification) on Wed09/17/23 at 0900, For 2 doses Given 09/17/2023 9:15 AM CDT 40 mg predniSONE tablet 60 mg (DELTASONE) 60 mg, oral, Daily, First dose (after last modification) on Wed09/18/23 at 0900 Given 09/19/2023 9:25 AM CDT 60 mg Given 09/18/2023 10:03 AM CDT 60 mg sodium chloride 0.9 % injection 10 mL 10 mL, intravenous, As needed, line care, Starting on Wed09/14/23 at 1614, Peripheral Intravenous Catheter and Rapid Infusion Catheter, prior to blood sampling, post blood transfusion or post blood sampling sodium chloride 0.9 % injection 3 mL 3 mL, intravenous, As needed, line care, Starting on Wed09/14/23 at 1614, Prior to and following infusion and between multiple consecutive infusions: sodium chloride 0.9 % injection sodium chloride 0.9 % injection 3 mL 3 mL, intravenous, Every 12 hours scheduled, First dose on Wed09/14/23 at 2100, Peripheral Intravenous Catheter and Rapid Infusion Catheter, when no infusion to maintain patency Given 09/18/2023 10 :04 AM CDT 3 mL Given 09/17/2023 9:44 PM CDT 3 mL Given 09/17/2023 9:00 AM CDT 3 mL sodium chloride 0.9 % nebulizer solution 3 mL 3 mL, nebulization, Once, On Wed09/14/23 at 1427, For 1 dose Given 09/14/2023 3:11 PM CDT 3 mL sodium chloride-sodium bicarbonate nasal rinse 1 Application (NEILMED SINUS RINSE) 1 Application, each nostril, Once, On Wed09/15/23 at 1515, For 1 dose, Use water that is either sterile, distilled, or previously boiled for preparations; do not use tap water. Given 09/15/2023 4:34 PM CDT 1 Applic ation sodium chloride-sodium bicarbonate nasal rinse 1 Application (NEILMED SINUS RINSE) 1 Application, each nostril, 4 times daily PRN, congestion, Starting on Wed09/15/23 at 1451, Use water that is either sterile, distilled, or previously boiled for preparations; do not use tap water. sodium chloride-sodium bicarbonate nasal rinse 1 Application (NEILMED SINUS RINSE) 1 Application, each nostril, 2 times daily, First dose on Wed09/16/23 at 2100, Use water that is either sterile, distilled, or previously boiled for preparations; do not use tap water. Given 09/19/2023 9:27 AM CDT 1 Application Given 09/18/2023 10:34 AM CDT 1 Application Given 09/17/2023 9:17 AM CDT 1 Application documented in this encounter Active and Recently Administered Medications Times are shown in CDT. Scheduled Medication Order 09/17/2023 09/18/2023 09/19/2023 cefepime in dextrose (iso osm) IVPB 2 g (MAXIPIME) (CANCELED) 2 g, intravenous, at 200 mL/hr, Administer over 30 Minutes, Every 12 hours, First dose on Wed09/15/23 at 1000, For 8 doses, Drug Monitoring Program: Pharmacist to adjust medication dosing based on indication and drug clearance factors., Indications: Respiratory tract infection, healthcare associated 1033 (New Bag - Provider: Homero Valentine RTammyN.)9513 (New Bag - Provider: Ron Alanis RTammyN.) 1004 (New Bag - Provider: Bobby Posada R.N.) enoxaparin injection 40 mg (LOVENOX) 40 mg, subcutaneous, Every 24 hours scheduled, First dose on Wed09/17/23 at 1200 1300 (Given - Provider: Homero Valentine R.N.) 0813 (Given - Provider: Bobby Posada R.N.) 0924 (Given - Provider: Hallie Elder R.N.) fluticasone propionate 50 mcg/actuation nasal spray 2 spray (FLONASE) 2 spray, each nostril, 2 times daily, First dose on Wed09/15/23 at 2100 0915 (Given - Provider: Homero Valentine R.N.)2144 (Given - Provider: Ron Alanis R.N.) 0808 (Given - Provider: Bobby Posada R.N.)2046 (Given - Provider: Ron Alanis R.N.) 0925 (Given - Provider: Hallie Elder R.N.) ipratropium-albuteroL 0.5-2.5 mg/3 mL nebulizer solution 3 mL (DUONEB) 3 mL, nebulization, 4 times daily (RT), First dose on Wed09/14/23 at 1815 0635 (Given - Provider: Vita Rivera R.N.)1050 (Given - Provider: Homero Valentine R.N.)1500 (Not Given - Provider: Homero Valentine R.N. - Reason: Other)1905 (Not Given - Provider: Eddie Amaya R.N. - Reason: Patient not available - Comment: Off unit for brain MRI) 0749 (Given - Provider: Bobby Posada R.N.)1004 (Given - Provider: Bobby Posada R.N.)1426 (Given - Provider: Bobby Posada R.N.)1845 (Given - Provider: Bobby Posada R.N.) 0739 (Given - Provider: Hallie Elder R.N.)1159 (Given - Provider: Hallie Elder R.N.)1541 (Given - Provider: Ivette Moulton R.N.) levoFLOXacin tablet 500 mg (LEVAQUIN) 500 mg, oral, Daily before breakfast, First dose (after last modification) on Wed09/18/23 at 1530, Take 2 hours before or 6 hours after antacids containing magnesium or aluminum, sucralfate, didanosine, polymeric phosphate binders, or products containing calcium, iron, or zinc., Drug Monitoring Program: Pharmacist to adjust medication dosing based on indication and drug clearance factors., Indications: Respiratory tract infection, healthcare associated 1532 (Given - Provider: Bobby Posada R.N.) 0613 (Given - Provider: Ron Alanis R.N.) melatonin tablet 5 mg 5 mg, oral, Daily at bedtime, First dose on Wed09/14/23 at 2145 2145 (Given - Provider: Ron Alanis R.N.) 2045 (Given - Provider: Ron Alanis R.N.) predniSONE tablet 20 mg (DELTASONE) (COMPLETED) 20 mg, oral, Once, On Wed09/17/23 at 0945, For 1 dose 1000 (Given - Provider: Homero Valentine R.N.) predniSONE tablet 40 mg (DELTASONE) (CANCELED) 40 mg, oral, Daily, First dose (after last modification) on Wed09/17/23 at 0900, For 2 doses 0915 (Given - Provider: Homero Valentine R.N.) predniSONE tablet 60 mg (DELTASONE) 60 mg, oral, Daily, First dose (after last modification) on Wed09/18/23 at 0900 1003 (Given - Provider: Bobby Posada R.N.) 0925 (Given - Provider: Hallie Elder R.N.) sodium chloride 0.9 % injection 3 mL 3 mL, intravenous, Every 12 hours scheduled, First dose on Wed09/14/23 at 2100, Peripheral Intravenous Catheter and Rapid Infusion Catheter, when no infusion to maintain patency 0900 (Given - Provider: Homero Valentine R.N.)2143 (Given - Provider: Ron Alanis R.N.) 1004 (Given - Provider: Bobby Posada R.N.)2134 (Not Given - Provider: Shalom M Wanyonyi, R.N. - Reason: Other - Comment: no piv) 0924 (Not Given - Provider: Hallie Elder RMichi - Reason: Loss of IV access) sodium chloride-sodium bicarbonate nasal rinse 1 Application (NEILMED SINUS RINSE) 1 Application, each nostril, 2 times daily, First dose on Wed09/16/23 at 2100, Use water that is either sterile, distilled, or previously boiled for preparations; do not use tap water. 0917 (Given - Provider: Homero Valentine RMichi)2230 (Not Given - Provider: Ron Alanis R.N. - Reason: Patient/family refused) 1034 (Given - Provider: Bobby Posada R.N.)2100 (Due) 09 (Given - Provider: Hallie Elder R.N.) PRN Medication Order 09/17/2023 09/18/2023 09/19/2023 albuterol nebulizer solution 2.5 mg 2.5 mg, nebulization, Every 2 hour PRN, wheezing, shortness of breath, Starting on Wed09/14/23 at 1758 gadobutrol injection 0.01-30 mL (GADAVIST) (COMPLETED) 0.01-30 mL, intravenous, Once in imaging, contrast, Starting on Wed09/17/23 at 1932, For 1 dose, Imaging Protocol Orders, Dose per Radiant Medication Guidelines Intrathecal doses greater than 0.25 mL not recommended. 193 (Given - Provider: Mukesh Mercado(MR) - Comment: [id number]) sodium chloride 0.9 % injection 10 mL 10 mL, intravenous, As needed, line care, Starting on Wed09/14/23 at 1614, Peripheral Intravenous Catheter and Rapid Infusion Catheter, prior to blood sampling, post blood transfusion or post blood sampling sodium chloride 0.9 % injection 3 mL 3 mL, intravenous, As needed, line care, Starting on Wed09/14/23 at 1614, Prior to and following infusion and between multiple consecutive infusions: sodium chloride 0.9 % injection sodium chloride-sodium bicarbonate nasal rinse 1 Application (NEILMED SINUS RINSE) 1 Application, each nostril, 4 times daily PRN, congestion, Starting on Wed09/15/23 at 1451, Use water that is either sterile, distilled, or previously boiled for preparations; do not use tap water. documented in this encounter Additional Health Concerns Infection Onset Date Last Indicated Resolved Time COVID19 Pending 09/17/2023 09/17/2023 09/17/2023 1 1:38 PM CDT documented as of this encounter Care Teams Hydroelectric Station Operator Relationship Specialty Start Date End Date Elsewhere, Pcp PCP - General Internal Medicine 07/18/23 documented as of this encounter
--- OUTSIDE RECORDS SUMMARY | 2023-09-20 18:41 | XMS_ITS | Encounter Summary ---
Author Name Unknown Organization [facility] Address [address] [place] [address] Care Team Providers Care Locomotive Mechanic Name Role Phone Elsewhere, Pcp Primary Care Provider Unavailabl e Encounter Details Date Type Department Care Team (Late st Contact Info) Description 09/14/2023 Orders Only [facility]ST HIM [address] [place] [address] Victoria Carrion M.D. [address] [place] [address] Bronchiectasis (HCC) (Primary Dx) Social History Tobacco Use Types Packs/Day Years Used Date Smoking Tobacco: Former Cigarettes Smokeless Tobacco: Never Alcohol Use Standard Drinks/Week Comments Yes 0 (1 standard drink = 0.6 oz pur e alcohol) 2 beers a week [facility] Utilities Answer Date Recorded In the past 12 months has [facility] [employer], gas, oil, or water [employer] threatened to shut off services in your [...] Employment status Employed but not working due marilee limon 08/24/2023 Housing Stability Answer Date Recorded What is your living situation today? I have a [facility] place to live 09/14/2023 Sex [...] CDT Diagnostic Division of Pulmonary Medicine in [place], [place] [address] [place] [address] José Luis Lopez M.D. [address] [place] [address] 11/01/2023 1:00 PM CDT Office Visit Division of Pulmonary Medicine in [place], [place] [address] [place] [phone] Zayra Thomas M.B.B.S., M.P.H. [address] [place] [phone] 11/11/2023 3:15 PM CDT Office Visit Department of Otorhinolaryngology in [place], [place] [address] [place] [phone] Steven Fernandez M.D. [address] [place] [phone] documented as of this encounter Visit Diagnoses Diagnosis Bronchiectasis (HCC)- Primary documented in this encounter Care Teams Locomotive Mechanic Relationship Specialty Start Date End Date Elsewhere, Pcp PCP - General Internal Medicine 07/18/23 documented as of this encounter
--- OUTSIDE RECORDS SUMMARY | 2023-09-20 18:41 | XMS_ITS | Encounter Summary ---
Author Name Unknown Organization [facility] Address [address] [place] [address] Care Team Providers Care Wood Machine Carver Name Role Phone Elsewhere, Pcp Primary Care Provider Unavailabl e Reason for Visit * Reason Onset Date Comments Post Hospital Follow-up 09/16/2023 Encounter Details Date Type Department Care Team (Latest Contact Info) Description 09/16/2023 Clinical Communication RST HIM [address] [place] [address] José Luis Lopez M.D. [address] [place] [address] Post Hospital Follow-up Social History Tobacco Use Types Packs/Day Years Used Date Smoking Tobacco: Former Cigarettes Smokeless Tobacco: Never Alcohol Use Standard Drinks/Week Comments Yes 0 (1 standard drink = 0.6 oz pur e alcohol) 2 beers a week [facility] Utilities Answer Date Recorded In the past 12 months has [facility] [employer], oil, or water [email or web address] threatened to shut off services in your [...] money to buy more. Never true 09/14/19 Within the past 12 months, t he [...] your living situation today? I have a [facility] place to live 09/14/2023 Sex and [...] CDT Diagnostic Division of Pulmonary Medicine in [place], [place] 200 [place] [address] José Luis Lopez M.D. [address] [place] [phone] 11/01/2023 1:00 PM CDT Office Visit Division of Pulmonary Medicine in [place], [place] [address] [place] [phone] Zayra Thomas M.B.B.S., M.P.H. [address] [place] [phone] 11/11/2023 3:15 PM CDT Office Visit Department of Otorhinolaryngology in [place], [place] [address] [place] [phone] Steven Fernandez M.D. [address] [place] [phone] Scheduled Orders Name Type Priority Associated Diagnoses Orde r Schedule PUL Exhaled Nitric Oxide PFT Routine Asthma Chronic (HCC) Expected: 10/28/2023, Expires: 12/15/2024 documented as of this encounter Visit Diagnoses Diagnosis Asthma Chronic (HCC)- Primary documented in this encounter Care Teams Wood Machine Carver Relationship Specialty Start Date End Date Elsewhere, Pcp PCP - General Internal Medicine 07/18/23 documented as of this encounter
--- OUTSIDE RECORDS SUMMARY | 2023-09-20 18:41 | XMS_ITS | Encounter Summary ---
Author Name Unknown Organization [facility] Address [address] [place] [address] Care Team Providers Care Garbage Truck Helper Name Role Phone Elsewhere, Pcp Primary Care Provider Unavailabl e Reason for Visit * Reason Onset Date Comments Appt Request 09/14/2023 Encounter Details Date Type Department Care Team ([facility] st Contact Info) Description 09/14/2023 Clinical Communication RST HIM [address] [place] [phone] Victoria Carrion M.D. [address] [place] [phone] Appt Request Social History Tobacco Use Types Packs/Day Years Used Date Smoking Tobacco: Former Cigarettes Smokeless Tobacco: Never Alcohol Use Standard Drinks/Week Comments Yes 0 (1 standard drink = 0.6 oz pur e alcohol) 2 beers a week [facility] Utilities Answer Date Recorded In the past 12 months has [facility] [employer], oil, or water [employer] threatened to shut off services in your [...] Employed but not working due t delores quetalough 08/24/2023 Housing Stability Answer Date Recorded What is your living situation today? I have a [facility] place to live 09/14/2023 Sex and [...] CDT Diagnostic Division of Pulmonary Medicine in [place], [place] 200 [place] [address] José Luis Lopez M.D. 200 [place] [phone] 11/01/2023 1:00 PM CDT Office Visit Division of Pulmonary Medicine in [place], [place] [address] [place] [phone] Zayra Thomas M.B.B.S., M.P.H. [address] [place] [phone] 11/11/2023 3:15 PM CDT Office Visit Department of Otorhinolaryngology in [place], [place] [address] [place] [phone] Steven Fernandez M.D. [address] [place] [phone] documented as of this encounter Visit Diagnoses Not on filedocumented in this encounter Additional Health Concerns Infection Onset Date Last Indicated Resolved Time COVID19 Pending 09/17/2023 09/17/2023 09/17/2023 1 1:38 PM CDT documented as of this encounter Care Teams Garbage Truck Helper Relationship Specialty Start Date End Date Elsewhere, Pcp PCP - General Internal Medicine 07/18/23 documented as of this encounter
--- OUTSIDE RECORDS SUMMARY | 2023-09-20 18:41 | XMS_ITS ---
Author Name Unknown Organization [facility] Address [address] [place] [address] Care Team Providers Care Pen Ruler Operator Name Role Phone Unavailable Unavailable Unavailable Surgery Details Not on file Complications Check Surgery Details section. Procedure Estimated Blood Loss Check Surgery Details section. Procedure Findings Check Surgery Details section. Procedure Specimens Taken Check Surgery Details section.
--- OUTSIDE RECORDS SUMMARY | 2023-09-20 18:41 | XMS_ITS | Encounter Summary ---
Author Name Unknown Organization [facility] Address [address] [place] [address] Care Team Providers Care Centrifugal Station Operator Name Role Phone Elsewhere, Pcp Primary Care Provider Unavailabl e Reason for Referral * Specialty Diagnoses / Procedures Referred By Jarvis hunt Referred To Contact Ricky Leiva M.D. [address] [place] [phone] [facility] Referral ID Status Reason Start Date Expiration Date Visits Re quested Visits Authorized Encounter Details Date Type Department Care Team (Late st Contact Info) Description 09/13/2023 Virtual Visit Division of Pulmonary Medicine in [place], [place] [address] [place] [phone] Ricky Leiva M.D. [address] [place] [phone] Bronchitis Chronic (HCC) (Primary Dx) Social History Tobacco Use Types Packs/Day Years Used Date Smoking Tobacco: Former Cigarettes Alcohol Use Standard Drinks/Week Comments Yes 0 (1 standard drink = 0.6 oz pur e alcohol) 2 beers a week [facility] Utilities Answer Date Recorded In the past 12 months has th e electric, gas, oil, or water company [...] your living situation today? I have a [facility] place to live 09/14/2023 Sex and Gender Information Value Date Recorded Sex Assigned at Male 08/24/2023 2:34 PM CDT Gender Identity Male 08/24/2023 2:34 PM CDT Sexual Orientation Straight 08/24/2023 2: 34 PM CDT documented as of this encounter Progress Notes * Ricky Leiva M.D. - 09/13/2023 3:16 PM CDT I responded to the patient's call on worsening symptoms. Had a talk for about 5 minutes with the patient and his . It turns out that the symptoms of fatigue and desat have been ongoing for a few months (since last hospitalization). Pulmonary Hygiene seems like it is helping but for sure it has not particularly worsened his symptoms. Also, he feels improved with Hospital DuoNeb but at home DuoNeb with minimal improvement Assessment/Plan # Chronic Bronchitis Given these findings, I spoke to Pulm RNs to have him scheduled for Nebulizer check for potential discrepancy from home vs. Hospital DuoNeb Follow up on sputum culture for now. If that one is again non-diagnostic, then plan is to consider Bronchoscopy for better sampling of mucus plug. Case discussed with Dr. Pritchard ([facility]). Dr. Cheek currently on vacation Ricky Leiva MD Department of Pulmonary and Critical Care Fellow, PGY-4 documented in this encounter Plan of Treatment Upcoming Encounters Date Type Department Care Team (Late st Contact Info) Description 10/28/2023 12:30 PM CDT Diagnostic Division of Pulmonary Medicine in [place], [place] [address] [place] [address] José Luis Lopez M.D. [address] [place] [address] 11/01/2023 1:00 PM CDT Office Visit Division of Pulmonary Medicine in [place], [place] [address] [place] [address] Zayra Thomas M.B.BTammyS., M.P.H. [address] [place] [phone] 11/11/2023 3:15 PM CDT Office Visit Department of Otorhinolaryngology in [place], [place] [address] [place] [address] Steven Fernandez M.D. 200 [place] [address] Scheduled Referrals Name Type Priority Associated Diagnoses Orde r Schedule Pulmonary - Nebulizer education (clinic) Outpatient Referral Routine Bronchitis Chronic (HCC) Expected: 09/13/2023, Expires: 12/12/2024 documented as of this encounter Visit Diagnoses Diagnosis Bronchitis Chronic (HCC)- Primary documented in this encounter Care Teams Centrifugal Station Operator Relationship Specialty Start Date End Date Elsewhere, Pcp PCP - General Internal Medicine 07/18/23 documented as of this encounter
--- OUTSIDE RECORDS SUMMARY | 2023-09-20 18:41 | XMS_ITS | Encounter Summary ---
Author Name Unknown Organization [facility] Address [address] [place] [address] Care Team Providers Care Metallurgist Process Name Role Phone Elsewhere, Pcp Primary Care Provider Unavailabl e Encounter Details Date Type Department Care Team ([facility] st Contact Info) Description 09/13/2023 Clinical Communication Division of Pulmonary Medicine in [place], [place] [address] [place] [address] iRcky Leiva M.D. [address] [place] [address] Social History Tobacco Use Types Packs/Day Years Used Date Smoking Tobacco: Former Cigarettes Alcohol Use Standard Drinks/Week Comments Yes 0 (1 standard drink = 0.6 oz pur e alcohol) 2 beers a week [facility] Utilities Answer Date Recorded In the past 12 months has [facility] [employer], gas, oil, or water [employer] threatened to shut off services in your [...] your living situation today? I have a [facility] place to live 09/14/2023 Sex and Gender Information Value Date Recorded Sex Assigned at Male 08/24/2023 2:34 PM CDT Gender Identity Male 08/24/2023 2:34 PM CDT Sexual Orientation Straight 08/24/2023 2: 34 PM CDT documented as of this encounter Miscellaneous Notes * Telephone Encounter - Ricky Leiva M.D. - 09/13/2023 2:56 PM CDT I spoke to the patient about the next step after discussing the case our DOD today. We will wait until this sputum culture results come back. If non-diagnostic again (this will be third round of sputum culture collection), we will proceed with BAL bronchoscopy for direct look. Overall though, he is feeling worsening since the last hospitalization rather than after the initiation of our pulmonary hygiene. Ricky Leiva MD Department of Pulmonary and Critical Care Fellow, PGY-4 documented in this encounter Plan of Treatment Upcoming Encounters Date Type Department Care Team (Late st Contact Info) Description 10/28/2023 12:30 PM CDT Diagnostic Division of Pulmonary Medicine in [address] [phone] José Luis Lopez M.D. [address] [place] [phone] 11/01/2023 1:00 PM CDT Office Visit Division of Pulmonary Medicine in [address] [phone] Zarya Thomas M.B.BTammyS., M.P.H. [address] [place] [phone] 11/11/2023 3:15 PM CDT Office Visit Department of Otorhinolaryngology in [address] [phone] Steven Fernandez M.D. [address] [place] [phone] documented as of this encounter Visit Diagnoses Not on filedocumented in this encounter Care Teams Metallurgist Process Relationship Specialty Start Date End Date Elsewhere, Pcp PCP - General Internal Medicine 07/18/23 documented as of this encounter
--- OUTSIDE RECORDS SUMMARY | 2023-09-20 18:42 | XMS_ITS | Encounter Summary ---
Author Name Unknown Organization [facility] Address [address] [place] [phone] Care Team Providers Care Supply Assistant Name Role Phone Elsewhere, Pcp Primary Care Provider Unavailabl e Reason for Visit * Reason Comments Patient Education Bronchial Hygiene Encounter Details Date Type Department Care Team ([facility] st Contact Info) Description 09/01/2023 1:30 PM CDT Telemedicine Division of Pulmonary Medicine in [place], [place] [address] [place] [phone] Ricky Leiva M.D. [address] [place] [phone] Megan Lindsey, RTammyNTammy [address] [place] [phone] Bronchitis Chronic (HCC) Social History Tobacco Use Types Packs/Day Years Used Date Smoking Tobacco: Former Cigarettes Alcohol Use Standard Drinks/Week Comments Yes 0 (1 standard drink = 0.6 oz pur e alcohol) 2 beers a week [facility] Utilities Answer Date Recorded In the past 12 months has e electric, gas, oil, or water company threatened to shut off services in your home? No 08/24/2023 Humiliation, Afraid, Rape, and Kick questionnair e Answer Date Recorded Within the last year, have y ou been afraid of your partner or ex-partner? No 07/18/2023 Within the last year, have y ou been humiliated or emotionally abused in other ways by your partner or ex-partner? No Within the last year, have y ou been kicked, hit, slapped, or otherwise physically hurt by your partner or ex-partner? No 07/18/2023 Within the last year, have y ou been raped or forced to have any kind of sexual activity by your partner or ex-partner? No 07/18/2023 Exercise Vital Sign Answer Date Recorde d [...] the money to buy more. Never true 08/24/19 Within the past 12 months, t he food you bought just didn't last and you didn't have money to get more. Never true 08/24/2023 PRAPARE - Transportation Answer Date Re corded In the past 12 months, has l ack of transportation kept you from medical appointments or from getting medications? No 06/2023 In the past 12 months, has l ack of transportation kept you from meetings, work, or from getting things needed for daily living? No 08/24/2023 Nutrition Answer Date Recorded On average, how [...] your living situation today? I have a [facility] place to live 08/24/2023 Sex and Gender Information Value Date Recorded Sex Assigned at Male 08/24/2023 2:34 PM CDT Gender Identity Male 08/24/2023 2:34 PM CDT Sexual Orientation Straight 08/24/2023 2: 34 PM CDT documented as of this encounter Progress Notes * Megan Lindsey R.N. - 09/01/2023 1:30 PM CDT Consult conducted via real-time audio/video technology by Megan Lindsey R.N. in [facility] to the patient in Patient's Home documented in this encounter Plan of Treatment Upcoming Encounters Date Type Department Care Team (Late st Contact Info) Description 10/28/2023 12:30 PM CDT Diagnostic Division of Pulmonary Medicine in [address] [phone] José Luis Lopez M.D. [address] [place] [phone] 11/01/2023 1:00 PM CDT Office Visit Division of Pulmonary Medicine in [place], [place] [address] [place] [phone] Zayra Thomas M.B.B.S., M.P.H. [address] [place] [phone] 11/11/2023 3:15 PM CDT Office Visit Department of Otorhinolaryngology in [place], [place] [address] [place] [phone] Steven Fernandez M.D. [address] [place] [phone] documented as of this encounter Visit Diagnoses Diagnosis Bronchitis Chronic (HCC) documented in this encounter Care Teams Supply Assistant Relationship Specialty Start Date End Date Elsewhere, Pcp PCP - General Internal Medicine 07/18/23 documented as of this encounter
--- OUTSIDE RECORDS SUMMARY | 2023-09-20 18:42 | XMS_ITS | Encounter Summary ---
Author Name Unknown Organization [facility] Address [address] [place] [address] Care Team Providers Care Scheduler Maintenance Name Role Phone Elsewhere, Pcp Primary Care Provider Unavailabl e Encounter Details Date Type Department Care Team ([facility] st Contact Info) Description 09/10/2023 Clinical Communication Division of Pulmonary Medicine in [place], [place] [address] [place] [address] Ricky Leiva M.D. [address] [place] [address] Social History Tobacco Use Types Packs/Day Years Used Date Smoking Tobacco: Former Cigarettes Alcohol Use Standard Drinks/Week Comments Yes 0 (1 standard drink = 0.6 oz pur e alcohol) 2 beers a week [facility] Utilities Answer Date Recorded In the past 12 months has [facility] [employer], gas, oil, or water [employer] threatened to shut off services in your [...] money to buy more. Never true 08/24/19 24 Within the past 12 months, t [...] your living situation today? I have a [facility] place to live 08/24/2023 Sex and Gender Information Value Date Recorded Sex Assigned at Male 08/24/2023 2:34 PM CDT Gender Identity Male 08/24/2023 2:34 PM CDT Sexual Orientation Straight 08/24/2023 2: 34 PM CDT documented as of this encounter Progress Notes * Ricky Leiva M.D. - 09/10/2023 9:36 AM CDT I responded to the patient and his 's portal message that they were concerned that he was stillcoughing up think/brownish sputum (picture available in the patient's message). Saturation is in 92% and HR in 90's (his baseline is in HR of 70's). He is tired and cannot go to work because of the fatigue. I advised them that I will place orders for sputum culture and oxygen titration. Unfortunately, bronchoscopy is not well-indicated for mucus plugging clearance as long as saturation is good and as long as he is able to cough up. Bronchoscopy won't be able to keep up with amount of mucus he is producing. However, if the induced sputum culture shows resistant bacteria or different kinds, we can potentially treat them. The family wanted more rapid interventions. Unfortunately, we would not be able to schedule bronchoscopy today and not over the weekends since it is not urgent. Also, even if we do bronchoscopy for culture, they will take similar days to grow as sputum culture, so as long as he is generating sputumthrough pulm hygiene, we would not put him at a risk for a procedure. I discussed with the clinic staff to help facilitate the oxygen titration today. Lab should be contacting him to coordinate sputum culture. Discussed the case with Dr. Cheek (it web development consultant) Ricky Leiva MD Department of Pulmonary and Critical Care Fellow, PGY-4 documented in this encounter Plan of Treatment Upcoming Encounters Date Type Department Care Team (Late st Contact Info) Description 10/28/2023 12:30 PM CDT Diagnostic Division of Pulmonary Medicine in [address] [phone] José Luis Lopez M.D. [address] [place] [phone] 11/01/2023 1:00 PM CDT Office Visit Division of Pulmonary Medicine in [address] [phone] Zayra Thomas M.B.B.S., M.P.H. [address] [place] [phone] 11/11/2023 3:15 PM CDT Office Visit Department of Otorhinolaryngology in [address] [phone] Steven Fernandez M.D. [address] [place] [phone] documented as of this encounter Visit Diagnoses Not on filedocumented in this encounter Care Teams Scheduler Maintenance Relationship Specialty Start Date End Date Elsewhere, Pcp PCP - General Internal Medicine 07/18/23 documented as of this encounter
--- OUTSIDE RECORDS SUMMARY | 2023-09-20 18:42 | XMS_ITS | Encounter Summary ---
Author Name Unknown Organization [facility] Address [address] [place] [address] Care Team Providers Care Decorating Consultant Name Role Phone Elsewhere, Pcp Primary Care Provider Unavailabl e Encounter Details Date Type Department Care Team (Late st Contact Info) Description 09/10/2023 Orders Only Division of Pulmonary Medicine in [place], [place] [address] [place] [address] Ricky Leiva M.D. [address] [place] [address] Bronchitis Chronic (HCC) (Primary Dx) Social History Tobacco Use Types Packs/Day Years Used Date Smoking Tobacco: Former Cigarettes Alcohol Use Standard Drinks/Week Comments Yes 0 (1 standard drink = 0.6 oz pur e alcohol) 2 beers a week [facility] Utilities Answer Date Recorded In the past 12 months has [facility] [employer], gas, oil, or water [employer] threatened to shut off services in your [...] Employed but not working due t delores alvarezugh 08/24/2023 Housing Stability Answer Date Recorded What is your living situation today? I have a [facility] place to live 08/24/2023 Sex and [...] CDT Diagnostic Division of Pulmonary Medicine in [place], [place] [address] [place] [address] José Luis Lopez M.D. 200 [place] [address] 11/01/2023 1:00 PM CDT Office Visit Division of Pulmonary Medicine in [place], [place] [address] [place] [address] Zayra Thomas M.B.B.S., M.P.H. [address] [place] [phone] 11/11/2023 3:15 PM CDT Office Visit Department of Otorhinolaryngology in [place], [place] [address] [place] [phone] Steven Fernandez M.D. [address] [place] [phone] Scheduled Orders Name Type Priority Associated Diagnoses Orde r Schedule Sputum Induction PFT Routine Bronchitis Chronic (HCC) 1 Occurrences starting 09/10/2023 until 09/09/2026 Gram Stain Microbiology Routine Bronchitis Chronic (HCC) Expected: 09/10/2023 (Approximate), Expires: 08/30/2024 Bacterial Culture, Aerobic + Susceptibility, Respiratory Microbiology Routine Bronchitis Chronic (HCC) Expected: 09/10/2023 (Approximate), Expires: 09/06/2024 Fungal Smear Microbiology Routine Bronchitis Chronic (HCC) Expected: 09/10/2023 (Approximate), Expires: 09/06/2024 Fungal Culture, Routine Microbiology Routine Bronchitis Chronic (HCC) Expected: 09/10/2023 (Approximate), Expires: 09/06/2024 Acid Fast Smear for Mycobacterium Microbiology Routine Bronchitis Chronic (HCC) Expected: 09/10/2023 (Approximate), Expires: 09/06/2024 Mycobacterial Culture Microbiology Routine Bronchitis Chronic (HCC) Expected: 09/10/2023 (Approximate), Expires: 09/06/2024 Mycobacterium tuberculosis complex, Molecular Detection and Rifampin resistance, PCR, Sputum Microbiology Routine Bronchitis Chronic (HCC) Expected: 09/10/2023, Expires: 12/09/2024 documented as of this encounter Results * Oxygen Titration (09/10/2023 12:35 PM CDT) [...] Total exercise time: 8.5 minutes. MMODAL Ricky Julian Leiva M.D. PFT ORDERABLES MMODAL NA documented in this encounter Visit Diagnoses Diagnosis Bronchitis Chronic (HCC)- Primary documented in this encounter Care Teams Decorating Consultant Relationship Specialty Start Date End Date Elsewhere, Pcp PCP - General Internal Medicine 07/18/23 documented as of this encounter
--- OUTSIDE RECORDS SUMMARY | 2023-09-20 18:42 | XMS_ITS | Encounter Summary ---
Author Name Unknown Organization [facility] Address [address] [place] [address] Care Team Providers Care Dispatch Manager Name Role Phone Elsewhere, Pcp Primary Care Provider Unavailabl e Encounter Details Date Type Department Care Team (Latest Contact Info) Description 09/13/2023 10:50 AM CDT - 09/13/2023 11:59 PM CDT Hospital Encounter Department of Laboratory Medicine and Pathology, [facility] in [place], [place] [address] [place] [address] Ricky Leiva M.D. [address] [place] [address] Bronchitis Chronic (HCC) Discharge Disposition: Home or Self Care Social History Tobacco Use Types Packs/Day Years Used Date Smoking Tobacco: Former Cigarettes Alcohol Use Standard Drinks/Week Comments Yes 0 (1 standard drink = 0.6 oz pur e alcohol) 2 beers a week [facility] Utilities Answer Date Recorded In the past 12 months has [employer], gas, oil, or water [employer] threatened to shut off services in your [...] living situation today? I have a [facility] place to live 09/14/2023 Sex and Gender Information Value Date Recorded Sex Assigned at Male 08/24/2023 2:34 PM CDT Gender Identity Male 08/24/2023 2:34 PM CDT Sexual Orientation Straight 08/24/2023 2: 34 PM CDT documented as of this encounter Medications at Time of Discharge [...] as needed for cough. 20 capsule 07/20/2023 ibuprofen (ADVIL,MOTRIN) 200 mg tablet Take 400 mg by mouth every 6 (six) hours as needed for pain (for headache, alternates with Acetaminophen PRN). ipratropium-albutero L (DUONEB) 0.5-2.5 mg/3 mL nebulizer solutionIndications: Bronchitis Chronic (HCC) Inhale 3 mL by nebulization 2 (two) times a day. 90 mL 11 09/03/2023 albuterol 2.5 mg /3 mL nebulizer solutionIndications: Bronchitis Chronic (HCC) Inhale 3 mL (2.5 mg total) by nebulization 2 (two) times a day. Use prior to saline neb solution for bronchial hygiene (mucus clearance) 180 mL 11 08/31/2023 09/19/2023 fluticasone furoate (Arnuity Ellipta) 100 mcg/actuation diskus inhaler Inhale 1 puff 2 (two) times a day. 60 each 07/20/2023 09/15/2023 ipratropium-albutero L (DUONEB) 0.5-2.5 mg/3 mL nebulizer solution Inhale 3 mL by nebulization 4 (four) times a day for 10 days. 180 mL 09/03/2023 09/19/2023 predniSONE (DELTASONE) 20 mg tablet TAKE 2 TABLETS BY MOUTH DAILY WITH MEAL 08/25/2023 09/15/2023 sildenafiL (VIAGRA) 100 mg tablet Take 100 mg by mouth daily as needed for erectile dysfunction (TAKE 30 MIN TO 4 HOURS BEFORE ACTIVITY). 09/15/2023 sodium chloride (HYPERSAL) 7 % nebulizer solutionIndications: Bronchitis Chronic (HCC) Inhale 4 mL by nebulization 2 (two) times a day. Use albuterol before this treatment. Use Aerobika flutter valve after this treatment. 240 mL 11 08/31/2023 09/19/2023 documented as of this encounter Plan of Treatment Upcoming Encounters Date Type Department Care Team (Late st Contact Info) Description 10/28/2023 12:30 PM CDT Diagnostic Division of Pulmonary Medicine in [place], [place] [address] [place] [address] José Luis Lopez M.D. [address] [place] [phone] 11/01/2023 1:00 PM CDT Office Visit Division of Pulmonary Medicine in [place], [place] [address] [place] [phone] Zayra Thomas M.B.B.S., M.P.H. [address] [place] [phone] 11/11/2023 3:15 PM CDT Office Visit Department of Otorhinolaryngology in [place], [place] [address] [place] [phone] Steven Fernandez M.D. [address] [place] [phone] Scheduled Orders Name Type Priority Associated Diagnoses Orde r Schedule Acid Fast Smear for Mycobacterium Microbiology Routine Bronchitis Chronic (HCC) Once for 1 Occurrences starting 09/13/2023 until 09/13/2023 Mycobacterial Culture Microbiology Routine Bronchitis Chronic (HCC) Once for 1 Occurrences starting 09/13/2023 until 09/13/2023 documented as of this encounter Visit Diagnoses Diagnosis Bronchitis Chronic (HCC) documented in this encounter Care Teams Dispatch Manager Relationship Specialty Start Date End Date Elsewhere, Pcp PCP - General Internal Medicine 07/18/23 documented as of this encounter
--- OUTSIDE RECORDS SUMMARY | 2023-09-20 18:42 | XMS_ITS | Encounter Summary ---
Author Name Unknown Organization [facility] Address [address] [place] [address] Care Team Providers Care Petroleum Engineering Professor Name Role Phone Elsewhere, Pcp Primary Care Provider Unavailabl e Encounter Details Date Type Department Care Team ([facility] st Contact Info) Description 09/10/2023 11:00 AM CDT Diagnostic Division of Pulmonary Medicine in [place], [place] [address] [place] [address] Ricky Leiva M.D. [address] [place] [address] Bronchitis Chronic (HCC) Social History Tobacco Use Types Packs/Day Years Used Date Smoking Tobacco: Former Cigarettes Alcohol Use Standard Drinks/Week Comments Yes 0 (1 standard drink = 0.6 oz pur e alcohol) 2 beers a week [facility] Utilities Answer Date Recorded In the past [address] [facility] [employer] gas, oil, or water [employer] threatened to shut off services in your [...] your living situation today? I have a [facility] place to live 09/14/2023 Sex and [...] CDT Diagnostic Division of Pulmonary Medicine in [place], [place] [address] [place] [address] José Luis Lopez M.D. [address] [place] [address] 11/01/2023 1:00 PM CDT Office Visit Division of Pulmonary Medicine in [place], [place] [address] [place] [address] Zayra Thomas M.B.B.S., M.P.H. [address] [place] [phone] 11/11/2023 3:15 PM CDT Office Visit Department of Otorhinolaryngology in [place], [place] [address] [place] [phone] Steven Fernandez M.D. [address] [place] [phone] documented as of this encounter Procedures Procedure Name Priority Date/Time Associated Diagnosis Comments OXYGEN TITRATION Routine 09/10/2023 12:3 5 PM CDT Bronchitis Chronic (HCC) documented in this encounter Results * Oxygen Titration (09/10/2023 [...] Ricky Leiva M.D. PFT ORDERABLES MMODAL NA documented in this encounter Visit Diagnoses Diagnosis Bronchitis Chronic (HCC) documented in this encounter Care Teams Petroleum Engineering Professor Relationship Specialty Start Date End Date Elsewhere, Pcp PCP - General Internal Medicine 07/18/23 documented as of this encounter
--- OUTSIDE RECORDS SUMMARY | 2023-09-20 18:42 | XMS_ITS | Encounter Summary ---
Author Name Unknown Organization [facility] Address [address] [place] [address] Care Team Providers Care Clinical Care Coordinator Name Role Phone Elsewhere, Pcp Primary Care Provider Unavailabl e Encounter Details Date Type Department Care Team (Late st Contact Info) Description 09/10/2023 Orders Only Division of Pulmonary Medicine in [place], [place] [address] [place] [address] Ricky Leiva M.D. [address] [place] [address] Bronchiectasis (HCC) (Primary Dx) Social History Tobacco Use Types Packs/Day Years Used Date Smoking Tobacco: Former Cigarettes Alcohol Use Standard Drinks/Week Comments Yes 0 (1 standard drink = 0.6 oz pur e alcohol) 2 beers a week [facility] Utilities Answer Date Recorded In the past 12 months has [facility] [employer] gas, oil, or water [employer] threatened to shut off services in [...] your living situation today? I have a [facility] place to live 08/24/2023 Sex and Gender [...] CDT Diagnostic Division of Pulmonary Medicine in [place], [place] [address] [place] [address] José Luis Lopez M.D. [address] [place] [address] 11/01/2023 1:00 PM CDT Office Visit Division of Pulmonary Medicine in [place], [place] [address] [place] [address] Zayra Thomas M.B.B.S., M.P.H. [address] [place] [address] 11/11/2023 3:15 PM CDT Office Visit Department of Otorhinolaryngology in [place], [place] [address] [place] [address] Steven Fernandez M.D. [address] [place] [address] Pending Results Name Type Priority Associated Diagnoses Date /Time Fungal Culture, Routine Microbiology Routine Bronchiectasis ([facility]) 09/10/2023 1:07 PM CDT Mycobacterial Culture Microbiology Routine Bronchiectasis ([facility]) 09/10/2023 1:07 PM CDT Scheduled Orders Name Type Priority Associated Diagnoses Orde r Schedule Acid Fast Smear for Mycobacterium Microbiology Routine Bronchiectasis ([facility]) 3 Occurrences starting 09/10/2023 until 12/09/2024, 1 completed Mycobacterial Culture Microbiology Routine Bronchiectasis ([facility]) 3 Occurrences starting 09/10/2023 until 12/09/2024, 1 completed documented as of this encounter Results * Acid Fast Smear for Mycobacterium (09/10/2023 1:07 PM CDT) Acid Fast Smear For Mycobacterium Negative. 09/10/2023 8:17 PM CDT DTL Sputum (Sputum) 09/10/2023 1 :07 PM CDT 09/10/2023 1:53 PM CDT Comment:Specimen Source Site : Sputum Narrative [facility] - 09/10/2023 8:17 PM CDT Fungal and Mycobacteria specimens plated for culture, volume inadequate for optimal recovery. Ricky Julian Leiva M.D. LAB MICROBIOLOGY - G ENERAL ORDERABLES Performing Organization Address City/[facility] Co de Phone Number [facility] [address] [place] [address], [facility] [address] [place] [address] * Fungal Smear (09/10/2023 1:07 PM CDT) Pathologist [facility] Fungal Smear Negative. 09/10/2023 9:11 PM CDT DTL Sputum (Sputum) 09/10/2023 1 :07 PM CDT 09/10/2023 1:53 PM CDT Comment:Specimen Source Site : Sputum Narrative [facility] - 09/10/2023 9:11 PM CDT Fungal and Mycobacteria specimens plated for culture, volume inadequate for optimal recovery. Ricky Leiva M.D. LAB MICROBIOLOGY - G ENERAL ORDERABLES Performing Organization Address [facility] Co de Phone Number [facility] [address] [place], [place] [address] [address] [place] [address] * Gram Stain (09/10/2023 1:07 PM CDT) Pathologist [facility] Gram Stain Microscopic examination shows many epithelial cells indicating oropharyngeal contamination-tanna terial culture not performed. 09/10/2023 5:23 PM CDT DTL Sputum (Sputum) 09/10/2023 1 :07 PM CDT 09/10/2023 1:53 PM CDT Comment:Specimen Source Site : Sputum Ricky Leiva M.D. LAB MICROBIOLOGY - G ENERAL ORDERABLES Performing Organization Address City/[facility] Co de Phone Number [facility] [address] [place] [address], [facility] [address] [place] [address] documented in this encounter Visit Diagnoses Diagnosis Bronchiectasis (HCC)- Primary Bronchiectasis (HCC) documented in this encounter Care Teams Clinical Care Coordinator Relationship Specialty Start Date End Date Elsewhere, Pcp PCP - General Internal Medicine 07/18/23 documented as of this encounter
--- OUTSIDE RECORDS SUMMARY | 2023-09-20 18:42 | XMS_ITS | Encounter Summary ---
Author Name Unknown Organization [facility] Address [address] [place] [address] Care Team Providers Care Clinical Laboratory Medical Director Name Role Phone Elsewhere, Pcp Primary Care Provider Unavailabl e Encounter Details Date Type Department Care Team (Latest Contact Info) Description 09/03/2023 Intake [facility] Social History Tobacco Use Types Packs/Day Years Used Date Smoking Tobacco: Former Cigarettes Alcohol Use Standard Drinks/Week Comments Yes 0 (1 standard drink = 0.6 oz pur e alcohol) 2 beers a week [facility] Utilities Answer Date Recorded In the past 12 months has [employer], gas, oil, or water company threatened [...] Employed but not working due t o [employer] 08/24/2023 Housing Stability Answer Date Recorded What is your living situation today? I have a [facility] place to live 08/24/2023 Sex and [...] CDT Diagnostic Division of Pulmonary Medicine in [place], [place] [address] [place] [phone] José Luis Lopez M.D. [address] [place] [phone] 11/01/2023 1:00 PM CDT Office Visit Division of Pulmonary Medicine in [place], [place] [address] [place] [phone] Zayra Thomas M.B.B.S., M.P.H. [address] [place] [phone] 11/11/2023 3:15 PM CDT Office Visit Department of Otorhinolaryngology in [place], [place] [address] [place] [phone] Steven Fernandez M.D. [address] [place] [phone] documented as of this encounter Visit Diagnoses Not on filedocumented in this encounter Additional Health Concerns Infection Onset Date Last Indicated Resolved Time COVID19 Pending 09/03/2023 09/03/2023 09/03/2023 8 :49 PM CDT COVID19 Pending 09/17/2023 09/17/2023 09/17/2023 1 1:38 PM CDT documented as of this encounter Care Teams Clinical Laboratory Medical Director Relationship Specialty Start Date End Date Elsewhere, Pcp PCP - General Internal Medicine 07/18/23 documented as of this encounter
--- OUTSIDE RECORDS SUMMARY | 2023-09-20 18:42 | XMS_ITS | Encounter Summary ---
Author Name Unknown Organization [facility] Address [address] [place] [address] Care Team Providers Care Welding Systems And Equipment Repairer Name Role Phone Elsewhere, Pcp Primary Care Provider Unavailabl e Encounter Details Date Type Department Care Team (Latest Contact Info) Description 09/10/2023 12:09 PM CDT - 09/10/2023 11:59 PM CDT Hospital Encounter Department of Laboratory Medicine and Pathology, [facility] in [place], [place] [address] [place] [address] Ricky Leiva M.D. [address] [place] [address] Bronchiectasis (HCC) Discharge Disposition: Home or Self Care Social History Tobacco Use Types Packs/Day Years Used Date Smoking Tobacco: Former Cigarettes Alcohol Use Standard Drinks/Week Comments Yes 0 (1 standard drink = 0.6 oz pur e alcohol) 2 beers a week [facility] Utilities Answer Date Recorded In the past 12 months has [employer], gas, oil, or water [employer] threatened to shut off services in your [...] your living situation today? I have a [facility] place to live 08/24/2023 Sex and [...] CDT Diagnostic Division of Pulmonary Medicine in [place], [place] [address] [place] [phone] José Luis Lopez M.D. [address] [place] [phone] 11/01/2023 1:00 PM CDT Office Visit Division of Pulmonary Medicine in [place], [place] [address] [place] [phone] Zayra Thomas M.B.B.S., M.P.H. [address] [place] [phone] 11/11/2023 3:15 PM CDT Office Visit Department of Otorhinolaryngology in [place], [place] [address] [place] [phone] Stevne Fernandez M.D. [address] [place] [phone] Pending Results Name Type Priority Associated Diagnoses Date /Time Fungal Culture, Routine Microbiology Routine Bronchiectasis (HCC) 09/10/2023 1:07 PM CDT Mycobacterial Culture Microbiology Routine Bronchiectasis (HCC) 09/10/2023 1:07 PM CDT documented as of this encounter Procedures Procedure Name Priority Date/Time Associated Diagnosis Comments MYCOBACTERIAL CULTURE, V Routine 09/10/2023 1:07 PM CDT Bronchiectasis (HCC) FUNGAL SMEAR Routine 09/10/2023 1:07 PM CDT Bronchiectasis (HCC) ACID FAST SMEAR FOR MYCOBACTERIUM Routine 09/10/2023 1:07 PM CDT Bronchiectasis (HCC) GRAM STAIN Routine 09/10/2023 1:07 PM CDT Bronchiectasis (HCC) FUNGAL CULTURE, ROUTINE Routine 09/10/2023 1:07 PM CDT Bronchiectasis (HCC) documented in this encounter Results * Acid Fast Smear for Mycobacterium (09/10/2023 1:07 PM CDT) Acid Fast Smear For Mycobacterium Negative. 09/10/2023 8:17 PM CDT DTL Sputum (Sputum) 09/10/2023 1 :07 PM CDT 09/10/2023 1:53 PM CDT Comment:Specimen Source Site : Sputum Narrative [facility] - 09/10/2023 8:17 PM CDT Fungal and Mycobacteria specimens plated for culture, volume inadequate for optimal recovery. Ricky Leiva M.D. LAB MICROBIOLOGY - G ENERAL ORDERABLES Performing Organization Address City/[facility]/ZIP Co de Phone Number [facility] [address] [place], [place] [phone] [place] [address] [address] [place] [address] * Fungal Smear (09/10/2023 1:07 PM CDT) Pathologist [facility] Fungal Smear Negative. 09/10/2023 9:11 PM CDT DTL Sputum (Sputum) 09/10/2023 1 :07 PM CDT 09/10/2023 1:53 PM CDT Comment:Specimen Source Site : Sputum Narrative [facility] - 09/10/2023 9:11 PM CDT Fungal and Mycobacteria specimens plated for culture, volume inadequate for optimal recovery. Ricky Leiva M.D. LAB MICROBIOLOGY - G ENERAL ORDERABLES Performing Organization Address City/[facility]/ZIP Co de Phone Number [facility] [address] [place] [address], [facility] [address] [place] [address] * Gram Stain (09/10/2023 1:07 PM CDT) Gram Stain Microscopic examination shows many epithelial cells indicating oropharyngeal contamination-tanna terial culture not performed. 09/10/2023 5:23 PM CDT DTL Sputum (Sputum) 09/10/2023 1 :07 PM CDT 09/10/2023 1:53 PM CDT Comment:Specimen Source Site : Sputum Ricky Leiva M.D. LAB MICROBIOLOGY - G ENERAL ORDERABLES [facility] [address] [place] [address], [facility] [address] [place] [address] documented in this encounter Visit Diagnoses Diagnosis Bronchiectasis (HCC) documented in this encounter Care Teams Welding Systems And Equipment Repairer Relationship Specialty Start Date End Date Elsewhere, Pcp PCP - General Internal Medicine 07/18/23 documented as of this encounter
--- OUTSIDE RECORDS SUMMARY | 2023-09-20 18:42 | XMS_ITS | Encounter Summary ---
Author Name Unknown Organization [facility] Address [address] [place] [address] Care Team Providers Care Receiving Specialist Name Role Phone Elsewhere, Pcp Primary Care Provider Unavailabl e Encounter Details Date Type Department Care Team (Latest Contact Info) Description 08/31/2023 4:22 PM CDT - 08/31/2023 11:59 PM CDT Hospital Encounter Department of Laboratory Medicine and Pathology, [facility] in [place], [place] [address] [place] [address] Ricky Leiva M.D. [address] [place] [address] Bronchitis Chronic (HCC); Dyspnea Discharge Disposition: Home or Self Care Social History Tobacco Use Types Packs/Day Years Used Date Smoking Tobacco: Former Cigarettes Alcohol Use Standard Drinks/Week Comments Yes 0 (1 standard drink = 0.6 oz pur e alcohol) 2 beers a week [facility] Utilities Answer Date Recorded In the past 12 months has [employer], gas, oil, or water [employer] threatened to shut off services in your [...] living situation today? I have a [facility] place to live 08/24/2023 Sex and [...] pain (for headache, alternates with Acetaminophen PRN). albuterol 2.5 mg /3 mL nebulizer solutionIndications: Bronchitis Chronic (HCC) Inhale 3 mL (2.5 mg total) by nebulization 2 (two) times a day. Use prior to saline neb solution for bronchial hygiene (mucus clearance) 180 mL 11 08/31/2023 09/19/2023 fluticasone furoate (Arnuity Ellipta) 100 mcg/actuation diskus inhaler Inhale 1 puff 2 (two) times a day. 60 each 07/20/2023 09/15/2023 predniSONE (DELTASONE) 20 mg tablet TAKE 2 [...] CDT Diagnostic Division of Pulmonary Medicine in [place], [place] [address] [place] [address] José Luis Lopez M.D. [address] [place] [phone] 11/01/2023 1:00 PM CDT Office Visit Division of Pulmonary Medicine in [place], [place] [address] [place] [phone] Zayra Thomas M.B.B.S., M.P.H. [address] [place] [phone] 11/11/2023 3:15 PM CDT Office Visit Department of Otorhinolaryngology in [place], [place] [address] [place] [phone] Steven Fernandez M.D. [address] [place] [phone] documented as of this encounter Procedures Procedure Name Priority Date/Time Associated Diagnosis Comments IGG SUBCLASSES, S Routine 08/31/2023 4:2 9 PM CDT Dyspnea Bronchitis Chronic (HCC) [id number] PROTEOTYPE S/Z BY LC-MS/MS, S Routine 08/31/2023 4:29 PM CDT Dyspnea Bronchitis Chronic (HCC) IMMUNOGLOBULIN A (IGA), S Routine 08/31/2023 4:29 PM CDT IMMUNOGLOBULIN M (IGM), S Routine 08/31/2023 4:29 PM CDT documented in this encounter Results * Immunoglobulin M (IgM) (08/31/2023 4:29 PM CDT) Pathologist [facility] Immunoglobulin M (IgM), S 233 37 - 286 mg/dL 09/01/2023 7:51 AM CDT [facility] Blood 08/31/2023 4:29 PM CDT 09/01/2023 6:13 AM CDT Ricky Leiva M.D. LAB BLOOD ADD-ON [facility] [address] [place] [address] [facility] [address] [place] [address] * Immunoglobulin A (IgA) (08/31/2023 4:29 PM CDT) [facility] Immunoglobulin A (IgA), S 171 61 - 356 mg/dL 09/01/2023 7:50 AM CDT [facility] Blood 08/31/2023 4:29 PM CDT 09/01/2023 6:13 AM CDT Ricky Leiva M.D. LAB BLOOD ADD-ON Performing Organization Address City/[facility]/ZIP Co de Phone Number [facility] [address] [place] [address] [facility] [address] [place] [address] * [id number] Proteotype S/Z by LC-MS/MS (08/31/2023 4:29 PM CDT) [facility] Kqezd-1-Sqbzxvkboi n, S 130 100 - 190 mg/dL 09/01/2023 9:05 AM CDT [facility] Comment: ----ADDITIONAL INFORMATION---- Method: Nephelometry Interpretation S Mutation: Negative Z Mutation: Negative Results most consistent with MM phenotype. 09/03/2023 10:10 AM CDT [facility] Comment: ----ADDITIONAL INFORMATION---- This test was developed and its performance characteristics determined by [facility] in a manner consistent with CLIA requirements. This test has not been cleared or approved by the U.S. Food and Drug Administration. Blood (Blood, Venous) 08/31/2023 4:29 PM CDT 09/01/2023 6:13 AM CDT Ricky Leiva M.D. LAB BLOOD NON ADD-ON Performing Organization Address City/[facility]/ZIP Co de Phone Number [facility] [address] [place] [address] [facility] [address] [place] [address] [facility] [address] [place] [address] [place] [address] * (ABNORMAL) IgG Subclasses (08/31/2023 4:29 PM CDT) [facility] Total IgG 681(L) 767 - 1590 mg/dL [...] CDT Ricky Leiva M.D. LAB BLOOD ADD-ON [facility] [address] [place] [address] [facility] [address] [place] [address] documented in this encounter Visit Diagnoses Diagnosis Bronchitis Chronic (HCC) Dyspnea documented in this encounter Care Teams Receiving Specialist Relationship Specialty Start Date End Date Elsewhere, Pcp PCP - General Internal Medicine 07/18/23 documented as of this encounter
--- OUTSIDE RECORDS SUMMARY | 2023-09-20 18:42 | XMS_ITS | Encounter Summary ---
Author Name Unknown Organization [facility] Address [address] [place] [address] Care Team Providers Care Chain Person Name Role Phone Elsewhere, Pcp Primary Care Provider Unavailabl e Reason for Visit * Reason Comments Shortness of Breath Encounter Details Date Type Department Care Team ([facility] st Contact Info) Description 09/03/2023 3:56 PM CDT - 09/04/2023 12:17 AM CDT Emergency [facility] Emergency Department [address] [place] [phone] Vinh Swift M.D. [address] [place] [phone] Victoria Wood M.D., J.D. [address] [place] [phone] Shortness Of Breath (Primary Dx); Bronchitis Discharge Disposition: Home or Self Care Social History Tobacco Use Types Packs/Day Years Used Date Smoking Tobacco: Former Cigarettes Alcohol Use Standard Drinks/Week Comments Yes 0 (1 standard drink = 0.6 oz pur e alcohol) 2 beers a week [facility] Utilities Answer Date Recorded In the past 12 months has th e electric, gas, oil, or water [employer] threatened to shut off services in your [...] your living situation today? [facility] 08/24/2023 Sex and Gender Information Value Date Recorded Sex Assigned at Male 08/24/2023 2:34 PM CDT Gender Identity Male 08/24/2023 2:34 PM CDT Sexual Orientation Straight 08/24/2023 2: 34 PM CDT documented as of this encounter Last Filed Vital Signs Vital Sign Reading Time Taken Comments Blood Pressure 119/72 09/03/2023 10:15 PM CDT Pulse 72 09/03/2023 10:50 PM CDT Temperature 36.4 ??C (97.5 ??F) 09/03/2023 5:51 PM CD T Respiratory Rate 9 09/03/2023 10:50 PM CDT Oxygen Saturation 98% 09/03/2023 10:50 PM CDT Inhaled Oxygen Concentration - - Weight 126 kg (276 lb 14.4 oz) 09/03/2023 3:57 P M CDT Height - - Body Mass Index 32.66 08/31/2023 2:46 PM CDT documented in this encounter Discharge Instructions * Attachments The following attachments cannot be sent through Care Everywhere. * Shortness of Breath Adult (Polish) documented in this encounter Medications at Time [...] times a day. 90 mL 11 09/03/2023 levoFLOXacin (LEVAQUIN) 750 mg tablet Take 1 tablet (750 mg total) by mouth every morning before breakfast for 5 days. 5 tablet 09/03/2023 09/08/2023 albuterol 2.5 mg /3 mL nebulizer solutionIndications: [...] 08/31/2023 09/19/2023 documented as of this encounter ED Notes * Vinh Swift M.D. - 09/03/2023 7:20 PM CDT SUBJECTIVE CHIEF COMPLAINT/REASON FOR VISIT Shortness of Breath HISTORY OF PRESENT ILLNESS History provided by: Patient, medical records and significant other lepidopterist needed/used: contreras Austin Rodriguez is a 58-year-old male with a history of chronic bronchitis, eosinophilia, who presents to the Emergency Department for the evaluation of shortness of breath. Since 05/18/2023, the patient has had waxing and waning shortness of breath, intermittent but progressive productive cough of clear yellow-green jelly-like phlegm, and intermittent desaturations typically associated withcoughing spells. Since the initial symptom onset he has presented to urgent care/emergency department six previous times. This culminated in hospitalization to the [facility] Medicine 2 service from 07/18-07/20/2023 due to hypoxia and diffuse wheezing. CT chest on admission showed bronchial inflammation with bronchial wall thickening and mucus plugging. There was also solid pulmonary nodules throughout both lungs measuring up to 6 mm. The radiologist recommended repeat CT chest in 3-6 months based on guidelines. Laboratory evaluation demonstrated peripheral eosinophilia with mild leukocytosis. Pulmonary medicine was consulted. They raised the differential diagnosis for peripheral eosinophilia which included parasitic infection, ABPA, asthma, allergies, EGPA and bone marrow abnormalities with highest suspicion for eosinophilic bronchitis due to ongoing airway inflammation and patient's prior environmental exposures. They recommended a broad workup, an oral prednisone taper, inhaled corticosteroids, and overnight oximetry. A broad workup for autoimmune/inflammatory, infectious, and neoplastic etiologies of this chronic cough, eosinophilia, and pulmonary nodules was undertaken. The patient was ultimately discharged. Since his last hospitalization at the [facility], he was again hospitalized last week in [place] for PNA. During the hospitalization, he felt much better with Nebulizer which helped him to cough up the phlegm. On 08/31/2023, the patient followed up with [facility] Pulmonology. Their biggest suspicion was that his chronic bronchitis is related to early bronchiectasis. He does have thickened airway which raised concerns for superimposed asthma; however, he had normal FENO and no significant BD response on PFT. Pulmonology ultimately planned to focus on pulmonary hygiene and initiate the work up for bronchiectasis before considering Bronchoscopy or Sputum Culture(sputum culture was sent previously for Mycobacterium and it was negative). Although malignancy wasconsidered as a possibility, this was considered less likely as the lung nodules have stayed in similar size but rather hilar lymph nodes have increased in size, which makes this most likely infection in etiology. This afternoon after undergoing nebulizing therapy at approximately 1200, the patient became hypoxemic with saturation to 87% on RA and HR in the 100s, which was initially attributed to transient event after albuterol administration by pulmonology. The patient had a large amount of mucus plugging that he was able to cough up without hemoptysis. When pulmonology followed up with the patient at 1300, the patient was still having heart rates in the 100s with oxygen saturation to 87% on RA. He has had multiple severe coughing episodes productive of brownish sputum and shortness of breath. Out of concern for hypoxia related to something other than pulmonary hygiene such as PNA, bronchitis, or PE, he was recommended to present to the ED for evaluation. The patient denies chest pain, hemoptysis,fever, chills, nausea, or vomiting. He sleeps in the reclined position because when he lays down hestarts coughing. Otherwise he does not wake up in the middle of the night to catch his breath or with cough. His denies notable snoring. The patient is not currently taking steroids. He has beenusing nebulizers regularly, most recently at 1200 today. The patient quit smoking 25 years ago (1 PPD for 8 years). He is not anticoagulated. He denies a history of asthma prior to April 2023. He denies a history of pulmonary fibrosis. 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 REVIEW OF SYSTEMS Constitutional: Positive for unexpected weight change. Negative for chills and fever. Respiratory: Positive for cough and shortness of breath. Negative for hemoptysis. Cardiovascular: Negative for chest pain. Gastrointestinal: Negative for vomiting. OBJECTIVE Initial Vitals Temperature 09/03/23 1558 36.7 ??C Pulse Rate 09/03/23 1558 97 Heart Rate -- Resp Rate 09/03/23 1558 18 Blood Pressure 09/03/23 1558 132/74 SpO2 09/03/23 1558 94 % Pain Score 09/03/23 1751 0 - No pain PHYSICAL EXAMINATION Constitutional: Nursing note and vitals reviewed. No distress. HENT: Head: Normocephalic and atraumatic. Mouth/Throat: Oropharynx is clear and moist. Mucous membranes are moist. No lesions in the oropharynx. Eyes: Conjunctivae and EOM are normal. Pupils are equal, round, and reactive to light. Neck: Neck supple. No neck adenopathy. No thyromegaly present. Cardiovascular: Normal rate, regular rhythm and normal peripheral perfusion. Pulses are strong and palpable. Pulses: Dorsalis pedis pulses are 2+ on the right side, and 2+ on the left side. Capillary refill: takes less than 3 secondsEdema: no edema noted Pulmonary/Chest: Effort normal. No tachypnea. No respiratory distress. Expiration is prolonged. He has wheezes. He has no rhonchi. He has no rales. Bilateral wheezes symmetrically. Abdominal: Soft. Bowel sounds are normal. exhibits no distension. There is no abdominal tenderness. Musculoskeletal: General: No deformity. Cervical back: Normal range of motion and neck supple. Neurological: Alert and oriented to person, place, and time. Skin: Skin is warm, dry and normal color. No rash noted. Psychiatric: He has a normal mood and affect. Behavior is normal. Judgment and thought content normal. ASSESSMENT/PLAN Assessment and Plan 1. Productive cough with expiratory wheeze. 2. Hypoxia with exertion. DIFFERENTIAL DIAGNOSES Differential diagnosis of productive cough includes community-acquired pneumonia versus bronchiectasis versus viral respiratory infection versus COPD exacerbation. Differential diagnosis of wheezing includes new onset asthma versus viral respiratory infection versus new onset COPD versus eosinophilic pneumonitis. PROBLEMS ADDRESSED THIS VISIT Chest x-ray to evaluate for community-acquired pneumonia. Bronchodilator therapy with DuoNeb with resolution of wheezing and respiratory distress as well as exertional dyspnea and hypoxia. Ambulation in the emergency department demonstrating no desaturation. D-dimer risk stratification for pulmonary embolism with subsequent decision to pursue CT PE imagingwith elevated D-dimer. CBC to evaluate for anemia in setting of acute anemia. BMP to assess for electrolyte disorder or acute renal dysfunction in setting of acute dyspnea. Viral respiratory pathogen testing for influenza and COVID. Discussion with referring pulmonary medicine for outpatient follow up recommendations and decision to initiate Levaquin antibiotic for possible bacterial bronchitis.. I reviewed the following external records: inpatient records and office records. Final Diagnoses: as of 09/04/231823 Shortness Of Breath Bronchitis The following tests were considered but ultimately not performed: No additional testing considered during course of ED care. Escalation of care, including admission/observation, considered: Decision to discharge home after discussion with Pulmonary Medicine and review of CT scan, chest x-ray, ambulatory oxygenation, and response to bronchodilator therapy. My ECG interpretation includes the following comments: No EKG evidence of acute coronary syndrome. My Plain Films interpretation includes the following comments: No pulmonary infiltrate, pulmonary edema, or pleural effusion. My CT Scan interpretation includes the following comments: No pulmonary embolism but possible ground-glass opacity at base of lungs suggesting developing infectious process. I discussed the following radiographic interpretations with the radiologist: Reviewed radiology interpretation of chest x-ray and chest CT. I discussed the management of the patient with: Pulmonary medicine. I personally performed the services described in this documentation, as scribed in my presence, andit is both accurate and complete. Vinh Swift M.D. 09/04/231823 * Anna Grijalva R.N. - 09/03/2023 4:03 PM CDT Pt having ongoing shortness of breath, but today noticed increased shortness of breath and oxygen saturation in the high 80's. Pts vitals currently WNL. Anna Grijalva R.N. 09/03/23 1605 documented in this encounter Plan of Treatment Upcoming Encounters Date Type Department Care Team (Late st Contact Info) Description 10/28/2023 12:30 PM CDT Diagnostic Division of Pulmonary Medicine in [place], [place] [address] [place] [phone] José Luis Lopez M.D. [address] [place] [phone] 11/01/2023 1:00 PM CDT Office Visit Division of Pulmonary Medicine in [place], [place] [address] [place] [phone] Zayra Thomas M.B.BTammyS., M.P.H. [address] [place] [phone] 11/11/2023 3:15 PM CDT Office Visit Department of Otorhinolaryngology in [place], [place] [address] [place] [phone] Steven Fernandez M.D. [address] [place] [phone] documented as of this encounter Procedures Procedure Name Priority Date/Time Associated Diagnosis Comments CT CHEST ANGIOGRAM AND PULMONARY ARTERIES WITH [...] patients; some inpatients) 09/03/2023 4:26 PM CDT TROPONIN T, BASELINE, 5TH GEN, P STAT 09/03/2023 4:14 PM CDT NT-PRO B-TYPE NATRIURETIC PEPTIDE (BNP), S STAT 09/03/2023 4:14 PM CDT PROTHROMBIN TIME (PT), P STAT 09/03/2023 4:14 PM CDT CBC WITH DIFFERENTIAL, B STAT 09/03/2023 4:14 PM CDT BASIC METABOLIC PANEL, S/P STAT 09/03/2023 4:14 PM CDT ECG Routine 09/03/2023 4:06 PM CDT documented in this encounter Results * CT Chest Angiogram and Pulmonary Arteries [...] representatelectasis or developing infection/inflammation. Vinh Swift M.D. [facility] [place] PROC EDURES * Influenza A/B, SARS [...] at the following links: For Healthcare Providers: https://www.fda.gov/media/389504/download For Patients: https://www.fda.gov/media/100260/download Infl A/B, SARS CoV-2, PCR, Source Swab, Nasopharynx 09/03/2023 8:25 PM CDT [facility] Swab (Nasopharynx) 09/03/2023 8:23 PM CDT 09/03/2023 8:25 PM CDT Vinh Swift M.D. LAB MICROBI OLOGY - GENERAL ORDERABLES [facility] [address] [place] [address], [facility] [address] [place] [address] * (ABNORMAL) D-Dimer (09/03/2023 7:55 PM CDT) D-Dimer, P 712(H) <=500 ng/mL FEU 09/03/2023 8:08 PM CDT [facility] Comment: D-dimer concentrations increase with age. ??For [...] Vinh Swift M.D. LAB BLOOD A DD-ON [facility] [address] [place] [address], [facility] [address] [place] [address] * Troponin T, 2h/6h, 5th Gen (09/03/2023 7:09 PM CDT) Troponin T, 2 hr, 5th gen <6 <=15 ng/L 09/03/2023 7:40 PM CDT [facility] 2H Delta -2 ng/L 09/03/2023 7:40 PM CDT [facility] 2H Delta Interp Not Changing 09/03/2023 7:40 PM CDT [facility] Troponin T, 6 hr, 5th gen CANCELED ng/L 09/03/2023 7:40 PM CDT [facility] Comment:Result canceled by t zachery ancillary. 6H Delta CANCELED ng/L 09/03/2023 7:36 PM CDT [facility] Comment:Result canceled by t zachery ancillary. 6H Delta % CANCELED % 09/03/2023 7:36 PM CDT [facility] Comment:Result canceled by t he ancillary. Blood (Blood, Venous) 09/03/2023 7:09 PM CDT 09/03/2023 7:19 PM CDT Narrative [facility] - 09/03/2023 7:40 PM CDT Specimen Information: Specimen ID: [id number] Specimen Type: Blood Specimen Collection Start Date: 09/03/2023 ??7:09 PM Specimen Received Date: 09/03/2023 ??7:19 PM Specimen ID: [id number] Specimen Type: Blood Specimen Collection Start Date: 09/03/2023 ??7:40 PM Specimen Received Date: 09/03/2023 ??7:40 PM Vinh Swift M.D. LAB BLOOD T ROGERIO [facility] [address] [place] [address], [facility] [address] [place] [address] * DX Chest AP or PA and Lateral 2 Views (09/03/2023 4:26 PM CDT) Anatomical Region Laterality Modality Chest, Thoracic RST LOS, Tho racic ARZ LOS, Thoracic FLA LOS N/A Digital Radiography Impressions 09/03/2023 4:29 PM CDT Comparison with 08/31/2023. No interval changes. Scattered bibasilar atelectasis. Otherwise negative chest. Narrative 09/03/2023 4:29 PM CDT EXAM: ??DX CHEST AP OR PA AND LATERAL 2 VIEWS Procedure Note Jovany Feldman M.D. - 09/03/2023 EXAM: DX CHEST AP OR PA AND LATERAL 2 VIEWS IMPRESSION: Comparison with 08/31/2023. No interval changes. Scattered bibasilaratelectasis. Otherwise negative chest. Vinh Swift M.D. IMG DIAGNOS TIC IMAGING PROCEDURES * Prothrombin Time (PT) (09/03/2023 4:14 PM CDT) Pathologist [facility] Prothrombin Time, P 11.1 9.4 - 12.5 sec 09/03/2023 4:28 PM CDT [facility] INR 1.0 0.9 - 1.1 09/03/2023 4:28 PM CDT [facility] Comment: ----ADDITIONAL INFORMATION---- Standard intensity warfarin therapeutic range: 2.0 to 3.0 ?? High intensity warfarin therapeutic range: 2.5 to 3.5 Blood (Blood, Venous) 09/03/2023 4:14 PM CDT 09/03/2023 4:20 PM CDT Jose De Jesus Daley P.A.-C. LAB BLOOD ADD-ON [facility] [address] [place] [address], [facility] [address] [place] [address] * Troponin T, Baseline, 5th gen (09/03/2023 4:14 PM CDT) Pathologist [facility] Troponin T, Baseline, 5th gen 7 <=15 ng/L 09/03/2023 4:38 PM CDT [facility] Blood (Blood, Venous) 09/03/2023 4:14 PM CDT 09/03/2023 4:20 PM CDT Vinh Swift M.D. LAB BLOOD T ROPONIN Performing Organization Address [facility] Co de Phone Number [facility] [address] [place], [place] [phone] [place] [address] 200 [place] [address] * (ABNORMAL) NT-Pro B-Type Natriuretic Peptide (BNP) (09/03/2023 4:14 PM CDT) NT-Pro BNP 135(H) <=88 pg/mL 09/03/2023 4:52 PM CDT [facility] Comment: NT-proBNP values less than 300 pg/mL [...] LAB BLOOD A DD-ON Performing Organization Address [facility] Co de Phone Number [facility] [address] [place] [address], [facility] [address] [place] [address] * (ABNORMAL) CBC with Differential, Blood (09/03/2023 4:14 PM CDT) Hemoglobin 16.7(H) 13.2 - 16.6 g/dL 09/03/2023 4:24 PM CDT [facility] Hematocrit 49.0(H) 38.3 - 48.6 % 09/03/2023 4:24 PM CDT [facility] Erythrocytes 5.34 4.35 - 5.65 x10(12)/L 09/03/2023 4:24 PM CDT [facility] MCV 91.8 78.2 - 97.9 fL 09/03/2023 4:24 PM CDT [facility] RBC Distrib Width 12.7 11.8 - 14.5 % 09/03/2023 4:24 PM CDT [facility] Platelet Count 189 135 - 317 x10(9)/L 09/03/2023 4:24 PM CDT [facility] Leukocytes 10.6(H) 3.4 - 9.6 x10(9)/L 09/03/2023 4:24 PM CDT [facility] Neutrophils 6.93(H) 1.56 - 6.45 x10(9)/L 09/03/2023 4:24 PM CDT [facility] Lymphocytes 2.01 0.95 - 3.07 x10(9)/L 09/03/2023 4:24 PM CDT [facility] Monocytes 0.77 0.26 - 0.81 x10(9)/L 09/03/2023 4:24 PM CDT [facility] Eosinophils 0.87(H) 0.03 - 0.48 x10(9)/L 09/03/2023 4:24 PM CDT [facility] Basophils 0.04 0.01 - 0.08 x10(9)/L 09/03/2023 4:24 PM CDT [facility] Blood (Blood, Venous) 09/03/2023 4:14 PM CDT 09/03/2023 4:20 PM CDT Vinh Swift M.D. LAB BLOOD A DD-ON [facility] [address] [place] [address], [facility] [address] [place] [address] [facility] [address] [place] [address] * Basic Metabolic Panel (09/03/2023 4:14 PM CDT) [facility] Potassium, P 4.1 3.6 - 5.2 mmol/L 09/03/2023 4:44 PM CDT [facility] Sodium, P 143 135 - 145 mmol/L 09/03/2023 4:44 PM CDT [facility] Chloride, P 107 98 - 107 mmol/L 09/03/2023 4:44 PM CDT [facility] Bicarbonate, P 25 22 - 29 mmol/L 09/03/2023 4:44 PM CDT [facility] Anion Gap, P 11 7 - 15 09/03/2023 4:44 PM CDT [facility] BUN (Blood Urea Nitrogen), P 14 8 - 24 mg/dL 09/03/2023 4:44 PM CDT [facility] Creatinine 1.06 0.74 - 1.35 mg/dL 09/03/2023 4:44 PM CDT [facility] Estimated GFR (eGFR) 80 >=60 mL/min/BSA 09/03/2023 4:44 PM CDT [facility] Comment: Estimated GFR calculated using the 2020 CKD_EPI creatinine equation. Calcium, Total, P 9.4 8.8 - 10.2 mg/dL 09/03/2023 4:44 PM CDT [facility] Glucose, P 106 70 - 140 mg/dL 09/03/2023 4:44 PM CDT [facility] Blood (Blood, Venous) 09/03/2023 4:14 PM CDT 09/03/2023 4:20 PM CDT Vinh Swift M.D. LAB BLOOD A DD-ON [facility] [address] [place] [address], [facility] [address] [place] [address] * ECG 12 Lead (09/03/2023 4:06 PM CDT) Ventricular Rate ECG/Min 101 BPM MUSE [place] Interval 178 ms MUSE QRSD Interval 90 ms MUSE QT Interval 340 ms MUSE QTC Interval 440 ms MUSE P [place] 63 degrees MUSE R [place] -27 degrees MUSE T Wave [place] 53 degrees MUSE 09/03/2023 4:06 PM CDT 09/04/2023 2:46 PM CDT Impressions MUSE - 09/03/2023 4:10 PM CDT Sinus tachycardia Cannot rule out Anterolateral infarct When compared with ECG of 18-Jul-2023 15:21, QRS axis shifted left Borderline criteria for Inferior infarct are now present Reviewed by WILLIAM Berry Narrative Procedure Note Ham Avitia M.D., Ph.D. / Jones Dominguez M.D. - 09/04/2023 IMPRESSION: Sinus tachycardia Cannot rule out Anterolateral infarct When compared with ECG of 18-Jul-2023 15:21, QRS axis shifted left Borderline criteria for Inferior infarct are now present Reviewed by WILLIAM Berry Vinh Swift M.D. ECG ORDERAB LES MUSE NA documented in this encounter Visit Diagnoses Diagnosis Shortness Of Breath- Primary Bronchitis documented in this encounter Administered Medications Inactive Administered Medications - up to 3 most recent administrations Medication Order MAR Action Action Date Dose Rate Site iopromide 370 mg iodine/mL injection 1-162 mL (ULTRAVIST) 1-162 mL, intravenous, Once in imaging, contrast, Starting on Wed09/03/23 at 2103, For 1 dose, Imaging Protocol Orders, Dose per Radiant Medication Guidelines Given 09/03/2023 9:17 PM CDT 120 mL ipratropium-albuteroL 0.5-2.5 mg/3 mL nebulizer solution 3 mL (DUONEB) 3 mL, nebulization, Once, On Wed09/03/23 at 1933, For 1 dose Given 09/03/2023 7:37 PM CDT 3 mL ipratropium-albuteroL 0.5-2.5 mg/3 mL nebulizer solution 3 mL (DUONEB) 3 mL, nebulization, Once, On Wed09/03/23 at 2238, For 1 dose Given 09/03/2023 10:41 PM CDT 3 mL sodium chloride (PF) 0.9 % injection 1-100 mL 1-100 mL, intravenous, Once, On Wed09/03/23 at 2104, For 1 dose, Imaging Protocol Orders, Dose per Radiant Medication Guidelines Given 09/03/2023 9:21 PM CDT 50 mL sodium chloride 0.9 % injection 10 mL 10 mL, intravenous, As needed, line care, Starting on Wed09/03/23 at 1600, Peripheral Intravenous Catheter and Rapid Infusion Catheter, prior to blood sampling, post blood transfusion or post blood sampling sodium chloride 0.9 % injection 3 mL 3 mL, intravenous, As needed, line care, Starting on Wed09/03/23 at 1600, Prior to and following infusion and between multiple consecutive infusions: sodium chloride 0.9 % injection sodium chloride 0.9 % injection 3 mL 3 mL, intravenous, Every 12 hours scheduled, First dose on Wed09/03/23 at 2100, Peripheral Intravenous Catheter and Rapid Infusion Catheter, when no infusion to maintain patency documented in this encounter Active and Recently Administered Medications Times are shown in CDT. Scheduled Medication Order 09/02/2023 09/03/2023 09/04/2023 ipratropium-albuteroL 0.5-2.5 mg/3 mL nebulizer solution 3 mL (DUONEB) (COMPLETED) 3 mL, nebulization, Once, On Wed09/03/23 at 1933, For 1 dose 1937 (Given - Provider: Maryann Haas, R.R.T.) ipratropium-albuteroL 0.5-2.5 mg/3 mL nebulizer solution 3 mL (DUONEB) (COMPLETED) 3 mL, nebulization, Once, On Wed09/03/23 at 2238, For 1 dose 2241 (Given - Provider: Alpesh Harman, L.R.T., [employer]) sodium chloride (PF) 0.9 % injection 1-100 mL (COMPLETED) 1-100 mL, intravenous, Once, On Wed09/03/23 at 2104, For 1 dose, Imaging Protocol Orders, Dose per Radiant Medication Guidelines 2120 (Given - Provider: Jayden Otto, R.N.) sodium chloride 0.9 % injection 3 mL 3 mL, intravenous, Every 12 hours scheduled, First dose on Wed09/03/23 at 2100, Peripheral Intravenous Catheter and Rapid Infusion Catheter, when no infusion to maintain patency 2052 (Not Given - Provider: Remi Frey RTammyN. - Reason: Other) PRN Medication Order 09/02/2023 09/03/2023 09/04/2023 iopromide 370 mg iodine/mL injection 1-162 mL (ULTRAVIST) (COMPLETED) 1-162 mL, intravenous, Once in imaging, contrast, Starting on Wed09/03/23 at 2103, For 1 dose, Imaging Protocol Orders, Dose per Radiant Medication Guidelines 2116 (Given - Provider: Jayden Otto R.N. - Comment: [id number]) sodium chloride 0.9 % injection 10 mL 10 mL, intravenous, As needed, line care, Starting on Wed09/03/23 at 1600, Peripheral Intravenous Catheter and Rapid Infusion Catheter, prior to blood sampling, post blood transfusion or post blood sampling sodium chloride 0.9 % injection 3 mL 3 mL, intravenous, As needed, line care, Starting on Wed09/03/23 at 1600, Prior to and following infusion and between multiple consecutive infusions: sodium chloride 0.9 % injection documented in this encounter Additional Health Concerns Infection Onset Date Last Indicated Resolved Time COVID19 Pending 09/03/2023 09/03/2023 09/03/2023 8 :49 PM CDT documented as of this encounter Care Teams Chain Person Relationship Specialty Start Date End Date Elsewhere, Pcp PCP - General Internal Medicine 07/18/23 documented as of this encounter
--- OUTSIDE RECORDS SUMMARY | 2023-09-20 18:42 | XMS_ITS | Encounter Summary ---
Author Name Unknown Organization [facility] Address [address] [place] [address] Care Team Providers Care Canvass Manager Name Role Phone Elsewhere, Pcp Primary Care Provider Unavailabl e Encounter Details Date Type Department Care Team ([facility] st Contact Info) Description 09/03/2023 Clinical Communication Division of Pulmonary Medicine in [place], [place] [address] [place] [address] Ricky Leiva M.D. [address] [place] [address] Social History Tobacco Use Types Packs/Day Years Used Date Smoking Tobacco: Former Cigarettes Alcohol Use Standard Drinks/Week Comments Yes 0 (1 standard drink = 0.6 oz pur e alcohol) 2 beers a week [facility] Utilities Answer Date Recorded In the past 12 months has [facility] [employer], gas, oil, or water [employer] threatened to shut off services in your [...] Employed but not working due t o quetakirstieugh 08/24/2023 Housing Stability Answer Date Recorded What is your living situation today? I have a [facility] place to live 08/24/2023 Sex and Gender Information Value Date Recorded Sex Assigned at Male 08/24/2023 2:34 PM CDT Gender Identity Male 08/24/2023 2:34 PM CDT Sexual Orientation Straight 08/24/2023 2: 34 PM CDT documented as of this encounter Miscellaneous Notes * Telephone Encounter - Ricky Leiva M.D. - 09/03/2023 2:59 PM CDT I was notified of hypoxemia after this afternoon's nebulizing therapy. He had a large amount of mucus plugging that he was able to cough up. His HR was initially in 100's and Sat in 87% right after the pulmonary hygiene. I attributed that to Albuterol and transient event. However, when I called him again after 1 hour, he was still having HR of 100's and Sat in 87%. I made sure that I checked the other finger and also made sure that the device was working by checking it on his . His hands were warm. I was concerned that this could be related to something other than pulmonary hygiene such as PNA, bronchitis, PE even. Advised him to head to Emergency Department for further evaluations via telephone call. They agreed. Ricky Leiva MD Department of Pulmonary and Critical Care Fellow, PGY-4 documented in this encounter Plan of Treatment Upcoming Encounters Date Type Department Care Team (Late st Contact Info) Description 10/28/2023 12:30 PM CDT Diagnostic Division of Pulmonary Medicine in [address] [phone] José Luis Lopez M.D. [address] [place] [phone] 11/01/2023 1:00 PM CDT Office Visit Division of Pulmonary Medicine in [address] [phone] Zayra Thomas M.B.BTammyS., M.P.H. [address] [place] [phone] 11/11/2023 3:15 PM CDT Office Visit Department of Otorhinolaryngology in [place], [place] [address] [place] [phone] Steven Fernandez M.D. [address] [place] [phone] documented as of this encounter Visit Diagnoses Not on filedocumented in this encounter Care Teams Canvass Manager Relationship Specialty Start Date End Date Elsewhere, Pcp PCP - General Internal Medicine 07/18/23 documented as of this encounter
--- OUTSIDE RECORDS SUMMARY | 2023-09-20 18:42 | XMS_ITS | Encounter Summary ---
Author Name Unknown Organization [facility] Address [address] [place] [address] Care Team Providers Care Christmas Tree Farm Manager Name Role Phone Elsewhere, Pcp Primary Care Provider Unavailabl e Encounter Details Date Type Department Care Team (Late st Contact Info) Description 09/11/2023 Orders Only Division of Pulmonary Medicine in [place], [place] [address] [place] [address] Ricky Leiva M.D. [address] [place] [address] Bronchitis Chronic (HCC) (Primary Dx) Social History Tobacco Use Types Packs/Day Years Used Date Smoking Tobacco: Former Cigarettes Alcohol Use Standard Drinks/Week Comments Yes 0 (1 standard drink = 0.6 oz pur e alcohol) 2 beers a week [facility] Utilities Answer Date Recorded In the past [address] [facility] [employer], gas, oil, or water [employer] threatened to shut off services in your [...] your living situation today? I have a [facility] place to live 08/24/2023 Sex and [...] CDT Diagnostic Division of Pulmonary Medicine in [place], [place] 200 [place] [address] José Luis Lopez M.D. 200 [place] [address] 11/01/2023 1:00 PM CDT Office Visit Division of Pulmonary Medicine in [place], [place] [address] [place] [phone] Zayra Thomas M.B.B.S., M.P.H. [address] [place] [phone] 11/11/2023 3:15 PM CDT Office Visit Department of Otorhinolaryngology in [place], [place] [address] [place] [phone] Steven Fernandez M.D. [address] [place] [phone] Pending Results Name Type Priority Associated Diagnoses Date /Time Fungal Culture, Routine Microbiology Routine Bronchitis Chronic (HCC) 09/13/2023 11:14 AM CDT Mycobacterial Culture Microbiology Routine Bronchitis Chronic (HCC) 09/13/2023 11:14 AM CDT Scheduled Orders Name Type Priority Associated Diagnoses Orde r Schedule Acid Fast Smear for Mycobacterium Microbiology Routine Bronchitis Chronic (HCC) 3 Occurrences starting 09/11/2023 until 12/10/2024, 1 completed Mycobacterial Culture Microbiology Routine Bronchitis Chronic (HCC) 3 Occurrences starting 09/11/2023 until 12/10/2024, 1 completed documented as of this encounter Results * Acid Fast Smear for Mycobacterium (09/13/2023 11:14 AM CDT) Acid Fast Smear For Mycobacterium Negative. 09/13/2023 10:29 PM CDT DTL Sputum (Sputum) 09/13/2023 1 1:14 AM CDT 09/13/2023 12:23 PM CDT Comment:Specimen Source Site : Sputum Ricky Leiva M.D. LAB MICROBIOLOGY - G ENERAL ORDERABLES [facility] 200 [place], [place] [address] 200 [place] [address] * Fungal Smear (09/13/2023 11:14 AM CDT) Fungal Smear Negative. 09/13/2023 9:06 PM CDT DT Sputum (Sputum) 09/13/2023 1 1:14 AM CDT 09/13/2023 12:23 PM CDT Comment:Specimen Source Site : Sputum Ricky Leiva M.D. LAB MICROBIOLOGY - G ENERAL ORDERABLES Performing Organization Address City/[facility]/ZIP Co de Phone Number [facility] 200 [place], [place] [address] 200 [place] [address] * Bacterial Culture, Aerobic + Susceptibility, Respiratory (09/13/2023 11:14 AM CDT) Bacterial Culture, Aerobic, Resp Upper respiratory/or al microbiota 09/15/2023 8:02 AM CDT DT Sputum (Sputum) 09/13/2023 1 1:14 AM CDT 09/13/2023 12:23 PM CDT Comment:Specimen Source Site : Sputum Ricky Leiva M.D. LAB MICROBIOLOGY - G ENERAL ORDERABLES [facility] 200 [place], [place] [address] 200 [place] [address] * Gram Stain (09/13/2023 11:14 AM CDT) Gram Stain Upper respiratory/ora l microbiota White blood cells, Many Epithelial cells, Few 09/13/2023 7:13 PM CDT DT Sputum (Sputum) 09/13/2023 1 1:14 AM CDT 09/13/2023 12:23 PM CDT Comment:Specimen Source Site : Sputum Ricky Leiva M.D. LAB MICROBIOLOGY - G ENERAL ORDERABLES [facility] [address] [place] [address], [facility] [address] [place] [address] documented in this encounter Visit Diagnoses Diagnosis Bronchitis Chronic (HCC)- Primary documented in this encounter Care Teams Christmas Tree Farm Manager Relationship Specialty Start Date End Date Elsewhere, Pcp PCP - General Internal Medicine 07/18/23 documented as of this encounter
--- OUTSIDE RECORDS SUMMARY | 2023-09-20 18:42 | XMS_ITS | Encounter Summary ---
Author Name Unknown Organization [facility] Address [address] [place] [address] Care Team Providers Care Customer Agent Name Role Phone Elsewhere, Pcp Primary Care Provider Unavailabl e Encounter Details Date Type Department Care Team (Latest Contact Info) Description 09/13/2023 10:30 AM CDT - 09/13/2023 10:39 AM CDT Hospital Encounter Department of Laboratory Medicine and Pathology, [facility] in [place], [place] [address] [place] [address] Ricky Leiva M.D. [address] [place] [address] Bronchitis Chronic (HCC) Discharge Disposition: Home or Self Care Social History Tobacco Use Types Packs/Day Years Used Date Smoking Tobacco: Former Cigarettes Alcohol Use Standard Drinks/Week Comments Yes 0 (1 standard drink = 0.6 oz pur e alcohol) 2 beers a week [facility] Utilities Answer Date Recorded In the past 12 months has [employer], gas, oil, or water [employer] threatened to shut off services in your [...] your living situation today? I have a [facility] place to live 09/14/2023 Sex and [...] CDT Diagnostic Division of Pulmonary Medicine in [place], [place] [address] [place] [address] José Luis Lopez M.D. [address] [place] [phone] 11/01/2023 1:00 PM CDT Office Visit Division of Pulmonary Medicine in [place], [place] [address] [place] [phone] Zayra Thomas M.B.B.S., M.P.H. [address] [place] [phone] 11/11/2023 3:15 PM CDT Office Visit Department of Otorhinolaryngology in [place], [place] [address] [place] [phone] Steven Fernandez M.D. [address] [place] [phone] Pending Results Name Type Priority Associated Diagnoses Date /Time Fungal Culture, Routine Microbiology Routine Bronchitis Chronic (HCC) 09/13/2023 11:14 AM CDT Mycobacterial Culture Microbiology Routine Bronchitis Chronic (HCC) 09/13/2023 11:14 AM CDT documented as of this encounter Procedures Procedure Name Priority Date/Time Associated Diagnosis Comments BACTERIAL CULTURE, AEROBIC + SUSC, RESP Routine 09/13/2023 11:14 AM CDT Bronchitis Chronic (HCC) MYCOBACTERIAL CULTURE, V Routine 09/13/2023 11:14 AM CDT Bronchitis Chronic (HCC) FUNGAL SMEAR Routine 09/13/2023 11:14 AM CDT Bronchitis Chronic (HCC) ACID FAST SMEAR FOR MYCOBACTERIUM Routine 09/13/2023 11:14 AM CDT Bronchitis Chronic (HCC) GRAM STAIN Routine 09/13/2023 11:14 AM CDT Bronchitis Chronic (HCC) FUNGAL CULTURE, ROUTINE Routine 09/13/2023 11:14 AM CDT Bronchitis Chronic (HCC) documented in this encounter Results * Acid Fast Smear for Mycobacterium (09/13/2023 11:14 AM CDT) Acid Fast Smear For Mycobacterium Negative. 09/13/2023 10:29 PM CDT DTL Sputum (Sputum) 09/13/2023 1 1:14 AM CDT 09/13/2023 12:23 PM CDT Comment:Specimen Source Site : Sputum Ricky Leiva M.D. LAB MICROBIOLOGY - G ENERAL ORDERABLES Performing Organization Address City/[facility] Co de Phone Number [facility] [address] 200 [place] [address] * Fungal Smear (09/13/2023 11:14 AM CDT) Fungal Smear Negative. 09/13/2023 9:06 PM CDT DTL Sputum (Sputum) 09/13/2023 1 1:14 AM CDT 09/13/2023 12:23 PM CDT Comment:Specimen Source Site : Sputum Ricky Leiva M.D. LAB MICROBIOLOGY - G ENERAL ORDERABLES Performing Organization Address [facility] Co de Phone Number [facility] [address] [place] [address], [facility] 200 [place] [address] * Bacterial Culture, Aerobic + Susceptibility, Respiratory (09/13/2023 11:14 AM CDT) Bacterial Culture, Aerobic, Resp Upper respiratory/or al microbiota 09/15/2023 8:02 AM CDT DTL Sputum (Sputum) 09/13/2023 1 1:14 AM CDT 09/13/2023 12:23 PM CDT Comment:Specimen Source Site : Sputum Ricky Leiva M.D. LAB MICROBIOLOGY - G ENERAL ORDERABLES Performing Organization Address City/[facility] Co de Phone Number [facility] 200 [place] [address], [facility] 200 [place] [address] * Gram Stain (09/13/2023 11:14 AM CDT) Gram Stain Upper respiratory/ora l microbiota White blood cells, Many Epithelial cells, Few 09/13/2023 7:13 PM CDT DTL Sputum (Sputum) 09/13/2023 1 1:14 AM CDT 09/13/2023 12:23 PM CDT Comment:Specimen Source Site : Sputum Ricky Leiva M.D. LAB MICROBIOLOGY - [facility] ORDERABLES [facility] 200 [place] [address], [address] [address] documented in this encounter Visit Diagnoses Diagnosis Bronchitis Chronic (HCC) documented in this encounter Care Teams Customer Agent Relationship Specialty Start Date End Date Elsewhere, Pcp PCP - General Internal Medicine 07/18/23 documented as of this encounter
--- OUTSIDE RECORDS SUMMARY | 2023-09-20 18:42 | XMS_ITS | Encounter Summary ---
Author Name Unknown Organization [facility] Address [address] [place] [address] Care Team Providers Care Vulcanizer Name Role Phone Elsewhere, Pcp Primary Care Provider Unavailabl e Encounter Details Date Type Department Care Team (Late st Contact Info) Description 09/03/2023 Orders Only Division of Pulmonary Medicine in [place], [place] [address] [place] [address] Ricky Leiva M.D. [address] [place] [address] Bronchitis Chronic (HCC) (Primary Dx) Social History Tobacco Use Types Packs/Day Years Used Date Smoking Tobacco: Former Cigarettes Alcohol Use Standard Drinks/Week Comments Yes 0 (1 standard drink = 0.6 oz pur e alcohol) 2 beers a week [facility] Utilities Answer Date Recorded In the past 12 months has [facility] [employer], gas, oil, or water [employer] threatened to shut off services in your [...] situation today? I have a [facility] place to live 08/24/2023 Sex and [...] CDT Diagnostic Division of Pulmonary Medicine in [place], [place] 200 [place] [address] José Luis Lopez M.D. 200 [place] [phone] 11/01/2023 1:00 PM CDT Office Visit Division of Pulmonary Medicine in [place], [place] [address] [place] [address] Zayra Thomas M.B.B.S., M.P.H. [address] [place] [phone] 11/11/2023 3:15 PM CDT Office Visit Department of Otorhinolaryngology in [place], [place] [address] [place] [phone] Steven Fernandez M.D. [address] [place] [phone] documented as of this encounter Visit Diagnoses Diagnosis Bronchitis Chronic (HCC)- Primary documented in this encounter Additional Health Concerns Infection Onset Date Last Indicated Resolved Time COVID19 Pending 09/03/2023 09/03/2023 09/03/2023 8 :49 PM CDT COVID19 Pending 09/17/2023 09/17/2023 09/17/2023 1 1:38 PM CDT documented as of this encounter Care Teams Vulcanizer Relationship Specialty Start Date End Date Elsewhere, Pcp PCP - General Internal Medicine 07/18/23 documented as of this encounter
--- OUTSIDE RECORDS SUMMARY | 2023-09-20 18:42 | XMS_ITS | Encounter Summary ---
Author Name Unknown Organization [facility] Address [address] [place] [address] Care Team Providers Care General Adjuster Name Role Phone Elsewhere, Pcp Primary Care Provider Unavailabl e Reason for Visit * Reason Onset Date Comments SHAHIDA 09/02/2023 Encounter Details Date Type Department Care Team ([facility] st Contact Info) Description 09/02/2023 Clinical Communication Division of Pulmonary Medicine in [place], [place] [address] [place] [address] Ricky Leiva M.D. [address] [place] [address] SHAHIDA Social History Tobacco Use Types Packs/Day Years Used Date Smoking Tobacco: Former Cigarettes Alcohol Use Standard Drinks/Week Comments Yes 0 (1 standard drink = 0.6 oz pur e alcohol) 2 beers a week [facility] Utilities Answer Date Recorded In the past 12 months has [email or web address] [email or web address], oil, or water [employer] threatened to shut off services in your [...] your living situation today? I have a [facility] place to live 08/24/2023 Sex and Gender Information Value Date Recorded Sex Assigned at Male 08/24/2023 2:34 PM CDT Gender Identity Male 08/24/2023 2:34 PM CDT Sexual Orientation Straight 08/24/2023 2: 34 PM CDT documented as of this encounter Miscellaneous Notes * Telephone Encounter - Chidi, Letty Downey - 09/02/2023 8:16 AM CDT Pulmonary Note: Release of Information Items: Mouth piece, [employer], Pulmonary and Critical Care Medicine, Education on information on nebulizer, Education on Techniques for Clearing your lungs To: Austin Rodriguez Method: Mail: Home Address [address] [place] [address] Letty ELLIS [phone] documented in this encounter Plan of Treatment Upcoming Encounters Date Type Department Care Team (Late st Contact Info) Description 10/28/2023 12:30 PM CDT Diagnostic Division of Pulmonary Medicine in [place], [place] [address] [place] [phone] José Luis Lopez M.D. [address] [place] [phone] 11/01/2023 1:00 PM CDT Office Visit Division of Pulmonary Medicine in [place], [place] [address] [place] [phone] Zayra Thomas M.B.BTammyS., M.P.H. [address] [place] [phone] 11/11/2023 3:15 PM CDT Office Visit Department of Otorhinolaryngology in [place], [place] [address] [place] [phone] Steven Fernandez M.D. [address] [place] [phone] documented as of this encounter Visit Diagnoses Not on filedocumented in this encounter Care Teams General Adjuster Relationship Specialty Start Date End Date Elsewhere, Pcp PCP - General Internal Medicine 07/18/23 documented as of this encounter
--- OUTSIDE RECORDS SUMMARY | 2023-09-20 18:42 | XMS_ITS | Encounter Summary ---
Author Name Unknown Organization [facility] Address [address] [place] [address] Care Team Providers Care Risk Specialist Name Role Phone Elsewhere, Pcp Primary Care Provider Unavailabl e Encounter Details Date Type Department Care Team (Latest Contact Info) Description 09/13/2023 10:40 AM CDT - 09/13/2023 10:49 AM CDT Hospital Encounter Department of Laboratory Medicine and Pathology, [facility] in [place], [place] [address] [place] [address] Ricky Leiva M.D. [address] [place] [address] Bronchitis Chronic (HCC) Discharge Disposition: Home or Self Care Social History Tobacco Use Types Packs/Day Years Used Date Smoking Tobacco: Former Cigarettes Alcohol Use Standard Drinks/Week Comments Yes 0 (1 standard drink = 0.6 oz pur e alcohol) 2 beers a week [facility] Utilities Answer Date Recorded In the past 12 months has [employer], gas, oil, or water [employer] threatened to shut off services in your [...] your living situation today? I have a [facility] place to live 09/14/2023 Sex and [...] CDT Diagnostic Division of Pulmonary Medicine in [place], [place] [address] [place] [address] José Luis Lopez M.D. [address] [place] [phone] 11/01/2023 1:00 PM CDT Office Visit Division of Pulmonary Medicine in [place], [place] [address] [place] [phone] Zayra Thomas M.B.B.S., M.P.H. [address] [place] [phone] 11/11/2023 3:15 PM CDT Office Visit Department of Otorhinolaryngology in [place], [place] [address] [place] [phone] Steven Fernandez M.D. [address] [place] [phone] Scheduled Orders Name Type Priority Associated Diagnoses Orde r Schedule Acid Fast Smear for Mycobacterium Microbiology Routine Bronchitis Chronic (HCC) Once for 1 Occurrences starting 09/13/2023 until 09/13/2023 Mycobacterial Culture Microbiology Routine Bronchitis Chronic (HCC) Once for 1 Occurrences starting 09/13/2023 until 09/13/2023 documented as of this encounter Visit Diagnoses Diagnosis Bronchitis Chronic (HCC) documented in this encounter Care Teams Risk Specialist Relationship Specialty Start Date End Date Elsewhere, Pcp PCP - General Internal Medicine 07/18/23 documented as of this encounter
--- OUTSIDE RECORDS SUMMARY | 2023-09-20 18:43 | XMS_ITS | Encounter Summary ---
Author Name Unknown Organization [facility] Address [address] [place] [address] Care Team Providers Care Supervisor Dog License Officer Name Role Phone Elsewhere, Pcp Primary Care Provider Unavailabl e Reason for Visit * Reason Onset Date Comments Rx Quantity Denial 08/11/2023 ARNUITY ELPT INJ 100MCG Encounter Details Date Type Department Care Team (Latest Contact Info) Description 08/03/2023 Clinical Communication Pharmacy Prior Auth [phone] [place] M.B.B.S. [address] [place] [address] Rx Quantity Denial (ARNUITY ELPT INJ 100MCG) Social History Tobacco Use Types Packs/Day Years Used Date Smoking Tobacco: Former Cigarettes Alcohol Use Standard Drinks/Week Comments Yes 0 (1 standard drink = 0.6 oz pur e alcohol) 2 beers a week [facility] Utilities Answer Date Recorded In the past 12 months has [employer], gas, oil, or water [employer] threatened to shut off services in your home? No 07/18/2023 Humiliation, Afraid, Rape, and Kick questionnair e [...] by your partner or ex-partner? No 07/18/2023 Hunger Vital Sign Answer Date Recorded Within the past 12 months, y ou worried that your food would run out before you got the money to buy more. Never true 07/18/19 Within the past 12 months, t he food you bought just didn't last and you didn't have money to get more. Never true 07/18/2023 PRAPARE - Transportation Answer Date Re corded In the past 12 months, has l ack of transportation kept you from medical appointments or from getting medications? No 06/25 In the past 12 months, has l ack of transportation kept you from meetings, work, or from getting things needed for daily living? No 07/18/2023 Nutrition Answer Date Recorded Nutrition: EVOO Fat Source Unknown 07/18 Nutrition: Servings of Fruits/Vegetables per Day Not on file 07/18/2023 Dental Answer Date Recorded Dental: Regular Dentist Unknown 07/18/19 Housing Stability Answer Date Recorded What is your living situation today? I have a [facility] place to live 07/18/2023 Sex and Gender Information Value Date Recorded Sex Assigned at Male 08/24/2023 2:34 PM CDT Gender Identity Male 08/24/2023 2:34 PM CDT Sexual Orientation Straight 08/24/2023 2: 34 PM CDT documented as of this encounter Miscellaneous Notes * Telephone Encounter - Ivette To I. - 08/11/2023 12:07 PM CDT Images from the original note were not included. The patient's health insurer has denied prior authorization for the requested quantity of ARNUITY ELPT INJ 100MCG. The denial letter indicates the dose, amount, or day supply the payer will allow. A screen shot of the denial reason is at the bottom of this communication message. To view the complete denial letter, scroll down to the green Guidance section below and click on the appropriate medication in the Current Prescription Prior Authorizations display. As the prescriber, your options are: Adjust the Rx to the allowed daily quantity on the plan's formulary. Appeal the decision to the insurer directly (see denial letter for how to appeal). Write a new Rx for an alternative medication therapy. Release the Rx to the pharmacy so the patient has the option to pay out of pocket. To Release Rx: Open this encounter, go to [employer], and click on the medication. If the blue ???Release Rx?? button appears as an option, click to release the prescription. If the blue Release Rx button is not visible, the Rx has already been released to the pharmacy. If you have questions, please reply to [facility]. Thank you, The OPPA Team documented in this encounter Plan of Treatment Upcoming Encounters Date Type Department Care Team (Late st Contact Info) Description 10/28/2023 12:30 PM CDT Diagnostic Division of Pulmonary Medicine in [address] [phone] José Luis Lopez M.D. [address] [place] [phone] 11/01/2023 1:00 PM CDT Office Visit Division of Pulmonary Medicine in [address] [phone] Zayra Thomas M.B.BTammyS., M.P.H. [address] [place] [phone] 11/11/2023 3:15 PM CDT Office Visit Department of Otorhinolaryngology in [address] [phone] Steven Fernandez M.D. [address] [place] [phone] documented as of this encounter Visit Diagnoses Not on filedocumented in this encounter Additional Health Concerns Infection Onset Date Last Indicated Resolved Time COVID19 Pending 09/03/2023 09/03/2023 09/03/2023 8 :49 PM CDT COVID19 Pending 09/17/2023 09/17/2023 09/17/2023 1 1:38 PM CDT documented as of this encounter Care Teams Supervisor Dog License Officer Relationship Specialty Start Date End Date Elsewhere, Pcp PCP - General Internal Medicine 07/18/23 documented as of this encounter
--- OUTSIDE RECORDS SUMMARY | 2023-09-20 18:43 | XMS_ITS | Encounter Summary ---
Author Name Unknown Organization [facility] Address [address] [place] [address] Care Team Providers Care Medication Tech Name Role Phone Elsewhere, Pcp Primary Care Provider Unavailabl e Encounter Details Date Type Department Care Team (Latest Contact Info) Description 08/30/2023 8:45 PM CDT Ancillary Procedure Department of Radiology in [place], [place] [address] [place] [address] Ricky Leiva M.D. [address] [place] [address] Dyspnea; Nodules Pulmonary Multiple; Bronchitis Chronic (HCC) Social History Tobacco Use Types Packs/Day Years Used Date Smoking Tobacco: Former Cigarettes Alcohol Use Standard Drinks/Week Comments Yes 0 (1 standard drink = 0.6 oz pur e alcohol) 2 beers a week [facility] Utilities Answer Date Recorded In the past 12 months has [facility] [employer], gas, oil, or water [employer] threatened to shut off services in your [...] your living situation today? I have a [facility] place to live 08/24/2023 Sex [...] CDT Diagnostic Division of Pulmonary Medicine in [place], [place] [address] [place] [address] José Luis Lopez M.D. [address] [place] [address] 11/01/2023 1:00 PM CDT Office Visit Division of Pulmonary Medicine in [place], [place] [address] [place] [address] Zayra Thomas M.B.B.S., M.P.H. [address] [place] [phone] 11/11/2023 3:15 PM CDT Office Visit Department of Otorhinolaryngology in [place], [place] [address] [place] [address] Steven Fernandez M.D. [address] [place] [phone] documented as of this encounter Procedures Procedure Name Priority Date/Time Associated Diagnosis Comments INTERPRETATION OF OUTSIDE CT CHEST RAD - Routine (most inpatients and all outpatients) 08/30/2023 8:56 PM CDT Dyspnea Nodules Pulmonary Multiple Bronchitis Chronic (HCC) documented in this encounter Results * Interpretation of Outside CT Chest (08/30/2023 [...] with IV contrast enhancement of 08/24/2023 COMPARISON: ??[place] chest CT 07/18/2023 FINDINGS: ??Considering differences in [...] CHEST with IV contrast enhancement of08/24/2023 COMPARISON: [place] chest CT 07/18/2023 FINDINGS: Considering differences in [...] suggestive for intrapulmonarylymph nodes. Ricky Leiva M.D. IMLandon CT PROCEDURES documented in this encounter Visit Diagnoses Diagnosis Dyspnea Nodules Pulmonary Multiple Bronchitis Chronic (HCC) documented in this encounter Care Teams Medication Tech Relationship Specialty Start Date End Date Elsewhere, Pcp PCP - General Internal Medicine 07/18/23 documented as of this encounter
--- OUTSIDE RECORDS SUMMARY | 2023-09-20 18:43 | XMS_ITS | Encounter Summary ---
Author Name Unknown Organization [facility] Address [address] [place] [address] Care Team Providers Care Expanding Machine Operator Name Role Phone Elsewhere, Pcp Primary Care Provider Unavailabl e Reason for Referral * Outpatient (Routine) - Closed Specialty Diagnoses / Procedures Referred By Contac t Referred To Contact Diagnoses Cough Subacute Procedures DX Chest AP or PA and Lateral 2 Views Katherin Hunt M.D. [address] [place] [address] [facility] Referral ID Status Reason Start Date Expiration Date Visits Re quested Visits Authorized [id number] Closed 08/17/2023 08/16/2024 1 1 Reason for Visit * Outpatient (Routine) - Closed Specialty Diagnoses / Procedures Referred By Contac t Referred To Contact Diagnoses Cough Subacute Procedures DX Chest AP or PA and Lateral 2 Views Katherin Hunt M.D. [address] [place] [address] [facility] Referral ID Status Reason Start Date Expiration Date Visits Re quested Visits Authorized [id number] Closed 08/17/2023 08/16/2024 1 1 Encounter Details Date Type Department Care Team (Latest Contact Info) Description 08/31/2023 9:49 AM CDT - 08/31/2023 12:17 PM CDT Hospital Encounter Department of Radiology, [place], in [place], [place] [address] [place] [address] Katherin Hunt M.D. [address] [place] [address] Cough Subacute Discharge Disposition: Home or Self Care Social History Tobacco Use Types Packs/Day Years Used Date Smoking Tobacco: Former Cigarettes Alcohol Use Standard Drinks/Week Comments Yes 0 (1 standard drink = 0.6 oz pur e alcohol) 2 beers a week [facility] Utilities Answer Date Recorded In the past 12 months has e [employer], gas, oil, or water [employer] threatened to shut off services in your [...] Employed but not working due t o ashly 08/24/2023 Housing Stability Answer Date Recorded What is your living situation today? I have a [facility] place to live 08/24/2023 Sex [...] pain (for headache, alternates with Acetaminophen PRN). fluticasone furoate (Arnuity Ellipta) 100 mcg/actuation diskus inhaler Inhale 1 puff 2 (two) times a day. 60 each 07/20/2023 09/15/2023 predniSONE (DELTASONE) 20 mg tablet TAKE 2 TABLETS BY MOUTH DAILY WITH MEAL 08/25/2023 09/15/2023 sildenafiL (VIAGRA) 100 mg tablet Take 100 mg by mouth daily as needed for erectile dysfunction (TAKE 30 MIN TO 4 HOURS BEFORE ACTIVITY). 09/15/2023 documented as of this encounter Plan of Treatment Upcoming Encounters Date Type Department Care Team (Late st Contact Info) Description 10/28/2023 12:30 PM CDT Diagnostic Division of Pulmonary Medicine in [place], [place] [address] [place] [address] José Luis Lopez M.D. [address] [place] [phone] 11/01/2023 1:00 PM CDT Office Visit Division of Pulmonary Medicine in [place], [place] [address] [place] [phone] Zayra Thomas M.B.BTammyS., M.P.H. [address] [place] [phone] 11/11/2023 3:15 PM CDT Office Visit Department of Otorhinolaryngology in [place], [place] [address] [place] [phone] Steven Fernandez M.D. [address] [place] [phone] documented as of this encounter Procedures Procedure Name Priority Date/Time Associated Diagnosis Comments DX CHEST AP OR PA AND LATERAL 2 VIEWS RAD - Routine (most inpatients and all outpatients) 08/31/2023 9:54 AM CDT Cough Subacute documented in this encounter Results * DX Chest AP or PA and Lateral 2 Views (08/31/2023 9:54 AM CDT) Anatomical Region Laterality Modality Chest, Thoracic RST LOS, Tho racic ARZ LOS, Thoracic FLA LOS N/A Digital Radiography Impressions 08/31/2023 10:25 AM CDT No substantial change since CT 07/18/2023. Mild bibasilar atelectasis or scarring. Hypertrophic degenerative changes of the spine. Chest otherwise negative. Narrative 08/31/2023 10:25 AM CDT EXAM: ??DX CHEST AP OR PA AND LATERAL 2 VIEWS Procedure Note Larissa Caldwell M.D. - 08/31/2023 EXAM: DX CHEST AP OR PA AND LATERAL 2 VIEWS IMPRESSION: No substantial change since CT 07/18/2023. Mild bibasilar atelectasis orscarring. Hypertrophic degenerative changes of the spine. Chest otherwisenegative. Katherin [facility] PROCEDURES documented in this encounter Visit Diagnoses Diagnosis Cough Subacute documented in this encounter Care Teams Expanding Machine Operator Relationship Specialty Start Date End Date Elsewhere, Pcp PCP - General Internal Medicine 07/18/23 documented as of this encounter
--- OUTSIDE RECORDS SUMMARY | 2023-09-20 18:43 | XMS_ITS | Encounter Summary ---
Author Name Unknown Organization [facility] Address [address] [place] [address] Care Team Providers Care Weight Clerk Name Role Phone Elsewhere, Pcp Primary Care Provider Unavailabl e Encounter Details Date Type Department Care Team (Latest Contact Info) Description 08/31/2023 12:18 PM CDT - 08/31/2023 4:21 PM CDT Hospital Encounter Department of Laboratory Medicine and Pathology, [facility] in [place], [place] [address] [place] [address] Ricky Leiva M.D. [address] [place] [address] Dyspnea; Nodules Pulmonary Multiple; Bronchitis Chronic (HCC) Discharge Disposition: Home or Self Care Social History Tobacco Use Types Packs/Day Years Used Date Smoking Tobacco: Former Cigarettes Alcohol Use Standard Drinks/Week Comments Yes 0 (1 standard drink = 0.6 oz pur e alcohol) 2 beers a week [facility] Utilities Answer Date Recorded In the past 12 months has e electric, gas, oil, or water [employer] threatened to shut off services in your [...] your living situation today? I have a [facility] place to live 08/24/2023 Sex and [...] CDT Diagnostic Division of Pulmonary Medicine in [place], [place] [address] [place] [phone] José Luis Lopez M.D. [address] [place] [phone] 11/01/2023 1:00 PM CDT Office Visit Division of Pulmonary Medicine in [place], [place] [address] [place] [phone] Zayra Thomas M.B.B.S., M.P.H. [address] [place] [phone] 11/11/2023 3:15 PM CDT Office Visit Department of Otorhinolaryngology in [place], [place] [address] [place] [phone] Steven Fernandez M.D. [address] [place] [phone] documented as of this encounter Procedures Procedure Name Priority Date/Time Associated Diagnosis Comments CBC WITH DIFFERENTIAL, B Routine 08/31/2023 12:28 PM CDT Dyspnea Nodules Pulmonary Multiple Bronchitis Chronic (HCC) documented in this encounter Results * (ABNORMAL) CBC with Differential, Blood (08/31/2023 12:28 PM CDT) Hemoglobin 16.7(H) 13.2 - 16.6 g/dL 08/31/2023 1:19 PM CDT DTL Hematocrit 48.2 38.3 - 48.6 % 08/31/2023 1:19 PM CDT DTL Erythrocytes 5.21 4.35 - 5.65 x10(12)/L 08/31/2023 1:19 PM CDT DTL MCV 92.5 78.2 - 97.9 fL 08/31/2023 1:19 PM CDT DTL RBC Distrib Width 13.0 11.8 - 14.5 % 08/31/2023 1:19 PM CDT DTL Platelet Count 200 135 - 317 x10(9)/L 08/31/2023 1:19 PM CDT DTL Leukocytes 11.3(H) 3.4 - 9.6 x10(9)/L 08/31/2023 1:19 PM CDT DTL Neutrophils 6.03 1.56 - 6.45 x10(9)/L 08/31/2023 1:18 PM CDT DHPM Lymphocytes 3.95(H) 0.95 - 3.07 x10(9)/L 08/31/2023 1:19 PM CDT DTL Monocytes 0.89(H) 0.26 - 0.81 x10(9)/L 08/31/2023 1:19 PM CDT DTL Eosinophils 0.36 0.03 - 0.48 x10(9)/L 08/31/2023 1:19 PM CDT DTL Basophils 0.06 0.01 - 0.08 x10(9)/L 08/31/2023 1:19 PM CDT DTL Blood (Blood, Venous) 08/31/2023 12:28 PM CDT 08/31/2023 12:56 PM CDT Ricky Leiva M.D. LAB BLOOD ADD-ON [facility] [address] [place] [address], [facility] DTL [facility] [address] [place] [address] DHPM [facility] [address] [place] [address] documented in this encounter Visit Diagnoses Diagnosis Dyspnea Nodules Pulmonary Multiple Bronchitis Chronic (HCC) documented in this encounter Care Teams Weight Clerk Relationship Specialty Start Date End Date Elsewhere, Pcp PCP - General Internal Medicine 07/18/23 documented as of this encounter
--- OUTSIDE RECORDS SUMMARY | 2023-09-20 18:43 | XMS_ITS | Encounter Summary ---
Author Name Unknown Organization [facility] Address [address] [place] [address] Care Team Providers Care Hospital Secretary Name Role Phone Elsewhere, Pcp Primary Care Provider Unavailabl e Reason for Visit * Reason Onset Date Comments Pre-visit Intake 08/30/2023 Encounter Details Date Type Department Care Team (Latest Contact Info) Description 08/30/2023 Clinical Communication Division of Pulmonary Medicine in [place], [place] [address] [place] [address] [facility], Provider Pre-visit Intake Social History Tobacco Use Types Packs/Day Years Used Date Smoking Tobacco: Former Cigarettes Alcohol Use Standard Drinks/Week Comments Yes 0 (1 standard drink = 0.6 oz pur e alcohol) 2 beers a week [facility] Utilities Answer Date Recorded In the past 12 months has e [employer], gas, oil, or water [employer] threatened to shut off services in your [...] your living situation today? I have a [facility] place to live 08/24/2023 Sex and [...] CDT Diagnostic Division of Pulmonary Medicine in [place], [place] [address] [place] [address] José Luis Lopez M.D. 200 [place] [address] 11/01/2023 1:00 PM CDT Office Visit Division of Pulmonary Medicine in [place], [place] [address] [place] [phone] Zayra Thomas M.B.BTammyS., M.P.H. [address] [place] [phone] 11/11/2023 3:15 PM CDT Office Visit Department of Otorhinolaryngology in [place], [place] [address] [place] [phone] Steven Fernandez M.D. [address] [place] [phone] documented as of this encounter Visit Diagnoses Not on filedocumented in this encounter Care Teams Hospital Secretary Relationship Specialty Start Date End Date Elsewhere, Pcp PCP - General Internal Medicine 07/18/23 documented as of this encounter
--- OUTSIDE RECORDS SUMMARY | 2023-09-20 18:43 | XMS_ITS | Encounter Summary ---
Author Name Unknown Organization [facility] Address [address] [place] [address] Care Team Providers Care Delivery Technician Name Role Phone Elsewhere, Pcp Primary Care Provider Unavailabl e Encounter Details Date Type Department Care Team (Late st Contact Info) Description 08/19/2023 Clinical Communication Division of Pulmonary Medicine in [place], [place] [address] [place] [phone] Ankita Yu M.D. [address] [place] [address] Social History Tobacco Use Types Packs/Day Years Used Date Smoking Tobacco: Former Cigarettes Alcohol Use Standard Drinks/Week Comments Yes 0 (1 standard drink = 0.6 oz pur e alcohol) 2 beers a week [facility] Utilities Answer Date Recorded In the past 12 months has [facility] [employer], gas, oil, or water [employer] threatened to shut off services in your [...] money to buy more. Never true 07/18/19 24 Within the past 12 months, t [...] your living situation today? I have a [facility] place to live 07/18/2023 Sex and Gender [...] CDT Diagnostic Division of Pulmonary Medicine in [place], [place] [address] [place] [phone] José Luis Lopez M.D. [address] [place] [phone] 11/01/2023 1:00 PM CDT Office Visit Division of Pulmonary Medicine in [place], [place] [address] [place] [phone] Zayra Thomas M.B.B.S., M.P.H. [address] [place] [phone] 11/11/2023 3:15 PM CDT Office Visit Department of Otorhinolaryngology in [place], [place] [address] [place] [phone] Steven Fernandez M.D. [address] [place] [phone] documented as of this encounter Visit Diagnoses Not on filedocumented in this encounter Additional Health Concerns Infection Onset Date Last Indicated Resolved Time COVID19 Pending 09/03/2023 09/03/2023 09/03/2023 8 :49 PM CDT COVID19 Pending 09/17/2023 09/17/2023 09/17/2023 1 1:38 PM CDT documented as of this encounter Care Teams Delivery Technician Relationship Specialty Start Date End Date Elsewhere, Pcp PCP - General Internal Medicine 07/18/23 documented as of this encounter
--- OUTSIDE RECORDS SUMMARY | 2023-09-20 18:43 | XMS_ITS | Encounter Summary ---
Author Name Unknown Organization [facility] Address [address] [place] [address] Care Team Providers Care Art Tracer Name Role Phone Elsewhere, Pcp Primary Care Provider Unavailabl e Reason for Visit * Reason Onset Date Comments Post Hospital Follow-up 07/20/2023 Encounter Details Date Type Department Care Team (Latest Contact Info) Description 07/20/2023 Clinical Communication [facility] [address] [place] [address] Katherin Hunt M.D. [address] [place] [address] Post Hospital Follow-up Social History Tobacco Use Types Packs/Day Years Used Date Smoking Tobacco: Former Cigarettes Alcohol Use Standard Drinks/Week Comments Yes 0 (1 standard drink = 0.6 oz pur e alcohol) 2 beers a week [facility] Utilities Answer Date Recorded In the past 12 months has [facility] [employer], oil, or water [employer] threatened to shut off services in your [...] living situation today? I have a [facility] place to live 07/18/2023 Sex and [...] CDT Diagnostic Division of Pulmonary Medicine in [place], [place] [address] [place] [phone] José Luis Lopez M.D. [address] [place] [phone] 11/01/2023 1:00 PM CDT Office Visit Division of Pulmonary Medicine in [place], [place] [address] [place] [address] Zayra Thomas M.B.B.S., M.P.H. [address] [place] [phone] 11/11/2023 3:15 PM CDT Office Visit Department of Otorhinolaryngology in [place], [place] [address] [place] [phone] Steven Fernandez M.D. [address] [place] [phone] documented as of this encounter Visit Diagnoses Not on filedocumented in this encounter Care Teams Art Tracer Relationship Specialty Start Date End Date Elsewhere, Pcp PCP - General Internal Medicine 07/18/23 documented as of this encounter
--- OUTSIDE RECORDS SUMMARY | 2023-09-20 18:43 | XMS_ITS | Encounter Summary ---
Author Name Unknown Organization [facility] Address [address] [place] [address] Care Team Providers Care Clinical Genetics Laboratory Chief Name Role Phone Elsewhere, Pcp Primary Care Provider Unavailabl e Reason for Visit * Reason Comments Shortness of Breath * Auth/Cert (Routine) Specialty Diagnoses / Procedures Referred By Contac t Referred To Contact Diagnoses Hypoxia Dyspnea Cough Subacute Procedures OBS Referral ID Status Reason Start Date Expiration Date Visits Re quested Visits Authorized [id number] 1 1 Encounter Details Date Type Department Care Team (Latest Contact Info) Description 07/18/2023 3:07 PM TANGLED YARN WORKER - 07/20/2023 1:21 PM TANGLED YARN WORKER Hospital Encounter [facility], [facility], [facility], Third Floor [address] [place] [phone] Eduar Davis M.D. [address] [place] [phone] Sarwat Lee M.D. [address] [place] [phone] Dyspnea (Primary Dx); Cough Subacute; Hypoxia Discharge Disposition: Home or Self Care Social History Tobacco Use Types Packs/Day Years Used Date Smoking Tobacco: Former Cigarettes Tobacco Cessation:Counseling Given: Not Answered Alcohol Use Standard Drinks/Week Comments Yes 0 (1 standard drink = 0.6 oz pur e alcohol) 2 beers a week [facility] Utilities Answer Date Recorded In the [...] your living situation today? I [facility] live 07/18/2023 Sex and Gender Information Value Date Recorded Sex Assigned at Male 08/24/2023 2:34 PM CDT Gender Identity Male 08/24/2023 2:34 PM CDT Sexual Orientation Straight 08/24/2023 2: 34 PM CDT documented as of this encounter Last Filed Vital Signs Vital Sign Reading Time Taken Comments Blood Pressure 116/71 07/20/2023 1:00 PM TANGLED YARN WORKER Pulse 102 07/20/2023 1:00 PM TANGLED YARN WORKER Temperature 36.5 ??C (97.7 ??F) 07/20/2023 1:00 PM CS T Respiratory Rate 20 07/20/2023 1:00 PM TANGLED YARN WORKER Oxygen Saturation 93% 07/20/2023 1:00 PM TANGLED YARN WORKER Inhaled Oxygen Concentration - - Weight 129 kg (284 lb 6.3 oz) 07/18/2023 10:04 P M TANGLED YARN WORKER Height 195.6 cm (6' 5.01) 07/19/2023 2:06 PM CS T Body Mass Index 33.72 07/18/2023 10:04 PM TANGLED YARN WORKER documented in this encounter Discharge Summaries * [place] M.B.B.S. - 07/20/2023 11:29 AM CST DISCHARGE SUMMARY BRIEF OVERVIEW Hospital: [facility] Discharge Provider: Sarwat Lee M.D. Primary Team: [facility] Medicine 2 ([facility]) Primary Care Providers: Elsewhere, Pcp (General) No address on file Primary Care Provider Phone Number: None Primary Care Provider Fax Number: None Other Providers: None Admission Date: 07/18/2023 Discharge Date: 07/20/2023 PRINCIPAL DIAGNOSIS Chronic Cough SECONDARY DIAGNOSES Principal Problem: Chronic Cough Active Problems: Dyspnea Nodules Pulmonary Multiple Eosinophilia Unspecified Bronchitis Chronic (HCC) Resolved Problems: * No resolved hospital problems. * DISCHARGE DISPOSITION Home or Self Care [1] ACTIVE ISSUES REQUIRING FOLLOW UP Pulmonary follow-up OUTPATIENT FOLLOW UP For appointment details refer to your Patient Appointment Guide. TEST RESULTS PENDING AT DISCHARGE Pending Labs Order Current Status Aspergillus fumigatus, IgE Collected (07/20/23 0744) Aspergillus Ag In process Aspergillus fumigatus, IgG Antibodies In process Fungal Culture, Routine In process Immunoglobulin E (IgE) In process M. pneumoniae Ab, IgG and IgM In process Mycobacterial Culture In process Ova and Parasite, Travel History or Immunocompromised, Feces In process QuantiFERON-Tb Gold Plus, Blood In process Bacteria / Marialuisa Culture, Blood #1 Preliminary result Bacteria / Marialuisa Culture, Blood #2 Preliminary result Bacterial Culture, Aerobic + Susceptibility, Respiratory Preliminary result DETAILS OF HOSPITAL STAY REASON FOR ADMISSION Hypoxia Dyspnea Cough Subacute HOSPITAL COURSE Diagnoses: # Eosinophilic bronchitis # Intermittent hypoxia, mainly associated with the cough spells # Diffuse bronchial wall thickening and mucus plugging with normal lung parenchyma # Wheezing # Chronic productive cough # Peripheral eosinophilia # Multiple solid pulmonary nodules less than 6 mm, 3-6 month follow-up CT needed # History of smoking Hospital Course: Mr. Austin Rodriguez is a former smoker 58 y.o. male without a past medical history significantwho was admitted with three-month history of productive cough and occasional desaturation events athome. He is admitted from the emergency department due to hypoxia and diffuse wheezing. He reports a four-month history of intermittent but progressive cough productive of clear yellow-green jelly-like phlegm. This has been associated with a 15 lb weight loss in the last 3 months and loss of appetite. He does not have prior pulmonary function tests or exhaled nitric oxide. He was admitted to the Medicine 2 service for further evaluation. CT chest on admission showed bronchial inflammation with bronchial wall thickening and mucus plugging. There was also solid pulmonary nodules throughout both lungs measuring up to 6 mm. The radiologist recommended repeat CT chest in 3-6 months based on guidelines. Laboratory evaluation demonstratedperipheral eosinophilia with mild leukocytosis. A broad workup for autoimmune/inflammatory, infectious, and neoplastic etiologies of this chronic cough, eosinophilia, and pulmonary nodules was undertaken. Pulmonary medicine was consulted. They raised the differential diagnosis for peripheral eosinophilia which included parasitic infection, ABPA, asthma, allergies, EGPA and bone marrow abnormalities. His clinical picture more fits into eosinophilic bronchitis picture with ongoing airway inflammation given patient's prior environmental exposures. Intermittent hypoxia is mainly associated with cough spells. They recommended a broad workup, an oral prednisone taper, inhaled corticosteroids, and overnight oximetry. They will review him in the outpatient Pulmonary Clinic with repeat CBC with differential, PFTs and Brandon within a month after discharge. Repeat CT in 3-6 months can be discussed during that visit. We also initiated daily pantoprazole 40 mg in the setting of chronic cough and steroid use. Instructions for Patient: Please take the prescribed medications as detailed below Please attend all outpatient appointments If not yet arranged please see your PCP within 7-10 days to discuss this admission Please seek medical attention if you have any of the following symptoms: Fever, unintentional weight loss, night sweats Chest pain, palpitations, arm or neck pain, difficulty breathing, severe persistent cough Diarrhea; Persistent constipation; Blood in the stools; Persistent nausea or vomiting, Vomiting blood, Severe tenderness of the belly, Jaundice (yellowish discoloration of the skin) New sudden problems with vision, speech, swallow, movement of arms or legs, walking, or face symmetry Instructions for PCP: Please continue inhalers, and PPI If he develops another exacerbation, reconsider another steroid taper Please ensure he attends all outpatient pulmonology appointments Follow Up: 07/26 PCP follow up Follow up with Pulmonary in the outpatient setting. Date and time to be confirmed Medications: Started Prednisone 40 mg for 3 days followed by 30 mg for 3 days 20 mg for 3 days and 10 mg for 3 days. Inhaled corticosteroid Flovent HFA 110 mcg Pantoprazole 40mg daily CONSULTS ORDERED DURING THIS ADMISSION IP CONSULT TO PULMONARY MEDICINE IP CONSULT TO DIETITIAN IP CONSULT TO DERMATOLOGY CONDITION AT DISCHARGE improved Discharge instructions were provided to the patient and caregiver(s). Total time spent in discharge services today: 30 minutes. LED YARN WORKER documented in this encounter Discharge Instructions * Discharge Instructions* Gloria Garcia - 07/20/2023 7:40 AM TANGLED YARN WORKER You were discharged from the [facility] Medicine 2 ([facility]) Service. Please identify this service name if youcall with questions after hospitalization. LED YARN WORKER * Attachments The following attachments cannot be sent through Care Everywhere. * Benzonatate (By mouth) (Vietnamese) * Pantoprazole (By mouth) (Vietnamese) * Prednisone (By mouth) (Vietnamese) documented in this encounter Medications at Time [...] pain (for headache, alternates with Acetaminophen PRN). pantoprazole (PROTONIX) 40 mg EC tablet Take 1 tablet (40 mg total) by mouth every morning before breakfast. 30 tablet 07/20/2023 08/19/2023 predniSONE (DELTASONE) 10 mg tablet Take 4 tablets (40 mg total) by mouth daily for 3 days, THEN 3 tablets (30 mg total) daily for 3 days, THEN 2 tablets (20 mg total) daily for 3 days, THEN 1 tablet (10 mg total) daily for 3 days. 30 tablet 07/20/2023 08/01/2023 albuterol 90 mcg/actuation inhaler Inhale 2 puffs every 4 (four) hours as needed. 07/17/2023 08/31/2023 codeine-guaiFENesin (ROBITUSSIN-AC) 10-100 mg/5 mL liquid Take 10 mL by mouth every 4 (four) hours as needed (for cough). 07/17/2023 fluticasone furoate (Arnuity Ellipta) 100 mcg/actuation diskus inhaler Inhale 1 puff 2 (two) times a day. 60 each 07/20/2023 09/15/2023 sildenafiL (VIAGRA) 100 mg tablet Take 100 mg by mouth daily as needed for erectile dysfunction (TAKE 30 MIN TO 4 HOURS BEFORE ACTIVITY). 09/15/2023 documented as of this encounter Progress Notes * Sarwat Lee M.D. - 07/20/2023 8:02 AM CST [facility] Medicine 2 ([facility]) Supervisory Admission Note I saw and evaluated Austin Rodriguez on rounds today with our medicine team, participated in zelaya decision making and treatment planning, and I agree with the findings and plan as documented in today's progress note by the Internal Medicine resident, with the following comments: 58-year-old man admitted 07/18/2023 with cough and hypoxemia. Patient has no significant prior medical history. He first noted a cough in March of 2023, he was treated with azithromycin and the cough temporarily improved. 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 He does have dogs in the house. He has traveled recently to [place] [employer] [place] [employer] [facility], and took a cruise but did not leave the ship. He has had a 15 lb weight loss. He schroeder s a distant smoking history, quit 25 years ago approximately 15 pack years. On exam, he has diffuse expiratory wheezing all lung lovelace. Chest CT showed bronchial thickening, mucus plugging, with otherwise normal lung parenchyma. He does have multiple pulmonary nodules all less than 6 mm. 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 He has had progressive eosinophilia. The clinical picture suggests an allergic bronchitis, possibly related to agricultural dust exposure, atypical infection certainly still on the list, less likely malignancy given the multiple pulmonary nodules. Appreciate pulmonary medicine assistance. Patient much improved on inhaled and oral steroids. Plan for dismissal today with follow-up in Pulmonary in approximately 3 weeks. Please refer to today's Internal Medicine resident's note for additional details about our team's plan of care. Counseling was provided [id number] at bedside regarding the plan of care as stated above. I personally spent a total of 50 minutes in counseling and coordination of care today. LED YARN WORKER * Joyce Keating C.R.T., L.R.T. - 07/19/2023 11:54 PM CST 07/19/23 2246 Overnight Oximetry Procedure Overnight Oximetry Set-up Completed Patient placed on overnight study monitor. Electronically signed by: Joyce Keating C.R.T., L.R.T. 07/19/23 11:54 PM TANGLED YARN WORKER LED YARN WORKER * Cynthia Martin R.R.T., L.R.T. - 07/19/2023 2:41 PM CST Hospital Chronic Pulmonary Disease Clinical Specialist (RT) Visit: Home: Inhaled Medications:Albuterol HFA as needed Bronchial Hygiene: daily productive cough for the last 3 months. Oxygen:none Noninvasive Positive Airway Pressure: none PFTS:none Smoking Hx: former smoker: Pred and antibiotics courses: multiple since Hospital: Inhaled Medications:Atrovent Four times a day . Sodium Chloride 3% four times a day. Bronchial Hygiene: Oxygen: Noninvasive Positive Airway Pressure: Patient Education:Teach back/Demonstration: -Inhaled Medication classes: Long acting vs short-acting inhaled medications. - HFA technique with spacers. Timing between puffs. Slow inhalation and breathhold required - Use of f short-acting bronchodilators in acute episode of breathlessness, prior to strenuous activity and 1-2 hrs Prior to administration of long- acting inhalers like steroid inhaler he will be prescribed Flovent -Oral hygiene after inhaled corticosteroids. - cleaning of AeroChamber or spacer tubing Recommendations for Hospital:Prescribe prn levalbuterol 1.25 mg four times a day as needed. Recommendations for Discharge per [facility] Hunt- Flovent HFA 110 mcg 2 puffs twice viaAeroChamber. Albuterol HFA 2 puffs q 4 hrs as needed or 15- 30 min before exercise. LED YARN WORKER * Ankita Nieves, Pharm.D., R.Ph. - 07/19/2023 1:10 PM CST Pharmacist Progress Note Reason for admission: Dyspnea/Cough PMH: Adenomatous Colonic Polyps and Diastasis Recti OBJECTIVE Home medications: Held: Albuterol, Sildenafil, Ibuprofen Changed: None Last BM: 07/18 Prophylaxis: None (Pauda Score of 2: Chemical Prophylaxis Not Indicated, SCDs Placed) ASSESSMENT / PLAN Chronic Cough with Intermittent Hypoxia: Pulmonology Consulted CT Chest 07/19 with findings of bronchial inflammation/thickening with mucous plugging and pulmonarynodules BAL not recommended at this time however PUL recommends a longer oral prednisone taper and inhaled corticosteroid Prednisone 40mg x 3 days, 30mg x3 days, 20mg x 3 days and 10mg x3 days Flovent HFA 110mcg or Budesonide nebulizer On benzonatate capsules 100mg TID prn, Robitussin-AC 10ml Q4H PRN, Ipratropium 500mcg QID, and Nebusal QID Has utilized 200mg of benzonatate, and 20mL of Robitussin-AC since admission Ankita Nieves Pharm.D., R.Ph. LED YARN WORKER * Radha Hancock - 07/19/2023 11:53 AM CST Images from the original note were not included. Admission Medication History Note Adherence issues: No concerns Medication list source: Family member and Pharmacy or dispense records Medication related information: - medication history per - no known allergies Prior to Admission Medications Med List Status: Pharmacy Complete Set By: Radha Hancock at 07/19/2023 11:53 AM Taking? Last Dose Informant Start Date End Date LT acetaminophen (TYLENOL) 500 mg tablet Past Week -- -- -- Take 1,000 mg by mouth every 6 (six) hours as needed for pain (for headaches, alternates with Ibuprofen PRN). albuterol 90 mcg/actuation inhaler 07/18/2023 at 0700 -- 07/17/23 -- Inhale 2 puffs every 4 (four) hours as needed. codeine-guaiFENesin (ROBITUSSIN-AC) 10-100 mg/5 mL liquid 07/18/2023 -- 07/17/23 -- Take 10 mL by mouth every 4 (four) hours as needed (for cough). ibuprofen (ADVIL,MOTRIN) 200 mg tablet Past Week -- -- -- Take 400 mg by mouth every 6 (six) hours as needed for pain (for headache, alternates with Acetaminophen PRN). sildenafiL (VIAGRA) 100 mg tablet Unknown -- -- -- Take 100 mg by mouth daily as needed for erectile dysfunction (TAKE 30 MIN TO 4 HOURS BEFORE ACTIVITY). Electronically signed by: Radha Hancock 07/19/23 11:55 AM TANGLED YARN WORKER LED YARN WORKER * Vinh Glez R.R.T., MadinaRNuris. - 07/19/2023 9:00 AM CST 07/19/23 0850 Chest Physiotherapy CPT Delivery Source PEP Therapy CPT Treatment Tolerance Tolerated well PEP Therapy Device Aerobika PEP Therapy Duration 10 minutes Respiratory Assessment Cough Strong;Productive Cough Description Sputum How Obtained Spontaneous cough PEP (Aerobika) Therapy instruction completed. Pt demonstrated good understanding & technique. Will continue resp support as needed. Electronically signed by: Vinh Glez R.R.T., L.R.T. 07/19/23 9:33 AM TANGLED YARN WORKER LED YARN WORKER * Latisha Lopez M.D. - 07/18/2023 6:16 PM CST [facility] Note: Patient was not seen or evaluated. ED team requested [facility] assist with outpatient pulmonary medicine consultation for shortness of breath and cough. Will have our [facility] team request this tomorrow. LED YARN WORKER documented in this encounter H&P Notes * Sarwat Lee M.D. - 07/19/2023 9:01 AM CST T Medicine 2 ([facility]) Supervisory Admission Note I saw and evaluated Austin Rodriguez on rounds today with our medicine team, participated in zelaya decision making and treatment planning, and I agree with the findings and plan as documented in today's progress note by the Internal Medicine resident, with the following comments: 58-year-old man admitted 07/18/2023 with cough and hypoxemia. Patient has no significant prior medical history. He first noted a cough in March of 2023, he was treated with azithromycin and the cough temporarily improved. 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 He does have dogs in the house. He has traveled recently to [place] [facility], and took a cruise but did not leave the ship. He has had a 15 lb weight loss. He schroeder s a distant smoking history, quit 25 years ago approximately 15 pack years. On exam, he has diffuse expiratory wheezing all lung lovelace. Chest CT showed bronchial thickening, mucus plugging, with otherwise normal lung parenchyma. He does have multiple pulmonary nodules all less than 6 mm. 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 He has had progressive eosinophilia. The clinical picture suggests an allergic bronchitis, possibly related to agricultural dust exposure, atypical infection certainly still on the list, less likely malignancy given the multiple pulmonary nodules. Pulmonary consultation pending. Laboratory evaluation studies pending for atypical infection including fungal infection. Please refer to today's Internal Medicine resident's note for additional details about our team's plan of care. Counseling was provided [id number] at bedside regarding the plan of care as stated above. I personally spent a total of 50 minutes in counseling and coordination of care today. LED YARN WORKER * Kirill Pierson M.D., M.S. - 07/18/2023 7:41 PM CST Images from the original note were not included. [facility] Medicine 2 ([facility]) Supervisory Admission Note SUBJECTIVE CODE STATUS: FULL CODE, discussed on admission. CHIEF COMPLAINT Shortness of breath and cough HISTORY OF PRESENT ILLNESS Mr. Austin Rodriguez is a 58 y.o. male without significant past medical history who presents with cough and shortness of breath worsening over approximately the past 3 months. Patient initially presented to the emergency department, accompanied by his , for further investigation of a progressive chronic cough. He reports that he 1st been experiencing this cough late last year, and has received several rounds of azithromycin and prednisone regimen. He is seen several clinicians, and trialed inhalers and cough suppressants that have been otherwise not helpful. Says that the cough is episodic, becoming more frequent, with productive phlegm that is yellow/brown/greenin color. Denies any EM, GERD, quit smoking approximately 25 years ago, it was not utilize any ACEinhibitors. Possible 15 how weight loss has also occurred around this point in time. He is noticed a new rash on the right palmar side of his wrist over the past few days, and a clear if there was any inciting trauma. No recent travel outside of the [place] aside from a stop in [place] last year, they remained on the cruise ship, otherwise no other significant travel. He denies abdominal pain, constipation, diarrhea, hematochezia, dysuria, hematuria, urinary retention, urinary urgency, palpitations, vision changes, mouth sores, nosebleeds, shortness of breath at rest, a previous diagnosis of obstructive sleep apnea, fever, chills. In his outside evaluation there have been reports of nodule seen on his lungs, as well as a questionable mass in his liver that was just be followed up with an MRI. 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 In the ED, VBG was within normal limits, CBC was significant for elevated H/H to 16.8/49.1 in addition to leukocytosis to 11.1, neutrophilia to 7.31, monocytosis to 0.92 and eosinophilia to 0.90. D-dimer was less than 220, CMP was only significant for mildly reduced total protein to 6.1, baseline troponin was 6, NT-pro BNP was 121, CXR showed no significant findings, and an ECG showed normal sinus rhythm. The patient was then transferred to the [facility] Medicine 2 service for further evaluation and management. On arrival to the medicine floor, the patient was experiencing an episode of severe productive cough without hemoptysis but was otherwise hemodynamically stable, on 4 L nasal cannula saturating > 90%, and afebrile. I have reviewed and updated the following: Past Medical History, Family History, Social History, and Allergies. REVIEW OF SYSTEMS Pertinent items are noted in HPI; all other review of systems was negative. HOME MEDICATIONS Current Outpatient Medications on File Prior to Encounter: albuterol 90 mcg/actuation inhaler, Inhale 2 puffs every 4 (four) hours as needed., 07/18/2023 at 0700 codeine-guaiFENesin (ROBITUSSIN-AC) 10-100 mg/5 mL liquid, Take 10 mL by mouth every 4 (four) hoursas needed (for cough)., 07/17/2023 OBJECTIVE VITAL SIGNS Temperature: [36.4 ??C-36.5 ??C] 36.4 ??C Heart Rate: [71-90] 81 Resp Rate: [9-23] 20 Blood Pressure: (109-148)/(58-88) 134/63 SpO2: [90 %-100 %] 92 % Flow Rate (L/min): [0 L/min-4 L/min] 0 L/min Height: [195.6 cm] 195.6 cm Weight: [129 kg] 129 kg BMI (Calculated): [33.7 kg/m??] 33.7 kg/m?? Pulse Rate: [70-111] 97 PHYSICAL EXAM General appearance: alert, appears stated age, cooperative, and mild distress Head: atraumatic, normocephalic, without obvious abnormality Eyes: conjunctivae/corneas clear, PERRL, EOM's intact Mouth: lips, mucosa, and tongue normal; teeth and gums normal Neck: no adenopathy and supple, symmetrical, trachea midline Lungs: Diffuse inspiratory expiratory wheezes throughout all lung lovelace, good air entry throughout, crackles at the bases Heart: regular rate and rhythm and S1, S2 normal Abdomen: soft, non-tender; bowel sounds normal; no masses, no organomegaly Extremities: extremities normal, warm and well perfused and no edema, redness or tenderness in the calves or thighs Skin: On the palmar side of the right wrist and distal forearm there are several rash findings concerning for palpable purpura Neurologic: Grossly normal and Alert and oriented X 3 DIAGNOSTICS I have reviewed the diagnostics from admission. Results from last 7 days Lab Units 07/18/23 1616 WBC x10(9)/L 11.1* HEMOGLOBIN g/dL 16.8* HEMATOCRIT % 49.1* PLATELETS AUTO x10(9)/L 210 Results from last 7 days Lab Units 07/18/23 1625 07/18/23 1616 SODIUM P mmol/L -- 140 POC SODIUM mmol/L 140 -- CREATININE mg/dL -- 0.92 ESTIMATED GFR EGFR mL/min/BSA -- >90 BUN P mg/dL -- 15 POC HCO3 VENOUS mmol/L 28 -- BICARBONATE PLASMA mmol/L -- 28 CHLORIDE P mmol/L -- 102 Results from last 7 days Lab Units 07/18/23 1616 ALBUMIN g/dL 4.4 AST U/L 15 ALT U/L 32 ALK PHOS U/L 69 BILIRUBIN DIRECT mg/dL <0.2 BILIRUBIN TOTAL mg/dL 0.5 CT Chest without IV Contrast Result Date: 07/18/2023 Impression: 1. Pulmonary findings suggestive of bronchial inflammation with endobronchial mucous plugging. 2. Scattered solid pulmonary nodules throughout both lungs measuring up to 6 mm. Given the additional findings, these are likely infectious/inflammatory in etiology. Recommend follow-up with chest CT in 3-6 months for follow-up guidelines. DX Chest AP or PA and Lateral 2 Views Result Date: 07/18/2023 Impression: No focal consolidation. No large pleural effusion or discernible pneumothorax. Normal cardiac silhouette size. Multilevel degenerative changes of the spine. ECG 12 Lead Result Date: 07/18/2023 Normal sinus rhythm Normal ECG No previous ECGs available Reviewed by WILLIAM Hawng ASSESSMENT / PLAN Mr. Austin Rordiguez is a 58 y.o. male without significant past medical history who presents with cough and shortness of breath worsening over approximately the past 3 months. # Dyspnea # Productive Cough # Wheezing # Rash on Right Wrist # History of Lung Nodules # Remote History of Smoking # Erythrocytosis # Eosinophilia Will assist patient from a symptomatic standpoint utilizing DuoNebs and antitussives to include Tessalon and Robitussin. Will send sputum, urine, and blood cultures as well. His presence of a palpable purpuric rash on his right wrist, conjunction with other symptoms, do necessitate a rule out of vasculitis. His eosinophilia could be an underlying indicator of a non asthmatic eosinophilic bronchitis, or eosinophilic pneumonia. Pulmonary consult is warranted with consideration of BAL. Will also obtain mycoplasma pneumoniae serologies, urine antigens for histo/blasto/Legionella/strep, as well as QuantiFERON. Chest CT with and without contrast well as be obtained to further characterize his lung parenchyma. Plan: - Chest CT +/- - DuoNebs - Tessalon perles - Pulmonology Consult - Dermatology Consult - Serum studies: ANCA panel, HIV, Hepatitis serologies, IgE levels, Mycoplasma pneumo serologies, Histo/Blasto/legionella/strep Urine ag, Qohp-H-jzeazm, QTF - Blood and Sputum cultures with sputum studies, UA - Outpatient assessment of liver mass query - Remainder per Dr. Stark I have discussed the patient with Dr. Stark and helped formulate the plan of care. I agree with thefindings, assessment, and plan as written in their note with the additions below. Please see his/her note for full details on history of present illness, past medical history, review of systems, medications, social and family history. Yohannes Pierson M.D., M.S. PGY-3 Internal Medicine Pager # [phone] 07/19/23 LED YARN WORKER * Murphy Stark M.D., M.S. - 07/18/2023 7:27 PM CST [facility] Medicine 2 ([facility]) Admission Note SUBJECTIVE CHIEF COMPLAINT Shortness of breath and hypoxia HISTORY OF PRESENT ILLNESS Mr. Austin Rodriguez is a 58 y.o. male with a past medical history significant for adenomatous colonic polyps and diastasis recti who presents to the ED with his due to an ongoing cough and shortness of breath since 2022 in addition to hypoxia with saturations in the 80s notedtoday on the patient's home pulse oximeter. History was obtained from both the patient and his . The patient developed a cough that startedaround in 2022. The patient finally went to a doctor in April 2023 for the cough and has since then received multiple doses of Z-Paks, and prednisone bursts. On his most recent visit to his doctor up in [place], he was given an inhaler and a cough suppressant that have not helped the severity of his cough. The patient states that the cough comes in episodes where he has a coughor phlegm until it is cleared after which he gets relief for approximately 6 hours before the coughcomes back again. He denies any history of ever travelling outside the [place] although he and his were recently on a cruise that had a stop in [place]. They returned 07/12. He denies abdominal pain, constipation, diarrhea, hematochezia, dysuria, hematuria, urinary retention, urinary urgency, palpitations, vision changes, mouth sores, nosebleeds, shortness of breath at rest, a previous diagnosis of obstructive sleep apnea, fever, chills, and unintentional weight loss. He states that hehas been intentionally losing weight and has lost about 15 lb recently verify by measuring his weight on a scale. His though has concerns due to his reduced appetite. His also reports that he has had some episodes of night sweats. Of note, the patient's reports that on an outside CT,multiple nodules were observed in the lungs and there was a questionable mass in the liver which was supposed to be followed up by an MRI. The patient's father was previously diagnosed with colon cancer and prostate cancer but otherwise has a healthy family. His mom is 94 years old and healthy and multiple family members have lived wellinto the . He has no known allergies and takes no other medications regularly except the inhalerand Robitussin recently prescribed. 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 The patient is a former smoker with a 12 pack-year history although he quit 25 years ago. He is otherwise a social alcohol drinker with 2-3 beers per week. He has no recent history of exposure to COLUMBA inhibitors. In the ED, VBG was within normal limits, CBC was significant for elevated H/H to 16.8/49.1 in addition to leukocytosis to 11.1, neutrophilia to 7.31, monocytosis to 0.92 and eosinophilia to 0.90. D-dimer was less than 220, CMP was only significant for mildly reduced total protein to 6.1, baseline troponin was 6, NT-pro BNP was 121, CXR showed no significant findings, and an ECG showed normal sinus rhythm. The patient was then transferred to the [facility] Medicine 2 service for further evaluation and management. On arrival to the medicine floor, the patient was experiencing an episode of severe productive cough without hemoptysis but was otherwise hemodynamically stable, on 4 L nasal cannula saturating > 90%, and afebrile. Current Outpatient Medications on File Prior to Encounter: albuterol 90 mcg/actuation inhaler, Inhale 2 puffs every 4 (four) hours as needed., 07/18/2023 at 0700 codeine-guaiFENesin (ROBITUSSIN-AC) 10-100 mg/5 mL liquid, Take 10 mL by mouth every 4 (four) hoursas needed (for cough)., 07/17/2023 OBJECTIVE VITAL SIGNS Temperature: [36.4 ??C-36.5 ??C] 36.4 ??C Heart Rate: [71-90] 81 Resp Rate: [9-23] 20 Blood Pressure: (109-148)/(58-88) 134/63 SpO2: [90 %-100 %] 92 % Flow Rate (L/min): [0 L/min-4 L/min] 0 L/min Height: [195.6 cm] 195.6 cm Weight: [129 kg] 129 kg BMI (Calculated): [33.7 kg/m??] 33.7 kg/m?? Pulse Rate: [70-111] 97 PHYSICAL EXAM GENERAL: 58-year-old male, experiencing bouts of severe prolonged coughing, alert HEENT: PERRL; sclera anicteric, moist mucous membranes. Lungs: Diffuse inspiratory and expiratory wheezes throughout the lung lovelace bilaterally, conversational on room air. CV: Normal rate and rhythm, normal S1 and S2, no murmurs, rubs or gallops. Abd: Soft, non-tender, non-distended, bowel sounds present. Extremities: Warm and dry, no edema, radial and dorsalis pedis pulses 2+ bilaterally. PSYCH: Mood and affect congruent. SKIN: Papular rash noted on the palmar side of the right wrist and forearm concerning for purpura NEURO: Alert and oriented x 3. DIAGNOSTICS I have reviewed the diagnostics from admission. ASSESSMENT / PLAN Mr. Rodriguez is a 58 y.o. male with a past medical history significant for adenomatous colonic polyps and diastasis recti who is hospitalized on [place] [id number] ([facility]) for evaluation and management ofDyspnea and a cough that has lasted for > 12 weeks. The differential currently includes non-asthmatic eosinophilic bronchitis, eosinophilic pneumonia, vasculitis, and atypical pneumonia. # Dyspnea with diffuse inspiratory and expiratory wheezes # productive cough # right wrist papular rash concerning for purpura # personal history of multiple small lung nodules # remote history of smoking # elevated hemoglobin # eosinophilia -CT chest with IV contrast -scheduled DuoNebs with p.r.n. 3% saline nebulizers -Tessalon Perles and Robitussin for cough suppression -pulmonology consult for consideration of bronchoscopy -dermatology consult for possible biopsy of papular rash noted on right wrist -ANCA panel, HIV testing, chronic hepatitis serologies, IgE levels, sputum cultures, Fungitell, mycoplasma pneumoniae serologies, urine histoplasmosis, urine Blastomyces, urine Legionella, urine Streptococcus, QuantiFERON TB gold plus, blood cultures, urinalysis -outpatient assessment of subjective liver mass; hepatic function panel WNL Baseline Mobility: BMAT Level 4 (Able to stand and walk) Diet: general diet Tubes/lines: Lines, Drains, and Airways Peripheral IV Duration Peripheral IV 07/18/23 20 G Left Antecubital 7h VTE prophylaxis: SCD's Code status: Full Code Surrogate Decision Maker: Spouse, Nolvia Disposition: Home Plan will be discussed with in 24 hours with [facility] 2 ([facility]) Hack Saw Operator, Sarwat Sen M.D.. Please page the [facility] 2 ([facility]) service pager at [phone] with any questions. Murphy Stark M.D., M.S. PGY-1 Internal Medicine [facility] LED YARN WORKER documented in this encounter Consult Notes * Jayashree Courtney M.S., RDN, LD - 07/19/2023 2:08 PM CSTAssociated Order(s): IP CONSULT TO DIETITIAN Clinical Nutrition: Initial Assessment Clinical Nutrition was requested to evaluate patient for positive nursing baseline nutrition screenwith a MST score of 2 or greater SUBJECTIVE Mr. Rodriguez is a 58 y.o. male admitted for Dyspnea PMH per H&P: adenomatous colonic polyps and diastasis recti Completed visit with patient and family today as part of face to face care. Nutrition history: Patient reported slow intentional weight loss prior to admission. He reported having a decreased appetite and eating less food at mealtimes for a couple of weeks prior to admission. He stated that he has not lost more weight due to this. His goal weight is 260# / 118 kg. Currently 284# / 129 kg. No weight history available to quantify weight loss, however no fat or muscle wasting was identified on nutrition-focused physical exam. Current Nutrition (since admission): reported that the patient was very hungry this morning, but he was NPO. Diet has since advanced. No meal intakes documented yet this admission. Food Allergies: None per patient / chart review Food Intolerance: None per patient Chewing/Swallowing Issues: None per patient Nutrition education/counseling: Patient declined nutrition intervention at this time. Encouraged increased oral intake and weight maintenance while admitted. OBJECTIVE Current nutrition orders: Dietary Orders (From admission, onward) Start Ordered 07/19/23 1220 Adult Diet Regular Diet effective now Question: Diet texture: Answer: Regular 07/19/23 1219 Skin integrity: No pressure wounds noted Pertinent Labs: Reviewed Latest Reference Range & Units 07/18/23 16:16 Sodium, P 135 - 145 mmol/L 140 Potassium, P 3.6 - 5.2 mmol/L 3.8 Chloride, P 98 - 107 mmol/L 102 Bicarbonate, P 22 - 29 mmol/L 28 Anion Gap, P 7 - 15 10 BUN (Blood Urea Nitrogen), P 8 - 24 mg/dL 15 Creatinine 0.74 - 1.35 mg/dL 0.92 Estimated GFR (eGFR) >=60 mL/min/BSA >90 Calcium, Total, P 8.8 - 10.2 mg/dL 9.0 Glucose, P 70 - 140 mg/dL 111 Medications: Reviewed; include 1000 mL lactated ringer's bolus GI Function: Last BM Date: 07/18/23, , Anthropometrics: Height: 195.6 cm Admission Weight: 129 kg (07/18/2023) Current Weight: 129 kg BMI (Calculated): 33.7 kg/m?? Weight change since admission: 0 kg Net IO Since Admission: 1,300 mL [07/19/23 1409] Weight history: Wt Readings from Last 12 Encounters: 07/18/23 129 kg Estimated Needs: Total Calorie Needs: 5696-4637 calories/day Method to Estimate Energy Needs: [place]-St Jeor (Basal to Basal + 20%) Weight Used for Equation Calculations: 129 kg Total Protein Needs: 103 - 129 grams/day (Method to Estimate Protein Needs (g/kg): 0.8 - 1 gm/kg) Weight Used to Calculate Protein Needs (Kg): 129 kg Nutrition Diagnosis: Inadequate oral intake related to decreased appetite as evidenced by patient report Malnutrition Criteria: Malnutrition Assessment: Malnutrition criteria not met The patient does not meet the ASPEN Criteria of malnutrition based on: Energy Intake: Less than 75% of estimated energy requirement for greater than or equal to 7 days Interpretation of Weight Loss: (Per report, intentional weight loss) Body Fat: Normal Muscle Mass: Normal ASSESSMENT / PLAN ASPEN Criteria Malnutrition Status: Malnutrition criteria not met Nutrition Intervention: Interventions: Other (Patient declined nutrition intervention at this time). Recommendations: No changes at this time; continue current nutrition orders Monitoring/Evaluation: Nutrition parameter to monitor: Meals/Supplement Intake, Weight Status, Pertinent Labs Desired Outcome: Consume adequate nutrition orally Patient Goal(s): Consume 75-100% of 3 meals daily Clinical Nutrition will continue to follow. For questions about patient's nutritional care please contact pager [phone] on weekdays 07:30-16:00 or [phone] on weekends/holidays. LED YARN WORKER * Katherin Hunt M.D. - 07/19/2023 10:22 AM CSTAssociated Order(s): IP CONSULT TO PULMONARY MEDICINE SUBJECTIVE REFERRAL SOURCE Medicine 2 REASON FOR CONSULT Chronic cough with mucus plugging consideration of bronchoscopy HISTORY OF PRESENT ILLNESS Mr. Austin Rodriguez is a former smoker 58 y.o. male without a past medical history significantwho was admitted with three-month history of productive cough and occasional desaturation events athome. He is admitted from the emergency department due to low oxygen saturation and diffuse wheezing. His cough started around 2022. In April it initially got better with a course of Z-Ajay and Mucinex however in May it came back and progressively got worse since mid June. Since the initial symptom onset he went to urgent care/emergency department 6 times. He denies any infectious symptoms including fever, chills, night sweats. The cough comes in episodes with the phlegm hefeels like he is choking. He describes from as a jelly consistency clear, yellow, greenish in color. Denies any hemoptysis. 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 Symptom onset coincides with the harvest season in March. 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 Denies any chemical exposure. However recently he placed mice straps 21-22 of them around the house and has been reporting smelling mice urine. No new animals. He has dogs. He has to travel history: June 10 he went to [place] [facility] [employer] [facility] (without hiking or desert experience) and July 07 he went on a cruise ship for 5 days returned on . One of the stops was [place]. However, patient's reported that they never left the cruise ship to explore the land. Denies any sick contacts. At the time, he was still struggling with coughing spells. He appreciates 15 lb weight loss in last 3 months partially was intentional but at the same time he did not really have the appetite. He sleeps in the reclined position because when he lays down he starts coughing. Otherwise he does not wake up in the middle of the night to catch his breath or with cough. Denies any sinus issues.He was recently on oral steroid with 40 mg prednisone for 5 days last dose was Wednesday. Denies obstructive sleep apnea diagnosis. Patient's reported that he does not snore much. He does not have any known allergies. No family history of lung diseases. No personal history of childhood asthma. Quit smoking [address] chest on admission showed bronchial inflammation with bronchial wall thickening and mucus plugging. There was also solid pulmonary nodules throughout both lungs measuring up to 6 mm. The radiologist recommended repeat CT chest in 3-6 months based guidelines. It does not have pulmonary function test or exhaled nitric oxide prior. CURRENT MEDICATIONS Current Outpatient Medications on File Prior to Encounter Medication Sig Dispense Refill Last Dose albuterol 90 mcg/actuation inhaler Inhale 2 puffs every 4 (four) hours as needed. 07/18/2023 at 0700 codeine-guaiFENesin (ROBITUSSIN-AC) 10-100 mg/5 mL liquid Take 10 mL by mouth every 4 (four) hours as needed (for cough). 07/17/2023 ALLERGIES/ADVERSE REACTIONS Allergies as of 07/18/2023 (No Known Allergies) REVIEW OF SYSTEMS Pertinent items are noted in HPI; all other review of systems was negative. MEDICAL/SURGICAL HISTORY History reviewed. No pertinent past medical history. History reviewed. No pertinent surgical history. SOCIAL HISTORY Social History Socioeconomic History Marital status: Tobacco Use Smoking status: Former Types: Cigarettes Vaping Use Vaping Use: never used Substance and Sexual Activity Alcohol use: Yes Comment: 2 beers a week Drug use: Never Sexual activity: Defer Social Determinants of Health Food Insecurity: No Food Insecurity (07/18/2023) Hunger Vital Sign Worried About Running Out of Food in the Last Year: Never true Ran Out of Food in the Last Year: Never true Transportation Needs: No Transportation Needs (07/18/2023) PRAPARE - Transportation Lack of Transportation (Medical): No Lack of Transportation (Non-Medical): No Intimate Partner Violence: Not At Risk (07/18/2023) Humiliation, Afraid, Rape, and Kick questionnaire Fear of Current or Ex-Partner: No Emotionally Abused: No Physically Abused: No Sexually Abused: No Housing Stability: Low Risk (07/18/2023) Housing Stability Housing: Living Situation: I have a steady place to live FAMILY HISTORY No family history on file. OBJECTIVE VITAL SIGNS Vitals: 07/19/23 0933 BP: 116/68 Pulse: 73 Resp: 18 Temp: 36.6 ??C SpO2: 93% PHYSICAL EXAMINATION General: Well-appearing man in no acute distress. Pleasant with conversation. CV: Regular rate and rhythm. S1 and S2 normal. No murmurs, rubs, or gallops appreciated. 2+ radial and pedal pulses bilaterally. No lower extremity edema appreciated bilaterally. Resp: Nonlabored respirations on room air. Clear to auscultation bilaterally. Skin: Warm, dry. No visible rashes. Extremities: Warm, well perfused. No deformities appreciated. No joint swelling appreciated. LABS: Recent Labs 07/18/23 1625 07/18/23 1616 NA 140 140 CL -- 102 BICARB 28 28 CALCIUM -- 9.0 BUN -- 15 CREATININE -- 0.92 GLUCOSE -- 111 ALBUMIN -- 4.4 HGB -- 16.8 H HCT -- 49.1 H WBC -- 11.1 H PLT -- 210 ASSESSMENT / PLAN # Intermittent hypoxia, mainly associated with the cough spells # Diffuse bronchial wall thickening and mucus plugging with normal lung parenchyma # heezing # Chronic productive cough # Peripheral eosinophilia # Multiple solid pulmonary nodules less than 6 mm, 3-6 month follow-up CT needed # History of smoking Differential diagnosis for peripheral eosinophilia include parasitic infection, ABPA, asthma, allergies, EGPA and bone marrow abnormalities. His clinical picture more fits into eosinophilic bronchitis picture with ongoing airway inflammation given patient's prior environmental exposures. Intermittent hypoxia mainly associated with cough spells. However his admission CBC showed erythrocytosis. It was initially unclear whether this is the chronic hypoxemia related change. The repeat CBC showed within normal range hemoglobin. That makes chronic hypoxemia and bone marrow process less likely. Recommendations: - No indications for bronchoscopy and BAL at this time. - We recommend a longer oral prednisone taper and inhaled corticosteroid for working diagnosis of eosinophilic bronchitis. Prednisone 40 mg for 3 days followed by 30 mg for 3 days 20 mg for 3 days and 10 mg for 3 days. For inhaled corticosteroid Flovent HFA 110 mcg can be started. If he does not have enough inspiratory effort budesonide nebulizer can be used. Please have RT come by and teach appropriate inhaler useand how to maintain. - Recommend checking stool Ova and parasite, Serum aspergillus Ag, aspergillus antibodies IgE and IgG and a baseline ABG. - If plan to keep him in the hospital overnight, please obtain a overnight oximetry to further workup intermittent hypoxia - Patient is going to need a Pulmonary Clinic follow up with Repeat CBC with differential, PFTs andeNO within a month after discharge. Repeat CT in 3-6 months can be discussed during that visit. . Thank you for the consult. Please page [phone] with questions or concerns. LED YARN WORKER Associated attestation - Kaushik Glynn M.D. - 07/19/2023 7:10 PM TANGLED YARN WORKER I saw and evaluated the patient, participating in the zelaya portions of the service. I reviewed the resident/fellow???s note. I agree with the resident/fellow???s findings and plan. * Amari Farfan M.D. - 07/19/2023 9:55 AM CSTAssociated Order(s): IP CONSULT TO DERMATOLOGY Images from the original note were not included. DERMATOLOGY CONSULT PRIMARY SERVICE: [facility] Medicine 2 ([facility]) SUBJECTIVE REASON FOR CONSULT Rash on wrist HISTORY OF PRESENT ILLNESS Mr. Rodriguez is a 58 y.o. male with a past medical history significant for adenomatous colonic polyps and diastasis recti who is hospitalized on [facility] 2 ([facility]) for evaluation and management ofDyspnea and a cough that has lasted for > 12 weeks. Dermatology is consulted to evaluate a rash on the wrist. Per chart review: He's had an extensive evaluation for possible infectious etiologies for his lung findings. He's noton pharmacologic VTE prophylaxis, does not take any anticoagulants or antiplatelet medications regularly. 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 She also had a few questions about spots on his back. They recently went to [place] and says that he got quite a bit of sun on his face chest and abdomen. No recent new medications started, including nothing this hospitalization. There are no symptomatic rashes or skin lesions. This includes the mild erythema on the face, upper chest, and abdomen noted. No recent contactants, no change in soaps/lotions/detergents that they are aware of. His is visiting with him today. REVIEW OF SYSTEMS 10 point review of systems negative except as per HPI. MEDICATIONS Reviewed Current anti-microbial medications: Current immunosuppressant medications: PAST MEDICAL/SURGICAL HISTORY Reviewed FAMILY HISTORY Reviewed SOCIAL HISTORY Reviewed ALLERGIES No Known Allergies OBJECTIVE VITAL SIGNS Vitals: 07/19/23 0933 BP: 116/68 Pulse: 73 Resp: 18 Temp: 36.6 ??C SpO2: 93% PHYSICAL EXAMINATION General: Alert and in no acute distress. Skin: Focused examination of the face, neck, chest, abdomen, back, bilateral upper extremities, andbilateral lower extremities performed and revealed: On the ventral right wrist are few heme crusted excoriations, multiple are arranged in a linear fashion. There are no similar lesions in the interdigital webs, hips/flanks. These are non-pruritic. Nosimilar lesions on contralateral wrist. No purpura or petechiae present. Scattered on trunk and extremities are several waxy keratotic stuck on papules and plaques consistent with seborrheic keratoses Scattered on the trunk and extremities are multiple brown macules and papules with reassuring dermoscopic features consistent with banal-appearing nevi Blanchable erythema over sun-exposed face, chest, and abdomen over areas of recent sun exposure in [place] ASSESSMENT / PLAN #1 Heme crusted excoriations, dorsal wrist #2 Recent sun-exposure This examination is reassuring. We do not see evidence of palpable purpura or other findings of leukocytoclastic vasculitis. These are most likely healing excoriations given the linear nature. I considered scabies as well given the linear distribution over the wrist, but these are not itchy, he hasno similar lesions in other common areas like the interdigital web spaces or hips. Similarly, if this were something like bed bugs given his recent travel, I'd expect it to be more pruritic and more diffuse than this localized rash. We'd recommend continued observation. The areas may be treated with Vanicream to help soften the scabs if desired but should not be picked at further. A biopsy would not microsoft exchange architect at this time. He has a mild sunburn as well, not bothered by it, no treatment necessary but can use Vanicream if desired. #3 Seborrheic keratoses Reviewed the benign nature of these skin lesions. No treatment is indicated at this time. Work-up: No biopsy is indicated at this time Treatment: Vanicream to affected areas if desired The patient has been discussed with hospital attending, Emili Rasmussen M.D., who agrees with this assessment and plan. Thank you for involving us in the patient's care. We will sign off at this point. Please page the Dermatology Service at [phone] with questions. Amari Farfan M.D. Dermatology Resident, PGY-3 LED YARN WORKER Associated attestation - Emili Rasmussen M.D. - 07/19/2023 3:34 PM TANGLED YARN WORKER I saw and evaluated the patient, participating in the zelaya portions of the service. I reviewed the resident???s note. I agree with the resident???s findings and plan. documented in this encounter Nursing Notes * Ban Morel R.N. - 07/19/2023 12:38 AM CST Problem: PAIN - ADULT Goal: PT VERBALIZES/DEMONSTRATES [...] Goal: Patient discharge needs identified Outcome: Progressing LED YARN WORKER documented in this encounter ED Notes * Eduar Davis M.D. - 07/18/2023 4:13 PM CST SUBJECTIVE CHIEF COMPLAINT/REASON FOR VISIT Shortness of Breath HISTORY OF PRESENT ILLNESS He is a very pleasant 58-year-old male who presents the emergency department with ongoing cough andshortness of breath since early April of 2023. He has completed 3 courses of antibiotics, his thinks azithromycin each time. He also just completed a 5 day course of 40 mg daily prednisone with the last dose yesterday at the same time he also had completed his 3rd course of a Z-Ajay for 5 days. Unfortunately, his oxygen level at home has been low and he continues to worsen. Therefore, his brought him into the emergency department for evaluation. He has received his care in [place]. He most recently had a CT scan of his chest 3 days ago. They did refer him to see pulmonology here at [place] but he does not yet have an appointment. He has lost approximately 15 lb since early April. REVIEW OF SYSTEMS Constitutional: Negative for fever. HENT: Negative for sore throat. Respiratory: Positive for cough and shortness of breath. Cardiovascular: Negative for chest pain. Gastrointestinal: Negative for abdominal pain. Genitourinary: Negative for dysuria. Musculoskeletal: Negative for back pain. Skin: Negative for rash. Neurological: Negative for headaches. Psychiatric/Behavioral: Negative for confusion. OBJECTIVE Initial Vitals Temperature 07/18/23 1515 36.5 ??C Pulse Rate 07/18/23 1515 83 Heart Rate 07/18/23 1535 89 Resp Rate 07/18/23 1515 20 Blood Pressure 07/18/23 1515 134/70 SpO2 07/18/23 1515 92 % Pain Score 07/18/23 1535 0 - No pain PHYSICAL EXAMINATION HENT: Head: Normocephalic and atraumatic. Nose: Nose normal. Mouth/Throat: Oropharynx is clear and moist. Mucous membranes are moist. Eyes: Conjunctivae are normal. Neck: Neck supple. Cardiovascular: Normal rate, regular rhythm and normal heart sounds. Pulmonary/Chest: Effort normal. There is normal air entry. No respiratory distress. He has wheezes (he does have diffuse expiratory wheezes). Abdominal: Soft. exhibits no distension. There is no abdominal tenderness. There is no rebound and no guarding. Musculoskeletal: General: No deformity or edema. Normal range of motion. Cervical back: Neck supple. Neurological: Alert and oriented to person, place, and time. Skin: Skin is warm, dry and normal color. Psychiatric: He has a normal mood and affect. Behavior is normal. ASSESSMENT/PLAN Assessment and Plan He has had recent CT imaging. However it was noncontrast and so I will obtain a D-dimer to rule outpulmonary embolism. He is requiring oxygen here in the emergency department. If we are unable to wean him off of oxygen he will require admission for the oxygen requirement alone, and I think he may benefit from inpatient admission for further care and management and pulmonology consultation. If heis able to go home, he will require close follow-up with pulmonology.. DIFFERENTIAL DIAGNOSES Atypical pneumonia, acute coronary syndrome, pulmonary embolism, chronic obstructive pulmonary disease (COPD), interstitial lung disease. ED Course as of 07/20/23 1020 Sun Jul 18, 2023 164 His EKG shows a normal sinus rhythm with no obvious acute ischemic changes. His chest x-ray reveals no clear infiltrates. 173 We took him off the oxygen and his oxygen saturations have ranged from 92- 95 on room air. We are now having him ambulate and we will check an ambulatory O2 sat. 180 His initial troponin is negative. His EKG is normal and his symptoms are certainly not suggestive of an acute coronary syndrome. They have been going on for months without any acute changes. Therefore, I do not think he needs a 2 hour troponin. He was able to ambulate with oxygen saturations that were 92 with the lowest and have generally been in the mid 90s on room air. I will try to arrange follow-up in the pulmonology clinic and I did speak with our MOD provider on-call joseph and she will also try to assist with the referral. 180 He did just have another coughing episode. We will give him another DuoNeb and reassess. 1850 Unfortunately, he did have another coughing episode and has been having oxygen saturations hovering around 90 since. He and his are uncomfortable with him going home at this time I think itwould be best for him to be brought into the hospital for further observation and care. He does appear to respond well to duo nebs. He will be placed back on oxygen as he was feeling better with oxygen by nasal cannula. 1930 Sign-out has been given to the medical team. Final Diagnoses: as of 07/20/23 1020 Dyspnea Cough Subacute Hypoxia My ECG interpretation is documented in ED Course. My Plain Films interpretation is documented in ED Course. Eduar Davis M.D. 07/20/23 1023 LED YARN WORKER * Sharron Vargas R.N. - 07/18/2023 3:20 PM CST states pt recently finished a round of prednisone and antibiotics and was also on cough medication. Sharron Vargas R.N. 07/18/23 1532 LED YARN WORKER * Sharron Vargas R.N. - 07/18/2023 3:17 PM CST Pt here with his for Shortness of Breath and copious productive cough since right before . Pt has lost 15 pounds weight since he got sick. Pt is short of breath with Oxygen saturations of as low as 81 to 82%. On room air. Sat now 91- 92 % Sharron Vargas R.N. 07/18/23 1520 LED YARN WORKER documented in this encounter Miscellaneous Notes * Hospital Course - [place] M.B.B.S. - 07/19/2023 4:35 PM TANGLED YARN WORKER Diagnoses: # Eosinophilic bronchitis # Intermittent hypoxia, mainly associated with the cough spells # Diffuse bronchial wall thickening and mucus plugging with normal lung parenchyma # Wheezing # Chronic productive cough # Peripheral eosinophilia # Multiple solid pulmonary nodules less than 6 mm, 3-6 month follow-up CT needed # History of smoking Hospital Course: Mr. Austin Rodriguez is a former smoker 58 y.o. male without a past medical history significantwho was admitted with three-month history of productive cough and occasional desaturation events athome. He is admitted from the emergency department due to hypoxia and diffuse wheezing. He reports a four-month history of intermittent but progressive cough productive of clear yellow-green jelly-like phlegm. This has been associated with a 15 lb weight loss in the last 3 months and loss of appetite. He does not have prior pulmonary function tests or exhaled nitric oxide. He was admitted to the Medicine 2 service for further evaluation. CT chest on admission showed bronchial inflammation with bronchial wall thickening and mucus plugging. There was also solid pulmonary nodules throughout both lungs measuring up to 6 mm. The radiologist recommended repeat CT chest in 3-6 months based on guidelines. Laboratory evaluation demonstratedperipheral eosinophilia with mild leukocytosis. A broad workup for autoimmune/inflammatory, infectious, and neoplastic etiologies of this chronic cough, eosinophilia, and pulmonary nodules was undertaken. Pulmonary medicine was consulted. They raised the differential diagnosis for peripheral eosinophilia which included parasitic infection, ABPA, asthma, allergies, EGPA and bone marrow abnormalities. His clinical picture more fits into eosinophilic bronchitis picture with ongoing airway inflammation given patient's prior environmental exposures. Intermittent hypoxia is mainly associated with cough spells. They recommended a broad workup, an oral prednisone taper, inhaled corticosteroids, and overnight oximetry. They will review him in the outpatient Pulmonary Clinic with repeat CBC with differential, PFTs and Brandon within a month after discharge. Repeat CT in 3-6 months can be discussed during that visit. We also initiated daily pantoprazole 40 mg in the setting of chronic cough and steroid use. Instructions for Patient: Please take the prescribed medications as detailed below Please attend all outpatient appointments If not yet arranged please see your PCP within 7-10 days to discuss this admission Please seek medical attention if you have any of the following symptoms: Fever, unintentional weight loss, night sweats Chest pain, palpitations, arm or neck pain, difficulty breathing, severe persistent cough Diarrhea; Persistent constipation; Blood in the stools; Persistent nausea or vomiting, Vomiting blood, Severe tenderness of the belly, Jaundice (yellowish discoloration of the skin) New sudden problems with vision, speech, swallow, movement of arms or legs, walking, or face symmetry Instructions for PCP: Please continue inhalers, and PPI If he develops another exacerbation, reconsider another steroid taper Please ensure he attends all outpatient pulmonology appointments Follow Up: 07/26 PCP follow up Follow up with Pulmonary in the outpatient setting. Date and time to be confirmed Medications: Started Prednisone 40 mg for 3 days followed by 30 mg for 3 days 20 mg for 3 days and 10 mg for 3 days. Inhaled corticosteroid Flovent HFA 110 mcg Pantoprazole 40mg daily LED YARN WORKER documented in this encounter Plan of Treatment Upcoming Encounters Date Type Department Care Team (Late st Contact Info) Description 10/28/2023 12:30 PM CDT Diagnostic Division of Pulmonary Medicine in [address] [phone] José Luis Lopez M.D. [address] [place] [phone] 11/01/2023 1:00 PM CDT Office Visit Division of Pulmonary Medicine in [place], [place] [address] [place] [phone] Zayra Thomas M.B.B.S., M.P.H. [address] [place] [phone] 11/11/2023 3:15 PM CDT Office Visit Department of Otorhinolaryngology in [address] [phone] Steven Fernandez M.D. [address] [place] [phone] Pending Results Name Type Priority Associated Diagnoses Date /Time RT Pulse Oximetry, Overnight Sleep Center Routine 07/20/2023 8:39 AM TANGLED YARN WORKER documented as of this encounter Procedures Procedure Name Priority Date/Time Associated Diagnosis Comments BACTERIAL CULTURE, AEROBIC + SUSC, RESP Routine 07/20/2023 12:47 PM TANGLED YARN WORKER GRAM STAIN Routine 07/20/2023 12:47 PM TANGLED YARN WORKER RT PULSE OXIMETRY, OVERNIGHT Routine 07/20/2023 8:39 AM TANGLED YARN WORKER Procedure Note - Azael Bingham M.D. - 07/20/2023 8:39 AM CSTThis note is in progress. IMPRESSION: Preliminary report. Interpretation to follow. Please contact the [facility] at [phone] withquestions regarding this report. Physician: Azeal Bingham M.D. [id number] Nathan Brady M.D. [id number] ASPERGILLUS AG Routine 07/20/2023 7:44 AM TANGLED YARN WORKER ASPERGILLUS FUMIGATUS, IGG, S ABS, S Routine 07/20/2023 7:44 AM TANGLED YARN WORKER ASPERGILLUS FUMIGATUS, IGE, S Routine 07/20/2023 7:44 AM TANGLED YARN WORKER OVA AND PARASITE, MICROSCOPY, F Routine 07/20/2023 5:53 AM TANGLED YARN WORKER QUANTIFERON-TB GOLD PLUS, B Routine 07/19/2023 12:38 PM TANGLED YARN WORKER CBC WITH DIFFERENTIAL, B Routine 07/19/2023 12:38 PM TANGLED YARN WORKER STREPTOCOCCUS PNEUMONIAE AG, U Routine 07/19/2023 2:47 AM TANGLED YARN WORKER HISTOPLASMA AG, QUANT EIA, U Routine 07/18/2023 11:22 PM TANGLED YARN WORKER DIPSTICK, U Routine 07/18/2023 11:22 PM TANGLED YARN WORKER BLASTOMYCES AG, QUANT EIA, URINE Routine 07/18/2023 11:22 PM TANGLED YARN WORKER MICROSCOPIC AUTOMATED Routine 07/18/2023 11:22 PM TANGLED YARN WORKER PH, U Routine 07/18/2023 11:22 PM TANGLED YARN WORKER LEGIONELLA AG, U Routine 07/18/2023 11:22 PM TANGLED YARN WORKER OSMOLALITY, U Routine 07/18/2023 11:22 PM TANGLED YARN WORKER URINALYSIS WITH MICROSCOPIC Routine 07/18/2023 11:[address] CHEST WITHOUT IV CONTRAST RAD - Routine (most inpatients and all outpatients) 07/18/2023 10:40 PM TANGLED YARN WORKER HIV-1/-2 AG AND AB SCREEN, PLASMA Routine 07/18/2023 9:37 PM TANGLED YARN WORKER BACTERIA / MARIALUISA CULTURE, BLOOD STAT 07/18/2023 9:37 PM TANGLED YARN WORKER BACTERIAL CULTURE, AEROBIC + SUSC, RESP Routine 07/18/2023 9:33 PM TANGLED YARN WORKER MYCOBACTERIAL CULTURE, V Routine 07/18/2023 9:33 PM TANGLED YARN WORKER FUNGAL SMEAR Routine 07/18/2023 9:33 PM TANGLED YARN WORKER ACID FAST SMEAR FOR MYCOBACTERIUM Routine 07/18/2023 9:33 PM TANGLED YARN WORKER GRAM STAIN Routine 07/18/2023 9:33 PM TANGLED YARN WORKER FUNGAL CULTURE, ROUTINE Routine 07/18/2023 9:33 PM TANGLED YARN WORKER (1, 3) [id number] (FUNGITELL), S Routine 07/18/2023 9:24 PM TANGLED YARN WORKER ANCA VASCULITIS PANEL, S Routine 07/18/2023 9:24 PM TANGLED YARN WORKER HCV AB W/REFLEX TO HCV PCR, S Routine 07/18/2023 9:24 PM TANGLED YARN WORKER HBC TOTAL AB, SERUM Routine 07/18/2023 9 :24 PM TANGLED YARN WORKER HBS ANTIBODY, SERUM Routine 07/18/2023 9 :24 PM TANGLED YARN WORKER HEPATITIS B SURFACE ANTIGEN Routine 07/18/2023 9:24 PM TANGLED YARN WORKER BACTERIA / MARIALUISA CULTURE, BLOOD STAT 07/18/2023 9:24 PM TANGLED YARN WORKER INFLUENZA A, B, RSV, PCR, RAPID, V Routine 07/18/2023 8:54 PM TANGLED YARN WORKER SARS CORONAVIRUS 2, PCR RAPID, V Routine 07/18/2023 8:54 PM TANGLED YARN WORKER DX CHEST AP OR PA AND LATERAL 2 VIEWS RAD - Semiurgent (Fast; most ED patients; some inpatients) 07/18/2023 4:44 PM TANGLED YARN WORKER VBG & LYTES CG8+, POCT, B STAT 07/18/2023 4:25 PM TANGLED YARN WORKER TROPONIN T, BASELINE, 5TH GEN, P STAT 07/18/2023 4:16 PM TANGLED YARN WORKER HEPATIC FUNCTION PANEL, S STAT 07/18/2023 4:16 PM TANGLED YARN WORKER NT-PRO B-TYPE NATRIURETIC PEPTIDE (BNP), S STAT 07/18/2023 4:16 PM TANGLED YARN WORKER D-DIMER, P STAT 07/18/2023 4:16 PM TANGLED YARN WORKER CBC WITH DIFFERENTIAL, B STAT 07/18/2023 4:16 PM TANGLED YARN WORKER BASIC METABOLIC PANEL, S/P STAT 07/18/2023 4:16 PM TANGLED YARN WORKER M. PNEUMONIAE AB, IGG AND IGM Routine 07/18/2023 4:13 PM TANGLED YARN WORKER IMMUNOGLOBULIN E (IGE), S Routine 07/18/2023 4:13 PM TANGLED YARN WORKER ECG STAT 07/18/2023 3:21 PM TANGLED YARN WORKER documented in this encounter Results * PUL Exhaled Nitric Oxide (08/31/2023 11:59 AM CDT) Exhaled NO Oral 30 ONBASE Parts per billion (ULN) 39 ONBASE ENOComment Patient takes Arnuity Ellipta, Prednisone, and Albuterol. ONBASE Katherin Hunt M.D. PFT ORDERABLES ONBASE NA * Pulmonary Function Tests (08/31/2023 10:58 AM CDT) PostFVC 6.20 L 08/31/2023 2:49 PM CDT [facility] PostFEV1 3.61 L 08/31/2023 2:49 PM CDT [facility] FEV1/FVC POST 58.33 % 08/31/2023 2:49 PM CDT [facility] SUITE FEF 25-75 % POST 1.55 L/s 08/31/2023 2:49 PM CDT [facility] SUITE PEF POST 9.49 L/s 08/31/2023 2:49 PM CDT [facility] SUITE PIF POST 7.24 L/s 08/31/2023 2:49 PM CDT [facility] SUITE FEF 50 % FIF 50 POST 29.25 % 08/31/2023 2:49 PM CDT [facility] SUITE FET POST 15.26 sec 08/31/2023 2:49 PM CDT [facility] SUITE TLC 9.77 L 08/31/2023 2:49 PM CDT [facility] SUITE FRCPLETH PROVBASE 4.78 L 08/31/2023 2:49 PM CDT [facility] SUITE RV 3.42 L 08/31/2023 2:49 PM CDT [facility] RV % TLC PRE 35.07 % 08/31/2023 2:49 PM CDT [facility] DLCO 34.62 ml/(min*mm Hg) 08/31/2023 2:49 PM CDT [facility] VA 8.70 L 08/31/2023 2:49 PM CDT [facility] FVC 6.05 L 08/31/2023 2:49 PM CDT [facility] FEV1 3.47 L 08/31/2023 2:49 PM CDT [facility] FEV1/FVC 57.32 % 08/31/2023 2:49 PM CDT [facility] AZE84-64% 1.43 L/s 08/31/2023 2:49 PM CDT [facility] PEF PRE 9.94 L/s 08/31/2023 2:49 PM CDT [facility] PIF PRE 8.95 L/s 08/31/2023 2:49 PM CDT [facility] FEF 50 % FIF 50 PRE 19.59 % 08/31/2023 2:49 PM CDT [facility] FET PRE 15.12 sec 08/31/2023 2:49 PM CDT [facility] SUBSTANCE POST Albuterol 08/31/2023 2:49 PM CDT [facility] 08/31/2023 10:5 8 AM CDT Impressions [facility] - 08/31/2023 2:49 PM CDT Abnormal. Borderline obstruction with no significant bronchodilator response. Lung volumes and diffusion capacity are normal. Pulse oximetry is normal at rest and with exercise. Narrative Procedure Note Opal Dickey M.B.BTammyS. - 08/31/2023 IMPRESSION: Abnormal. Borderline obstruction with no significant bronchodilatorresponse. Lung volumes and diffusion capacity are normal. Pulse oximetryis normal at rest and with exercise. Katherin Hunt M.D. PFT ORDERABLES [facility] SUITE NA * Gram Stain (07/20/2023 12:47 PM TANGLED YARN WORKER) Gram Stain Upper respiratory/ora l microbiota White blood cells, Many. Epithelial cells, Moderate. 07/20/2023 3:18 PM TANGLED YARN WORKER DTL Sputum 07/20/2023 12:4 7 PM TANGLED YARN WORKER 07/20/2023 1:51 PM TANGLED YARN WORKER Comment:Specimen Source Site : Sputum Hernan LamS. LAB MICR OBIOLOGY - GENERAL ORDERABLES Performing Organization Address City/[facility] Co de Phone Number [facility] [address] [place] [address] * (ABNORMAL) Bacterial Culture, Aerobic + Susceptibility, Respiratory (07/20/2023 12:47 PM TANGLED YARN WORKER) Bacterial Culture, Aerobic, Resp Upper respiratory/or al microbiota(A) 07/26/2023 2:37 PM TANGLED YARN WORKER DTL Comment: Previous comment With upper respiratory/oral microbiota was modified at 09:10 on 07/26/2023 Previous comment Upper respiratory/oral microbiota was modified at 14:12 on 07/23/2023 Bacterial Culture, Aerobic, Resp Previously reported organism not present(A) 07/26/2023 2:37 PM TANGLED YARN WORKER DTL Comment: REVISED REPORT-Previously reported as STREPTOCOCCUS PNEUMONIAE at 14:11 on 07/23/2023 Sputum (Sputum) 07/20/2023 1 2:47 PM TANGLED YARN WORKER 07/20/2023 1:51 PM TANGLED YARN WORKER Comment:Specimen Source Site : Sputum Hernan ClaireBTammyS. LAB MICR OBIOLOGY - GENERAL ORDERABLES Performing Organization Address City/[facility]/ZIP Co de Phone Number [facility] [address] [facility] 200 [place] [address] * Aspergillus fumigatus, IgG Antibodies (07/20/2023 7:44 AM TANGLED YARN WORKER) Aspergillus fumigatus, IgG Ab, S 27.4 <=102 mg/L 07/21/2023 8:41 PM TANGLED YARN WORKER [facility] Comment: ----ADDITIONAL INFORMATION---- This test was developed and its performance characteristics determined by [facility] in a manner consistent with CLIA requirements. This test has not been cleared or approved by the U.S. Food and Drug Administration. Blood (Blood, Venous) 07/20/2023 7:44 AM TANGLED YARN WORKER 07/20/2023 10:50 AM TANGLED YARN WORKER Hernan Belle.S. LAB BLOO D ADD-ON Performing Organization Address City/[facility] Co de Phone Number [facility] [address] [place] [address] [facility] [address] [place] [address] * Aspergillus fumigatus, IgE (07/20/2023 7:44 AM TANGLED YARN WORKER) [facility] Aspergillus Fumigatus, IgE <0.10 <0.70 kU/L 07/21/2023 10:54 AM TANGLED YARN WORKER [facility] Comment:Class 0 (Negative <0 .10) Blood (Blood, Venous) 07/20/2023 7:44 AM TANGLED YARN WORKER 07/21/2023 8:21 AM TANGLED YARN WORKER Hernan Belle.S. LAB BLOO D ADD-ON [facility] [address] [place] [address] [facility] [address] [place] [address] * Aspergillus Ag (07/20/2023 7:44 AM TANGLED YARN WORKER) [facility] Aspergillus Ag, S <0.500 <0.5 index 07/20/2023 10:45 PM TANGLED YARN WORKER [facility] Comment: ----ADDITIONAL INFORMATION---- This is a qualitative test and the resulted index value is not indicative of disease severity. ??Serial testing is recommended for patients at high risk for invasive aspergillosis. This assay was performed using the FDA-cleared [employer] Plat[employer] Aspergillus Galactomannan EIA. Blood (Blood, Venous) 07/20/2023 7:44 AM TANGLED YARN WORKER 07/20/2023 10:19 AM TANGLED YARN WORKER Hernan Posey LAB [facility] OBIOLOGY - BLOOD ORDERABLES Performing Organization Address City/[facility]/ZIP Co de Phone Number [facility] [address] [place] [address] [facility] [address] [place] [address] [place] [address] * Ova and Parasite, Travel History or Immunocompromised, Feces (07/20/2023 5:53 AM TANGLED YARN WORKER) Pathologist [facility] Ova and Parasite, Microscopy, F No parasites seen. Cryptosporidium, Cyclospora, and microsporidia are not readily detected by this method. Single negative specimen does not rule out parasitic infection. 07/21/2023 6:28 PM TANGLED YARN WORKER DT Stool (Stool) 07/20/2023 5:5 3 AM TANGLED YARN WORKER 07/20/2023 6:16 AM TANGLED YARN WORKER Comment:Specimen Source Site : Stool Hernan LamSTammy LAB [facility] OBIOLOGY - GENERAL ORDERABLES Performing Organization Address [facility] Co de Phone Number [facility] [address] [place] [address], [facility] DTL [facility] [address] [place] [address] * QuantiFERON-Tb Gold Plus, Blood (07/19/2023 12:38 PM TANGLED YARN WORKER) Pathologist [facility] QuantiFERON-TB Gold Plus Result Negative Negative 07/20/2023 1:05 PM TANGLED YARN WORKER [facility] Comment: No interferon-gamma response to M. tuberculosis [...] Nil Result 0.00 IU/mL 07/20/2023 1:05 PM TANGLED YARN WORKER SDSC TB2 Ag minus Nil Result 0.00 IU/mL 07/20/2023 1:05 PM TANGLED YARN WORKER SDSC Mitogen minus Nil Result 8.97 IU/mL 07/20/2023 1:05 PM TANGLED YARN WORKER SDSC Nil Result 0.02 IU/mL 07/20/2023 1:05 PM TANGLED YARN WORKER SDSC Blood (Blood, Venous) 07/19/2023 12:38 PM TANGLED YARN WORKER 07/19/2023 3:34 PM TANGLED YARN WORKER Narrative [facility] - 07/20/2023 1:05 PM TANGLED YARN WORKER Specimen Information: Specimen ID: [id number] Specimen Type: Blood Specimen Collection Start Date: 07/19/2023 12:38 PM Specimen Received Date: 07/19/2023 ??3:34 PM Specimen ID: [id number] Specimen Type: Blood Specimen Collection Start Date: 07/19/2023 12:38 PM Specimen Received Date: 07/19/2023 ??3:34 PM Specimen ID: [id number] Specimen Type: Blood Specimen Collection Start Date: 07/19/2023 12:38 PM Specimen Received Date: 07/19/2023 ??3:34 PM Specimen ID: [id number] Specimen Type: Blood Specimen Collection Start Date: 07/19/2023 12:38 PM Specimen Received Date: 07/19/2023 ??3:34 PM Murphy Stark M.D. MTammyS. LAB MICROBIOLOGY - BLOOD ORDERABLES [facility] [address] [place] [address] [facility] [address] [place] [address] * (ABNORMAL) CBC with Differential, Blood (07/19/2023 12:38 PM TANGLED YARN WORKER) Hemoglobin 16.2 13.2 - 16.6 g/dL 07/19/2023 1:15 PM TANGLED YARN WORKER DTL Hematocrit 47.8 38.3 - 48.6 % 07/19/2023 1:15 PM TANGLED YARN WORKER DTL Erythrocytes 5.17 4.35 - 5.65 x10(12)/L 07/19/2023 1:15 PM TANGLED YARN WORKER DTL MCV 92.5 78.2 - 97.9 fL 07/19/2023 1:15 PM TANGLED YARN WORKER DTL RBC Distrib Width 13.0 11.8 - 14.5 % 07/19/2023 1:15 PM TANGLED YARN WORKER DTL Platelet Count 223 135 - 317 x10(9)/L 07/19/2023 1:15 PM TANGLED YARN WORKER DTL Leukocytes 8.6 3.4 - 9.6 x10(9)/L 07/19/2023 1:15 PM TANGLED YARN WORKER DTL Neutrophils 4.70 1.56 - 6.45 x10(9)/L 07/19/2023 1:15 PM TANGLED YARN WORKER DHPM Lymphocytes 2.19 0.95 - 3.07 x10(9)/L 07/19/2023 1:15 PM TANGLED YARN WORKER DTL Monocytes 0.64 0.26 - 0.81 x10(9)/L 07/19/2023 1:15 PM TANGLED YARN WORKER DTL Eosinophils 1.05(H) 0.03 - 0.48 x10(9)/L 07/19/2023 1:15 PM TANGLED YARN WORKER DTL Basophils 0.05 0.01 - 0.08 x10(9)/L 07/19/2023 1:15 PM TANGLED YARN WORKER DTL Blood (Blood, Venous) 07/19/2023 12:38 PM TANGLED YARN WORKER 07/19/2023 1:09 PM TANGLED YARN WORKER Murphy Stark M.D., M.S. LAB BLOOD ADD-ON [facility] [address] [place] [address], [facility] DTL [facility] [address] [place] [address] [facility] [address] [place] [address] * Streptococcus pneumoniae Antigen, Urine (07/19/2023 2:47 AM TANGLED YARN WORKER) [facility] Streptococcus pneumoniae Ag, U Negative Negative 07/19/2023 12:46 PM TANGLED YARN WORKER [facility] Comment: Negative for pneumococcal pneumonia, suggesting no current or recent infection. ??Infection due to S. pneumoniae cannot be ruled out since the antigen present in the sample may be below detection limit of the test. ----ADDITIONAL INFORMATION---- This assay was performed using the FDA-cleared BinaxNOW Streptococcus pneumoniae Antigen test, a rapid immunochromatographic assay. Urine (Urine, Midstream) 07/19/2023 2:47 AM TANGLED YARN WORKER 07/19/2023 8:34 AM TANGLED YARN WORKER Murphy Stark M.D., M.S. LAB MICROBIOLOGY - GENERAL ORDERABLES Performing Organization Address City/[facility] Co de Phone Number [facility] [address] [place] [address] [facility] [address] [place] [address] [place] [address] * Dipstick, Urine (07/18/2023 11:22 PM TANGLED YARN WORKER) Pathologist [facility] Hemoglobin, QL, U Negative Negative 07/19/2023 12:02 AM TANGLED YARN WORKER DTL Leukocyte Esterase, U Negative Negative 07/19/2023 12:02 AM TANGLED YARN WORKER DTL Nitrite, U Negative Negative 07/19/2023 12:02 AM TANGLED YARN WORKER DTL Ketone, U Negative Negative mg/dL 07/19/2023 12:02 AM TANGLED YARN WORKER DTL Glucose, U Negative Negative mg/dL 07/19/2023 12:02 AM TANGLED YARN WORKER DTL Urine 07/18/2023 11:2 2 PM TANGLED YARN WORKER 07/18/2023 11:46 PM TANGLED YARN WORKER Murphy Stark M.D., M.S. LAB URINE ORDERA BLES Performing Organization Address [facility] Co de Phone Number [facility] [address] [place] [address] * pH, Urine (07/18/2023 11:22 PM TANGLED YARN WORKER) Pathologist [facility] pH, U 5.3 4.5 - 8.0 07/18/2023 11: 59 PM TANGLED YARN WORKER DT Urine 07/18/2023 11:2 2 PM TANGLED YARN WORKER 07/18/2023 11:46 PM TANGLED YARN WORKER Murphy Stark M.D., M.S. LAB URINE ORDERA BLES Performing Organization Address City/[facility]/ZIP Co de Phone Number [facility] [address] 200 [place] [address] * Osmolality, Urine (07/18/2023 11:22 PM TANGLED YARN WORKER) [facility] Osmolality, U 676 150 - 1150 mOsm/kg 07/18/2023 11:59 PM TANGLED YARN WORKER DT Urine 07/18/2023 11:2 2 PM TANGLED YARN WORKER 07/18/2023 11:46 PM TANGLED YARN WORKER Murphy Stark M.D., M.S. LAB URINE ORDERA BLES [facility] [address] [place] [address] * Microscopic Automated (07/18/2023 11:22 PM TANGLED YARN WORKER) Pathologist [facility] Microscopy Normal 07/19/2023 12:02 AM TANGLED YARN WORKER DTL RBC <3 <3 /hpf 07/19/2023 12:02 AM TANGLED YARN WORKER DTL WBC 1-3 /hpf 07/19/2023 12:02 AM TANGLED YARN WORKER DTL Comment: ----REFERENCE VALUE---- <4 ??(Males) <11 (Females) Urine 07/18/2023 11:2 2 PM TANGLED YARN WORKER 07/18/2023 11:46 PM TANGLED YARN WORKER Murphy Stark M.D. MTammyS. LAB URINE ORDERA BLES Performing Organization Address City/[facility]/ZIP Co de Phone Number [facility] [address] [place] [address], [place] DTL [facility] [address] [place] [address] * Legionella Antigen, Urine (07/18/2023 11:22 PM TANGLED YARN WORKER) Pathologist [facility] Legionella Ag, U Negative Negative 07/19/19 1:58 PM TANGLED YARN WORKER SDS Comment: Negative for L. pneumophila serogroup 1 [...] assay. Urine (Urine, Midstream) 07/18/2023 11:22 PM TANGLED YARN WORKER 07/19/2023 8:58 AM TANGLED YARN WORKER Murphy Stark M.D. MTammyS. LAB MICROBIOLOGY - GENERAL ORDERABLES Performing Organization Address City/[facility] Co de Phone Number [facility] [address] [place] [address] [facility] [address] [place] [address] [place] [address] * Blastomyces Antigen, Quantitative EIA, Urine (07/18/2023 11:22 PM TANGLED YARN WORKER) Pathologist [facility] Blastomyces Ag Result Not Detected Not Detected 07/19/2023 4:56 PM TANGLED YARN WORKER SDS Comment: No Blastomyces antigen detected. ?? False negative results may occur. ??Repeat testing on a new specimen should be considered if clinically indicated. ?? Blastomyces Ag Value Not Detected ng/mL 07/19/2023 4:56 PM TANGLED YARN WORKER SDS Comment: ----ADDITIONAL INFORMATION---- This test was developed and its performance characteristics determined by [facility] in a manner consistent with CLIA requirements. This test has not been cleared or approved by the U.S. Food and Drug Administration. Urine (Urine, Midstream) 07/18/2023 11:22 PM TANGLED YARN WORKER 07/19/2023 8:34 AM TANGLED YARN WORKER Murphy Stark M.D., M.S. LAB MICROBIOLOGY - GENERAL ORDERABLES Performing Organization Address [facility] Co de Phone Number [facility] [address] [place] [address] [facility] [address] [place] [address] * Histoplasma Antigen, Quantitative EIA, Urine (07/18/2023 11:22 PM TANGLED YARN WORKER) [facility] Histoplasma Ag Result Not Detected Not Detected 07/19/2023 3:10 PM TANGLED YARN WORKER [facility] Comment: No Histoplasma antigen detected. ?? False negative results may occur. ??Repeat testing on a new specimen should be considered if clinically indicated. ?? Histoplasma Ag Value Not Detected ng/mL 07/19/2023 3:10 PM TANGLED YARN WORKER [facility] Comment: ----ADDITIONAL INFORMATION---- This test has been modified from the graphics intern's instructions. Its performance characteristics were determined by [facility] in a manner consistent with CLIA requirements. This test has not been cleared or approved by the U.S. Food and Drug Administration. Urine (Urine, Midstream) 07/18/2023 11:22 PM TANGLED YARN WORKER 07/19/2023 9:06 AM TANGLED YARN WORKER Murphy Stark M.D. M.S. LAB URINE ORDERA BLES Performing Organization Address [facility] Co de Phone Number [facility] [address] [place] [address] [facility] [address] [place] [address] * Urinalysis, with Microscopic: Urine, Midstream (07/18/2023 11:22 PM TANGLED YARN WORKER) Pathologist [facility] Source Urine, Urine, Midstream 07/18/2023 11:46 PM TANGLED YARN WORKER DTL Color, U Yellow 07/18/2023 11:46 PM TANGLED YARN WORKER DTL Clarity, U Clear 07/18/2023 11:46 PM TANGLED YARN WORKER DTL Protein, U 11 <26 mg/dL 07/19/2023 12:23 AM TANGLED YARN WORKER DTL Protein/Osmol ality 0.16 <0.42 ratio 07/19/2023 12:23 AM TANGLED YARN WORKER DTL Predicted 24 HR Protein, U 167 <229 mg/24 h 07/19/2023 12:23 AM TANGLED YARN WORKER DTL Predicted Range 53-526 mg/24 h 07/19/2023 12:23 AM TANGLED YARN WORKER DTL Urine (Urine, Midstream) 07/18/2023 11:22 PM TANGLED YARN WORKER 07/18/2023 11:46 PM TANGLED YARN WORKER Murphy Stark M.D., M.S. LAB URINE ORDERA [facility] [address] [place] [address], [facility] DTL [facility] [address] [place] [address] * CT Chest without IV Contrast (07/18/2023 10:40 PM TANGLED YARN WORKER) Anatomical Region Laterality Modality Chest, Thoracic RST LOS, Tho racic ARZ LOS, Thoracic FLA LOS N/A Computed Tomography, Compute d Tomography Impressions 07/19/2023 4:27 AM TANGLED YARN WORKER 1. ??Pulmonary findings suggestive of bronchial inflammation with endobronchial mucous plugging. 2. ??Scattered solid pulmonary nodules throughout both lungs measuring up to 6 mm. Given the additional findings, these are likely infectious/inflammatory in etiology. Recommend follow-up with chest CT in 3-6 months for follow-up guidelines. Narrative 07/19/2023 4:27 AM TANGLED YARN WORKER EXAM: CT CHEST WITHOUT IV CONTRAST COMPARISON: None FINDINGS: Images are mildly limited due to motion artifact. Diffuse moderate bronchial wall thickening with scattered areas of endobronchial mucous plugging. Scattered groundglass opacities within the lower lobes. No focal consolidation. Multiple solid pulmonary nodules throughout both lungs. The largest measure 6 mm in the superior right lower lobe (series 4 image 379), 6 mm in the anterior right middle lobe (series 4 image 401), and 6 mm in the peripheral right middle lobe (series 4 image 427), and 5 mm in the peripheral left upper lobe (series 4 image 281). Scattered calcified pulmonary granulomas. No pleural effusion or pneumothorax. No hilar or mediastinal lymphadenopathy. Multiple subcentimeter reactive appearing mediastinal lymph nodes. Normal heart size. No pericardial effusion. Hypertrophic and degenerative arthritis of the spine and both shoulders. The visualized upper abdomen is normal. GUIDELINES FOR FOLLOW-UP of newly detected solid nodules incidentally detected on CT in persons 35 years or older. (2017 revision) LOW-RISK PATIENT (Minimal or absent history of smoking or of other known risk factors) For single nodule, size: <6mm ??No routine follow-up required 6-8mm CT at 6-12 months; then consider CT at 18-24 months, if no change >8mm ??Consider Pulmonary Medicine consultation for management, or follow-up with CT at 3 months For multiple nodules, size of largest nodule: <6mm ??No routine follow-up required 6mm or > CT at 3-6 months, then consider CT at 18-24 months HIGH-RISK PATIENT (History of smoking or of other known risk factors) For single nodule, size: <6mm ??Optional CT at 12 months*; If unchanged, no further follow-up required 6-8mm CT at 6-12 months; then CT at 18-24 months, if no change >8mm Consider Pulmonary Medicine consultation for management, or follow-up with CT at 3 months For multiple nodules, size of largest nodule: <6mm Optional CT at 12 months*; If unchanged, no further follow-up required 6mm or > CT at 3-6 months, then at 18-24 months (Nodule size is the average of length and width.) *Nodules <6mm do not require routine follow-up, but certain patients at high risk with suspicious nodule morphology, upper lobe location, or both may warrant 12- month follow-up. ?? Guidelines do not apply to lung cancer screening, patients with immunosuppression, or patients with a known primary cancer. Procedure Note Seng Love M.D. - 07/19/2023 EXAM: CT CHEST WITHOUT IV CONTRAST COMPARISON: None FINDINGS: Images are mildly limited due to motion artifact. Diffuse moderate bronchial wall thickening with scattered areas ofendobronchial mucous plugging. Scattered groundglass opacities within thelower lobes. No focal consolidation. Multiple solid pulmonary nodules throughout both lungs. The largestmeasure 6 mm in the superior right lower lobe (series 4 image 379), 6 mmin the anterior right middle lobe (series 4 image 401), and 6 mm in theperipheral right middle lobe (series 4 image 427), and 5 mm in the peripheral left upper lobe (series 4 [id number]). Scattered calcified pulmonary granulomas. No pleural effusion or pneumothorax. No hilar or mediastinallymphadenopathy. Multiple subcentimeter reactive appearing mediastinallymph nodes. Normal heart size. No pericardial effusion. Hypertrophic and degenerative arthritis of the spine and both shoulders.The visualized upper abdomen is normal. GUIDELINES FOR FOLLOW-UP of newly detected solid nodules incidentallydetected on CT in persons 35 years or older. (2017 revision) LOW-RISK PATIENT (Minimal or absent history of smoking or of other knownrisk factors) For single nodule, size: <6mm No routine follow-up required 6-8mm CT at 6-12 months; then consider CT at 18-24 months, if no change >8mm Consider Pulmonary Medicine consultation for management, orfollow-up with CT at 3 months For multiple nodules, size of largest nodule: <6mm No routine follow-up required 6mm or > CT at 3-6 months, then consider CT at 18-24 months HIGH-RISK PATIENT (History of smoking or of other known risk factors) For single nodule, size: <6mm Optional CT at 12 months*; If unchanged, no further follow-uprequired 6-8mm CT at 6-12 months; then CT at 18-24 months, if no change >8mm Consider Pulmonary Medicine consultation for management, or follow-upwith CT at 3 months For multiple nodules, size of largest nodule: <6mm Optional CT at 12 months*; If unchanged, no further follow-uprequired 6mm or > CT at 3-6 months, then at 18-24 months (Nodule size is the average of length and width.) *Nodules <6mm do not require routine follow-up, but certain patients athigh risk with suspicious nodule morphology, upper lobe location, or bothmay warrant 12-month follow-up. Guidelines do not apply to lung cancer screening, patients withimmunosuppression, or patients with a known primary cancer. IMPRESSION: 1. Pulmonary findings suggestive of bronchial inflammation withendobronchial mucous plugging. 2. Scattered solid pulmonary nodules throughout both lungs measuring upto 6 mm. Given the additional findings, these are likelyinfectious/inflammatory in etiology. Recommend follow-up with chest CT in3-6 months for follow-up guidelines. Murphy Stark M.D., M.S. IMG CT PROCEDURE S * Bacteria / Marialuisa Culture, Blood #2 (07/18/2023 9:37 PM TANGLED YARN WORKER) Pathologist [facility] Bacteria/Alma Delia da Culture, Blood No growth after 5 days of incubation. 07/23/2023 11:02 PM TANGLED YARN WORKER [facility] Blood (Blood, Peripheral Draw) 07/18/2023 9:37 PM TANGLED YARN WORKER 07/18/2023 10:08 PM TANGLED YARN WORKER Comment:Specimen Source Site : Blood Murphy Stark M.D., M.S. LAB MICROBIOLOGY - GENERAL ORDERABLES [place] [address] [place] [address] * HIV-1/-2 Ag and Ab Screen, Plasma (07/18/2023 9:37 PM TANGLED YARN WORKER) Pathologist [facility] HIV-1/-2 Ag and Ab Screen, P Negative Negative 07/19/2023 10:43 AM TANGLED YARN WORKER [facility] Comment: Negative result does not rule out HIV infection. If exposure to HIV infection occurred <14 days ago, contact the laboratory to request addition of HIV-1/HIV-2 RNA detection, Plasma (HIP12). Blood (Blood, Venous) 07/18/2023 9:37 PM TANGLED YARN WORKER 07/19/2023 8:59 AM TANGLED YARN WORKER Murphy Stark M.D., M.S. LAB MICROBIOLOGY - BLOOD ORDERABLES [facility] [address] [place] [address] [facility] [address] [place] [address] * Mycobacterial Culture (07/18/2023 9:33 PM TANGLED YARN WORKER) Mycobacterial Culture No growth after 42 days of incubation . 08/30/2023 1:02 AM CDT DTL Sputum (Sputum) 07/18/2023 9 :33 PM TANGLED YARN WORKER 07/18/2023 10:11 PM TANGLED YARN WORKER Comment:Specimen Source Site : Sputum Murphy Stark M.D., M.S. LAB MICROBIOLOGY - GENERAL ORDERABLES [facility] [address] [place], [place] [address] [place] [address] [address] [place] [address] * Acid Fast Smear for Mycobacterium (07/18/2023 9:33 PM TANGLED YARN WORKER) Acid Fast Smear For Mycobacterium Negative. 07/19/2023 5:11 PM TANGLED YARN WORKER DTL Sputum (Sputum) 07/18/2023 9 :33 PM TANGLED YARN WORKER 07/18/2023 10:11 PM TANGLED YARN WORKER Comment:Specimen Source Site : Sputum Murphy Stark M.D., M.S. LAB MICROBIOLOGY - GENERAL ORDERABLES [facility] [address] [place], [place] [address] [place] [address] 200 [place] [address] * (ABNORMAL) Fungal Culture, Routine (07/18/2023 9:33 PM TANGLED YARN WORKER) Fungal Culture, Routine YEAST, NOT Cr. neoformans, NOT Cr. gattii and NOT C. auris Many (A) 08/11/2023 8:48 AM CDT DTL Sputum (Sputum) 07/18/2023 9 :33 PM TANGLED YARN WORKER 07/18/2023 10:11 PM TANGLED YARN WORKER Comment:Specimen Source Site : Sputum Murphy Stark M.D., M.S. LAB MICROBIOLOGY - GENERAL ORDERABLES Performing Organization Address City/[facility] Co de Phone Number [facility] [address] [place] [address], [facility] [address] [place] [address] * Fungal Smear (07/18/2023 9:33 PM TANGLED YARN WORKER) Fungal Smear Negative. 07/19/2023 11:04 AM TANGLED YARN WORKER DTL Sputum (Sputum) 07/18/2023 9 :33 PM TANGLED YARN WORKER 07/18/2023 10:11 PM TANGLED YARN WORKER Comment:Specimen Source Site : Sputum Murphy Stark M.D. M.S. LAB MICROBIOLOGY - GENERAL ORDERABLES Performing Organization Address [facility] Co de Phone Number [facility] [address] [place], [place] [address] [place] [address] [address] [place] [address] * Bacterial Culture, Aerobic + Susceptibility, Respiratory (07/18/2023 9:33 PM TANGLED YARN WORKER) Bacterial Culture, Aerobic, Resp Upper respiratory/or al microbiota 07/21/2023 7:04 AM TANGLED YARN WORKER DTL Sputum (Sputum) 07/18/2023 9 :33 PM TANGLED YARN WORKER 07/18/2023 10:11 PM TANGLED YARN WORKER Comment:Specimen Source Site : Sputum Murphy Stark M.D., M.S. LAB MICROBIOLOGY - GENERAL ORDERABLES Performing Organization Address City/[facility] Co de Phone Number [facility] [address] [place] [address], [facility] [address] [place] [address] * Gram Stain (07/18/2023 9:33 PM TANGLED YARN WORKER) Gram Stain Upper respiratory/ora l microbiota White blood cells, Moderate. Epithelial cells, Moderate. 07/18/2023 11:23 PM TANGLED YARN WORKER DT Sputum (Sputum) 07/18/2023 9 :33 PM TANGLED YARN WORKER 07/18/2023 10:11 PM TANGLED YARN WORKER Comment:Specimen Source Site : Sputum Murphy Stark M.D., M.S. LAB MICROBIOLOGY - GENERAL ORDERABLES Performing Organization Address [facility] Co de Phone Number [facility] [address] [place] [address], [facility] [address] [place] [address] * ANCA (Antineutrophil Cytoplasmic Antibodies) Vasculitis Panel (07/18/2023 9:24 PM TANGLED YARN WORKER) Pathologist [facility] Myeloperoxidase Ab, S <0.2 <0.4 (Negative ) U 07/19/2023 9:44 AM TANGLED YARN WORKER SDS Proteinase 3 Ab (PR3), S <0.2 <0.4 (Negative ) U 07/19/2023 9:44 AM TANGLED YARN WORKER [facility] Blood (Blood, Venous) 07/18/2023 9:24 PM TANGLED YARN WORKER 07/19/2023 9:16 AM TANGLED YARN WORKER Murphy Stark M.D., M.S. LAB BLOOD ADD-ON Performing Organization Address [facility] Co de Phone Number [facility] [address] [place] [address] [facility] [address] [place] [address] * (1, 3) Eijz-W-Lqclqe (Fungitell), Serum (07/18/2023 9:24 PM TANGLED YARN WORKER) Pathologist [facility] (1, 3) Dldf-D-Llrsfy, Quantitative <31 <60 pg/mL pg/mL 07/20/2023 10:48 AM TANGLED YARN WORKER [facility] (1, 3) Uing-P-Vjwbku, Qualitative Negative Negative 07/20/2023 10:48 AM TANGLED YARN WORKER SDSC Comment: No (1, 3) Dfxp-F-Zpstjt detected. ?? This assay does not detect certain fungi, including Cryptococcus species, which produce very low levels of (1, 3) Wdvj-Z-Rezzxi (BDG) and the Mucorales (e.g., Lichthemia, Mucor and Rhizopus), which are not known to produce BDG. Additionally, the yeast phase of Blastomyces dermatitidis produces little BDG and may not be detected by this assay. ----ADDITIONAL INFORMATION---- This assay was performed using the FDA-cleared Fungitell Assay ([facility], [place], [place], [place]), a kinetic AJ based on modification of the Limulus Amebocyte Lysate pathway. Blood (Blood, Venous) 07/18/2023 9:24 PM TANGLED YARN WORKER 07/19/2023 8:34 AM TANGLED YARN WORKER Murphy Stark M.D., M.S. LAB MICROBIOLOGY - BLOOD ORDERABLES Performing Organization Address [facility]/ZIP Co de Phone Number [facility] [address] [place], [place] [address] [address] [place] [address] [place] [address] * Bacteria / Marialuisa Culture, Blood #1 (07/18/2023 9:24 PM TANGLED YARN WORKER) [facility] Bacteria/Alma Delia da Culture, Blood No growth after 5 days of incubation. 07/23/2023 11:02 PM TANGLED YARN WORKER [facility] Blood (Blood, Peripheral Draw) 07/18/2023 9:24 PM TANGLED YARN WORKER 07/18/2023 10:08 PM TANGLED YARN WORKER Comment:Specimen Source Site : Blood Murphy Stark M.D. M.S. LAB MICROBIOLOGY - GENERAL ORDERABLES Performing Organization Address City/[facility]/ZIP Co de Phone Number [facility] [address] [place] [address], [facility] [address] [place] [address] * HCV Ab w/Reflex to HCV PCR, Serum (07/18/2023 9:24 PM TANGLED YARN WORKER) Pathologist [facility] HCV Ab, S Negative Negative 07/19/2023 11:08 AM TANGLED YARN WORKER [facility] Comment:[id number] rat io is <1.00. Blood (Blood, Peripheral Draw) 07/18/2023 9:24 PM TANGLED YARN WORKER 07/19/2023 8:59 AM TANGLED YARN WORKER Narrative Authorizing Provider Result Ladi Stark M.D., M.S. LAB MICROBIOLOGY - BLOOD ORDERABLES Performing Organization Address [facility] Co de Phone Number [facility] [address] [place], [place] [id number] [place] [address] [place] [address] * HBc Total Ab, Serum (07/18/2023 9:24 PM TANGLED YARN WORKER) HBc Total Ab, S Negative Negative 07/19/2023 11:36 AM TANGLED YARN WORKER [facility] Blood (Blood, Peripheral Draw) 07/18/2023 9:24 PM TANGLED YARN WORKER 07/19/2023 8:59 AM TANGLED YARN WORKER Murphy Stark M.D., M.S. LAB MICROBIOLOGY - BLOOD ORDERABLES Performing Organization Address [facility] Co de Phone Number [facility] [address] [place] [address] [place] [address] * HBs Antibody, Serum (07/18/2023 9:24 PM TANGLED YARN WORKER) HBs Antibody, S Negative 07/19/2023 11:37 AM TANGLED YARN WORKER [facility] Comment: Patient is presumed to be not immune to infection with HBV. ----REFERENCE VALUE---- Unvaccinated: Negative Vaccinated: Positive HBs Antibody, Quantitative, S <5.0 mIU/mL 07/19/2023 11:37 AM TANGLED YARN WORKER [facility] Comment: ----REFERENCE VALUE---- Unvaccinated: <5.0 Vaccinated: >=12.0 Blood (Blood, Peripheral Draw) 07/18/2023 9:24 PM TANGLED YARN WORKER 07/19/2023 8:59 AM TANGLED YARN WORKER Murphy Stark M.D., M.S. LAB MICROBIOLOGY - BLOOD ORDERABLES [facility] [address] [place] [address] [facility] [address] [place] [address] * Hepatitis B Surface Antigen (07/18/2023 9:24 PM TANGLED YARN WORKER) Pathologist [facility] HBs Antigen, S Negative Negative 07/19/2023 10:52 AM TANGLED YARN WORKER [facility] Blood (Blood, Peripheral Draw) 07/18/2023 9:24 PM TANGLED YARN WORKER 07/19/2023 8:59 AM TANGLED YARN WORKER Murphy Stark M.D., MTammyS. LAB MICROBIOLOGY - BLOOD ORDERABLES Performing Organization Address City/[facility] Co de Phone Number [facility] [address] [place] [address] [facility] [address] [place] [address] * Influenza A, B, RSV, PCR, Rapid (07/18/2023 8:54 PM TANGLED YARN WORKER) [facility] Influenza A, PCR, Rapid, V Negative Negative 07/18/2023 9:56 PM TANGLED YARN WORKER [facility] Influenza B, PCR, Rapid, V Negative Negative 07/18/2023 9:56 PM TANGLED YARN WORKER [facility] Resp Synctial Virus, PCR, Rapid Negative Negative 07/18/2023 9:56 PM TANGLED YARN WORKER [facility] Specimen Source Swab, Nasopharynx 07/18/2023 9:55 PM [facility]GLED YARN WORK[facility] (Nasopharynx) 07/18/2023 8:54 PM TANGLED YARN WORKER 07/18/2023 9:23 PM TANGLED YARN WORKER Murphy Stark M.D., M.S. LAB MICROBIOLOGY - GENERAL ORDERABLES Performing Organization Address City/[facility]/ZIP Co de Phone Number [facility] [address] [place] [address], [facility] [address] [place] [address] * SARS Coronavirus 2, PCR Rapid Symptomatic (07/18/2023 8:54 PM TANGLED YARN WORKER) SARS CoV-2, PCR, Rapid, V Undetected Undetected 07/18/2023 9:55 PM TANGLED YARN WORKER [facility] Comment: ----ADDITIONAL INFORMATION---- This RT-PCR test was performed using the [employer] SARS-CoV-2 and Influenza A/B Reagent assay from [employer], which has received Emergency Use Authorization(EUA) by the U.S. Food and Drug Administration. Fact sheets for this Emergency Use Authorization (EUA) assay can be found at the following links: For Healthcare Providers: https://www.fda.gov/media/114178/download For Patients: https://www.fda.gov/media/676391/download SARS Coronavirus 2, Rapid, Source Swab, Nasopharynx 07/18/2023 9:23 PM TANGLED YARN WORKER [facility] Swab (Nasopharynx) 07/18/2023 8:54 PM TANGLED YARN WORKER 07/18/2023 9:23 PM TANGLED YARN WORKER Murphy Stark M.D., M.S. LAB MICROBIOLOGY - GENERAL ORDERABLES [facility] [address] [place] [address], [facility] [address] [place] [address] * DX Chest AP or PA and Lateral 2 Views (07/18/2023 4:44 PM TANGLED YARN WORKER) Anatomical Region Laterality Modality Chest, Thoracic RST LOS, Tho racic ARZ LOS, Thoracic FLA LOS N/A Digital Radiography Impressions 07/18/2023 4:54 PM TANGLED YARN WORKER No focal consolidation. No large pleural effusion or discernible pneumothorax. Normal cardiac silhouette size. Multilevel degenerative changes of the spine. Narrative 07/18/2023 4:54 PM TANGLED YARN WORKER EXAM: ??DX CHEST AP OR PA AND LATERAL 2 VIEWS Procedure Note Jose Antonio Jasso D.O. - 07/18/2023 EXAM: DX CHEST AP OR PA AND LATERAL 2 VIEWS IMPRESSION: No focal consolidation. No large pleural effusion or discerniblepneumothorax. Normal cardiac silhouette size. Multilevel degenerativechanges of the spine. Eduar NOVAK DI[facility]NOST[facility] IMAGI NG PROCEDURES * Venous Blood Gas and Electrolytes CG8+, POCT (07/18/2023 4:25 PM TANGLED YARN WORKER) [facility] Sample Site, POCT Venstick 07/18/2023 5:51 PM TANGLED YARN WORKER PCSM Comment: ----ADDITIONAL INFORMATION---- Performed at the Point of Care pH, Venous, POCT, B 7.41 7.32 - 7.43 07/18/2023 5:51 PM TANGLED YARN WORKER PCSM Comment: ----ADDITIONAL INFORMATION---- Performed at the Point of Care pCO2, Venous, POCT, B 43 41 - 51 mm Hg 07/18/2023 5:51 PM TANGLED YARN WORKER PCSM Comment: ----ADDITIONAL INFORMATION---- Performed at the Point of Care pO2, Venous, POCT, B 46 Not Applicable mm Hg 07/18/2023 5:51 PM TANGLED YARN WORKER PCSM Comment: ----ADDITIONAL INFORMATION---- Performed at the Point of Care Base Excess, Venous, POCT, B 3 Not Applicable mmol/L 07/18/2023 5:51 PM TANGLED YARN WORKER PCSM Comment: ----ADDITIONAL INFORMATION---- Performed at the Point of Care HCO3, Venous, POCT, B 28 Not Applicable mmol/L 07/18/2023 5:51 PM TANGLED YARN WORKER PCSM Comment: ----ADDITIONAL INFORMATION---- Performed at the Point of Care Sodium, POCT, B 140 135 - 145 mmol/L 07/18/2023 5:51 PM TANGLED YARN WORKER PCSM Comment: ----ADDITIONAL INFORMATION---- Performed at the Point of Care Potassium, POCT, B 3.6 3.6 - 5.2 mmol/L 07/18/2023 5:51 PM TANGLED YARN WORKER PCSM Comment: ----ADDITIONAL INFORMATION---- Performed at the Point of Care Calcium, Ionized, POCT, B 4.90 4.65 - 5.30 mg/dL 07/18/2023 5:51 PM TANGLED YARN WORKER PCSM Comment: ----ADDITIONAL INFORMATION---- Performed at the Point of Care Glucose, POCT, B 109 70 - 140 mg/dL 07/18/2023 5:51 PM TANGLED YARN WORKER PCSM Comment: ----ADDITIONAL INFORMATION---- Performed at the Point of Care Hematocrit, POCT, B 46.0 38.3 - 48.6 % 07/18/2023 5:51 PM TANGLED YARN WORKER PCSM Comment: ----ADDITIONAL INFORMATION---- Performed at the Point of Care Blood (Blood, Venous) 07/18/2023 4:25 PM TANGLED YARN WORKER 07/18/2023 4:23 PM TANGLED YARN WORKER Eduar Davis M.D. LAB POCT ORDERABLES - DEVICE Performing Organization Address [facility] Co de Phone Number [facility] [address] [place] [address], [facility] POC [address] [place] [address] * (ABNORMAL) Hepatic Function Panel (07/18/2023 4:16 PM TANGLED YARN WORKER) Bilirubin, Total, S 0.5 0.0 - 1.2 mg/dL 07/18/2023 5:36 PM TANGLED YARN WORKER DTL Bilirubin, Direct, S <0.2 0.0 - 0.3 mg/dL 07/18/2023 5:29 PM TANGLED YARN WORKER DTL Aspartate Aminotransferase (AST), S 15 8 - 48 U/L 07/18/2023 5:29 PM TANGLED YARN WORKER [facility]TL Alanine Aminotransferase (ALT), S 32 7 - 55 U/L 07/18/2023 5:29 PM TANGLED YARN WORKER [facility]TL Alkaline Phosphatase, S 69 40 - 129 U/L 07/18/2023 5:29 PM TANGLED YARN WORKER DTL Albumin, S 4.4 3.5 - 5.0 g/dL 07/18/2023 5:29 PM TANGLED YARN WORKER DTL Protein, Total, S 6.1(L) 6.3 - 7.9 g/dL 07/18/2023 5:29 PM TANGLED YARN WORKER [facility] Blood (Blood, Venous) 07/18/2023 4:16 PM TANGLED YARN WORKER 07/18/2023 5:11 PM TANGLED YARN WORKER Eduar Davis M.D. LAB BLOOD ADD-ON Performing Organization Address City/[facility] Co de Phone Number [facility] [address] [place] [address], [facility] [address] * (ABNORMAL) NT-Pro B-Type Natriuretic Peptide (BNP) (07/18/2023 4:16 PM TANGLED YARN WORKER) NT-Pro BNP 121(H) <=88 pg/mL 07/18/2023 4:56 PM TANGLED YARN WORKER [facility] Comment: NT-proBNP values less than 300 [...] absence of renal failure. Blood (Blood, Venous) 07/18/2023 4:16 PM TANGLED YARN WORKER 07/18/2023 4:31 PM TANGLED YARN WORKER Eduar Davis M.D. LAB BLOOD ADD-ON Performing Organization Address [facility] Co de Phone Number [facility] [address] [place] [address], [address] [address] * D-Dimer (07/18/2023 4:16 PM TANGLED YARN WORKER) D-Dimer, P <220 <=500 ng/mL FEU 07/18/2023 4:48 PM TANGLED YARN WORKER [facility] Comment: ----ADDITIONAL INFORMATION---- D-dimer values less than or equal to 500 ng/mL fibrinogen equivalent units (FEU) may be used in conjunction with clinical pre-test probability to exclude deep vein thrombosis (DVT) and/or pulmonary embolism (PE). Blood (Blood, Venous) 07/18/2023 4:16 PM TANGLED YARN WORKER 07/18/2023 4:31 PM TANGLED YARN WORKER Eduar Davis M.D. LAB BLOOD ADD-ON [facility] [address] [place], [place] [address] [place] [address] [address] [place] [address] * Troponin T, Baseline, 5th gen (07/18/2023 4:16 PM TANGLED YARN WORKER) Troponin T, Baseline, 5th gen 6 <=15 ng/L 07/18/2023 4:49 PM TANGLED YARN WORKER [facility] Blood (Blood, Venous) 07/18/2023 4:16 PM TANGLED YARN WORKER 07/18/2023 4:31 PM TANGLED YARN WORKER Eduar Davis M.D. LAB BLOOD TROPONIN Performing Organization Address City/[facility]/ZIP Co de Phone Number [facility] [address] [place] [address], [address] [address] * Basic Metabolic Panel (07/18/2023 4:16 PM TANGLED YARN WORKER) Potassium, P 3.8 3.6 - 5.2 mmol/L 07/18/2023 5:02 PM TANGLED YARN WORKER [facility] Sodium, P 140 135 - 145 mmol/L 07/18/2023 5:02 PM TANGLED YARN WORKER [facility] Chloride, P 102 98 - 107 mmol/L 07/18/2023 5:02 PM TANGLED YARN WORKER [facility] Bicarbonate, P 28 22 - 29 mmol/L 07/18/2023 5:02 PM TANGLED YARN WORKER [facility] Anion Gap, P 10 7 - 15 07/18/2023 5:02 PM TANGLED YARN WORKER [facility] BUN (Blood Urea Nitrogen), P 15 8 - 24 mg/dL 07/18/2023 5:02 PM TANGLED YARN WORKER [facility] Creatinine 0.92 0.74 - 1.35 mg/dL 07/18/2023 5:02 PM TANGLED YARN WORKER [facility] Estimated GFR (eGFR) >90 >=60 mL/min/BSA 07/18/2023 5:02 PM TANGLED YARN WORKER [facility] Comment: Estimated GFR calculated using the 2020 CKD_EPI creatinine equation. Calcium, Total, P 9.0 8.8 - 10.2 mg/dL 07/18/2023 5:02 PM TANGLED YARN WORKER [facility] Glucose, P 111 70 - 140 mg/dL 07/18/2023 5:02 PM TANGLED YARN WORKER [facility] Blood (Blood, Venous) 07/18/2023 4:16 PM TANGLED YARN WORKER 07/18/2023 4:31 PM TANGLED YARN WORKER Eduar Davis M.D. LAB BLOOD ADD-ON [facility] [address] [place] [address], [facility] STMA [facility] [address] [place] [address] * (ABNORMAL) CBC with Differential, Blood (07/18/2023 4:16 PM TANGLED YARN WORKER) Hemoglobin 16.8(H) 13.2 - 16.6 g/dL 07/18/2023 4:34 PM TANGLED YARN WORKER [facility] Hematocrit 49.1(H) 38.3 - 48.6 % 07/18/2023 4:34 PM TANGLED YARN WORKER [facility] Erythrocytes 5.39 4.35 - 5.65 x10(12)/L 07/18/2023 4:34 PM TANGLED YARN WORKER [facility] MCV 91.1 78.2 - 97.9 fL 07/18/2023 4:34 PM TANGLED YARN WORKER [facility] RBC Distrib Width 12.7 11.8 - 14.5 % 07/18/2023 4:34 PM TANGLED YARN WORKER [facility] Platelet Count 210 135 - 317 x10(9)/L 07/18/2023 4:34 PM TANGLED YARN WORKER [facility] Leukocytes 11.1(H) 3.4 - 9.6 x10(9)/L 07/18/2023 4:34 PM TANGLED YARN WORKER [facility] Neutrophils 7.31(H) 1.56 - 6.45 x10(9)/L 07/18/2023 4:34 PM TANGLED YARN WORKER [facility] Lymphocytes 1.90 0.95 - 3.07 x10(9)/L 07/18/2023 4:34 PM TANGLED YARN WORKER [facility] Monocytes 0.92(H) 0.26 - 0.81 x10(9)/L 07/18/2023 4:34 PM TANGLED YARN WORKER [facility] Eosinophils 0.90(H) 0.03 - 0.48 x10(9)/L 07/18/2023 4:34 PM TANGLED YARN WORKER [facility] Basophils 0.07 0.01 - 0.08 x10(9)/L 07/18/2023 4:34 PM TANGLED YARN WORKER [facility] Blood (Blood, Venous) 07/18/2023 4:16 PM TANGLED YARN WORKER 07/18/2023 4:31 PM TANGLED YARN WORKER Eduar Davis M.D. LAB BLOOD ADD-ON [facility] [address] [place] [address], [facility] ST[facility] [address] [place] [address] DH[facility] [address] [place] [address] * Immunoglobulin E (IgE) (07/18/2023 4:13 PM TANGLED YARN WORKER) Pathologist [facility] Immunoglobulin E (IgE), S 17.5 <=214 kU/L 07/20/2023 3:23 PM TANGLED YARN WORKER [facility] Blood (Blood, Venous) 07/18/2023 4:13 PM TANGLED YARN WORKER 07/19/2023 9:35 AM TANGLED YARN WORKER Murphy Stark M.D., M.S. LAB BLOOD ADD-ON [facility] [address] [place] [address] [facility] [address] [place] [address] * (ABNORMAL) M. pneumoniae Ab, IgG and IgM (07/18/2023 4:13 PM TANGLED YARN WORKER) Pathologist [facility] M. pneumoniae Ab, IgG, S Positive(A) Negative 07/20/2023 12:14 PM TANGLED YARN WORKER [facility] M. pneumoniae Ab, IgM, S Negative Negative 07/20/2023 2:35 PM TANGLED YARN WORKER [facility] M. pneumoniae Ab Interpretation SEE COMMENT 07/20/2023 2:35 PM TANGLED YARN WORKER [facility] Comment: Results suggest past exposure. ----ADDITIONAL INFORMATION---- This test has been modified from the graphics intern's instructions. Its performance characteristics were determined by [facility] in a manner consistent with CLIA requirements. This test has not been cleared or approved by the U.S. Food and Drug Administration. Blood (Blood, Venous) 07/18/2023 4:13 PM TANGLED YARN WORKER 07/19/2023 9:06 AM TANGLED YARN WORKER Kirill Pierson M.D., M.S. LAB MICROBIOLOG Y - BLOOD ORDERABLES Performing Organization Address City/[facility] Co de Phone Number [facility] [address] [place] [address] [facility] [address] [place] [address] * ECG 12 Lead (07/18/2023 3:21 PM TANGLED YARN WORKER) Ventricular Rate ECG/Min 81 BPM MUSE ME Interval 184 ms MUSE QRSD Interval 90 ms MUSE QT Interval 376 ms MUSE QTC Interval 436 ms MUSE P [place] 75 degrees MUSE R [place] 33 degrees MUSE T Wave [place] 72 degrees MUSE 07/18/2023 3:21 PM TANGLED YARN WORKER 07/18/2023 3:30 PM TANGLED YARN WORKER Impressions MUSE - 07/18/2023 3:30 PM TANGLED YARN WORKER Normal sinus rhythm Normal ECG No previous ECGs available Reviewed by WILLIAM Hwang Narrative Procedure Note Ham Avitia M.D., Ph.D. - 07/18/2023 IMPRESSION: Normal sinus rhythm Normal ECG No previous ECGs available Reviewed by WILLIAM Hwang Eduar Davis M.D. ECG ORDERABLES Performing Organization Address [facility] Co de Phone Number MUSE NA documented in this encounter Visit Diagnoses Diagnosis Chronic Cough- Primary Dyspnea Cough Subacute Hypoxia Dyspnea Nodules Pulmonary Multiple Eosinophilia Unspecified Bronchitis Chronic (HCC) documented in this encounter Admitting Diagnoses Diagnosis Dyspnea documented in this encounter Administered Medications Inactive Administered Medications - up to 3 most recent administrations Medication Order MAR Action Action Date Dose Rate Site acetaminophen tablet 1,000 mg (TYLENOL) 1,000 mg, oral, 4 times daily, First dose on 07/18/23 at 2100, Not to exceed 4 grams of acetaminophen in 24 hours all sources Given 07/18/2023 8:25 PM TANGLED YARN WORKER 1,000 mg acetaminophen tablet 1,000 mg (TYLENOL) 1,000 mg, oral, Every 6 hours PRN, mild pain or score 1-3 of 10, moderate pain or score 4-6 of 10, severe pain or score 7-10 of 10, headaches, fever, Please notify primary service before giving for fever., Starting on Wed07/18/23 at 2200, Not to exceed 4 grams of acetaminophen in 24 hours all sources Given 07/19/2023 4:34 PM TANGLED YARN WORKER 1,000 mg Given 07/19/2023 3:07 AM TANGLED YARN WORKER 1,000 mg benzonatate capsule 100 mg (TESSALON PERLES) 100 mg, oral, 3 times daily PRN, cough, Starting on Wed07/18/23 at 2000, Swallow whole. Do NOT crush, chew or open capsule. Given 07/19/2023 4:34 PM TANGLED YARN WORKER 1 00 mg Given 07/19/2023 2:56 AM TANGLED YARN WORKER 100 mg Given 07/18/2023 8:25 PM TANGLED YARN WORKER 100 mg codeine-guaiFENesin liquid 10 mL (ROBITUSSIN-AC) 10 mL, oral, Every 4 hours PRN, for cough, Starting on Wed07/18/23 at 2053 Given 07/19/2023 4:34 PM TANGLED YARN WORKER 10 mL Given 07/19/2023 2:56 AM TANGLED YARN WORKER 10 mL Given 07/18/2023 11:33 PM TANGLED YARN WORKER 10 mL D5W infusion 10-250 mL/hr, intravenous, As needed, Medications Incompatible with 0.9% NaCL, Starting on Wed07/18/23 at 2205, Infuse at the same rate as the piggyback until tubing clears or up to a volume of 20 mL pre and post infusion for medications incompatible with 0.9% NaCL. Use 100 mL bag then discard. fluticasone propionate 110 mcg/actuation inhaler 2 puff (FLOVENT HFA) 2 puff, inhalation, 2 times daily (RT), First dose on Wed07/19/23 at 1900, Rinse mouth with water after use to reduce aftertaste and incidence of candidiasis. Do not swallow. Given 07/20/2023 6:00 AM TANGLED YARN WORKER 2 puffs Given 07/19/2023 9:26 PM TANGLED YARN WORKER 2 puffs hydrOXYzine tablet 25 mg (ATARAX) 25 mg, oral, Every 6 hours PRN, anxiety, Starting on Wed07/19/23 at 0404 Given 07/19/2023 5:56 AM TANGLED YARN WORKER 25 mg ipratropium 0.02 % nebulizer solution 500 mcg (ATROVENT) 500 mcg (0.5 mg), nebulization, Once, On Wed07/19/23 at 0400, For 1 dose Given 07/19/2023 5:57 AM TANGLED YARN WORKER 500 mcg ipratropium 0.02 % nebulizer solution 500 mcg (ATROVENT) 500 mcg (0.5 mg), nebulization, 4 times daily (RT), First dose on Wed07/19/23 at 0700 Given 07/20/2023 11:33 AM TANGLED YARN WORKER 500 mcg Given 07/20/2023 6:01 AM TANGLED YARN WORKER 500 mcg Given 07/19/2023 9:27 PM TANGLED YARN WORKER 500 mcg ipratropium-albuteroL 0.5-2.5 mg/3 mL nebulizer solution 3 mL (DUONEB) 3 mL, nebulization, Once, On Mcdonald 07/18/23 at 1615, For 1 dose Given 07/18/2023 4:19 PM TANGLED YARN WORKER 3 mL ipratropium-albuteroL 0.5-2.5 mg/3 mL nebulizer solution 3 mL (DUONEB) 3 mL, nebulization, Once, On Wed07/18/23 at 1806, For 1 dose Given 07/18/2023 6:09 PM TANGLED YARN WORKER 3 mL ipratropium-albuteroL 0.5-2.5 mg/3 mL nebulizer solution 3 mL (DUONEB) 3 mL, nebulization, 4 times daily, First dose on Wed07/18/23 at 2030 Given 07/18/2023 8:55 PM TANGLED YARN WORKER 3 mL ipratropium-albuteroL 0.5-2.5 mg/3 mL nebulizer solution 3 mL (DUONEB) 3 mL, nebulization, 4 times daily PRN, wheezing, shortness of breath, Starting on Wed07/18/23 at 2000 Given 07/18/2023 11:33 PM TANGLED YARN WORKER 3 mL Lactated Ringer's bolus 1,000 mL 1,000 mL, intravenous, at 500 mL/hr, Administer over 2 Hours, Once, On Wed07/19/23 at 0400, For 1 dose New Bag 07/19/2023 3:58 AM TANGLED YARN WORKER 1,000 mL 500 mL/hr melatonin tablet 3 mg 3 mg, oral, Daily at bedtime, First dose (after last modification) on 07/18/23 at 2215 Given 07/19/2023 9:25 PM TANGLED YARN WORKER 3 mg Given 07/18/2023 11:33 PM TANGLED YARN WORKER 3 mg NaCl 0.9% infusion 10-250 mL/hr, intravenous, As needed, Between Consecutive Piggyback Medications, Starting on Wed07/18/23 at 2205, Infuse at the same rate as the piggyback until tubing clears or up to a volume of 20 mL. Select for IV medication administration when no maintenance IV available or when IV medications are not compatible with maintenance fluid. NaCl 0.9% infusion 10-250 mL/hr, intravenous, As needed, Post Medications (Hazardous/Low Fluid Volume), Starting on Wed07/18/23 at 2205, Infuse at the same rate as the medication until tubing cleared of medication, then discard. pantoprazole DR tablet 40 mg (PROTONIX) 40 mg, oral, Daily before breakfast, First dose on Wed07/20/23 at 0700, Swallow whole. Do NOT crush, chew, or split tablet. Given 07/20/2023 6:00 AM TANGLED YARN WORKER 40 mg predniSONE tablet 10 mg (DELTASONE) 10 mg, oral, Daily, First dose on Wed07/29/23 at 0900, For 3 days predniSONE tablet 20 mg (DELTASONE) 20 mg, oral, Daily, First dose on Wed07/26/23 at 0900, For 3 days predniSONE tablet 30 mg (DELTASONE) 30 mg, oral, Daily, First dose on Wed07/23/23 at 0900, For 3 days predniSONE tablet 40 mg (DELTASONE) 40 mg, oral, Daily, First dose on Wed07/20/23 at 0900, For 3 days Given 07/20/2023 9:51 AM TANGLED YARN WORKER 40 mg sodium chloride 0.9 % injection 10 mL 10 mL, intravenous, As needed, line care, Peripheral Intravenous Catheter and Rapid Infusion Catheter, Starting on Wed07/18/23 at 2205, Prior to blood sampling, post blood transfusion or post blood sampling. sodium chloride 0.9 % injection 3 mL 3 mL, intravenous, As needed, line care, Peripheral Intravenous Catheter and Rapid Infusion Catheter, Starting on Wed07/18/23 at 2205, Prior to and following infusion and between multiple consecutive infusions. sodium chloride 0.9 % injection 3 mL 3 mL, intravenous, Every 12 hours scheduled, First dose on Wed07/19/23 at 0900, Peripheral Intravenous Catheter and Rapid Infusion Catheter: When no infusion to maintain patency. Given 07/20/2023 9:52 AM TANGLED YARN WORKER 3 mL Given 07/19/2023 9:27 PM TANGLED YARN WORKER 3 mL Given 07/19/2023 9:35 AM TANGLED YARN WORKER 3 mL sodium chloride 3 % nebulizer solution 4 mL (NEBUSAL) 4 mL, nebulization, 4 times daily, First dose on Wed07/19/23 at 0000 Given 07/18/2023 11:51 PM TANGLED YARN WORKER 4 mL sodium chloride 3 % nebulizer solution 4 mL (NEBUSAL) 4 mL, nebulization, As needed, cough, Starting on Wed07/19/23 at 0015 Given 07/19/2023 3:34 AM TANGLED YARN WORKER 4 mL sodium chloride 3 % nebulizer solution 4 mL (NEBUSAL) 4 mL, nebulization, 4 times daily, First dose on Wed07/19/23 at 0800 Given 07/20/2023 11:48 AM TANGLED YARN WORKER 4 mL Given 07/20/2023 9:52 AM TANGLED YARN WORKER 4 mL Given 07/19/2023 9:27 PM TANGLED YARN WORKER 4 mL documented in this encounter Active and Recently Administered Medications Times are shown in TANGLED YARN WORKER. Scheduled Medication Order 07/18/2023 07/19/2023 07/20/2023 acetaminophen tablet 1,000 mg (TYLENOL) (CANCELED) 1,000 mg, oral, 4 times daily, First dose on Wed07/18/23 at 2100, Not to exceed 4 grams of acetaminophen in 24 hours all sources 2024 (Given - Provider: Iesha Acosta R.N.) fluticasone propionate 110 mcg/actuation inhaler 2 puff (FLOVENT HFA) 2 puff, inhalation, 2 times daily (RT), First dose on Wed07/19/23 at 1900, Rinse mouth with water after use to reduce aftertaste and incidence of candidiasis. Do not swallow. 2125 (Given - Provider: Mary Chang R.N.) 0600 (Given - Provider: Mary Chang R.N.) ipratropium 0.02 % nebulizer solution 500 mcg (ATROVENT) (COMPLETED) 500 mcg (0.5 mg), nebulization, Once, On Wed07/19/23 at 0400, For 1 dose 0557 (Given - Provider: Ban Morel R.N.) ipratropium 0.02 % nebulizer solution 500 mcg (ATROVENT) 500 mcg (0.5 mg), nebulization, 4 times daily (RT), First dose on Wed07/19/23 at 0700 0935 (Given - Provider: Freya Keys R.N.)1216 (Given - Provider: Freya Keys R.N.)1634 (Given - Provider: Shaun Mcintyre.N.)2127 (Given - Provider: Mary Chang R.N.) 0601 (Given - Provider: Mary Chang R.N.)1133 (Given - Provider: Rahel Lundberg, R.N.) ipratropium-albuteroL 0.5-2.5 mg/3 mL nebulizer solution 3 mL (DUONEB) (COMPLETED) 3 mL, nebulization, Once, On 07/18/23 at 1615, For 1 dose 1619 (Given - Provider: Craig Jay, L.R.T., [employer]) ipratropium-albuteroL 0.5-2.5 mg/3 mL nebulizer solution 3 mL (DUONEB) (COMPLETED) 3 mL, nebulization, Once, On Wed07/18/23 at 1806, For 1 dose 1809 (Given - Provider: Raman Crowe, R.R.T., L.R.T.) ipratropium-albuteroL 0.5-2.5 mg/3 mL nebulizer solution 3 mL (DUONEB) (CANCELED) 3 mL, nebulization, 4 times daily, First dose on Wed07/18/23 at 2030 2055 (Given - Provider: Iesha Acosta R.Kavon.) Lactated Ringer's bolus 1,000 mL (COMPLETED) 1,000 mL, intravenous, at 500 mL/hr, Administer over 2 Hours, Once, On Wed07/19/23 at 0400, For 1 dose 0358 (New Bag - Provider: Ban Morel R.N.)0741 (Stopped - Provider: Freya Keys R.N.) melatonin tablet 3 mg 3 mg, oral, Daily at bedtime, First dose (after last modification) on Wed07/18/23 at 2215 2333 (Given - Provider: Ban Morel R.N.) 2124 (Given - Provider: Mary Chang R.N.) pantoprazole DR tablet 40 mg (PROTONIX) 40 mg, oral, Daily before breakfast, First dose on Wed07/20/23 at 0700, Swallow whole. Do NOT crush, chew, or split tablet. 0600 (Given - Provider: Mary Chang R.N.) predniSONE tablet 10 mg (DELTASONE)(Linked Group 1) 10 mg, oral, Daily, First dose on Marilu 07/29/23 at 0900, For 3 days predniSONE tablet 20 mg (DELTASONE)(Linked Group 1) 20 mg, oral, Daily, First dose on Wed07/26/23 at 0900, For 3 days predniSONE tablet 30 mg (DELTASONE)(Linked Group 1) 30 mg, oral, Daily, First dose on Wed07/23/23 at 0900, For 3 days predniSONE tablet 40 mg (DELTASONE)(Linked Group 1) 40 mg, oral, Daily, First dose on Wed07/20/23 at 0900, For 3 days 0951 (Given - Provider: Lizeth LundbergS.NTammy, R.N.) sodium chloride 0.9 % injection 3 mL 3 mL, intravenous, Every 12 hours scheduled, First dose on Wed07/19/23 at 0900, Peripheral Intravenous Catheter and Rapid Infusion Catheter: When no infusion to maintain patency. 0935 (Given - Provider: Freya Keys R.N.)2126 (Given - Provider: Mary Chang R.N.) 951 (Given - Provider: Ham Giron M.S.NTammy, R.N.) sodium chloride 3 % nebulizer solution 4 mL (NEBUSAL) (CANCELED) 4 mL, nebulization, 4 times daily, First dose on Wed07/19/23 at 0000 2351 (Given - Provider: Ban Morel RTammyN.) sodium chloride 3 % nebulizer solution 4 mL (NEBUSAL) 4 mL, nebulization, Once, On Wed07/19/23 at 0400, For 1 dose 0341 (Not Given - Provider: Ban Morel R.N. - Reason: Other) sodium chloride 3 % nebulizer solution 4 mL (NEBUSAL) 4 mL, nebulization, 4 times daily, First dose on Wed07/19/23 at 0800 0935 (Given - Provider: Freya Keys R.N.)1215 (Given - Provider: Freya Keys R.N.)1634 (Given - Provider: Freya Keys R.N.)2127 (Given - Provider: Anna AnguianoNTammy) 0952 (Given - Provider: Bridget Lundberg.S.NTammy, R.N.)1148 (Given - Provider: Bridget Lundberg.S.NTammy, R.N.) PRN Medication Order 07/18/2023 07/19/2023 07/20/2023 acetaminophen tablet 1,000 mg (TYLENOL) 1,000 mg, oral, Every 6 hours PRN, mild pain or score 1-3 of 10, moderate pain or score 4-6 of 10, severe pain or score 7-10 of 10, headaches, fever, Please notify primary service before giving for fever., Starting on Wed07/18/23 at 2200, Not to exceed 4 grams of acetaminophen in 24 hours all sources 0307 (Given - Provider: Ban Morel R.N.)1634 (Given - Provider: Freya Keys R.N.) benzonatate capsule 100 mg (TESSALON PERLES) 100 mg, oral, 3 times daily PRN, cough, Starting on Wed07/18/23 at 2000, Swallow whole. Do NOT crush, chew or open capsule. 2024 (Given - Provider: Iesha Acosta R.N.) 0256 (Given - Provider: Ban Mroel R.N.)1634 (Given - Provider: Freya Keys R.N.) codeine-guaiFENesin liquid 10 mL (ROBITUSSIN-AC) 10 mL, oral, Every 4 hours PRN, for cough, Starting on Wed07/18/23 at 2053 2333 (Given - Provider: Ban Morel R.N.) 0256 (Given - Provider: Ban Morel R.N.)1634 (Given - Provider: Freya Keys R.N.) D5W infusion 10-250 mL/hr, intravenous, As needed, Medications Incompatible with 0.9% NaCL, Starting on Wed07/18/23 at 2205, Infuse at the same rate as the piggyback until tubing clears or up to a volume of 20 mL pre and post infusion for medications incompatible with 0.9% NaCL. Use 100 mL bag then discard. hydrOXYzine tablet 25 mg (ATARAX) 25 mg, oral, Every 6 hours PRN, anxiety, Starting on Wed07/19/23 at 0404 0556 (Given - Provider: Ban Morel R.N.) ipratropium-albuteroL 0.5-2.5 mg/3 mL nebulizer solution 3 mL (DUONEB) (CANCELED) 3 mL, nebulization, 4 times daily PRN, wheezing, shortness of breath, Starting on Wed07/18/23 at 2000 2333 (Given - Provider: Ban Morel R.N.) NaCl 0.9% infusion 10-250 mL/hr, intravenous, As needed, Between Consecutive Piggyback Medications, Starting on Wed07/18/23 at 2205, Infuse at the same rate as the piggyback until tubing clears or up to a volume of 20 mL. Select for IV medication administration when no maintenance IV available or when IV medications are not compatible with maintenance fluid. NaCl 0.9% infusion 10-250 mL/hr, intravenous, As needed, Post Medications (Hazardous/Low Fluid Volume), Starting on Wed07/18/23 at 2205, Infuse at the same rate as the medication until tubing cleared of medication, then discard. ondansetron ODT disintegrating tablet 4 mg (ZOFRAN-ODT) 4 mg, oral, Every 6 hours PRN, nausea, vomiting, Starting on Wed07/18/23 at 2000, When splitting ODT at bedside, handle with gloves and a pill splitter to prevent moisture contact. sennosides-docusate sodium 8.6-50 mg per tablet 1 tablet (SENOKOT-S) 1 tablet, oral, 2 times daily PRN, constipation, Starting on 07/18/23 at 2000, Do not give if patient has diarrhea. sodium chloride 0.9 % injection 10 mL 10 mL, intravenous, As needed, line care, Peripheral Intravenous Catheter and Rapid Infusion Catheter, Starting on 07/18/23 at 2205, Prior to blood sampling, post blood transfusion or post blood sampling. sodium chloride 0.9 % injection 3 mL 3 mL, intravenous, As needed, line care, Peripheral Intravenous Catheter and Rapid Infusion Catheter, Starting on 07/18/23 at 2205, Prior to and following infusion and between multiple consecutive infusions. sodium chloride 3 % nebulizer solution 4 mL (NEBUSAL) (CANCELED) 4 mL, nebulization, As needed, cough, Starting on Wed07/19/23 at 0015 0334 (Given - Provider: Ban Morel R.N.) Linked Groups Order Group 1: predniSONE tablet 40 mg (DELTASONE)Jump to med 40 mg, oral, Daily, First dose on Wed07/20/23 at 0900, For 3 days Followed by predniSONE tablet 30 mg (DELTASONE)Jump to med 30 mg, oral, Daily, First dose on Wed07/23/23 at 0900, For 3 days Followed by predniSONE tablet 20 mg (DELTASONE)Jump to med 20 mg, oral, Daily, First dose on Wed07/26/23 at 0900, For 3 days Followed by predniSONE tablet 10 mg (DELTASONE)Jump to med 10 mg, oral, Daily, First dose on Wed07/29/23 at 0900, For 3 days documented in this encounter Additional Health Concerns Infection Onset Date Last Indicated Resolved Time COVID19 Pending 07/18/2023 07/18/2023 07/18/2023 9 :55 PM [employer] documented as of this encounter Care Teams Clinical Genetics Laboratory Chief Relationship Specialty Start Date End Date Elsewhere, Pcp PCP - General Internal Medicine 07/18/23 documented as of this encounter
--- OUTSIDE RECORDS SUMMARY | 2023-09-20 18:43 | XMS_ITS | Encounter Summary ---
Author Name Unknown Organization [facility] Address [address] [place] [address] Care Team Providers Care Tube Roller Name Role Phone Elsewhere, Pcp Primary Care Provider Unavailabl e Encounter Details Date Type Department Care Team (Late st Contact Info) Description 08/31/2023 1:30 PM CDT Diagnostic Division of Pulmonary Medicine in [place], [place] [address] [place] [address] Katherin Hunt M.D. [address] [place] [address] Cough Subacute Social History Tobacco Use Types Packs/Day Years Used Date Smoking Tobacco: Former Cigarettes Alcohol Use Standard Drinks/Week Comments Yes 0 (1 standard drink = 0.6 oz pur e alcohol) 2 beers a week [facility] Utilities Answer Date Recorded In the past 12 months has [facility] [email or web address], gas, oil, or water [employer] threatened to shut off services in your [...] your living situation today? [facility] 08/24/2023 Sex [...] CDT Diagnostic Division of Pulmonary Medicine in [place], [place] [address] [place] [address] José Luis Lopez M.D. [address] [place] [phone] 11/01/2023 1:00 PM CDT Office Visit Division of Pulmonary Medicine in [place], [place] [address] [place] [phone] Zayra Thmoas M.B.B.S., M.P.H. [address] [place] [phone] 11/11/2023 3:15 PM CDT Office Visit Department of Otorhinolaryngology in [place], [place] [address] [place] [phone] Steven Fernandez M.D. [address] [place] [phone] documented as of this encounter Procedures Procedure Name Priority Date/Time Associated Diagnosis Comments EXHALED NITRIC OXIDE Routine 08/31/2023 11:59 AM CDT Cough Subacute documented in this encounter Results * PUL Exhaled Nitric Oxide (08/31/2023 11:59 AM CDT) Exhaled NO Oral 30 ONBASE Parts per billion (ULN) 39 ONBASE ENOComment Patient takes Arnuity Ellipta, Prednisone, and Albuterol. ONBASE Katherin Hunt M.D. PFT ORDERABLES ONBASE NA documented in this encounter Visit Diagnoses Diagnosis Cough Subacute documented in this encounter Care Teams Tube Roller Relationship Specialty Start Date End Date Elsewhere, Pcp PCP - General Internal Medicine 07/18/23 documented as of this encounter
--- OUTSIDE RECORDS SUMMARY | 2023-09-20 18:43 | XMS_ITS | Encounter Summary ---
Author Name Unknown Organization [facility] Address [address] [place] [address] Care Team Providers Care Linen Controller Name Role Phone Elsewhere, Pcp Primary Care Provider Unavailabl e Reason for Referral * MRI/CAT/PET Scan (Routine) - Pending Review Specialty Diagnoses / Procedures Referred By Contac t Referred To Contact Radiology Diagnoses Dyspnea Nodules Pulmonary Multiple Bronchitis Chronic (HCC) Procedures CT Chest without IV Contrast Ricky Leiva M.D. [address] [place] [address] [facility] Referral ID Status Reason Start Date Expiration Date V isits Requested Visits Authorized [id number] Pending Review 08/31/2023 08/30/2024 1 1 * Outpatient (Routine) - Authorized Specialty Diagnoses / Procedures Referred By Contac t Referred To Contact Pulmonary Medicine Diagnoses Dyspnea Bronchitis Chronic (HCC) Ricky Leiva M.D. [address] [place] [phone] [facility] Referral ID Status Reason Start Date Expiration Date V isits Requested Visits Authorized [id number] Authorized 08/31/2023 03/01/2025 1 1 * Specialty Diagnoses / Procedures Referred By Contac t Referred To Contact Ricky Leiva M.D. [address] [place] [address] [facility] Referral ID Status Reason Start Date Expiration Date Visits Re quested Visits Authorized Reason for Visit * Outpatient (Routine) - Closed Specialty Diagnoses / Procedures Referred By Jarvis t Referred To Contact Pulmonary Medicine Diagnoses Cough Subacute Katherin Hunt M.D. [address] [place] [address] [facility] Referral ID Status Reason Start Date Expiration Date Visits Re quested Visits Authorized [id number] Closed 08/17/2023 02/15/2025 1 1 Encounter Details Date Type Department Care Team (Latest Contact Info) Description 08/31/2023 3:00 PM CDT Comprehensive Visit Division of Pulmonary Medicine in [place], [place] [address] [place] [phone] Ricky Leiva M.D. [address] [place] [address] Dyspnea (Primary Dx); Nodules Pulmonary Multiple; Bronchitis Chronic (HCC); Cough Subacute Social History Tobacco Use Types Packs/Day Years Used Date Smoking Tobacco: Former Cigarettes Alcohol Use Standard Drinks/Week Comments Yes 0 (1 standard drink = 0.6 oz pur e alcohol) 2 beers a week [facility] Utilities Answer Date Recorded In the past 12 months has [employer] gas, oil, or water [employer] threatened to shut off services in your [...] Employed but not working due t [employer] 08/24/2023 Housing Stability Answer Date Recorded What is your living situation today? [facility] to live 08/24/2023 Sex and Gender Information Value Date Recorded Sex Assigned at Male 08/24/2023 2:34 PM CDT Gender Identity Male 08/24/2023 2:34 PM CDT Sexual Orientation Straight 08/24/2023 2: 34 PM CDT documented as of this encounter Last Filed Vital Signs Vital Sign Reading Time Taken Comments Blood Pressure 124/71 08/31/2023 2:46 PM CDT Pulse 70 08/31/2023 2:46 PM CDT Temperature 33.6 ??C (92.5 ??F) 08/31/2023 2:46 PM CD T Respiratory Rate - - Oxygen Saturation 95% 08/31/2023 2:46 PM CDT Inhaled Oxygen Concentration - - Weight 126 kg (278 lb) 08/31/2023 2:46 PM CDT Height 196.1 cm (6' 5.21) 08/31/2023 2:46 PM CD T Body Mass Index 32.79 08/31/2023 2:46 PM CDT documented in this encounter Consult Notes * Ricky Leiva M.D. - 08/31/2023 3:00 PM CDT CHIEF COMPLAINT Inpatient follow up for Chronic Bronchitis HISTORY OF PRESENT ILLNESS Mr. Austin Rodriguez is a 58 y.o. male with a past medical history significant for recurrent PNA since 2 years who was seen today for inpatient follow up for his recent hospitalization. His cough started around 2022. In April it initially got better with a course of Z-Ajay and Mucinex however in May it came back and progressively got worse since mid June. Since the initial symptom onset he went to urgent care/emergency department 6 times. The cough comes in episodes with the phlegm he feels like he is choking. He describes from as a jelly consistency clear, yellow, greenish in color. Denies any hemoptysis. [place] a farm for 22 years now no animals. 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 Denies any chemical exposure. However recently he placed mice straps 21-22 of themaround the house and has been reporting smelling mice urine. No new animals. He has dogs and 1 cat. He has travel history: June 10 he went to [facility] (without hiking or desert experience) and July 07 he went on a cruise ship for 5 days returned on . One of the stops was [place]. However, patient's reported that they never left the cruise ship to explore the land. Denies any sick contacts. At the time, he was still struggling with coughing spells. He appreciates 15 lb weight loss in last3 months partially was intentional but at the same time he did not really have the appetite. He sleeps in the reclined position because when he lays down he starts coughing. Otherwise he does not wake up in the middle of the night to catch his breath or with cough. Denies any sinus issues. He was recently on oral steroid with 40 mg prednisone for 5 days last dose was Wednesday. Denies obstructive sleep apnea diagnosis. Patient's reported that he does not snore much. He does not have any knownallergies. No family history of lung diseases. No personal history of childhood asthma. Quit smoking 25 years (in 1997, 1 pack a day for 8 years). Today, he denies any fever, chills, chest pain, or SOB but endorses night sweat and weight loss.He was previously put on Ellipta for cough but no improvement. Since the last hospitalization at [place], he was again hospitalized last week in [place] for PNA. During the hospitalization, he felt much better with Nebulizer which helped him to cough up the phlegm. However, he is currently not using the nebulizer though currently using flutter valve. He was recently treated with Doxycycline with steroids but did not notice much improvement. His first cousin due to CVID complication. However, the patient denies any childhood hxof recurrent infections. CT chest on admission showed bronchial inflammation with bronchial wall thickening and mucus plugging. There was also solid pulmonary nodules throughout both lungs measuring up to 6 mm. The radiologist recommended repeat CT chest in 3-6 months based guidelines. PFT showed borderline obstruction with no significant BD response and normal Exhaled NO (however, it is in the setting of current steroid use) CURRENT MEDICATIONS Active Home Medications Medication Sig Taking acetaminophen (TYLENOL) 500 mg tablet Take 1,000 mg by mouth every 6 (six) hours as needed for pain(for headaches, alternates with Ibuprofen PRN). albuterol 90 mcg/actuation inhaler Inhale 2 puffs every 4 (four) hours as needed. benzonatate (TESSALON PERLES) 100 mg capsule Take 1 capsule (100 mg total) by mouth 3 (three) timesa day as needed for cough. fluticasone furoate (Arnuity Ellipta) 100 mcg/actuation diskus inhaler Inhale 1 puff 2 (two) times a day. ibuprofen (ADVIL,MOTRIN) 200 mg tablet Take 400 mg by mouth every 6 (six) hours as needed for pain (for headache, alternates with Acetaminophen PRN). predniSONE (DELTASONE) 20 mg tablet TAKE 2 TABLETS BY MOUTH DAILY WITH MEAL sildenafiL (VIAGRA) 100 mg tablet Take 100 mg by mouth daily as needed for erectile dysfunction (TAKE 30 MIN TO 4 HOURS BEFORE ACTIVITY). ALLERGIES/ADVERSE REACTIONS Allergies as of 08/31/2023 (No Known Allergies) SYSTEMS REVIEW Pertinent items are noted in HPI; all other review of systems was negative. PAST MEDICAL/SURGICAL HISTORY No past medical history on file. No past surgical history on file. SOCIAL HISTORY Social History Socioeconomic History Marital status: Tobacco Use Smoking status: Former Types: Cigarettes Vaping Use Vaping Use: never used Substance and Sexual Activity Alcohol use: Yes Comment: 2 beers a week Drug use: Never Sexual activity: Defer Social Determinants of Health Food Insecurity: No Food Insecurity (08/24/2023) Hunger Vital Sign Worried About Running Out of Food in the Last Year: Never true Ran Out of Food in the Last Year: Never true Transportation Needs: No Transportation Needs (08/24/2023) PRAPARE - Transportation Lack of Transportation (Medical): No Lack of Transportation (Non-Medical): No Physical Activity: Insufficiently Active (08/24/2023) Exercise Vital Sign Days of Exercise per Week: 1 day Minutes of Exercise per Session: 60 min Intimate Partner Violence: Not At Risk (07/18/2023) Humiliation, Afraid, Rape, and Kick questionnaire Fear of Current or Ex-Partner: No Emotionally Abused: No Physically Abused: No Sexually Abused: No Housing Stability: Low Risk (08/24/2023) Housing Stability Housing: Living Situation: I have a steady place to live FAMILY HISTORY No family history on file. VITAL SIGNS There were no vitals filed for this visit. PHYSICAL EXAMINATION General: Well-appearing gentleman not in distress. LABS No results for input(s): NA, K, CL, BICARB, MG, CALCIUM, BUN, CREATININE, GLUCOSE, LABGLUC, ALBUMIN, PREALBUMIN, HGB, HCT, WBC, PLT, INR, PT, APTT, VUC0AZG, PHART, PO2ART in the last 24 hours. No lab exists for component: [id number] IMPRESSION/REPORT/PLAN Mr. Austin Rodriguez is a 58 y.o. male with a past medical history significant for recurrent PNA since 2 years ago who was seen today for chronic productive cough and recurrent bronchitis. From the history and image findings, the biggest suspicion for his chronic bronchitis seems relatedto early bronchiectasis. He does have thickened airway which makes us worry about superimposed asthma. However, he has normal FENO and no significant BD response on PFT. CT does show mucus plugging. For now, we plan to focus on pulmonary hygiene and initiate the work up for bronchiectasis before considering Bronchoscopy or Sputum Culture (sputum culture was sent previously for Mycobacterium and it was negative). Although malignancy was considered as a possibility, the lung nodules have stayed in similar size but rather hilar lymph nodes have increased in size, which makes this diagnosis lesslikely (most likely infection in etiology) # Intermittent hypoxia, mainly associated with the cough spells # Diffuse bronchial wall thickening and mucus plugging with normal lung parenchyma # Chronic productive cough # Peripheral eosinophilia # Multiple solid pulmonary nodules less than 6 mm, 3-6 month follow-up CT needed # History of smoking - Pulmonary Hygiene with nurse visit for education. For now, BID - Start Bronchiectasis workup. Holding off from further infectious workup since he had previous culture result and did not appear like he was actively ill from infection yet. Also even if we find NTMin this setting, we still focus on pulmonary hygiene before we initiate treatment anyway - RTC in [address] for lung nodule follow up and mucus plugging status. - Consider IgE once the patient is taken off from steroids and all work up come back negative - Case discussed with Dr. Ham Leiva MD Department of Pulmonary and Critical Care Fellow, PGY-4 ADDENDUM 09/03/2023 10:41 PM - saw the patient in the ED after I referred him due to persistent Hypoxemia. In the room, he was having expiratory wheezing. Also, His baseline saturation was 90% - 89% breathing comfortably. He responded (symptomatically and number-mccauley) well to DuoNeb given earlier in the ED. - After long discussion, I recommended 5-day course of Levaquin due to GGO in dependent lung bases because my thought was that the mucus plugging he was having had bacterial colonization that got agitated with recent Pulmonary Hygiene. He previously did not respond well to Prednisone (he had 3 rounds) and for developing bronchiectasis, the use of steroids has limited values. Therefore I recommended against prednisone. - I sent DuoNeb solution to his home pharmacy, so we can switch Albuterol neb to DuoNeb. Also, I recommended that it is okay to use DuoNeb as PRN at home (he is staying at home tomorrow and Wednesday) when he is wheezing. - He is responding well to pulm hygiene. However, if he remains status-quo clinically, then we willpotentially consider Bronch and BAL for mucus plugging and infection work-up to help facilitate pulm hygiene process. Ricky Leiva MD Department of Pulmonary and Critical Care Fellow, PGY-4 documented in this encounter Plan of Treatment Upcoming Encounters Date Type Department Care Team (Late st Contact Info) Description 10/28/2023 12:30 PM CDT Diagnostic Division of Pulmonary Medicine in [place], [place] [address] [place] [phone] José Luis Lopez M.D. [address] [place] [phone] 11/01/2023 1:00 PM CDT Office Visit Division of Pulmonary Medicine in [place], [place] [address] [place] [phone] Zayra Thomas M.B.B.S., M.P.H. [address] [place] [phone] 11/11/2023 3:15 PM CDT Office Visit Department of Otorhinolaryngology in [place], [place] [address] [place] [phone] Steven Fernandez M.D. [address] [place] [phone] Scheduled Orders Name Type Priority Associated Diagnoses Orde r Schedule CT Chest without IV Contrast Imaging RAD - Routine (most inpatients and all outpatients) Dyspnea Nodules Pulmonary Multiple Bronchitis Chronic (HCC) Expected: 01/10/2024, Expires: 11/29/2024 Scheduled Referrals Name Type Priority Associated Diagnoses Orde r Schedule Pulmonary - Mucous clearing education (clinic) Outpatient Referral Routine Bronchitis Chronic (HCC) Expected: 08/31/2023, Expires: 11/29/2024 Pulmonary Medicine office visit (clinic) Outpatient Referral Routine Dyspnea Bronchitis Chronic (HCC) Expected: 01/10/2024, Expires: 11/29/2024 documented as of this encounter Results * Acaur-3-Axidvkkcqmj Proteotype S/Z by LC-MS/MS (08/31/2023 4:29 PM CDT) Pathologist [facility] Fumeq-1-Githkggnva n, S 130 100 - 190 mg/dL 09/01/2023 9:05 AM CDT [facility] Comment: ----ADDITIONAL INFORMATION---- Method: Nephelometry Interpretation S Mutation: Negative Z Mutation: Negative Results most consistent with MM phenotype. 09/03/2023 10:10 AM CDT [facility] Comment: ----ADDITIONAL INFORMATION---- This test was developed and its performance characteristics determined by [facility] in a manner consistent with CLIA requirements. This test has not been cleared or approved by the U.S. Food and Drug Administration. Blood (Blood, Venous) 08/31/2023 4:29 PM CDT 09/01/2023 6:13 AM CDT Ricky Leiva M.D. LAB BLOOD NON ADD-ON Performing Organization Address City/State/[facility] Co de Phone Number [facility] [address] [place] [address] [facility] [address] [place] [address] [place] [facility] [place] [address] * (ABNORMAL) IgG Subclasses (08/31/2023 4:29 PM CDT) Pathologist [facility] Total IgG 681(L) 767 - 1590 mg/dL 09/01/2023 8:47 AM CDT [facility] IgG 1 370 341 - 894 mg/dL 09/01/2023 8:47 AM CDT [facility] IgG 2 257 171 - 632 mg/dL 09/01/2023 8:47 AM CDT [facility] IgG 3 39.0 18.4 - 106.0 mg/dL 09/01/2023 8:47 AM CDT [facility] IgG 4 20.1 2.4 - 121.0 mg/dL 09/01/2023 8:47 AM CDT [facility] Blood (Blood, Venous) 08/31/2023 4:29 PM CDT 09/01/2023 6:20 AM CDT Ricky Leiva M.D. LAB BLOOD ADD-ON [facility] [address] [place] [address] [facility] [address] [place] [address] * (ABNORMAL) CBC with Differential, Blood (08/31/2023 [...] CDT Ricky Leiva M.D. LAB BLOOD ADD-ON [facility] [address] [place] [address], [facility] DTL [facility] [address] [place] [address] DHPM [facility] [address] [place] [address] * Interpretation of Outside CT Chest (08/30/2023 [...] with IV contrast enhancement of 08/24/2023 COMPARISON: ??[place] chest CT 07/18/2023 FINDINGS: ??Considering differences in [...] CHEST with IV contrast enhancement of08/24/2023 COMPARISON: [place] chest CT 07/18/2023 FINDINGS: Considering differences in [...] have features suggestive for intrapulmonarylymph nodes. Ricky NVOAK CT PROCEDURES documented in this encounter Visit Diagnoses Diagnosis Dyspnea Nodules Pulmonary Multiple Bronchitis Chronic (HCC) Dyspnea- Primary Nodules Pulmonary Multiple Bronchitis Chronic (HCC) Cough Subacute documented in this encounter Additional Health Concerns Infection Onset Date Last Indicated Resolved Time COVID19 Pending 09/03/2023 09/03/2023 09/03/2023 8 :49 PM CDT documented as of this encounter Care Teams Linen Controller Relationship Specialty Start Date End Date Elsewhere, Pcp PCP - General Internal Medicine 07/18/23 documented as of this encounter
--- OUTSIDE RECORDS SUMMARY | 2023-09-20 18:44 | XMS_ITS | Encounter Summary ---
Author Name Unknown Organization [facility] Address [address] [place] [address] Care Team Providers Care Assignment Manager Name Role Phone Elsewhere, Pcp Primary Care Provider Unavailabl e Encounter Details Date Type Department Care Team (Late st Contact Info) Description 07/19/2023 9:55 AM MEDICAL LAB TECH INSTRUCTOR Ancillary Procedure Department of Internal Medicine Social History Tobacco Use Types Packs/Day Years [...] your living situation today? I have a [facility] place to live 07/18/2023 Sex and [...] CDT Diagnostic Division of Pulmonary Medicine in [address] [phone] José Luis Lopez M.D. [address] [place] [phone] 11/01/2023 1:00 PM CDT Office Visit Division of Pulmonary Medicine in [place], [place] [address] [place] [phone] Zayra Thomas M.B.B.S., M.P.H. [address] [place] [phone] 11/11/2023 3:15 PM CDT Office Visit Department of Otorhinolaryngology in [place], [place] [address] [place] [phone] Steven Fernandez M.D. [address] [place] [phone] documented as of this encounter Procedures Procedure Name Priority Date/Time Associated Diagnosis Comments INTERNAL MEDICINE IMAGE EXAM Routine 07/19/2023 9:55 AM MEDICAL LAB TECH INSTRUCTOR documented in this encounter Results * Abdomen-Internal Medicine Image Exam (07/19/2023 9:55 AM MEDICAL LAB TECH INSTRUCTOR) 07/19/2023 9:53 AM MEDICAL LAB TECH INSTRUCTOR Narrative [facility] - 07/19/2023 9:55 AM MEDICAL LAB TECH INSTRUCTOR This order has been created and auto-finalized to support the import of images acquired without order. The clinical documentation to support these images can be found on the encounter that produced images. Provider Not In System IMG NON RAD IMAGI NG PROCEDURES [facility] NA documented in this encounter Visit Diagnoses Not on filedocumented in this encounter Care Teams Assignment Manager Relationship Specialty Start Date End Date Elsewhere, Pcp PCP - General Internal Medicine 07/18/23 documented as of this encounter
--- OUTSIDE RECORDS SUMMARY | 2023-09-20 18:44 | XMS_ITS | Clinical Summary ---
Author Name Unknown Organization [facility] Address [place], [place] [address] Care Team Providers Care Restorative Aide Name Role Phone Wilfrid Daly MD Primary Care Provider [phone] Allergies No known active allergies Medications Medication Sig Dispensed Refills Start Date End Date Status polyethylene glycol-electrolyte (GOLYTELY) 236-22.74-6.74 -5.86 gram suspensionIndications :Encounter for screening colonoscopy Drink 3 quarts the day before the procedure and 1 quart 6 hours prior to your procedure time. 4000 mL 07/26/2019 Active Active Problems Problem Noted Date Diagnosed Date Adenomatous colon polyp 08/02/2019 Overview: Colonoscopy 07/2019 polyps, repeat in 3 years Encounters Date Type Department Care Team Description 07/26/2023 Lab Requisition [facility] [phone] Kristi Mallory MD from Last 3 Months Social History Tobacco [...] Health Maintenance Due Date Last Done Comments Tdap 1974 Depression screening for age 12+ 1975 HIV for age 15-65 1978 BMI (ht and wt on same day) for age 18+ 1981 Hepatitis C screening for ag e 18-79 1981 Tetanus booster 1983 Lipids for age 45-75 2008 Zoster (shingles) series for age 50+ (1 of 2) 2013 COVID-19 vaccine series (2022- season) 2023 Influenza for age 50-64 01/23/2024 Colonoscopy through age 75 07/31/202907/31, 08/01/2019, 08/01/2019 Pneumococcal series for age 6-64 Aged Out No longer eligible b ased on patient's age to complete this topic Procedures Procedure Name Priority Date/Time Associated Diagnosis Comments LAB TRACKING EVENT Routine 07/26/2023 12 :15 PM MOBILE WEB APPLICATION DEVELOPER PATH TISSUE EXAM Routine 07/26/2023 12:1 5 PM MOBILE WEB APPLICATION DEVELOPER COLONOSCOPY 08/01/2019 10:38 AM CDT from Last 3 Months or Most Recently Relevant to Health Maintenance Results * LAB TRACKING EVENT (07/26/2023 12:15 PM MOBILE WEB APPLICATION DEVELOPER) Other (Other) Client Collect / Unknown 07/26/2023 12:15 PM MOBILE WEB APPLICATION DEVELOPER 07/26/2023 9:37 PM MOBILE WEB APPLICATION DEVELOPER Kristi Mallory MD LAB BILL ONLY [facility] [address] [place] [address], * PATH TISSUE EXAM (07/26/2023 12:15 PM MOBILE WEB APPLICATION DEVELOPER) Case Report Pathology Report ?Case: [id number] ? Authorizing Provider: ??Kristi Mallory MD ??Collected: ? 07/26/2023 1215 ? Ordering Location: ? [facility] ?Received: ?07/27/2023 0756 ? Pathologist: ? David Gómez MD ? Specimens: ?? A) - Hepatic Flexure Biopsy ? B) - Transverse Colon Biopsy ? C) - Rectal Biopsy ? 07/28/2023 11:52 [facility] Final Diagnosis A) COLON, HEPATIC FLEXURE, POLYPECTOMIES: 1. Tubular adenoma (1) and normal colonic mucosa (clinically, 2 polyps) 2. Negative for high grade dysplasia 3. Per the colonoscopy report: ?? a. Polyp sizes: 4 mm - 6 mm ?? b. Resection: Complete ?? c. Retrieval: Complete B) COLON, TRANSVERSE, POLYPECTOMY: 1. Tubular adenoma 2. Negative for high grade dysplasia 3. Per the colonoscopy report: ?? a. Polyp size: 5 mm ?? b. Resection: Complete ?? c. Retrieval: Complete C) RECTUM, POLYPECTOMY: 1. Tubular adenoma 2. Negative for high grade dysplasia 3. Per the colonoscopy report: ?? a. Polyp size: 6 mm ?? b. Resection: Complete ?? c. Retrieval: Complete 07/28/2023 11:52 AM MOBILE WEB APPLICATION DEVELOPER [facility] Clinical Information Surveillance colonoscopy 07/28/2023 11:52 AM MOBILE WEB APPLICATION DEVELOPER [facility] Gross Description A) Received in formalin are 9 arnett mucosal fragments ranging from 2 mm to 6 mm in greatest dimension, which are entirely submitted in one cassette. It is labeled with the patient's name and designated colon-hepatic flexure polyps. B) Received in formalin are 2 arnett mucosal fragments ranging from 3 mm to 16 mm in greatest dimension, which are entirely submitted in one cassette. It is labeled with the patient's name and designated colon-transver se polyp. C) Received in formalin is a arnett mucosal fragment measuring 3 mm in greatest dimension, which is entirely submitted in one cassette. It is labeled with the patient's name and designated colon-rectum polyp. Mary Christine 07/27/2023 1:09 PM 07/28/2023 11:52 AM MOBILE WEB APPLICATION DEVELOPER [facility] Microscopic Description The final diagnosis is based on microscopic examination of appropriate sections of all specimens. 07/28/2023 11:52 AM MOBILE WEB APPLICATION DEVELOPER [facility] Additional Information Interpreted at [facility], Central Laboratory - [address] [place] [address] [address] [address] 07/28/2023 11:52 AM MOBILE WEB APPLICATION DEVELOPER [facility] [employer] [facility]AL LAB[facility]ORY Other (Hepatic Flexure Biopsy) 07/26/2023 12:15 PM MOBILE WEB APPLICATION DEVELOPER 07/27/2023 7:56 AM MOBILE WEB APPLICATION DEVELOPER Specimen (specimen) (Transverse Colon Biopsy) 07/26/2023 12:15 PM MOBILE WEB APPLICATION DEVELOPER 07/27/2023 7:56 AM MOBILE WEB APPLICATION DEVELOPER Specimen (specimen) (Rectal Biopsy) 07/26/2023 12:15 PM MOBILE WEB APPLICATION DEVELOPER 07/27/2023 7:56 AM MOBILE WEB APPLICATION DEVELOPER Kristi Mallory MD PATHOLOGY/[facility] [address] [place] [address], * COLONOSCOPY (08/01/2019 10:38 AM CDT) 08/01/2019 10:3 8 AM CDT Narrative Transcriptions Dwayne Lanier MD - 08/01/2019 11:36 AM CDT Patient Name: Austin Rodriguez Procedure Date: 08/01/2019 Gender: Male Date of : 1965 Admit Type: Outpatient Procedure: Colonoscopy Proceduralist: Dwayne Lanier MD , Letty Palacios RN(Nurse) Indications/Pre-Op Diagnosis: Surveillance: Personal history ofadenomatous polyps on last colonoscopy 3 years ago, Last colonoscopy: June 2016 Medications: Fentanyl 100 micrograms IV, Midazolam 4 mgIV, The level of sedation administered wasmoderate Procedure Description: The patient had risks, benefits and alternatives explained to andgave informed consent. The patient had a stable cardiopulmonary status and judged an adequate candidate for conscious sedation. The [id number]-[id number] [id number] was passed through the anus and advanced tothe cecum, identified by appendiceal orifice and ileocecal valve. The colonoscopy was performed without difficulty. The patient toleratedthe procedure well. The quality of the bowel preparation was good. The ileocecal valve, appendiceal orifice, and rectum were photographed. Complications: No immediate complications. Estimated Blood Loss & Specimen: Estimated blood loss: none. Specimen collected - Yes and sent to Laboratory Findings: The perianal and digital rectal examinations were normal. A 2 mm polyp was found in the cecum. The polyp was sessile. The polyp was removed with a cold biopsy forceps. Resection and retrieval were complete. A 3 mm polyp was found in the transverse colon. The polyp wassessile. The polyp was removed with a cold biopsy forceps. Resection and retrieval were complete. A 4 mm polyp was found in the transverse colon. The polyp wassessile. The polyp was removed with a cold snare. Resection and retrieval were complete. The exam was otherwise without abnormality on direct and retroflexion views. Impressions/Post-Op Diagnosis: - One 2 mm polyp in the cecum, removed with a cold biopsy forceps. Resected and retrieved. - One 3 mm polyp in the transverse colon, removed with a cold biopsy forceps. Resected and retrieved. - One 4 mm polyp in the transverse colon, removed with a cold snare. Resected and retrieved. - The examination was otherwise normal on direct and retroflexionviews. Recommendation: - Patient has a contact number available for emergencies. The signsand symptoms of potential delayed complications were discussed with the patient. Return to normal activities tomorrow. Written discharge instructions were provided to the patient. - Resume previous diet. - Continue present medications. - Await pathology results. - Repeat colonoscopy is recommended. The colonoscopy date will be determined after pathology results from today's exam become available for review. Moderate Sedation: Moderate (conscious) sedation was administered by the endoscopy nurse and supervised by the endoscopist. The following parameters were monitored: oxygen saturation, heart rate, respiratory rate, blood pressure, adequacy of pulmonary ventilation and reponse to care. Please refer to the [facility]' medical record flowsheets and nursing notes for moderate sedation details. Total physician intraservice time was 19 minutes. Dwayne Lanier MD 08/01/2019 11:36:10 AM This report has been signed electronically. Note Initiated On: 08/01/2019 10:38 AM Procedure Code(s): --- Professional --- 83236, Colonoscopy, flexible; with removalof tumor(s), polyp(s), or other lesion(s) byjosselyn technique 08607, 59, Colonoscopy, flexible; withbiopsy, single or multiple Diagnosis Code(s): --- Professional --- Z86.010, Personal history of colonicpolyps D12.0, Benign neoplasm of cecum D12.3, Benign neoplasm of transverse colon (hepatic flexure or splenic flexure) CPT copyright 2018 [employer]. All rights reserved. The codes documented in this report are preliminary and upon supervisor boilermaking shop reviewmay be revised to meet current compliance requirements. Scope In: 11:16:06 AM Scope Withdrawal Time 0 hours 12 minutes 38 seconds Scope Out: 11:32:21 AM Dwayne Lanier MD PROCEDURE ORD from Last 3 Months or Most Recently Relevant to Health Maintenance Care Teams Restorative Aide Relationship Specialty Start Date End Date Wilfrid Daly MD [address] [place] [phone] PCP - General Family Practice 08/01/19
--- OUTSIDE RECORDS SUMMARY | 2023-09-20 18:44 | XMS_ITS | Encounter Summary ---
Author Name Unknown Organization [facility] Address [address] [place] [address] Care Team Providers Care Monitoring Specialist Name Role Phone Elsewhere, Pcp Primary Care Provider Unavailabl e Encounter Details Date Type Department Care Team (Late st Contact Info) Description 07/19/2023 10:00 AM MANAGEMENT LEAD Ancillary Procedure Department of Internal Medicine Social History Tobacco Use Types Packs/Day Years Used Date Smoking Tobacco: Former Cigarettes Alcohol Use Standard Drinks/Week Comments Yes 0 (1 standard drink = 0.6 oz pur e alcohol) 2 beers a week [facility] Utilities Answer Date Recorded In the [...] your living situation today? [facility] 07/18/2023 Sex and [...] CDT Diagnostic Division of Pulmonary Medicine in [address] [phone] José Luis Lopez M.D. [address] [place] [phone] 11/01/2023 1:00 PM CDT Office Visit Division of Pulmonary Medicine in [place], [place] [address] [place] [phone] Zayra Thomas M.B.B.S., M.P.H. [address] [place] [phone] 11/11/2023 3:15 PM CDT Office Visit Department of Otorhinolaryngology in [place], [place] [address] [place] [phone] Steven Fernandez M.D. [address] [place] [phone] documented as of this encounter Procedures Procedure Name Priority Date/Time Associated Diagnosis Comments INTERNAL MEDICINE IMAGE EXAM Routine 07/19/2023 9:55 AM MANAGEMENT LEAD documented in this encounter Results * Wrist-Internal Medicine Image Exam (07/19/2023 9:55 AM MANAGEMENT LEAD) 07/19/2023 9:53 AM MANAGEMENT LEAD Narrative [facility] - 07/19/2023 9:55 AM MANAGEMENT LEAD This order has been created and auto-finalized to support the import of images acquired without order. The clinical documentation to support these images can be found on the encounter that produced images. Provider Not In System IMG NON RAD IMAGI NG PROCEDURES [facility] NA documented in this encounter Visit Diagnoses Not on filedocumented in this encounter Care Teams Monitoring Specialist Relationship Specialty Start Date End Date Elsewhere, Pcp PCP - General Internal Medicine 07/18/23 documented as of this encounter
== END 2023-09-14 08:47 | disposition home or self-care (01) ==
LOC: AMB 09-20 18:37
PROVIDERS: PCP Family Medicine; Visit Provider Family Medicine
DX: R55 Syncope and collapse (principal); R06.09 Other forms of dyspnea
CPT/HCPCS: A0425; A0427